=== PATIENT | male | born 1945 | race Caucasian/White ===

== ENCOUNTER → 2017-03-03 | Outpatient (CLI) | payer BC ==
[~2017-03-03] MED LIST: CHOL20002 PO; EZET10TA47 PO; PANT40TA PO; RANI300C PO; TRC145 PO
[2017-03-03 14:45] LABS: ALT/SGPT 38 U/L (12-78); BLOOD UREA NITROGEN 12 mg/dl (7-18); BUN/CREATININE RATIO 10.9 (10-20); CARBON DIOXIDE 24 mmol/L (21-32); CHLORIDE 110 mmol/L (98-107); CHOLESTEROL 173 mg/dl (0-200); GLUCOSE 103 mg/dl (70-99); POTASSIUM 4.1 mmol/L (3.5-5.1); SODIUM 143 mmol/L (136-145); TRIGLYCERIDES 183 mg/dl (0-150); VERY LOW DENSITY LIPOPROT CALC 37 mg/dl
[2017-03-03 14:48] LABS: CHOLESTEROL/HDL RATIO 3.4; HDL CHOLESTEROL 51 mg/dl; LDL CHOLESTEROL CALCULATED 85 mg/dl
[2017-03-03 14:51] LABS: CALCIUM 9.2 mg/dl (8.5-10.1)
== END | disposition home or self-care (01) ==
LOC: C.LABBC 09:38
PROVIDERS: ATTEND Family Medicine
DX: E78.1 Pure hyperglyceridemia (principal); E78.00 Pure hypercholesterolemia, unspecified; R03.0 Elevated blood-pressure reading, without diagnosis of hypertension

== ENCOUNTER → 2017-10-07 | Outpatient (CLI) | payer BC | END | disposition home or self-care (01) | LOC: C.LABBC 08:02 | PROVIDERS: ATTEND Family Medicine | DX: E78.1 Pure hyperglyceridemia (principal); E78.00 Pure hypercholesterolemia, unspecified; Z12.5 Encounter for screening for malignant neoplasm of prostate ==

== ENCOUNTER → 2018-01-27 | Outpatient (CLI) | payer BC | END | disposition home or self-care (01) | LOC: C.PATHSPEC 17:55 | PROVIDERS: ATTEND Physician Assistant | DX: L57.0 Actinic keratosis (principal) ==

== ENCOUNTER 2021-11-27 01:57 | Observation (INO) ==
[2021-11-27] MEDS ORDERED: hydrALAZINE HCL 20 MG/ML VIAL IV STA (02:11)
[2021-11-27] MEDS ORDERED: SODIUM CHLORIDE 0.9% 500 ML IV SCH (02:15)
--- NOTE | 2021-11-27 02:16 | Emergency Department Note ---
History of Present Illness General Chief complaint: Illness Stated complaint: DIZZINESS - JUST OVERALL STRANGE FEELING Time Seen by Provider: 11/27/21 02:05 History of Present Illness 76-year-old male presents emergency department with a 1 week history of generalized weakness, dizziness, recent infection with reported pneumonia as he was at urgent care this week and was prescribed Z-Asad and amoxicillin. Patient states minor diarrhea after these medications. Patient has been complaining of some dizziness that is been intermittent in nature over the past week. His states that he has had decreased p.o. intake. Patient denies chest pain shortness of breath abdominal pain bloody stools. Patient denies headache slurred speech blurred vision. Patient does not have a history of hypertension. Home Medications Medication Instructions Recorded Confirmed Type multivitamin 1 tab PO DAILY 11/01/19 11/27/21 History omega-3 fatty acids 1,000 mg 1,000 mg PO BID 05/29/20 11/27/21 History capsule (Fish Oil Concentrate) atorvastatin 20 mg tablet 20 mg PO DAILY #30 tab 07/23/21 11/27/21 Rx omeprazole 40 mg capsule,delayed 40 mg PO DAILY #30 cap 11/12/21 11/27/21 Rx release cholecalciferol (vitamin D3) 50 50 mcg PO DAILY 11/27/21 11/27/21 History mcg (2,000 unit) tablet (Vitamin D3) Allergies Allergy/AdvReac Type Severity Reaction Status Date / Time No Known Drug Allergies Allergy Unknown GI SYMPTOMS Verified 08/28/21 10:00 Past Med/Surg History Medical History Acid reflux disease Essential hypertriglyceridemia Hypercholesterolemia Surgical History H/O tooth extraction S/P wisdom tooth extraction Family History Denies family history of Ovarian cancer Prostate cancer Myocardial infarction Breast cancer Colorectal cancer Social History Smoking Status: Never smoker Second Hand Exposure: No; Hx Alcohol Use: Yes Alcohol type: beer Alcohol Intake Frequency: 2-3 x/Week Hx Substance Use: No Preferred Language: Belarusian Communication Ability: Effective Visual Impairment: No Limitations Hearing Ability: Normal marital status: Current Living Situation: Spouse current occupational status: retired 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 Feels Safe at Home: Yes Childhood Exposure to Second-Hand Smoke: No Dental Care, Regularly: Yes Physical Activity Frequency: 3-4 Times per Week Seatbelt Use: always Sunscreen Use: Yes Review of Systems A total of 10 systems reviewed and were otherwise negative Constitutional: + fatigue Ear, Nose, Mouth, Throat: + dizziness; no tinnitus Respiratory: + cough; no dyspnea Cardiovascular: no chest pain Neurologic: + generalized weakness and + dizziness; no abnormal speech Physical Exam Vital Signs Vital Signs - 24 hr 11/27/21 02:01 11/27/21 02:18 11/27/21 03:18 Temperature 36.9 C Temperature Source Temporal Artery Scan Pulse Rate 123 H Pulse Rate [Right] 77 Respiratory Rate 16 18 Respiratory Effort / Characteristics Non-Labored Spontaneous Respiratory Depth Normal Blood Pressure 189/103 H Blood Pressure [Right Arm] 184/93 H Blood Pressure Mean 131 Blood Pressure Mean [Right Arm] 123 Blood Pressure Position [Right Arm] Sitting Pulse Oximetry 99 99 99 Oxygen Delivery Method Room Air Room Air Room Air Sepsis Recent Fever Within 48 Hours No Sepsis New/Unexplained Change in Mental Status N/A Sepsis Action Taken by Nursing No Action Required 11/27/21 03:58 11/27/21 04:46 Temperature Temperature Source Pulse Rate Pulse Rate [Right] 73 74 Respiratory Rate 16 16 Respiratory Effort / Characteristics Non-Labored Spontaneous Non-Labored Spontaneous Respiratory Depth Normal Normal Blood Pressure Blood Pressure [Right Arm] 182/91 H 178/90 H Blood Pressure Mean Blood Pressure Mean [Right Arm] 121 119 Blood Pressure Position [Right Arm] Sitting Pulse Oximetry 98 98 Oxygen Delivery Method Room Air Room Air Sepsis Recent Fever Within 48 Hours Sepsis New/Unexplained Change in Mental Status Sepsis Action Taken by Nursing VITAL SIGNS - Vital signs and nursing notes were reviewed. GENERAL - []-year-old [] appearing [] stated age who is in no acute distress. Communicates well with provider and answers questions appropriately. SKIN - Without rashes. HEAD - NC/AT. EYES - PERRL with EOMI bilaterally. Sclera anicteric. Palpebral conjunctiva pink and moist with no injection noted. EARS - No deformities of external structures noted on gross examination bilaterally. No pain elicited with palpation of the tragus bilaterally. External auditory canals without discharge or otorrhea. Tympanic membranes pearly cruz without retraction or bulging. No fluid or purulent material visualized behind the TM. Handle of malleus, umbo, cone of light, pars tensa/flaccid all easily visualized. NOSE - Midline and without cyanosis. No epistaxis or purulent drainage noted. Septum midline without deviation or septal hematoma noted. MOUTH/OROPHARYNX - Without perioral cyanosis. Buccal mucosa pink and moist and without leukoplakia. Tongue midline with equal elevation of palate bilaterally. No tonsillar hypertrophy, erythema, or exudates noted. [] dentition noted. NECK - Neck with FROM. Supple to palpation. [] lymphadenopathy noted. No nuchal rigidity. LUNGS - Chest wall symmetric without accessory muscle use, intercostals retrac tions, or central cyanosis. Normal vesicular breath sounds CTA B/L. No wheezes, rales, or rhonchi appreciated. CARDIAC - RRR with S1/S2. No murmur, rubs, or gallops appreciated. ABDOMEN - Abdominal contour [] without pulsations or visible masses. BS normoactive all four quadrants. No tenderness, palpable masses, hepatosplenomegaly, or ascites noted. EXTREMITIES - No clubbing or peripheral cyanosis. No pretibial edema present. +3/5 radial, posterior tibial, and dorsalis pedis pulses palpated throughout. +5/5 strength noted in UE/LE bilaterally. NEUROLOGIC - Cranial nerves II through XII grossly intact. Sensory intact to light touch throughout. Patellar reflexes +2/4. PSYCH - A&Ox3 and cooperates fully with examiner. Pt is very pleasant and interacts well with examiner. Course Reevaluation(s) Reevaluation #1: Patient states slight dizziness, patient was given IV hydralazine BP has decreas ed to 178/90. Patient has a nonfocal neurologic exam; NIH is 0 at 505am Administered Medications Discontinued Medications Hydralazine HCl (Hydralazine Hcl 20 Mg/Ml Vial) 10 mg IV NOW STA Stop: 11/27/21 02:12 Last Admin: 11/27/21 02:26 Dose: 10 mg Documented by: [id number] Sodium Chloride (Nss) 500 mls @ 999 mls/hr IV .Q31M EULALIA Stop: 11/27/21 02:45 Last Infusion: 11/27/21 02:58 Dose: 0 mls/hr Documented by: [id number] Admin: 11/27/21 02:26 Dose: 999 mls/hr Documented by: [id number] Medical Decision Making Medical Records Attestation: I reviewed the patient's medical records. Laboratory Data Attestation: I reviewed the patient's lab results. Result diagrams: 11/27/21 02:15 11/27/21 02:15 Lab Results 11/27/21 11/27/21 11/27/21 Range/Units 02:15 02:15 02:15 WBC 6.36 (4.8-10.8) K/uL RBC 4.68 L (4.7-6.1) M/uL Hgb 14.4 (14.0-18.0) g/dL Hct 41.4 L (42-52) % MCV 88.5 (80-100) fL MCH 30.8 (25-34) pg MCHC 34.8 (32-36) g/dL RDW Std Deviation 41.2 (36.4-46.3) fL RDW Coeff of You 13.0 (11.5-14.5) % Plt Count 173 (130-400) K/uL MPV 11.1 H (7.4-10.4) fL Immature Gran % (Auto) 0.3 % Neut % (Auto) 36.3 % Lymph % (Auto) 49.4 % [place] % (Auto) 13.8 % Eos % (Auto) 0.2 % Baso % (Auto) 0.0 % Neut # (Auto) 2.31 (1.4-6.5) K/uL Lymph # (Auto) 3.14 (1.2-3.4) K/uL [place] # (Auto) 0.88 H (0.11-0.59) K/uL Eos # (Auto) 0.01 (0-0.5) K/uL Baso # (Auto) 0.00 (0-0.2) K/uL Immature Gran # (Auto) 0.02 (0.00-0.02) K/uL PT 11.2 (9.0-12.0) Seconds INR 1.1 (0.9-1.1) APTT 24.3 (21.0-31.0) Seconds PTT Ratio 0.9 Sodium 142 (136-145) mmol/L Potassium 3.4 L (3.5-5.1) mmol/L Chloride 108 H (98-107) mmol/L Carbon Dioxide 22 (21-32) mmol/L Anion Gap 12 H (3-11) BUN 14 (6-23) mg/dl Creatinine 1.02 (0.6-1.4) mg/dl Est Cr Clr Drug Dosing 74.8 ml/min Est GFR ( Amer) 82.9 ml/min Est GFR (Non-Af Amer) 71.6 ml/min BUN/Creatinine Ratio 13.7 (10-20) Glucose 115 H (70-99(Fasting)) mg/dl Calcium 8.8 (8.5-10.1) mg/dl Total Bilirubin 1.0 (0.2-1.0) mg/dl AST 22 (13-39) U/L ALT 28 (7-52) U/L Alkaline Phosphatase 78 (34-104) U/L Troponin I < 0.03 (0-0.04) ng/ml Total Protein 7.3 (6.0-8.3) gm/dl Albumin 4.7 (3.4-5.0) gm/dl Globulin 2.6 (2.5-4.0) gm/dl Albumin/Globulin Ratio 1.8 (0.9-2) SARS-CoV-2, RNA, NAAT (NEGATIVE) 11/27/21 Range/Units 02:37 WBC (4.8-10.8) K/uL RBC (4.7-6.1) M/uL Hgb (14.0-18.0) g/dL Hct (42-52) % MCV (80-100) fL MCH (25-34) pg MCHC (32-36) g/dL RDW Std Deviation (36.4-46.3) fL RDW Coeff of You (11.5-14.5) % Plt Count (130-400) K/uL MPV (7.4-10.4) fL Immature Gran % (Auto) % Neut % (Auto) % Lymph % (Auto) % [place] % (Auto) % Eos % (Auto) % Baso % (Auto) % Neut # (Auto) (1.4-6.5) K/uL Lymph # (Auto) (1.2-3.4) K/uL [place] # (Auto) (0.11-0.59) K/uL Eos # (Auto) (0-0.5) K/uL Baso # (Auto) (0-0.2) K/uL Immature Gran # (Auto) (0.00-0.02) K/uL PT (9.0-12.0) Seconds INR (0.9-1.1) APTT (21.0-31.0) Seconds PTT Ratio Sodium (136-145) mmol/L Potassium (3.5-5.1) mmol/L Chloride (98-107) mmol/L Carbon Dioxide (21-32) mmol/L Anion Gap (3-11) BUN (6-23) mg/dl Creatinine (0.6-1.4) mg/dl Est Cr Clr Drug Dosing ml/min Est GFR ( Amer) ml/min Est GFR (Non-Af Amer) ml/min BUN/Creatinine Ratio (10-20) Glucose (70-99(Fasting)) mg/dl Calcium (8.5-10.1) mg/dl Total Bilirubin (0.2-1.0) mg/dl AST (13-39) U/L ALT (7-52) U/L Alkaline Phosphatase (34-104) U/L Troponin I (0-0.04) ng/ml Total Protein (6.0-8.3) gm/dl Albumin (3.4-5.0) gm/dl Globulin (2.5-4.0) gm/dl Albumin/Globulin Ratio (0.9-2) SARS-CoV-2, RNA, NAAT NEGATIVE (NEGATIVE) Imaging Data Attestation: I personally reviewed and interpreted this imaging study as follows: My Impression: Chest x-ray interpreted by me negative for infiltrate normal mediastinum Radiologist's Impression: CT HEAD: No acute intracranial abnormality. Senescent changes. If there is further concern for acute intracranial abnormality, consider MRI. Radiologist: Daniel Vazquez MD 4:53 AM ECG Data Attestation: I personally reviewed and interpreted this ECG as follows: Additional Comments: EKG interpreted by me normal sinus rhythm rate of 92 right bundle branch block no obvious ST segment elevation or depression normal axis MDM Narrative Decision making differential diagnosis includes hypertensive crisis, urgency, emergency, dehydration, TIA, metabolic derangement, occult infection. Symptoms have been ongoing for greater than 5 days, will check labs, CT, EKG, treat blood pressure Impression & Plan Dizziness, Hypertension Discharge Plan Visit Data Chief Complaint: Illness Stated Complaint: DIZZINESS - JUST OVERALL STRANGE FEELING ED Provider: Jarek Horton Discharge Problem: Dizziness, Hypertension Patient Disposition: Being Evaluated by Hospitalist Forms Stand Alone Forms: My [facility] Prescriptions Prescriptions: No Action atorvastatin 20 mg tablet 20 mg PO DAILY Qty: 30 RF: 11 omeprazole 40 mg capsule,delayed release(DR/EC) 40 mg PO DAILY Qty: 30 RF: 11 multivitamin Tablet 1 tab PO DAILY RF: 0 omega-3 fatty acids [Fish Oil Concentrate] 1,000 mg capsule 1,000 mg PO BID RF: 0 cholecalciferol (vitamin D3) [Vitamin D3] 50 mcg (2,000 unit) Tablet 50 mcg PO DAILY RF: 0 Referrals Referrals: Monae Johnson MD [Primary Care Provider] - Discharge Problem: Hypertension Qualifiers: Hypertension type: unspecified Qualified Code(s): I10 - Essential (primary) hypertension
[2021-11-27 02:22] LABS: Eosinophils # (auto) 0.01 K/uL (0-0.5); Eosinophils % (auto) 0.2 %; Hematocrit (blood only) 41.4 % (42-52); Hemoglobin 14.4 g/dL (14.0-18.0); Immature Granulocytes # (auto) 0.02 K/uL (0.00-0.02); Immature Granulocytes % (auto) 0.3 %; Lymphocytes # (auto) 3.14 K/uL (1.2-3.4); Lymphocytes % (auto) 49.4 %; Mean Corpuscular Hemoglobin 30.8 pg (25-34); Mean Corpuscular Hgb Conc 34.8 g/dL (32-36); Mean Corpuscular Volume 88.5 fL (80-100); Mean Platelet Volume 11.1 fL (7.4-10.4); Monocytes # (auto) 0.88 K/uL (0.11-0.59); Monocytes % (auto) 13.8 %; Neutrophils # (auto) 2.31 K/uL (1.4-6.5); Neutrophils % (auto) 36.3 %; Platelet Count 173 K/uL (130-400); RDW Standard Deviation 41.2 fL (36.4-46.3); Red Blood Count 4.68 M/uL (4.7-6.1); White Blood Count 6.36 K/uL (4.8-10.8)
[2021-11-27 02:36] LABS: INR 1.1 (0.9-1.1); Partial Thromboplastin Ratio 0.9; Partial Thromboplastin Time 24.3 Seconds (21.0-31.0); Prothrombin Time 11.2 Seconds (9.0-12.0)
[2021-11-27 02:44] LABS: Troponin I < 0.03 ng/ml (0-0.04)
[2021-11-27 03:04] LABS: Alanine Aminotransferase 28 U/L (7-52); Albumin Globulin Ratio 1.8 (0.9-2); Albumin Level 4.7 gm/dl (3.4-5.0); Alkaline Phosphatase 78 U/L (34-104); Anion Gap 12 (3-11); Aspartate Aminotransferase 22 U/L (13-39); BUN Creatinine Ratio 13.7 (10-20); Blood Urea Nitrogen 14 mg/dl (6-23); Calcium 8.8 mg/dl (8.5-10.1); Carbon Dioxide 22 mmol/L (21-32); Chloride 108 mmol/L (98-107); Creatinine Clr Calc Pharmacy 74.8 ml/min; Est GFR (African American) 82.9 ml/min; Est GFR (Non-African American) 71.6 ml/min; Globulin 2.6 gm/dl (2.5-4.0); Glucose 115 mg/dl (70-99(Fasting)); Potassium 3.4 mmol/L (3.5-5.1); Sodium 142 mmol/L (136-145); Total Protein 7.3 gm/dl (6.0-8.3)
--- NOTE | 2021-11-27 05:38 | History & Physical Report ---
Date of Service November 27, 2021 Assessment & Plan (1) Dizziness: Plan: Jarek Burleson is a 76-year-old male with past medical history of hyperlipidemia and GERD who arrived at [facility] due to dizziness for about a week. Dizziness Admit for observation and further neuro imaging as below Negative head CT reassuring however, will fully rule out possibility of stroke with MRI brain as well as CTA head/neck For now, will allow permissive hypertension in case of possible stroke If findings are consistent with stroke, will benefit from DAPT, blood pressure control, high intensity statin For now continue moderate intensity atorvastatin -A1c and lipid panel screen for risk factors Fall precautions Hypertension No prior history of this As above, will allow permissive hypertension until imaging results If negative, patient will likely need to be started on chronic blood pressure management Cardiac monitoring GERD Pantoprazole per hospital formulary Hyperlipidemia Continue atorvastatin 20 mg daily If findings consistent with stroke, will need to increase to high intensity statin Lipid profile ordered DVT prophylaxis: SCDs, hold chemoprophylaxis pending neuroimaging Dispo: Med telemetry Diet: NPO for now CODE STATUS: Full (2) Hypertension: (3) Acid reflux disease: (4) Hypercholesterolemia: History of Present Illness Primary Care Provider: Monae Johnson MD Jarek Burleson is a 76-year-old male with past medical history of hyperlipidemia and GERD who arrived at [facility] due to dizziness for about a week. He had felt that the dizziness was coming and going, but today felt like it had become a little worse. He has also had associated generalized weakness as well as some mild neck pain. He denies any other symptoms including chest pain, palpitations, shortness of breath, cough, abdominal pain, nausea, vomiting, diarrhea, fever, chills, focal deficits, confusion, speech difficulties. Of note, patient did have pneumonia diagnosed at an urgent care about 10 days ago and was treated with a Z-Asad and amoxicillin. When he arrived in the ED he had blood pressure up to 189/103. He received hydralazine 10 mg x 1, which mildly improved his BP to 170s over 90s. Lab work showed white count of 6.36, hemoglobin 14.4, potassium mildly decreased at 3.4, negative troponin. Chest x-ray was clear and head CT showed no acute intracranial process. Allergies Allergy/AdvReac Type Severity Reaction Status Date / Time No Known Drug Allergies Allergy Unknown GI SYMPTOMS Verified 08/28/21 10:00 Home Medications Medication Instructions Recorded Confirmed Type multivitamin 1 tab PO DAILY 11/01/19 11/27/21 History omega-3 fatty acids 1,000 mg 1,000 mg PO BID 05/29/20 11/27/21 History capsule (Fish Oil Concentrate) omeprazole 40 mg capsule,delayed 40 mg PO DAILY #30 cap 11/12/21 11/27/21 Rx release atorvastatin 40 mg tablet 40 mg PO DAILY #30 tab 11/27/21 Rx cholecalciferol (vitamin D3) 50 50 mcg PO DAILY 11/27/21 11/27/21 History mcg (2,000 unit) tablet (Vitamin D3) lisinopril 10 mg tablet 10 mg PO DAILY #30 tab 11/27/21 Rx meclizine 25 mg tablet 25 mg PO DAILY PRN #14 tab MDD 100 11/27/21 Rx mg Past Med/Surg History Medical History Acid reflux disease Essential hypertriglyceridemia Hypercholesterolemia Surgical History H/O tooth extraction S/P wisdom tooth extraction Family History Denies family history of Ovarian cancer Prostate cancer Myocardial infarction Breast cancer Colorectal cancer Social History Smoking Status: Never smoker Second Hand Exposure: No; Hx Alcohol Use: Yes Alcohol type: beer Alcohol Intake Frequency: 2-3 x/Week Hx Substance Use: No Preferred Language: Grenadian Communication Ability: Effective Visual Impairment: No Limitations Hearing Ability: Normal Maintenance Assistant Required: No Beliefs That Will Affect Care: None marital status: Current Living Situation: Spouse 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 NAD. HEENT: PERRL, EOMI. Moist mucous membranes. NECK: No JVD. No lymphadenopathy. CHEST/LUNGS: CTAB A/P. No crackles, wheezes, rales, rhonchi. HEART: RRR. No m/g/r. No carotid bruits. ABDOMEN: NT/ND, soft. BS+ x4 EXTREMITIES: No cyanosis, no clubbing, no edema SKIN: Warm and dry. No rashes or lesions. PSYCHIATRIC: Euthymic affect, no SI, no pressured speech, no hallucinations NEUROLOGIC: No FND. CN II-XII grossly intact. Results & Data Results & Data ([facility]) Vital Signs (Past 12 Hours) Vital Signs Temp Pulse Pulse Resp BP BP Pulse Ox 11/27/21 04:46 74 16 178/90 H 98 11/27/21 03:58 73 16 182/91 H 98 11/27/21 03:18 77 18 184/93 H 99 11/27/21 02:18 99 11/27/21 02:01 36.9 C 123 H 16 189/103 H 99 Code Status & VTE Plan VTE Prophylaxis Plan VTE Prophylaxis will be ordered: Yes Supervising Physician Co-Signing Physician Notes Attending addendum: I have physically seen this patient, have supervised the medical residents activities, and agree with the H&P unless as otherwise noted. Assessment and Plan: Dizziness/uncontrolled hypertension/TIA type symptoms- CT head negative Order CTA head neck. Order MRI Permissive hypertension overnight Stroke without TPA order set Hyperlipidemia- Continue atorvastatin Remaining orders and notations as noted Resident Activity Tracking Resident Involvement: Resident Care Provided Care Provided: Adult Hospital Medicine (1) Hypertension Hypertension type: unspecified Qualified Code(s): I10 - Essential (primary) hypertension
[2021-11-27] MEDS ORDERED: OPTIRAY 320 125ml IV ONE (05:55)
--- NOTE | 2021-11-27 06:39 | XRay Report ---
XR chest 1V portable HISTORY: 76 years-old Male weakness acute weakness COMPARISON: None TECHNIQUE: Portable AP view of the chest FINDINGS: Cardiac silhouette is enlarged. No pneumothorax, large pleural effusion or overt pulmonary edema. Mil d left hemidiaphragmatic elevation. No airspace consolidation typical for pneumonia. Degenerative david nges of the shoulders and spine. IMPRESSION: Cardiomegaly without acute process. ACT 112: Negative or not required by law. The above report was generated using voice recognition software. It may contain grammatical, syntax o r spelling errors. Electronically signed by: Papito Larson M.D. 11/27/2021 6:37 AM
[2021-11-27 06:45] LABS: Chol HDL Ratio 2.9 (0-5)
--- NOTE | 2021-11-27 06:50 | CT Scan Report ---
CTA ANGIOGRAPHY OF THE HEAD CLINICAL HISTORY: Dizziness. Weakness. Evaluate for stroke. COMPARISON STUDY: No previous studies for comparison. TECHNIQUE: Helical axial images of the head were obtained following uneventful intravenous administr ation of 118 cc of Optiray. Sagittal and coronal reconstructions were viewed as well as maximal inten sity projections on an independent 3-D workstation. Automated exposure control was utilized for the study. A dose lowering technique was utilized adhering to the principles of ALARA. CT DOSE: 675.19 mGy.cm FINDINGS: Please note that the CTA of the neck will be reported separately. No acute intracranial hem orrhage, midline shift or mass effect is present. Ventricular system is normal. Basal cisterns are pa tent. There are no extra-axial collections. White matter hypodensity suggests small vessel disease. S uspected 1.4 cm old infarct within the left caudate nucleus is noted. There is polypoid mucosal thick ening of the maxillary sinuses and mild mucosal thickening of the left frontal sinus. The bilateral M 1, M2, A1 and A2 segments are patent. There is no intracranial aneurysm. There is no central vessel o cclusion. Mild atherosclerotic plaque within the bilateral cavernous carotids is noted. 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 Posterior circulation is intact. IMPRESSION: 1. No central vessel occlusion. No intracranial aneurysm. 2. White matter hypodensities which favor small vessel disease. 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 ACT 112: Negative or not required by law. Electronically signed by: Brannon Chavez M.D. 11/27/2021 6:48 AM
--- NOTE | 2021-11-27 06:57 | CT Scan Report ---
CT head/brain wo con CLINICAL HISTORY: 76 years-old Male with dizziness. Acute dizziness TECHNIQUE: Multiple axial CT images of the head were obtained without contrast. A dose lowering tech nique was utilized adhering to the principles of ALARA. CT DOSE: 614.27 mGy.cm COMPARISON: None. FINDINGS: No acute intracranial hemorrhage, midline shift, intracranial mass, hydrocephalus, territorial ischem ia or abnormal extra-axial collection. Age-related involutional changes. White matter hypodensities s uggest chronic microvascular ischemic disease. Chronic appearing left caudate and lentiform nuclear l acunar infarcts. Cerebral vascular calcifications. The calvarium is intact. Metopic suture. The paranasal sinuses, mastoid air cells, and middle ear cav ities are clear. IMPRESSION: 1. No acute intracranial abnormality. 2. Chronic appearing left basal ganglia lacunar infarcts. ACT 112: Negative or not required by law. The above report was generated using voice recognition software. It may contain grammatical, syntax o r spelling errors. Electronically signed by: Papito Larson M.D. 11/27/2021 6:56 AM
--- NOTE | 2021-11-27 07:04 | CT Scan Report ---
CT ANGIOGRAPHY OF THE NECK WITH CONTRAST CLINICAL HISTORY: Dizziness. Weakness. Evaluate for stroke. COMPARISON STUDY: CT of the neck August 08, 2006. Technique: CT angiography of the carotid and vertebral arteries was obtained using Optiray and 3D rec onstruction on an independent workstation. NASCET criteria was utilized. Automated exposure control was utilized for the study. A dose lowering technique was utilized adhering to the principles of ALA RA. Findings: Lung apices are unremarkable. There is no acute cervical spine fracture. No cervical lympha denopathy is present. The bilateral common carotid, cervical internal carotid and vertebral arteries are patent. There is mild plaque within the proximal left cervical internal carotid artery. No stenos is or dissection is identified within these vessels. There is no intraluminal thrombus. No aneurysm w ithin the neck is present. IMPRESSION: No stenosis or dissection within the bilateral common carotid, cervical internal carotid or vertebral arteries. ACT 112: Negative or not required by law. Electronically signed by: Brannon Chavez M.D. 11/27/2021 7:02 AM
[2021-11-27] MEDS ORDERED: GADOBUTROL 65ML VIAL IV ONE (07:47)
[2021-11-27] MEDS ORDERED: ONDANSETRON INJ 2 MG/ML 2 ML VIAL IV PRN (08:36)
[2021-11-27] MEDS ORDERED: ALUMINUM/MAGNESIUM SUSP 30 ML UDC PO PRN (08:36)
[2021-11-27] MEDS ORDERED: ACETAMINOPHEN 325 MG TAB PO PRN (08:36)
[2021-11-27] MEDS ORDERED: POLYETHYLENE (MIRALAX) 17 GM PACK PO PRN (08:36)
[2021-11-27] MEDS ORDERED: MULTIVITAMIN TAB PO SCH (09:00)
[2021-11-27] MEDS ORDERED: CHOLECALCIFEROL 1,000 UNITS 25 MCG TAB PO SCH (09:00)
[2021-11-27] MEDS ORDERED: OMEGA-3 (PURIFIED FISH OIL) 1 GM CAP PO SCH (09:00)
[2021-11-27] MEDS ORDERED: ATORVASTATIN 20 MG TAB PO SCH (09:00)
[2021-11-27] MEDS ORDERED: PANTOprazole 40 MG TAB PO SCH (09:00)
[2021-11-27] MEDS ORDERED: PNEUMOCOCCAL POLYSACCHARIDES 25 MCG/0.5 ML VIAL/SYR IM ONE (09:30)
--- NOTE | 2021-11-27 09:43 | Magnetic Resonance Report ---
MRI OF THE BRAIN WITHOUT AND WITH IV CONTRAST CLINICAL HISTORY: Dizziness. Weakness. Evaluate for stroke. COMPARISON STUDY: Head CT and CTA of the head performed earlier today. TECHNIQUE: Utilizing a 1.5 Isabel magnet and dedicated coil, multiplanar, multiecho imaging of the br ain was performed pre and postcontrast administration. IV administration of 9.5 mL of Gadavist contr ast was uneventful. FINDINGS: There are no foci of restricted diffusion to suggest acute infarct. No acute intracranial h emorrhage, midline shift or mass effect is present. Note is made of a small 7 mm right parafalcine en hancing focus which corresponds to a densely calcified focus on CT. This is benign and could reflect ossification along the falx or a small meningioma. This likely reflects a tiny meningioma. No additio nal intracranial lesions are present. White matter T2 hyperintense foci suggest small vessel disease. 1.3 cm old infarct within left caudate nucleus is noted. Ventricular system is unremarkable. Basal c isterns are patent. There are no extra-axial collections. There is no mastoid fluid. Polypoid mucosal thickening of the sinuses is present. IMPRESSION: 1. No acute intracranial findings. 2. White matter T2 hyperintense foci suggestive of moderate small vessel disease. 3. 1.3 cm old infarct within the left caudate nucleus. ACT 112: Negative or not required by law. Electronically signed by: Brannon Chavez M.D. 11/27/2021 9:42 AM
[2021-11-27 10:00] LABS: Estimated Average Glucose 111 mg/dl; Hemoglobin A1C 5.5 % (4.5-5.6)
[2021-11-27] MEDS ORDERED: hydroCHLOROthiazide 25 MG TAB PO STA (10:47)
[2021-11-27] MEDS ORDERED: POTASSIUM CHLORIDE CRTAB 20 MEQ TABCR PO STA (10:49)
[2021-11-27] MEDS ORDERED: lisinopril 10 MG TAB PO SCH (11:00)
--- NOTE | 2021-11-27 16:23 | Discharge Summary ---
Date of Service November 27, 2021 Admission HPI Per Admitting Provider Jarek Burleson is a 76-year-old male with past medical history of hyperlipidemia and GERD who arrived at [facility] due to dizziness for about a week. He had felt that the dizziness was coming and going, but today felt like it had become a little worse. He has also had associated generalized weakness as well as some mild neck pain. He denies any other symptoms including chest pain, palpitations, shortness of breath, cough, abdominal pain, nausea, vomiting, diarrhea, fever, chills, focal deficits, confusion, speech difficulties. Of note, patient did have pneumonia diagnosed at an urgent care about 10 days ago and was treated with a Z-Asad and amoxicillin. When he arrived in the ED he had blood pressure up to 189/103. He received hydralazine 10 mg x 1, which mildly improved his BP to 170s over 90s. Lab work showed white count of 6.36, hemoglobin 14.4, potassium mildly decreased at 3.4, negative troponin. Chest x-ray was clear and head CT showed no acute intracranial process. Admission Exam Per Admitting Provider GENERAL: A&Ox3. NAD. HEENT: PERRL, EOMI. Moist mucous membranes. NECK: No JVD. No lymphadenopathy. CHEST/LUNGS: CTAB A/P. No crackles, wheezes, rales, rhonchi. HEART: RRR. No m/g/r. No carotid bruits. ABDOMEN: NT/ND, soft. BS+ x4 EXTREMITIES: No cyanosis, no clubbing, no edema SKIN: Warm and dry. No rashes or lesions. PSYCHIATRIC: Euthymic affect, no SI, no pressured speech, no hallucinations NEUROLOGIC: No FND. CN II-XII grossly intact. Principal Diagnosis Dizziness, Hypertensive Urgency Discharge Data Allergies Allergy/AdvReac Type Severity Reaction Status Date / Time No Known Drug Allergies Allergy Unknown GI SYMPTOMS Verified 08/28/21 10:00 Consultations 11/27/21 05:18 ED Decision to Admit Stat Ordered Studies 11/27/21 02:11 CT head/brain wo con Urgent 11/27/21 05:37 CT angio head w con Urgent CT angio neck with con Urgent MR brain wo/w con Routine Hospital Course (1) Dizziness: Jarek Burleson is a 76-year-old male with past medical history of hyperlipidemia and GERD who arrived at [facility] due to dizziness for about a week. Dizziness Admited for observation and further neuro imaging as below Negative head CT reassuring, MRI showed no acute infarction, but found previous infarction. After discovering this, pt had atorvastatin increased to high inensity and recommended continuing daily aspirin. Hypertension No prior history of this, started on lisinopril while in hospital. Please check BMP in one week. Cardiac monitoring, ordered holter monitor for outpatient rhythm recording due to hx of previous stroke. GERD Continue omeprazole Hyperlipidemia Atorvastatin 20 mg changed to 40 mg due to hx of previous stroke found on MRI DVT prophylaxis: SCDs, hold chemoprophylaxis pending neuroimaging Dispo: Home, self care Diet: Heeart Healthy CODE STATUS: Full (2) Hypertension: (3) Acid reflux disease: (4) Hypercholesterolemia: Total Time Total Time Spent Total Time Spent (In Minutes): <30 Discharge Plan Discharge Items Patient Disposition: Home - Self-Care Reason For Visit: DIZZINESS, HYPERTENSIVE URGENCY Discharge Diagnosis: Dizziness, HTN Activity: Per Instructions section Non-emergency contact: Primary Care Provider Call non-emergency contact if: you have any medication questions and your symptoms worsen Follow-up/Referrals: Monae Johnson MD [Primary Care Provider] - Diet: Regular Addtl Attending Provider Instructions: You were seen in the hospital for the concerns for new onset dizziness over the past week as well as elevated blood pressure. While you were here you had a work-up for a stroke that did ultimately come back negative. On one of the imaging modalities (MRI) there was evidence found of a previous stroke. Because of this, your atorvastatin was increased to 40 mg from 20 mg. This is to aid in the reduction in risk for future strokes. In addition we recommend that you continue taking your daily aspirin. We are also going to order a heart monitor for you to wear to check for any abnormal rhythms that may cause clots. You will receive a call regarding this monitor being placed. 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 I am going to send a medication called meclizine to your pharmacy. You can take this medication when you get dizzy and it could help improve your symptoms sooner than if not taking it at all. Due to the elevated blood pressures, you were started on lisinopril, a blood pressure medication, to help normalize your pressures. Please take this medication every day. A script will be sent to your pharmacy. Please follow up with your primary care provider within one week for further care instructions. We have requested that your PCP get some blood work at the time of this appointment to check how you are tolerating the medication. It has been a pleasure to be a part of your care and we wish you the best in your health and recovery. Pending Studies at Discharge: No Stand-Alone Forms: My [facility], Smoking Cessation Medications and DC Order Prescriptions: New atorvastatin 40 mg tablet 40 mg PO DAILY Qty: 30 RF: 0 lisinopril 10 mg tablet 10 mg PO DAILY Qty: 30 RF: 0 meclizine 25 mg tablet 25 mg PO DAILY MDD 100 mg PRN (Reason: dizziness or vertigo) Qty: 14 RF: 0 Continued omeprazole 40 mg capsule,delayed release(DR/EC) 40 mg PO DAILY Qty: 30 RF: 11 multivitamin Tablet 1 tab PO DAILY RF: 0 omega-3 fatty acids [Fish Oil Concentrate] 1,000 mg capsule 1,000 mg PO BID RF: 0 cholecalciferol (vitamin D3) [Vitamin D3] 50 mcg (2,000 unit) Tablet 50 mcg PO DAILY RF: 0 Discontinued atorvastatin 20 mg tablet 20 mg PO DAILY Qty: 30 RF: 11 Discharge Orders: Discharge Order (Routine); Ordered 11/27/21 Ordered By: Ricky Horton/Other Patient Handouts: Meclizine Oral Tablet 25 mg, Lisinopril Oral Tablet 10 mg, Anatomy of the Inner Ear, Dizziness Balance Probs Fainting, Hypertension Dc Admission Data Admit Date/Time: 11/27/21 05:37 Attending Provider: Ariel Tee Admit Provider: Han Ceron Primary Care Provider: Monae Johnson Other Providers: Scott Yuen Other Interventions: Discharge Summary Assessment (RN) Last Done: 11/27/21 16:34 Supervising Physician Co-Signing Physician Notes I personally examined the patient and verified all ramirez points of history and exam, discussed case, and agree with decision making with Dr Chance feeling better. dizziness mostly a vertiginous sensation but happens more when he's up for a while. 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
--- NOTE | 2021-11-27 17:04 | Billing Data ---
Date of Service November 27, 2021 Coding Level of Care Code 99508 OBS Care - Discharge
--- NOTE | 2021-11-27 21:46 | Billing Data ---
Date of Service November 27, 2021 Coding Level of Care Code INT OBSERVATION CARE 71M LVL 3
--- NOTE | 2021-11-28 06:14 | Electrocardiogram Report ---
Test Reason : Blood Pressure : / mmHG Vent. Rate : 092 BPM Atrial Rate : 092 BPM P-R Int : 174 ms QRS Dur : 138 ms QT Int : 392 ms P-R-T Axes : 071 028 017 degrees QTc Int : 484 ms Normal sinus rhythm with sinus arrhythmia Right bundle branch block Abnormal ECG No previous ECGs available Confirmed by Scott Quiroga ([id number]) on 11/28/2021 6:14:42 AM Referred By: REFERRED SELF Confirmed By:Scott Quiroga
[2021-11-28] MEDS ORDERED: ATORVASTATIN 40 MG TAB PO SCH (09:00)
== END 2021-11-27 17:31 | disposition home or self-care (01) ==
LOC: ED 01:57 → 2S 01:57 → SUATTDRO 05:37 → 2S 07:20

== ENCOUNTER 2023-11-05 05:06 | Observation (INO) ==
--- NOTE | 2023-10-06 15:34 | PAT Medication Instructions ---
Medication Instructions Date of Service October 06, 2023 Home Medications multivitamin 1 tab PO QAM omega-3 fatty acids 1,000 mg capsule (Fish Oil Concentrate) 1,000 mg PO QAM cholecalciferol (vitamin D3) 50 mcg (2,000 unit) tablet (Vitamin D3) 50 mcg PO QAM lisinopril 20 mg tablet 20 mg PO BID amlodipine 10 mg tablet 10 mg PO QDL ascorbic acid (vitamin C) 500 mg tablet (Vitamin C) 500 mg PO QDL aspirin 81 mg capsule 81 mg PO QAM atorvastatin 40 mg tablet 40 mg PO QPM celecoxib 100 mg capsule (Celebrex) 100 mg PO QPM hydroxyzine HCl 25 mg tablet 25 mg PO HS PRN Sleep omeprazole 40 mg capsule,delayed release 40 mg PO QAM polyethylene glycol 1 ea miscellaneous BID Continue as directed amlodipine 10 mg tablet 10 mg PO QDL ASK your surgeon for instructions celecoxib 100 mg capsule (Celebrex) 100 mg PO QPM STOP taking 2 weeks before surgery omega-3 fatty acids 1,000 mg capsule (Fish Oil Concentrate) 1,000 mg PO QAM DO NOT take the morning of surgery multivitamin 1 tab PO QAM cholecalciferol (vitamin D3) 50 mcg (2,000 unit) tablet (Vitamin D3) 50 mcg PO QAM lisinopril 20 mg tablet 20 mg PO BID ascorbic acid (vitamin C) 500 mg tablet (Vitamin C) 500 mg PO QDL polyethylene glycol 1 ea miscellaneous BID Take morning of surgery With a small sip of water, OTHERWISE NOTHING TO EAT OR DRINK AFTER MIDNIGHT: aspirin 81 mg capsule 81 mg PO QAM (unless surgeon directed otherwise) omeprazole 40 mg capsule,delayed release 40 mg PO QAM Take evening before surgery lisinopril 20 mg tablet 20 mg PO BID atorvastatin 40 mg tablet 40 mg PO QPM hydroxyzine HCl 25 mg tablet 25 mg PO HS PRN Sleep (if needed) polyethylene glycol 1 ea miscellaneous BID Other Notes If you have any questions please call us at [phone] or [phone] or [phone] or [phone]
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
[2023-11-05] MEDS: LR 60ML/HR IV SCH (05:55)
[2023-11-05] MEDS: LR 500ML BOLUS, THEN 15ML/HR IV SCH (05:55)
[2023-11-05] MEDS: ACETAMINOPHEN 500 MG TAB PO SCH ×2 (05:56→12:59)
[2023-11-05] MEDS: FAMOTIDINE 20 MG TAB PO SCH (05:56)
[2023-11-05] MEDS: GABAPENTIN 300 MG CAP PO SCH (05:56)
[2023-11-05] MEDS: METOCLOPRAMIDE HCL 10 MG TABLET PO SCH (05:56)
[2023-11-05] MEDS: dexAMETHasone**PF** 10 MG/ML VIAL IV SCH (05:56)
[2023-11-05] MEDS: CeleBREX 200 MG CAP PO SCH ×2 (05:57→19:51)
[2023-11-05] MEDS ORDERED: EPINEPHrine INJ 1 MG/ML AMP ONE (06:16)
[2023-11-05] MEDS ORDERED: BUPIVACAINE 0.5 % 5 MG/1 ML PF 10ML VIAL ONE (06:16)
[2023-11-05] MEDS ORDERED: ROPIVACAINE 0.5% 5 MG/ML 30 ML VIAL ONE (06:17)
[2023-11-05] MEDS ORDERED: PROPOFOL IV EMULSION 10 MG/ML 20 ML VIAL IV ONE ×4 (06:44→09:17)
[2023-11-05] MEDS ORDERED: LIDOCAINE 2% 2 ML VIAL/AMP(20MG/ML) INFIL ONE (06:44)
[2023-11-05] MEDS ORDERED: MIDAZOLAM HCL 1 MG/ML 2ML VIAL ONE (06:45)
[2023-11-05] MEDS ORDERED: fentaNYL citrate PF 100 MCG/2 ML VIAL ONE (06:45)
[2023-11-05] MEDS: TRANEXAMIC ACID 1,000 MG **IV Pre-op IV SCH (07:06)
--- NOTE | 2023-11-05 07:14 | History & Physical Bridge Note ---
Date of Service November 05, 2023 History & Physical Bridge Note I have examined the patient, reviewed the History & Physical and in the interval since the performance of the History & Physical I have noted the following changes of clinical significance: no changes noted
[2023-11-05] MEDS: ceFAZolin 2000MG 2,000 MG/15 ML SYR IV SCH ×2 (07:24→16:44)
[2023-11-05] MEDS ORDERED: fentaNYL citrate PF 100 MCG/2 ML VIAL IV PRN (07:25)
[2023-11-05] MEDS ORDERED: ATROPINE SULFATE 0.1 MG/ML 10ML SYR IV PRN (07:25)
[2023-11-05] MEDS ORDERED: HYDROmorphone INJ 1 MG/ML SYRINGE IV PRN (07:25)
[2023-11-05] MEDS ORDERED: NALOXONE HCL 0.4 MG/1 ML VIAL/CARP IV PRN ×2 (07:25→11:02)
[2023-11-05] MEDS ORDERED: ePHEDrine sulfate 50 MG/ML AMP IV PRN (07:25)
[2023-11-05] MEDS ORDERED: FLUMAZENIL 0.1 MG/1 ML 10 ML VIAL IV PRN (07:25)
[2023-11-05] MEDS ORDERED: PROMETHAZINE HCL 6.25 MG in SODIUM CHLORIDE 0.9% 50 ML IV PRN (07:25)
[2023-11-05] MEDS ORDERED: ONDANSETRON INJ 2 MG/ML 2 ML VIAL IV PRN ×2 (07:25→11:02)
[2023-11-05] MEDS: ROPIV 0.5% 246mg, Ketorolac 30mg, EPINEPHrine 0.5mg in NSS INFIL SCH (08:00)
[2023-11-05] MEDS: ORTHO JOINT ANESTHETIC ONE (08:00)
[2023-11-05] MEDS: TRANEXAMIC ACID 1,000 MG **IV Intra-op IV SCH (09:06)
[2023-11-05] MEDS ORDERED: ONDANSETRON INJ 2 MG/ML 2 ML VIAL ONE (09:09)
[2023-11-05] MEDS ORDERED: PHENYLEPHRINE 100MCG/ML 10ML SYR IV ONE (09:09)
--- NOTE | 2023-11-05 09:46 | Post Operative Brief Note ---
Immediate Post Op Note v1 Date of Surgery November 05, 2023 Pre & Post Diagnosis Operation Date: 11/05/23 07:15 Pre-Op Diagnosis: Left Knee Osteoarthritis Post-Op Diagnosis: Left Knee Osteoarthritis I identified the patient and participated in the time-out.: Yes Procedure Operation Date: 11/05/23 07:15 Actual Procedures p Left Total Knee Arthroplasty(Left), Won and Acticoat superficial wound VAC application - Wesley Foster MD Surgeon Wesley Foster MD Chief Substation Operator Leiws TURK Estimated Blood Loss 5 Findings Consistent with Post-Op Diagnosis Specimens bone cuts Drains Hemovac Drain Anesthesia Type MAC Spinal Regional Complications none Disposition Disposition: Recovery Room Overlapping Procedure I was immediately available: during the entire case.
--- NOTE | 2023-11-05 10:02 | Operative Report ---
Post Operative Report Pre & Post Diagnosis Operation Date: 11/05/23 07:15 Pre-Op Diagnosis: Left Knee Osteoarthritis, loose bodies knee joint Post-Op Diagnosis: Left Knee Osteoarthritis, loose bodies knee joint I identified the patient and participated in the time-out.: Yes Procedure Operation Date: 11/05/23 07:15 Actual Procedures p Left Total Knee Arthroplasty(Left), excision loose bodies, renan and Acticoat superficial wound VAC application - Wesley Foster MD Surgeon Wesley Foster MD Mail Carrier Technician Lewis TURK Estimated Blood Loss 5 Findings Consistent with Post-Op Diagnosis Specimens bone cuts Drains 2 Hemovac Anesthesia Type MAC Spinal Regional Complications none Disposition Disposition: Recovery Room Indications 78-year-old male with chronic progressive osteoarthritis in his left knee failed conservative management. Radiographs demonstrate [id number] patellofemoral joint and medial compartment with a varus knee and he has multiple loose bodies in the lateral gutter area Description of Procedure the patient was taken to the operating room and anesthetized under MAC regional block spinal anesthesia Patient was placed supine on the the operating table. A pneumatic tourniquet was placed about the right upper thigh. The knee exam demonstrated moderately large effusion normal range of motion no instability The involved leg was elevated exsanguinated with Esmarch bandage and the pneumatic tourniquet was raised to 300 millimeters mercury. A longitudinal incision was made across the anterior knee. Skin flaps were elevated. An incision was made into the medial retinaculum and extended up into the mid third of the quadriceps tendon and extended down to the tibial tubercle. Intra-articular findings demonstrated in the lateral subsynovial retinacular area there was multiple smooth round loose bodies but also calcifications that were embedded into the soft tissue adjacent to the lateral retinaculum tissue. Loose bodies varied in size including8 x 6 round loose body, multiple small loose bodies, there was a 10mm by 8 mm calcification in the synovial lateral retinacular tissue and then there was another 6mm x 6mm calcification in the lateral retinacular tissue. These had to be shelled out with electrocautery and some of the synovium removed along with the loose fragments until all loose fragments were removed in that area. In the medial compartment was [id number] and patellofemoral joint with [id number] there as well and there was a high- grade partial ACL tear which is remnant of the ACL and tricompartmental osteophytes including notch stenosis. The knee was exposed by excising The remnant of anterior cruciate ligament and the posterior cruciate ligament and menisci. The infrapatellar fat pad was resected. The fat pad over the anterior femur at the upper aspect of the articular surface was resected for placement of the component in that area. A subperiosteal peel lateral release was performed around the patella. The Sr [employer] Nephew journey 2.0 total knee arthroplasty system was utilized for the procedure. The custom femoral cutting guide was pinned in position. The distal femoral cut was made. The size 7, 5 in 1 cutting block was placed. The anterior posterior and chamfer cuts were made. The knee was extended and a free hand cut technique was performed to the patella. The patella width was measured and the width was reproduced using a 38 mm symmetrical patella component. The excess lateral facet was beveled off to prevent any impingement. 3 drill holes are made for the patella component pegs. The tibia was then subluxed. The custom tibial cutting block was pinned in position and the proximal tibial cut was made with the oscillating saw. Flexion and extension gaps were balanced. minor medial releases were required. The size 7 tibial trial was externally rotated in line with the tibial tubercle and pinned in position. The punch for the stem was used. The femoral trial was inserted and centered the notch cutting devices were used and the collet was placed. Tibial trials were used for the insert. The size 11 trial gave balanced ligaments through full range of motion. Patella tracking was assessed with range of motion. The patella tracked centrally. The trials were removed. The Orthomix anesthetic cocktail was injected per protocol. The cut bone surfaces and soft tissue were copiously irrigated with pulsatile lavage saline solution. The final components were cemented with Refobacin cement. The final components were Sr & Nephew journey 2.0 size 7 posterior stabilized left femoral component, left tibial component size 7, 11 mm posterior stabilized tibial polyethylene and a 38 mm symmetrical polyethylene patella.Xperience irrigation was placed over metal tray prior to polyethyle insertion. After the cement cured, the knee was then copiously irrigated with pulsatile lavage Xperience solution. 2 drains were brought out laterally connected to Hemovac. The quadriceps tendon and medial retinaculum were closed with interrupted cnydju-pa-dexix #1 Vicryl sutures. The knee was taken through full range of motion and repair was secure. Knee range of motion was 0-130 degrees. the subcutaneous tissues were closed with 2-0 Vicryl sutures. The skin was closed with surgical veronica. A Renan and Acticoat superficial wound VAC was applied. The tourniquet was let down and the patient had good capillary refill to the extremity. The patient tolerated the procedure well. My physician acute care certified nursing assistant Lewis TURK participated as front desk assistant and was integral part in all aspects of the procedure including prepping, draping, leg positioning, soft tissue retraction, instrument manag ement and assisted in the closure , superficial wound VAC application and will participate in postoperative care the patient. I attest to the content of the Intraoperative Record and any orders documented therein. Any exceptions are noted below.
--- NOTE | 2023-11-05 10:39 | Anesthesiology Progress Note ---
Date of Service November 05, 2023 Anesthesia Post Procedure Vital Signs Vital Signs: Temp Pulse Pulse Resp BP Pulse Ox O2 Del Method 11/05/23 10:30 36.7 C 83 25 H 157/72 H 97 Room Air 11/05/23 10:20 76 23 131/60 98 Oxymask 11/05/23 10:10 78 17 136/63 98 Oxymask 11/05/23 10:00 82 17 143/70 H 100 Oxymask 11/05/23 09:50 36.9 C 76 12 138/65 98 Oxymask 11/05/23 05:28 36.6 C 68 18 166/79 H 98 Room Air O2 Flow Rate 11/05/23 10:30 11/05/23 10:20 1 11/05/23 10:10 3 11/05/23 10:00 5 11/05/23 09:50 7 11/05/23 05:28 Pain Intensity Left Knee: Pain Intensity: 0 Transfer of Care Handoff Completed per policy Notes Mental Status: alert / awake / arousable Patient Amnestic to Procedure: Yes Nausea / Vomiting: adequately controlled Pain: adequately controlled Airway Patency, RR, SpO2: stable & adequate BP & HR: stable & adequate Hydration State: stable & adequate Neuraxial Anesthesia: was administered and sensory block is resolving Anesthetic Complications: no major complications apparent
--- NOTE | 2023-11-05 11:00 | XRay Report ---
XR knee LT 1 or 2V routine CLINICAL HISTORY: Surgical Post Op TECHNIQUE: 2 views of the left knee were obtained. Comparison: None available at the time of this dictation. FINDINGS: Patient is status post total knee arthroplasty with expected postsurgical changes including soft tiss ue swelling and subcutaneous emphysema. No periarticular lucency or hardware fracture is seen. IMPRESSION: Expected postoperative appearance status post placement of total knee arthroplasty. ACT 112: Negative or not required by law. Electronically signed by: Alexy Chavarria M.D. 11/05/2023 10:59 AM
[2023-11-05] MEDS ORDERED: METOCLOPRAMIDE HCL INJ 5 MG/ML 2 ML VIAL IV PRN (11:02)
[2023-11-05] MEDS ORDERED: bisacodyL 10 MG SUPP PR PRN (11:02)
[2023-11-05] MEDS ORDERED: MAGNESIUM HYDROXIDE SUSP 30 ML UDC PO PRN (11:02)
[2023-11-05] MEDS ORDERED: hydrOXYzine HCl 25 MG TAB PO PRN (11:02)
[2023-11-05] MEDS ORDERED: TAMSULOSIN HCL 0.4 MG CAP PO PRN (11:02)
[2023-11-05] MEDS ORDERED: HYDROmorphone INJ 0.5 MG/0.5 ML SYR IV PRN (11:02)
[2023-11-05] MEDS: SODIUM CHLORIDE 0.9% 1,000 ML IV SCH (11:20)
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
[2023-11-05] MEDS: amLODIPine BESYLATE 5 MG TAB PO SCH (16:49)
[2023-11-05] MEDS: oxyCODONE HCL IR 5 MG TAB (IMMEDIATE RELEASE) PO PRN (19:48)
[2023-11-05] MEDS: ASPIRIN 81 MG ECTAB PO SCH (19:50)
[2023-11-05] MEDS: DOCUSATE SODIUM 100 MG CAP PO SCH (19:51)
[2023-11-05] MEDS: ATORVASTATIN 40 MG TAB PO SCH (19:51)
[2023-11-05] MEDS: SENNA 8.6 MG TAB PO SCH (19:51)
[2023-11-05] MEDS: POLYETHYLENE (MIRALAX) 17 GM PACK PO SCH (21:23)
--- NOTE | 2023-11-06 07:26 | Orthopedic Progress Note ---
Date of Service November 06, 2023 Assessment & Plan (1) Status post left knee replacement: Plan: Postop day #1 left total knee arthroplasty -PT/OT -Pain management as written -DVT prophylaxis: SCDs, teds, aspirin 81 mg twice daily -A.m. labs are pending -Discharge planning: Plan on discharge home with outpatient therapy versus home health. Patient is going to think about his options. He has had 350 cc of output from his Hemovac at 0400 and another 50 out at 0600. Will monitor Hemovac output throughout the morning. If he is going to have home health he can be discharged home today with drain for home health to remove tomorrow. Otherwise if continues to have high output will continue inpatient stay for another day and plan on discharge home tomorrow. Admission and Anticipated Discharge Date Admission Date: November 05, 2023 Subjective Patient is postop day 1 left total knee. Overall he is feeling well this morning. Mild soreness posterior lateral aspect of his knee and into his quad. No other complaints. Denies chest pain, shortness of breath, nausea/vomiting/diarrhea, headaches or dizziness. Review of Systems Review of Systems: All systems reviewed & are unremarkable except as noted in Subjective Physical Exam Physical Exam: Left knee: Dressing is clean, dry, intact. Toes are mobile with good dorsiflexion. No calf tenderness. Hemovac on suction. Distal neurovascular status and sensation is grossly intact. Able to do a straight leg raise. Results & Data Vital Signs (Past 12 Hours) Vital Signs Temp Pulse Resp BP Pulse Ox O2 Del Method 11/06/23 04:04 36.7 C 65 14 121/63 96 Room Air 11/06/23 00:45 36.7 C 65 16 117/54 L 96 Room Air 11/05/23 20:32 36.6 C 82 16 141/63 H 96 Room Air
[2023-11-06 07:53] LABS: Mean Corpuscular Hgb Conc 34.4 g/dL (32.0-36.0); Mean Corpuscular Volume 87.2 fL (80.0-100.0); Platelet Count 108 K/uL (130-400); RDW Coefficient of Variation 12.6 % (11.5-14.5); Red Blood Count 3.67 M/uL (4.70-6.10); White Blood Count 14.03 K/ul (4.8-10.8)
[2023-11-06 08:14] LABS: BUN Creatinine Ratio 21.1 (10-20); Calcium 8.9 mg/dl (8.6-10.3); Creatinine Clr Calc Pharmacy 59.3 ml/min; Est GFR (African American) 65.2 ml/min; Est GFR (Non-African American) 56.3 ml/min; Potassium 4.4 mmol/L (3.5-5.1)
[2023-11-06] MEDS: MULTIVITAMIN TAB PO SCH (08:21)
[2023-11-06] MEDS: CHOLECALCIFEROL 25 MCG (1000 UNITS) TAB PO SCH (08:21)
[2023-11-06] MEDS: PANTOprazole 40 MG TAB PO SCH (08:21)
[2023-11-06] MEDS: lisinopril 20 MG TAB PO SCH (08:22)
[2023-11-06] MEDS ORDERED: NON-FORMULARY MEDICATION (Multivitamin tablet) PO SCH (09:00)
[2023-11-06] MEDS ORDERED: amLODIPine BESYLATE 5 MG TAB PO SCH (11:30)
[2023-11-06] MEDS: ASCORBIC ACID 500 MG TAB PO SCH (11:42)
--- NOTE | 2023-11-06 15:16 | Discharge Summary ---
Date of Service November 06, 2023 Admission HPI Per Admitting Provider 78yo male with PMHx significant for HTN, BRYANT, GERD, hx of CVA presents with ongoing left knee pain. Pain is interfering with daily activities. He has failed conservative measures and would like to proceed with surgery. Patient denies headaches, sweats, fevers, chills, double vision, blurred vision, cough, sore throat, dysphagia, chest pain, sob, wheezing, n/v/d/c, numbness, tingling, fatigue, urinary symptoms, mood disorders. ROS positive for left knee pain and stiffness. Admission Exam Per Admitting Provider Constitutional: well developed and well nourished; no acute distress Eyes: PERRL, conjunctivae normal, anicteric sclerae ENMT: external ear and nose normal, oropharynx normal Neck: trachea midline, no thyromegaly Respiratory: normal respiratory effort, lungs clear to auscultation Cardiovascular: RRR, no murmur, no edema Musculoskeletal: Left knee: Tenderness medial joint line. Mild effusion. Moderate crepitation. Angela's is guarded. ROM 0-125 degrees. Stable to valgus and varus stress. Skin: no rashes, warm and dry Neurologic: patellar DTR's 2+ bilat, sensation intact Psychiatric: A+Ox3, euthymic affect Principal Diagnosis Left knee arthritis Discharge Exam Left knee: Dressing is clean, dry, intact. Toes are mobile with good dorsiflexion. No calf tenderness. Hemovac on suction. Distal neurovascular status and sensation is grossly intact. Able to do a straight leg raise. Discharge Data Allergies Allergy/AdvReac Type Severity Reaction Status Date / Time No Known Drug Allergies Allergy Unknown . Verified 11/05/23 07:32 Consultations 10/31/23 15:56 Consult Hospitalist Routine Procedures Performed Operation Date: 11/05/23 07:15 Actual Procedures p Left Total Knee Arthroplasty(Left) - Wesley Foster MD Ordered Studies 11/05/23 05:00 US - OR guided needle placemen Routine Hospital Course (1) Status post left knee replacement: Postop day #1 left total knee arthroplasty -PT/OT -Pain management as written -DVT prophylaxis: SCDs, teds, aspirin 81 mg twice daily -A.m. labs are pending -Discharge planning: Plan on discharge home with outpatient therapy versus home health. Patient is going to think about his options. He has had 350 cc of output from his Hemovac at 0400 and another 50 out at 0600. Will monitor Hemovac output throughout the morning. If he is going to have home health he can be discharged home today with drain for home health to remove tomorrow. Otherwise if continues to have high output will continue inpatient stay for another day and plan on discharge home tomorrow. Lab Results 11/06/23 Range/Units 07:25 WBC 14.03 H (4.8-10.8) K/ul RBC 3.67 L (4.70-6.10) M/uL Hgb 11.0 L (14.0-18.0) g/dl Hct 32.0 L (42.0-52.0) % MCV 87.2 (80.0-100.0) fL MCH 30.0 (25.0-34.0) pg MCHC 34.4 (32.0-36.0) g/dL RDW Std Deviation 40.0 (36.4-46.3) fL RDW Coeff of You 12.6 (11.5-14.5) % Plt Count 108 L (130-400) K/uL MPV 11.0 (9.4-12.4) fL Sodium 136 (136-145) mmol/L Potassium 4.4 (3.5-5.1) mmol/L Chloride 107 (98-107) mmol/L Carbon Dioxide 22 (21-32) mmol/L Anion Gap 7 (3-11) BUN 26 H (6-23) mg/dl Creatinine 1.23 (0.6-1.4) mg/dl Est Cr Clr Drug Dosing 59.3 ml/min Est GFR ( Amer) 65.2 ml/min Est GFR (Non-Af Amer) 56.3 ml/min BUN/Creatinine Ratio 21.1 H (10-20) Glucose 114 H (70-99(Fasting)) mg/dl Calcium 8.9 (8.6-10.3) mg/dl Total Time Total Time Spent Total Time Spent (In Minutes): 20 Discharge Plan Discharge Items Patient Disposition: Home - Home Health Services Reason For Visit: Left Knee Osteoarthritis Discharge Diagnosis: Left knee osteroarthritis Activity: Per Instructions section Weightbearing: Full weightbearing Non-emergency contact: Surgeon Call non-emergency contact if: you have any medication questions, your pain is not controlled, your pain is unusual for you, you have a fever, your temperature is above 101, your wound has increased redness and your wound has increased drainage Follow-up/Referrals: Levon Landis MD [Primary Care Provider] - ([facility] PLEASE CALL AND MAKE A HOSPITAL FOLLOW UP IN 7-10 DAYS.) Diet: Regular Addtl Attending Provider Instructions: HOME HEALTH SERVICES TO REMOVE COBY WRAP/COTTON ROLL AND REMOVE HEMOVAC DRAIN TOMORROW, 11/07/23. ACTIVITY RECOMMENDATIONS: SELF CARE INSTRUCTIONS AFTER TOTAL KNEE REPLACEMENT A. You may need to continue a physical therapy program after discharge from the hospital. There are several options available to you. Your doctor will assist you in selecting the best one for you. 1. An out-patient facility 2 to 3 times a week for therapy or home therapy. 2. Continue working on all exercises taught to you in the hospital. Your goals should be to increase bending of your knee to 90 degrees and beyond and to fully straighten your knee. B. You may progress at your own pace from walking with a walker or crutches to a cane; then to no assistive devices. C. Make walking a part of your daily routine. Be up as much as comfortable with rest periods throughout the day. Rest with leg elevation is very important. Use the ice wrap frequently for the first 3-4 weeks. D. There are no restrictions on activities. You may ride in a car, shop, participate in boom stick worker and all social activities. E. Wear the long elastic stockings (TEVIN hose) 20 hours a day for 2 weeks after surgery. They can be removed several times a day for laundering and for a bath. F. You may shower, no tub baths until cleared by your doctor. SPECIAL CARE INSTRUCTIONS: VERY IMPORTANT TO READ AND REVIEW A. There are a few signs you need to watch for after you are home. Call [facility] if you notice any of the followin. Increased severe knee pain. Some pain is expected especially when you exercise. 2. Increased swelling in your leg or knee; pain or swelling of the calf muscle in either lower leg. 3. Any fluid drainage from the incision. 4. Shortness of breath or chest pain. B. Please call [facility] at if you have any concerns or questions about your operation or recovery. The doctor or his nurse will return your call promptly. C. You must take antibiotics before dental work, bladder, bowel or other surgery. Your doctor will provide you with a permanent care to carry describing this precaution. IMPORTANT: * REMEMBER TO TAKE ASPIRIN, 81 MG, TWICE DAILY FOR 4 WEEKS UNLESS OTHERWISE DI RECTED. THIS IS YOUR BLOOD THINNER. * HIGH RISK PATIENTS MAY BE PRESCRIBED A STRONGER BLOOD THINNER. THIS WILL BE PROVIDED AT DISCHARGE. * CALL IF INCREASED PAIN, REDNESS, DRAINAGE OR FEVER GREATER THAT 101. * WEAR TEVIN HOSE 20 HOURS PER DAY FOR 2 WEEKS. There is a large suction dressing covering your incision. This will help pull any excess drainage from the wound and allow your incision to heal properly. You may shower with this if you can keep the unit outside of the shower. If any bleeding or leakage is noted please call your doctor's office. This will remain on your incision for 7 days and then should be removed. This can be done yourself or by the home nursing staff if applicable. The entire unit is disposable once removed. Once removed, keep incision clean and dry. If redness or drainage is noted, please call your surgeon. IF INCISION IS LEAKING THROUGH DRESSING, CALL THE OFFICE . FOLLOW UP VISIT: If appointment is not already scheduled: Please call [facility] to make a follow-up appointment for 2 weeks after your surgery at . Stand-Alone Forms: My [employer], Smoking Cessation Medications and DC Order Prescriptions: New celecoxib [Celebrex] 200 mg Capsule 200 mg PO BID Qty: 60 0RF aspirin 81 mg Tablet,Delayed Release (Dr/Ec) 81 mg PO BID Qty: 60 0RF acetaminophen [Tylenol Extra Strength] 500 mg Tablet 1,000 mg PO Q8 Qty: 60 0RF oxycodone 5 mg Tablet 5 - 10 mg PO Q4H MDD 6 PRN (Reason: pain) Qty: 30 0RF Rx Instructions: Ongoing therapy, Dr. Foster supervising Continued multivitamin Tablet 1 tab PO QAM omega-3 fatty acids [Fish Oil Concentrate] 1,000 mg capsule 1,000 mg PO QAM lisinopril 20 mg tablet 20 mg PO BID cholecalciferol (vitamin D3) [Vitamin D3] 50 mcg (2,000 unit) Tablet 50 mcg PO QAM ascorbic acid (vitamin C) [Vitamin C] 500 mg Tablet 500 mg PO QDL amlodipine 10 mg Tablet 10 mg PO QDL polyethylene glycol Powder 1 ea MISCELLANEOUS BID atorvastatin 40 mg tablet 40 mg PO QPM omeprazole 40 mg capsule,delayed release(DR/EC) 40 mg PO QAM hydroxyzine HCl 25 mg tablet 25 mg PO HS PRN (Reason: Sleep) Discontinued celecoxib [Celebrex] 100 mg Capsule 100 mg PO QPM aspirin 81 mg Capsule 81 mg PO QAM Admission Data Admit Date/Time: 11/05/23 09:54 Attending Provider: Wesley Foster Admit Provider: Wesley Foster Primary Care Provider: Levon Landis Other Providers: James Curtis,Home Care Fax; [facility] Other Interventions: Discharge Summary Assessment (RN) Last Done: 11/06/23 13:12
--- OUTSIDE RECORDS SUMMARY | 2023-11-06 22:04 | External Medical Summary | Continuity of Care Document ---
Author Name Unknown Organization [facility] [address] [facility] [address] [phone] Care Team Providers Care Hospital Medical Assistant Name Role Phone Levon Landis Primary Care Physician [phone] [id number] Date(s): 11/03/23 - 11/03/23 [facility] [address] [facility] [address] [phone] Encounter Diagnosis Changing skin lesion(Discharge Diagnosis) - 11/03/23 History of squamous cell carcinoma in situ(Discharge Diagnosis) - 11/03/23 Discharge Disposition: Home or Self Care Attending Physician: MD Sirisha, Es Allergies, Adverse Reactions, Alerts No Known Allergies Assessment and Plan Extracted from: Title:Office Visit Note Author:MD Sirisha, Ca ssandra Date:11/03/23 1.Changing skin lesion - shave biopsy for further evaluation today. Of note: due to patient's upcoming knee replacement surgery, I informed patient that I recommended that I contact Dr. Foster's office to confirm that he there would be no issue proceed with surgery this week. I called his office while sitting with the patient and spoke to Jamee (nurse) who informed me that she would confirm and call me back MARCIA. After ~ 30 min of waiting, discussed holding off on biopsy until after surgery vs. proceeding today. Patient elected to proceed, states that he went to his pre-op appt with a large dressing on his nose and there was no mention/concern regarding wounds. - further management pending pathology results - wound care instructions reviewed and provided Shave Biopsy Procedure Note A skin biopsy was performed after a time out (patient identified with full name and date, site located and confirmed with team members) and verbal informed consent was obtained.Risks (infection, scar, bleeding) and benefits (proper diagnosis and treatment) were reviewed.Alternative options were discussed if applicable.Time was given to address and answer all questions.Photograph was taken to document location. Location:L cheek, HAK vs. SC vs. BCC Skin prep: isopropyl alcohol Anesthesia: 1% lidocaine with epinephrine Method: shave Hemostasis/Closure: aluminum chloride Dressing: Vaseline and band-aid Verbal and written wound care instructions given.Patient was informed that further procedure(s) or treatment(s) may be needed pending pathology results.Patient is instructed to call should any problems or concerns arise.The patient agreed to call the office to obtain the test results if they have not been communicated to them within 2 weeks. 2.History of squamous cell carcinoma in situ - well-healed s/p Mohs surgery, recommend routine skin care F/u PRN pending pathology results as above Medications amLODIPine 10 mg oral tablet Start: 03/04/23 14:37:00 EDT, 1 tab, PO, Daily Start Date: 03/04/23 Status: Ordered aspirin Start: 03/04/23 14:38:00 EDT Start Date: 03/04/23 Status: Ordered atorvastatin 80 mg oral tablet Start: 03/04/23 14:37:00 EDT Start Date: 03/04/23 Status: Ordered celecoxib 100 mg oral capsule Start: 03/04/23 14:37:00 EDT Start Date: 03/04/23 Status: Ordered lisinopril 20 mg oral tablet Start: 03/04/23 14:37:00 EDT Start Date: 03/04/23 Status: Ordered multivitamin Start: 03/04/23 14:38:00 EDT, 1 tab, PO, Daily Start Date: 03/04/23 Status: Ordered omeprazole 40 mg oral delayed release capsule Start: 03/04/23 14:37:00 EDT Start Date: 03/04/23 Status: Ordered traZODone 50 mg oral tablet Start: 03/04/23 14:37:00 EDT Start Date: 03/04/23 Status: Ordered Vitamin D3 Start: 03/04/23 14:38:00 EDT Start Date: 03/04/23 Status: Ordered Mental Status 11/03/23 Barriers to Learning one year None evide nt Mandatory Health Literacy Documentation Yes Health Literacy Communication Barriers N ever Primary Language Dutch Problem List Condition Confirmation Course Effective Dates Status Health St atus Informant Squamous cell carcinoma in situ Confirmed Active Diagnosis Diagnosis Type Effective Dates Health Status Cl inical Service Informant Changing skin lesion Discharge Diagnosis 11/03/23 Non-Specified History of squamous cell carcinoma in situ Discharge Diagnosis 11/03/23 Procedures Procedure Date Related Diagnosis Body Site Status Shave biopsy of skin 11/03/23 Comp leted Mohs micrographic surgery 09/30/23 Completed Mohs micrographic surgery 07/28/23 Completed Electrodesiccation with curettage 1 06/23/23 Completed Shave biopsy of skin 06/23/23 Comp leted Mohs micrographic surgery 04/28/23 Completed Shave biopsy of skin 03/04/23 Comp leted Skin graft 2 Completed 1shave biopsy with eletrodesiccation with curettage 2many skin graft surgeries Social History Social History Type Response Smoking Status Never smoked cigaret smita Sex Male Dermatology Outpatient Note * MD Sirisha, Es: PERFORM Event Display: Dermatology Outpt Note Authored Date: [id number] Chief Complaint f/u s/p Mohs 09/30/23 SCCIS skin of nose History of Present Illness Patient is a 78 yo CM, history of multiple SCC, presents for follow-up today s/p Mohs surgery of SCCIS at L nasal ala repaired with FTSG on 09/30/23 Patient notes that nose healed very well, denies any concerns. Notes new spot at L cheek muslim, sore that has been present for a few weeks of more, not healing. Notes CPAP strap goes right over area. Patient is scheduled for L knee replacement with Dr. Foster this Friday. Physical Exam A&O x 3, well-appearing, well-groomed, pleasant Focused skin exam of face reveals a well-healed FTSG at L nasal ala, pink centrally eroded papule at L cheek No preauricular, submandibular or anterior/posterior cervical lymphadenopathy Images 2023-11-03 15:24:30 2023-11-03 15:24:37 Assessment/Plan 1.Changing skin lesion - shave biopsy for further evaluation today. Of note: due to patient's upcoming knee replacement surgery, I informed patient that I recommended that I contact Dr. Foster's office to confirm that he there would be no issue proceed with surgery this week. I called his office while sitting with the patient and spoke to Jamee (nurse) who informed me that she would confirm and call me back MARCIA. After ~ 30 min of waiting, discussed holding off on biopsy until after surgery vs. proceeding today. Patient elected to proceed, states that he went to his pre-op appt with a large dressing on his nose and there was no mention/concern regarding wounds. - further management pending pathology results - wound care instructions reviewed and provided Shave Biopsy Procedure Note A skin biopsy was performed after a time out (patient identified with full name and date, site located and confirmed with team members) and verbal informed consent was obtained.Risks (infection, scar, bleeding) and benefits (proper diagnosis and treatment) were reviewed.Alternativeoptions were discussed if applicable.Time was given to address and answer all questions.Photograph was taken to document location. Location:L cheek, HAK vs. SC vs. BCC Skin prep: isopropyl alcohol Anesthesia: 1% lidocaine with epinephrine Method: shave Hemostasis/Closure: aluminum chloride Dressing: Vaseline and band-aid Verbal and written wound care instructions given.Patient was informed that further procedure(s) or treatment(s) may be needed pending pathology results.Patient is instructed to call shouldany problems or concerns arise.The patient agreed to call the office to obtain the test resultsif they have not been communicated to them within 2 weeks. 2.History of squamous cell carcinoma in situ - well-healed s/p Mohs surgery, recommend routine skin care F/u PRN pending pathology results as above Problem List/Past Medical History Ongoing Squamous cell carcinoma in situ Procedure/Surgical History Shave biopsy of skin (11/03/2023)Mohs micrographic surgery (09/30/2023)Mohs micrographic surgery (07/28/2023)Electrodesiccation with curettage (06/23/2023)Shave biopsy of skin (06/23/2023)Mohs micrographic surgery (04/28/2023)Shave biopsy of skin (03/04/2023)Skin graft Medications amLODIPine(amLODIPine 10 mg oral tablet), 10 mg= 1 tab, PO, Daily aspirin atorvastatin(atorvastatin 80 mg oral tablet) celecoxib(celecoxib 100 mg oral capsule) cholecalciferol(Vitamin D3) lisinopril(lisinopril 20 mg oral tablet) multivitamin, 1 tab, PO, Daily omeprazole(omeprazole 40 mg oral delayed release capsule) traZODone(traZODone 50 mg oral tablet) Allergies NKA Social History Smoking Status Never smoked cigarettes Recommendations Health Maintenance Pending(in the next year) OverDue Adult Influenza Vaccine due03/14/23and every 1year Due Adult COVID-19 Vaccination due11/03/23Unknown Frequency Adult Social Determinants of Health Screening due11/03/23Unknown Frequency Adult Tdap/Td Vaccine due11/03/23Unknown Frequency Body Mass Index due11/03/23Unknown Frequency Hepatitis C Screening due11/03/23One-time only Lipid Screening due11/03/23Unknown Frequency Medicare Annual Wellness Visit due11/03/23and every 1year Pneumococcal Vaccine Older Adults due11/03/23One-time only Shingles Vaccine due11/03/23One-time only Satisfied(in the past 1 year) There are no satisfied recommendations within the defined date range Electronic Signature on File Electronically Reviewed/Signed by: Es Grimm MD Author Signature Dt/Tm:11/03/2023 10:10 PM Department of Dermatology CS Patient Care team information Care Team Personnel Name: MD Landis Michael K Position: Referring Member Role: Primary Care Provider Address: Address: [address] [address] Care Team Related Persons Name: VICTORINA LOPEZ Address: home [address] [place] [phone]
== END 2023-11-06 14:08 | disposition home health service (06) ==
LOC: ASU 05:06 → 3N 05:06
DX: Z86.73 Personal history of transient ischemic attack (TIA), and cerebral infarction without residual deficits; M17.12 Unilateral primary osteoarthritis, left knee; I45.10 Unspecified right bundle-branch block; Z79.82 Long term (current) use of aspirin; E78.00 Pure hypercholesterolemia, unspecified; G47.30 Sleep apnea, unspecified; K21.9 Gastro-esophageal reflux disease without esophagitis; I10 Essential (primary) hypertension; G47.33 Obstructive sleep apnea (adult) (pediatric); Z79.899 Other long term (current) drug therapy

== ENCOUNTER 2025-06-03 13:01 | Inpatient (IN) ==
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
[2025-06-03] MEDS: SODIUM CHLORIDE 0.9% 1,000 ML IV SCH ×2 (13:34→18:34)
[2025-06-03 14:06] LABS: Hematocrit (blood only) 34.8 % (42.0-52.0); Hemoglobin 11.2 g/dl (14.0-18.0); Immature Granulocytes # (auto) 0.22 K/uL (0.01-0.20); Immature Granulocytes % (auto) 2.4 %; Mean Corpuscular Hemoglobin 25.4 pg (25.0-34.0); Mean Corpuscular Volume 78.9 fL (80.0-100.0); Platelet Count 185 K/uL (130-400); RDW Standard Deviation 46.1 fL (36.4-46.3); Red Blood Count 4.41 M/uL (4.70-6.10); White Blood Count 9.29 K/ul (4.8-10.8)
[2025-06-03 14:19] LABS: Alanine Aminotransferase 11 U/L (7-52); Albumin Globulin Ratio 1.1 (0.9-2); Albumin Level 3.6 gm/dl (3.4-5.0); Alkaline Phosphatase 86 U/L (34-104); Anion Gap 14 (3-11); Bilirubin,Total 0.7 mg/dl (0.2-1.0); Blood Urea Nitrogen 16 mg/dl (6-23); Calcium 8.2 mg/dl (8.6-10.3); Carbon Dioxide 21 mmol/L (21-32); Chloride 103 mmol/L (98-107); Globulin 3.2 gm/dl (2.5-4.0); Glucose 113 mg/dl (70-99(Fasting)); Magnesium 1.8 mg/dl (1.7-2.4); Potassium 3.1 mmol/L (3.5-5.1); Sodium 138 mmol/L (136-145); Total Protein 6.8 gm/dl (6.0-8.3)
[2025-06-03] MEDS: PIPERACILLIN/TAZOBACTAM 4.5 GM/100 ML BAG IV ONE (14:24)
[2025-06-03 14:29] LABS: Thyroid Stimulating Hormone 1.358 uIu/ml (0.300-4.500)
[2025-06-03] MEDS: ALBUT/IPRATROP 3MG/0.5MG NEB 3 ML VIAL NEB STA (14:32)
--- NOTE | 2025-06-03 14:34 | XRay Report ---
XR chest 1V portable CLINICAL HISTORY: eval for PNA, coarse sounds L chest COMPARISON STUDY: 10/10/2023 FINDINGS: Stable mild cardiomegaly without pulmonary vascular congestion. There are interval diffuse reticular and patchy pulmonary opacities. There is a possible small left pleural effusion. No pneumot horax. IMPRESSION: Diffuse bilateral pneumonia. ACT 112: Negative or not required by law. Electronically signed by: Jarek Castrejon M.D. 06/03/2025 2:32 PM
[2025-06-03] MEDS: CALCIUM GLUCONATE 1,000 MG/60 ML BAG IV STA (15:31)
[2025-06-03 15:35] LABS: Chlamydia pneumoniae PCR Not Detected (NotDetected); Coronavirus 229E PCR Not Detected (NotDetected); Coronavirus CoV-2 (COVID19)PCR Not Detected (NotDetected); Coronavirus HKU1 PCR Not Detected (NotDetected); Coronavirus NL63 PCR Not Detected (NotDetected); Coronavirus OC43PCR Not Detected (NotDetected); Human Metapneumovirus PCR Not Detected (NotDetected); Parainfluenza Virus 1 PCR Not Detected (NotDetected); Parainfluenza Virus 2 PCR Not Detected (NotDetected); Parainfluenza Virus 3 PCR Not Detected (NotDetected); Parainfluenza Virus 4 PCR Not Detected (NotDetected); Respiratory Syncytial VirusPCR Not Detected (NotDetected); Rhinovirus/Enterovirus PCR Not Detected (NotDetected)
[2025-06-03] MEDS: POTASSIUM CHLORIDE / WTR 10 MEQ/100 ML PLCT IV SCH (15:47)
[2025-06-03] MEDS: SODIUM CHLORIDE 0.9% 1,000 ML IV ONE (15:48)
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
[2025-06-03] MEDS: THIAMINE HCL 100 MG in SYRINGE 9 ML IV STA (17:15)
[2025-06-03] MEDS ORDERED: ACETAMINOPHEN 325 MG TAB PO PRN (17:22)
[2025-06-03] MEDS ORDERED: ALBUTEROL HFA 8 GM INHALER INH PRN (17:22)
[2025-06-03] MEDS ORDERED: NON-FORMULARY MEDICATION (Ondansetron Hcl 8 mg Tablet) PO PRN (17:22)
[2025-06-03 17:33] LABS: Appearance Urine Clear (Clear); Bacteria Urine Automated None Seen (None Seen); Cast Urine Automated 0-2 /lpf (0-2); Epithelial Cell Urine Auto 0-2 /hpf (0-2); Glucose Urine UA Negative (Negative); WBC Urine Automated 0-5 /hpf (0-5)
[2025-06-03 18:30] LABS: Magnesium 1.6 mg/dl (1.7-2.4)
[2025-06-03] MEDS: PIPERACILLIN/TAZOBACTAM 4.5 GM/100 ML BAG IV SCH (19:25)
[2025-06-03] MEDS: OLANZAPINE 2.5 MG TAB PO SCH (19:25)
[2025-06-03] MEDS: POLYETHYLENE (MIRALAX) 17 GM PACK PO SCH (19:26)
[2025-06-03] MEDS: HYDROCODONE/ACETAMINOPHEN 7.5/325MG TAB PO PRN (21:32)
--- NOTE | 2025-06-03 22:49 | Electrocardiogram Report ---
Test Reason : Blood Pressure : */* mmHG Vent. Rate : 118 BPM Atrial Rate : 118 BPM P-R Int : 170 ms QRS Dur : 136 ms QT Int : 328 ms P-R-T Axes : 74 -12 11 degrees QTcB Int : 459 ms Sinus tachycardia with occasional Premature ventricular complexes Right bundle branch block Abnormal ECG When compared with ECG of 10-Oct-2023 08:40, Premature ventricular complexes are now Present Vent. rate has increased by 56 bpm T wave inversion now evident in Anterior leads Confirmed by Reymundo Connell ([id number]) on 06/03/2025 10:49:04 PM Referred By: REFERRED SELF Confirmed By: Reymundo Connell
[2025-06-03 23:24] LABS: Anion Gap 10.0 (3-11); Blood Urea Nitrogen 15.0 mg/dl (6-23); Calcium 7.3 mg/dl (8.6-10.3); Carbon Dioxide 21.0 mmol/L (21-32); Chloride 106.0 mmol/L (98-107); Creatinine Clr Calc Pharmacy 102.6 ml/min; Glucose 154.0 mg/dl (70-99(Fasting)); Magnesium 1.7 mg/dl (1.7-2.4); Potassium 3.6 mmol/L (3.5-5.1); Sodium 137.0 mmol/L (136-145)
[2025-06-04 07:04] LABS: Hematocrit (blood only) 29.7 % (42.0-52.0); Hemoglobin 9.4 g/dl (14.0-18.0); Immature Granulocytes # (auto) 0.21 K/uL (0.01-0.20); Immature Granulocytes % (auto) 4.3 %; Mean Corpuscular Hemoglobin 25.5 pg (25.0-34.0); Mean Corpuscular Volume 80.7 fL (80.0-100.0); Platelet Count 149 K/uL (130-400); RDW Standard Deviation 47.5 fL (36.4-46.3); Red Blood Count 3.68 M/uL (4.70-6.10); White Blood Count 4.84 K/ul (4.8-10.8)
[2025-06-04 07:28] LABS: Alanine Aminotransferase 9.0 U/L (7-52); Albumin Globulin Ratio 1.2 (0.9-2); Albumin Level 3.1 gm/dl (3.4-5.0); Alkaline Phosphatase 68.0 U/L (34-104); Anion Gap 9.0 (3-11); Bilirubin,Total 0.5 mg/dl (0.2-1.0); Blood Urea Nitrogen 16.0 mg/dl (6-23); Calcium 7.4 mg/dl (8.6-10.3); Carbon Dioxide 22.0 mmol/L (21-32); Chloride 108.0 mmol/L (98-107); Creatinine Clr Calc Pharmacy 101.1 ml/min; Globulin 2.5 gm/dl (2.5-4.0); Glucose 150.0 mg/dl (70-99(Fasting)); Magnesium 1.7 mg/dl (1.7-2.4); Potassium 3.7 mmol/L (3.5-5.1); Sodium 139.0 mmol/L (136-145); Total Protein 5.6 gm/dl (6.0-8.3)
[2025-06-04] MEDS: VITAMIN B COMPLEX TAB PO SCH (08:11)
[2025-06-04] MEDS: CALCIUM GLUCONATE 1,000 MG/60 ML BAG IV STA ×2 (08:11→12:58)
[2025-06-04] MEDS: ATORVASTATIN 40 MG TAB PO SCH (08:11)
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
--- NOTE | 2025-06-04 14:01 | XRay Report ---
Clinical history: Tube placement 1 view of the abdomen was obtained No prior examination is available for comparison Findings: The lower pelvis is not visualized. Gas is seen within mildly prominent small and large bowel loops, which may be due to ileus. There is a feeding tube with its tip within the stomach. No renal or ureteral calculi are seen. No foreign body is evident. No osseous abnormality is seen There is a left pleural effusion and there are bilateral pulmonary infiltrates Impression: 1. Feeding tube with its tip within the stomach 2. Small left pleural effusion and bilateral pneumonia ACT 112: Positive. There are findings on this exam that require communication between the performing entity and the patient following Patient Test Result Information Act ([place] ACT 112) guidelines. Electronically signed by Efrain Fraser 06-04-2025 2:01 PM
[2025-06-04] MEDS: NUTREN LIQD 2.0 1,000 ML BAG GT SCH (15:57)
[2025-06-04] MEDS: TUBE FEEDING WATER FLUSH GT SCH (15:58)
[2025-06-05 07:20] LABS: Albumin Level 3.2 gm/dl (3.4-5.0); Anion Gap 8.0 (3-11); Blood Urea Nitrogen 12.0 mg/dl (6-23); Calcium 8.3 mg/dl (8.6-10.3); Carbon Dioxide 25.0 mmol/L (21-32); Chloride 107.0 mmol/L (98-107); Creatinine Clr Calc Pharmacy 98.3 ml/min; Glucose 135.0 mg/dl (70-99(Fasting)); Magnesium 1.6 mg/dl (1.7-2.4); Potassium 3.0 mmol/L (3.5-5.1); Sodium 140.0 mmol/L (136-145)
[2025-06-05 08:28] LABS: Hematocrit (blood only) 31.8 % (42.0-52.0); Hemoglobin 10.4 g/dl (14.0-18.0); Immature Granulocytes # (auto) 0.21 K/uL (0.01-0.20); Immature Granulocytes % (auto) 1.9 %; Mean Corpuscular Hemoglobin 26.0 pg (25.0-34.0); Mean Corpuscular Volume 79.5 fL (80.0-100.0); Platelet Count 181 K/uL (130-400); RDW Standard Deviation 47.6 fL (36.4-46.3); Red Blood Count 4.00 M/uL (4.70-6.10); White Blood Count 11.19 K/ul (4.8-10.8)
[2025-06-05] MEDS: POTASSIUM CHLORIDE 20 MEQ/15 ML UDC PO STA (09:25)
[2025-06-05] MEDS: POT PHOSPHATE MONOBASIC W/ SOD TAB NG SCH (09:26)
[2025-06-05] MEDS: SODIUM CHLORIDE 0.9% 1,000 ML IV SCH (09:57)
--- NOTE | 2025-06-05 12:54 | Hospitalist Progress Note ---
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 Increasingly productive cough, low-grade subjective fevers - Oxygen to maintain sats greater than 92% - continue coverage with Zosyn, CRP and procal in AM, follow for trend Refeeding Syndrome - Mild, most notable electrolyte abnormalities. Will slowly tube feed rate to dose replete electrolytes - Order and consent for midline catheter placed - Recheck electrolytes this afternoon - Resume tube feeds once electrolytes normalized - Normal saline at 125 cc/h for 24 hours as he remains at least moderately dehydrated Atrial fibrillation with RVR - Previously noted diagnosis, start with IV diltiazem, transition to oral short acting as pressures tolerate, rate controlled -will discuss antociagulation with family when they arrive. Oral Globus Sensation - Very likely related to his feeding tube, patient perseverates to some degree - Still able to swallow well. Conservative measures reviewed with staff - If he is still having persistent symptoms we will review the material with pulmonology and see if endoscopy is available, no urgency at this time. 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 Will notify IR early this week. Would at least complete his course of antibiotics prior to placement Severe protein calorie malnutrition Dehydration Multiple Electrolyte Abnormalities - uncontrolled, Very limited oral intake secondary to squamous cell carcinoma as above - Has been getting 2 to 4 L of infusion every couple days last done yesterday with only limited improvement - Correct electrolyte abnormalities as above, thiamine repletion in the emergency department - Normal saline 125 cc/h through the night - Replace potassium, phosphorus, magnesium have normalized after replacement - Consult to dietary/registered dietitian, see recommendations - NG feeding tube placement today. Consent obtained patient and present during discussion all questions answered - He is very interested in having a PEG placed in the near future, no discrete plans as of yet - Referral for PEG placement early next week once acute issues are resolving Hypocalcemia - Slightly low albumin, still quite low after calcium gluconate x 2. Will order ionized calcium and PTH - Ongoing replacement needs, switch to oral after NG was placed Hypertension - Will continue his antihypertensives he is within normal range now Hyperlipidemia - Continue statin, once dehydration has been resolved Sleep apnea - Home CPAP FEN -Will start with liquid diet, is much as he can tolerate, IV fluids and electrolytes as above -Very close monitoring for refeeding syndrome Prophylaxis -Subq heparin initially CODE STATUS -Full code per his wishes, discussed with the patient and family at the bedside Admission and Anticipated Discharge Date Admission Date: June 03, 2025 Subjective Overall slept okay. He has a globus type sensation in the lower right portion of his throat. States he gets this from time to time and he cannot clear his mucus. Started shortly after the NG was placed. No nausea or vomiting. Sympt oms are nonprogressive but persistent. Denies any shortness of breath cough or sputum. 10 which showed increased rate and feeling of palpitations. Discussed IV access could not consent for midline placement given multiple IV electrolyte replacement needs Physical Exam Constitutional: Alert, oriented, weak but appropriate and interactive Eyes: Sclera clear anicteric ENMT: Mucous membranes very dry Neck: Left lateral nodule consistent with his ongoing squamous workup, trachea midline Respiratory: Coarse breath sounds and diminished air movement throughout, crackles at the bases bilaterally Cardiovascular: Regular rate and rhythm Gastrointestinal (Abdomen): Normal bowel sounds Musculoskeletal: No edema, no focal deficits Skin: Old scarring on the arms and ventral surface of the hands from mina when he was younger. Neurologic: Alert and oriented x 3, intact judgment, mentation, excellent recall of recent and distant events Results & Data Results & Data Vital Signs (Past 12 Hours) Vital Signs Temp Pulse Pulse Resp BP BP Pulse Ox 06/05/25 08:00 98 H 06/05/25 08:00 06/05/25 07:28 36.6 C 89 18 119/60 95 06/05/25 03:26 36.6 C 102 H 18 130/69 90 O2 Del Method O2 Flow Rate 06/05/25 08:00 06/05/25 08:00 Nasal Cannula 4 06/05/25 07:28 Nasal Cannula 4.0 06/05/25 03:26 Nasal Cannula 2 Telemetry: Variable with sporadic tachycardia 397103 Range Laboratory Results 06/03/25 17:57 Aerobic Blood Culture - Preliminary Blood Gram positive bacilli Anaerobic Blood Culture - Preliminary No growth in Anaerobic bottle after 24 hours. 06/03/25 17:57 Aerobic Blood Culture - Preliminary Blood No growth in Aerobic bottle after 24 hours. Anaerobic Blood Culture - Preliminary No growth in Anaerobic bottle after 24 hours. 06/05/25 06:30 WBC 11.19 H RBC 4.00 L Hgb 10.4 L Hct 31.8 L MCV 79.5 L MCH 26.0 MCHC 32.7 RDW Std Deviation 47.6 H RDW Coeff of You 16.9 H Plt Count 181 MPV 10.9 Immature Gran % (Auto) 1.9 Neut % (Auto) 69.8 Lymph % (Auto) 10.6 Addison % (Auto) 17.5 Eos % (Auto) 0.1 Baso % (Auto) 0.1 Neut # (Auto) 7.81 H Lymph # (Auto) 1.19 L Addison # (Auto) 1.96 H Eos # (Auto) 0.01 Baso # (Auto) 0.01 Immature Gran # (Auto) 0.21 H Sodium 140 Potassium 3.0 L Chloride 107 Carbon Dioxide 25 Anion Gap 8 BUN 12 Creatinine 0.72 Est Cr Clr Drug Dosing 98.3 eGFR 93.51 BUN/Creatinine Ratio 16.7 Glucose 135 H Calcium 8.3 L Phosphorus 2.0 L Magnesium 1.6 L C-Reactive Protein 6.10 H Albumin 3.2 L Procalcitonin 0.08 ECG Additional Comments: A-fib with RVR PG Care Time/CCT Total # of Minutes Spent Total Time Spent with Patient: Total time spent is greater than 50% in coordination of care (as documented) at patient's floor/unit and/or counseling patient: Coding Level of Care Code 13378 SUB INP/OBS CARE 3/50MIN Diagnoses Lightheadedness R42 HTN, goal below 140/90 I10 Essential hypertriglyceridemia E78.1 Herpes simplex B00.9 Hypercholesterolemia E78.00 Vitamin D deficiency E55.9 Sleep apnea G47.30 Squamous cell carcinoma of neck C44.42 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
--- NOTE | 2025-06-05 13:18 | Electrocardiogram Report ---
Test Reason : Blood Pressure : */* mmHG Vent. Rate : 120 BPM Atrial Rate : * BPM P-R Int : * ms QRS Dur : 142 ms QT Int : 360 ms P-R-T Axes : * -19 3 degrees QTcB Int : 508 ms Multifocal atrial tachycardia Right bundle branch block Abnormal ECG When compared with ECG of 03-Jun-2025 13:19, Atrial fibrillation has replaced Sinus rhythm Confirmed by Elina Fay (Bruno) on 06/05/2025 1:18:02 PM Referred By: REFERRED SELF Confirmed By: Elina Fya
[2025-06-05] MEDS ORDERED: VANCOMYCIN CONSULT ACTIVE PRN (14:36)
[2025-06-05 15:22] LABS: Albumin Level 2.9 gm/dl (3.4-5.0); Anion Gap 8.0 (3-11); Calcium 7.9 mg/dl (8.6-10.3); Carbon Dioxide 23.0 mmol/L (21-32); Chloride 109.0 mmol/L (98-107); Magnesium 1.6 mg/dl (1.7-2.4); Potassium 3.8 mmol/L (3.5-5.1); Sodium 140.0 mmol/L (136-145)
[2025-06-05 15:26] LABS: Blood Urea Nitrogen 10.0 mg/dl (6-23); Creatinine Clr Calc Pharmacy 104.1 ml/min; Glucose 115.0 mg/dl (70-99(Fasting))
[2025-06-05] MEDS ORDERED: SODIUM PHOSPHATE 3 MMOL/1 ML INFUSION IV STA (15:31)
--- NOTE | 2025-06-05 15:32 | Pharmacy Report ---
Pharmacy PK ABX Note - Date of Service June 05, 2025 - Assessment and Plan Assessment 79 year old M receiving piperacillin-tazobactam for treatment of bilateral pneumonia. Vancomycin is being added to cover for Corynebacterium in 1/4 blood culture bottles given patient immunocompromised and future port placement this week per provider. Pertinent microbiologic data includes: 06/03 blood cultures growing Corynebacterium aurimucos in 1/4 bottles. * WBC increased to 11.19 from 4.84 today * Afebrile * Procal downtrending to 0.08 from 0.15 on admission Day #1 of vancomycin therapy, day 3 of pip/tazo therapy. Plan Vancomycin * Loading dose: 1750 mg IV x 1 * Maintenance dose: 1250 mg IV every 12 hours * Regimen is predicted to achieve target AUC/DOREEN of 400-600 mg/L.hr * Random level will be ordered in the future Pharmacy will continue to follow and will adjust dose/frequency as necessary. Thank you. Pharmacy has transitioned to AUC monitoring for vancomycin. AUC/DOREEN is the preferred PK/PD target and is associated with decreased risk of nephrotoxicity compared to traditional trough targets.
[2025-06-05] MEDS: VANCOMYCIN HCL 1,750 MG in SODIUM CHLORIDE 0.9% 500 ML IV ONE (15:45)
[2025-06-05] MEDS: SODIUM PHOSPHATE 12 MMOL in SODIUM CHLORIDE 0.9% 250 ML IV ONE (16:11)
[2025-06-06] MEDS: VANCOMYCIN HCL 1,250 MG in SODIUM CHLORIDE 0.9% 250 ML IV SCH (02:41)
[2025-06-06 07:25] LABS: Albumin Level 3.0 gm/dl (3.4-5.0); Anion Gap 9.0 (3-11); Blood Urea Nitrogen 8.0 mg/dl (6-23); Calcium 7.9 mg/dl (8.6-10.3); Carbon Dioxide 26.0 mmol/L (21-32); Chloride 108.0 mmol/L (98-107); Creatinine Clr Calc Pharmacy 118.0 ml/min; Glucose 145.0 mg/dl (70-99(Fasting)); Magnesium 1.4 mg/dl (1.7-2.4); Potassium 2.7 mmol/L (3.5-5.1); Sodium 143.0 mmol/L (136-145)
[2025-06-06] MEDS: MAGNESIUM SULFATE / D5W 1 GM/100 ML BAG IV SCH (07:41)
[2025-06-06] MEDS: METOPROLOL TARTRATE 1 MG/ML VIAL IV STA (07:43)
[2025-06-06] MEDS: POTASSIUM CHLORIDE 20 MEQ/15 ML UDC PO STA (07:43)
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
[2025-06-06] MEDS: POTASSIUM CHLORIDE CRTAB 20 MEQ TABCR PO STA (09:36)
--- NOTE | 2025-06-06 10:20 | Hospitalist Progress Note ---
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: (10) Severe protein-calorie malnutrition: (11) Moderate dehydration: (12) Electrolyte abnormality: (13) Bilateral pneumonia: (14) SIRS (systemic inflammatory response syndrome): (15) Acute hypoxemic respiratory failure: Plan Bilateral pneumonia Possible aspiration pneumonia SIRS/sepsis Hypoxemic respiratory failure - Cough and fever -Chest x ray shows diffuse PNA Increase procalcitonin and CRP, - await cultures -Continue empiric Zosyn Refeeding Syndrome/ malnutrition - Continue tube feeds -Momnitor electrolytes -Nutritional service on board Atrial fibrillation with RVR - Previously noted diagnosis, start with IV diltiazem, transition to oral short acting as pressures tolerate, rate controlled -will discuss anticoagulation with family when they arrive. 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 Will notify IR early this week. Would at least complete his course of antibiotics prior to placement Severe protein calorie malnutrition Dehydration Multiple Electrolyte Abnormalities - uncontrolled, Very limited oral intake secondary to squamous cell carcinoma as above - continue tube feeds - Replace potassium, phosphorus, magnesium have normalized after replacement - Consult to dietary/registered dietitian, see recommendations - He is very interested in having a PEG placed in the near future, no discrete plans as of yet - Referral for PEG placement early next week once acute issues are resolving Hypocalcemia/hypokalemia/hypomagnesemia - Ongoing replacement needs, switch to oral after NG was placed Hypertension - Will continue his antihypertensives he is within normal range now Hyperlipidemia - Continue statin, once dehydration has been resolved Sleep apnea - Home CPAP FEN -Will start with liquid diet, is much as he can tolerate, IV fluids and electrolytes as above -Very close monitoring for refeeding syndrome Prophylaxis -Subq heparin initially CODE STATUS -Full code per his wishes, discussed with the patient and family at the bedside Admission and Anticipated Discharge Date Admission Date: June 03, 2025 Subjective patient seen and examined, tolerating tube feeds, feels very weak, says he did not sit in the chair due to being too weak Review of Systems Review of Systems: All systems reviewed are negative, apart from the ones contained in the history. Physical Exam Physical Exam: The patient is awake, alert and oriented 3, thin looking HEENT--PERRL, EOMI, mucous membranes and oropharynx mildly dry Neck--supple. No JVD. No bruits. Thyroid normal, trachea midline, no adenopathy. Heart--normal S1 and S2. No murmurs, rubs or gallops. Lungs--clear bilaterally, no respiratory distress, no accessory muscle use. Abdomen--normal bowel sounds and soft. Extremities--no cyanosis or clubbing. No edema. Dermatologic--normal skin turgor, normal color, no abnormal lymph nodes, no rash. Neurologic--cranial nerves II through XII grossly intact. Rheumatologic--normal range of motion. Psychiatric--normal affect. Results & Data Results & Data Vital Signs (Past 12 Hours) Vital Signs Temp Pulse Pulse Pulse Resp BP BP 06/06/25 08:00 94 H 118/73 06/06/25 07:58 98.1 F 94 H 20 118/73 06/06/25 07:43 155 H 131/70 06/06/25 07:24 176 H 06/06/25 06:45 156 H 131/70 06/06/25 04:51 98.1 F 62 17 153/77 H 06/06/25 00:10 97.5 F L 97 H 17 119/74 06/05/25 23:37 96 H Pulse Ox O2 Del Method O2 Flow Rate 06/06/25 08:00 06/06/25 07:58 97 Room Air 4 06/06/25 07:43 06/06/25 07:24 06/06/25 06:45 06/06/25 04:51 95 Nasal Cannula 2 06/06/25 00:10 96 Nasal Cannula 4 06/05/25 23:37 PG Care Time/CCT Total # of Minutes Spent Total Time Spent with Patient: Total time spent is greater than 50% in coordination of care (as documented) at patient's floor/unit and/or counseling patient: Coding Level of Care Code 12258 SUB INP/OBS CARE 2/35MIN Diagnoses Lightheadedness R42 HTN, goal below 140/90 I10 Essential hypertriglyceridemia E78.1 Herpes simplex B00.9 Hypercholesterolemia E78.00 Vitamin D deficiency E55.9 Sleep apnea G47.30 Squamous cell carcinoma of neck C44.42 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
[2025-06-06] MEDS: ONDANSETRON INJ 2 MG/ML 2 ML VIAL IV PRN (18:20)
[2025-06-06] MEDS: MELATONIN 3 MG TAB PO PRN (20:59)
[2025-06-07 06:42] LABS: Hematocrit (blood only) 28.7 % (42.0-52.0); Hemoglobin 9.6 g/dl (14.0-18.0); Mean Corpuscular Hemoglobin 26.6 pg (25.0-34.0); Mean Corpuscular Volume 79.5 fL (80.0-100.0); Platelet Count 158 K/uL (130-400); RDW Standard Deviation 47.8 fL (36.4-46.3); Red Blood Count 3.61 M/uL (4.70-6.10); White Blood Count 8.10 K/ul (4.8-10.8)
[2025-06-07 07:06] LABS: Albumin Level 3.0 gm/dl (3.4-5.0); Anion Gap 7.0 (3-11); Blood Urea Nitrogen 9.0 mg/dl (6-23); Calcium 8.1 mg/dl (8.6-10.3); Carbon Dioxide 29.0 mmol/L (21-32); Chloride 106.0 mmol/L (98-107); Creatinine Clr Calc Pharmacy 116.1 ml/min; Glucose 142.0 mg/dl (70-99(Fasting)); Magnesium 1.7 mg/dl (1.7-2.4); Potassium 3.0 mmol/L (3.5-5.1); Sodium 142.0 mmol/L (136-145)
[2025-06-07] MEDS: POTASSIUM CHLORIDE 20 MEQ/15 ML UDC PO STA (07:51)
[2025-06-07] MEDS: POTASSIUM CHLORIDE CRTAB 20 MEQ TABCR PO STA (08:03)
--- NOTE | 2025-06-07 11:05 | Hospitalist Progress Note ---
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: (10) Severe protein-calorie malnutrition: (11) Moderate dehydration: (12) Electrolyte abnormality: (13) Bilateral pneumonia: (14) SIRS (systemic inflammatory response syndrome): (15) Acute hypoxemic respiratory failure: Plan Bilateral pneumonia Possible aspiration pneumonia SIRS/sepsis Hypoxemic respiratory failure - Cough and fever on admission -Chest x ray shows diffuse PNA -Increase procalcitonin and CRP, - Cultures have been negative -Continue empiric Zosyn, end date 06/08 Refeeding Syndrome/ malnutrition - Continue tube feeds -Monitor electrolytes -Nutritional service on board Atrial fibrillation with RVR - Previously noted diagnosis, start with IV diltiazem, transition to oral short acting as pressures tolerate, rate controlled -will discuss anticoagulation with patient -Initiate after Port placement and PEG tube placement 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 to be done either by IR or vascular surgery -Would complete his course of antibiotics on 06/08 Severe protein calorie malnutrition Dehydration Multiple Electrolyte Abnormalities - uncontrolled, Very limited oral intake secondary to squamous cell carcinoma as above - continue tube feeds - Replace potassium, phosphorus, magnesium have normalized after replacement - Consult to dietary/registered dietitian, see recommendations - He is very interested in having a PEG placed in the near future, no discrete plans as of yet - Will consult Gen Surgery for PEG placemement Hypocalcemia/hypokalemia/hypomagnesemia - Ongoing replacement needs, switch to oral after NG was placed Hypertension - Will continue his antihypertensives he is within normal range now Hyperlipidemia - Continue statin, once dehydration has been resolved Sleep apnea - Home CPAP FEN -Will start with liquid diet, is much as he can tolerate, IV fluids and electrolytes as above -Very close monitoring for refeeding syndrome Prophylaxis -Subq heparin initially CODE STATUS -Full code per his wishes, discussed with the patient and family at the bedside Admission and Anticipated Discharge Date Admission Date: June 03, 2025 Subjective patient seen and examined, tolerating tube feeds, feels very weak, says he did not sit in the chair due to being too weak Review of Systems Review of Systems: All systems reviewed are negative, apart from the ones contained in the history. Physical Exam Physical Exam: The patient is awake, alert and oriented 3, thin looking HEENT--PERRL, EOMI, mucous membranes and oropharynx mildly dry Neck--supple. No JVD. No bruits. Thyroid normal, trachea midline, no adenopathy. Heart--normal S1 and S2. No murmurs, rubs or gallops. Lungs--clear bilaterally, no respiratory distress, no accessory muscle use. Abdomen--normal bowel sounds and soft. Extremities--no cyanosis or clubbing. No edema. Dermatologic--normal skin turgor, normal color, no abnormal lymph nodes, no rash. Neurologic--cranial nerves II through XII grossly intact. Rheumatologic--normal range of motion. Psychiatric--normal affect. Results & Data Results & Data Vital Signs (Past 12 Hours) Vital Signs Temp Pulse Pulse Resp BP Pulse Ox O2 Del Method 06/07/25 10:31 98.1 F 124 H 108/65 92 Nasal Cannula 06/07/25 07:19 Nasal Cannula 06/07/25 07:17 97.9 F 69 20 116/72 93 Nasal Cannula 06/07/25 06:00 98.1 F 126 H 18 126/65 92 Nasal Cannula 06/07/25 03:16 97.5 F L 75 18 123/62 96 Nasal Cannula O2 Flow Rate 06/07/25 10:31 06/07/25 07:19 4 06/07/25 07:17 3 06/07/25 06:00 1 06/07/25 03:16 4.0 PG Care Time/CCT Total # of Minutes Spent Total Time Spent with Patient: Total time spent is greater than 50% in coordination of care (as documented) at patient's floor/unit and/or counseling patient: Coding Level of Care Code 37937 SUB INP/OBS CARE 2/35MIN Diagnoses Lightheadedness R42 HTN, goal below 140/90 I10 Essential hypertriglyceridemia E78.1 Herpes simplex B00.9 Hypercholesterolemia E78.00 Vitamin D deficiency E55.9 Sleep apnea G47.30 Squamous cell carcinoma of neck C44.42 

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
[2025-06-08] MEDS: METOPROLOL TARTRATE 1 MG/ML VIAL IV STA (02:55)
[2025-06-08] MEDS ORDERED: VANCOMYCIN CONSULT ACTIVE PRN (03:09)
--- NOTE | 2025-06-08 03:11 | Communication Note ---
Date of Service: June 08, 2025 Brina russell called for respiratory distress. Went to bedside. Pt states he felt "awful" and notes feeling SOB. He was noted shortly before this to be in afib RVR and was set to get a dose of 2.5 mg lopressor, which he received as the brina russell was called. Auscultation to lungs; entire R side with diffuse crackles, much less so on L side. Pt put on HFNC. Labs and imaging obtained. CXR showed multifocal opacities of R mid and lower zones and L lower zone with increased density of R upper consolidation. CT chest ordered. 1x IV lasix dose given as he has hx HFpEF. Echo ordered. 1 gm mag given. Vancomycin added given interval progression of chest findings. Pt given solumedrol 125mg x1 dose also. Pt reassessed awhile later, more comfortable appearing. Notes improvement in SOB. Rate now permissible low 100s. BP stable. Resident Activity Tracking Resident Involvement: Resident Care Provided Care Provided: Adult Hospital Medicine
[2025-06-08] MEDS: MAGNESIUM SULFATE / D5W 1 GM/100 ML BAG IV ONE (03:14)
[2025-06-08 03:34] LABS: Base Excess VBG 3.2 mEq/L; HCO3 VBG 29 mmol/L; Oxygen Saturation VBG 91.0 %; PCO2 VBG 45 mmHg (38-50); PO2 VBG 61 mmHg; pH VBG 7.41 (7.36-7.41)
[2025-06-08 03:40] LABS: Hematocrit (blood only) 31.8 % (42.0-52.0); Hemoglobin 10.0 g/dl (14.0-18.0); Immature Granulocytes # (auto) 0.15 K/uL (0.01-0.20); Immature Granulocytes % (auto) 1.6 %; Mean Corpuscular Hemoglobin 25.6 pg (25.0-34.0); Mean Corpuscular Volume 81.5 fL (80.0-100.0); Platelet Count 172 K/uL (130-400); RDW Standard Deviation 49.8 fL (36.4-46.3); Red Blood Count 3.90 M/uL (4.70-6.10); White Blood Count 9.15 K/ul (4.8-10.8)
[2025-06-08 03:57] LABS: Alanine Aminotransferase 22.0 U/L (7-52); Albumin Globulin Ratio 1.0 (0.9-2); Albumin Level 3.0 gm/dl (3.4-5.0); Albumin Level 3.2 gm/dl (3.4-5.0); Alkaline Phosphatase 74.0 U/L (34-104); Anion Gap 9.0 (3-11); Bilirubin,Total 0.6 mg/dl (0.2-1.0); Blood Urea Nitrogen 8.0 mg/dl (6-23); Calcium 8.3 mg/dl (8.6-10.3); Carbon Dioxide 28.0 mmol/L (21-32); Chloride 104.0 mmol/L (98-107); Creatinine Clr Calc Pharmacy 103.9 ml/min; Globulin 3.1 gm/dl (2.5-4.0); Glucose 119.0 mg/dl (70-99(Fasting)); Glucose 124.0 mg/dl (70-99(Fasting)); Magnesium 1.7 mg/dl (1.7-2.4); Potassium 3.1 mmol/L (3.5-5.1); Sodium 141.0 mmol/L (136-145); Total Protein 6.1 gm/dl (6.0-8.3)
--- NOTE | 2025-06-08 04:02 | XRay Report ---
EXAM: XR chest 1V portable CLINICAL HISTORY: Respiratory distress TECHNIQUE: An X-ray image of the chest was obtained in AP projection. COMPARISON: 13:19:51 SHINGLE PACKER. FINDINGS: Multifocal, ill-defined ground-glass opacities are noted involving the right mid and lower zones and the left lower zone. The left costophrenic angle appears blunted with raised left hemidiaphragm, suggesting a left-sided pleural effusion. Cardiomegaly. No acute osseous abnormality. IMPRESSION: 1. Multifocal, ill-defined ground-glass opacities are noted involving the right mid and lower zones and the left lower zone. Increased density of right upper zone consolidation. 2. The left costophrenic angle appears blunted, suggesting a left-sided pleural effusion with collapse of underlying lung parenchyma-stable. 3. Cardiomegaly-stable. 4. Advised further evaluation with CT thorax if clinically indicated. Electronically signed by Jeovany Dasilva 06-08-2025 04:01 AM
[2025-06-08] MEDS: VANCOMYCIN HCL 1,750 MG in SODIUM CHLORIDE 0.9% 500 ML IV ONE (04:03)
[2025-06-08] MEDS: POTASSIUM CHLORIDE / WTR 10 MEQ/100 ML PLCT IV SCH (05:23)
[2025-06-08] MEDS: FUROSEMIDE INJ 20 MG/2 ML VIAL IV ONE (05:24)
--- NOTE | 2025-06-08 08:02 | Pharmacy Report ---
Pharmacy PK ABX Note - Date of Service June 08, 2025 - Assessment and Plan Assessment 06/08: Vancomycin discontinued 06/06. Restarted this AM due to worsening shortness of breath with concern for pneumonia now on high flow NC. Afebrile, WBC count still within normal limits. Continuing on Zosyn. MRSA nares pending collection. 06/05: 79 year old M receiving piperacillin-tazobactam for treatment of bilateral pneumonia. Vancomycin is being added to cover for Corynebacterium in 1/4 blood culture bottles given patient immunocompromised and future port placement this week per provider. Pertinent microbiologic data includes: 06/03 blood cultures growing Corynebacterium aurimucos in 1/4 bottles. * WBC increased to 11.19 from 4.84 today * Afebrile * Procal downtrending to 0.08 from 0.15 on admission Day #1 of vancomycin therapy (restarted), day 5 of pip/tazo therapy. Plan Vancomycin * Repeat loading dose 06/08 AM: 1750 mg IV x 1 * Maintenance dose: 1250 mg IV every 12 hours * Regimen is predicted to achieve target AUC/DOREEN of 400-600 mg/L.hr * Trough level ordered for 06/10/25 @0430. Pharmacy will continue to follow and will adjust dose/frequency as necessary. Thank you. Pharmacy has transitioned to AUC monitoring for vancomycin. AUC/DOREEN is the preferred PK/PD target and is associated with decreased risk of nephrotoxicity compared to traditional trough targets.
--- NOTE | 2025-06-08 09:49 | Gastroenterology Progress Note ---
Date of Service June 08, 2025 Assessment & Plan (1) Feeding difficulty: Plan: I had discussed the case with Dr. Witt. In light of his overnight events, will cancel EGD with peg placement. Would want him to be more stable before proceeding. Admission and Anticipated Discharge Date Admission Date: June 03, 2025 Supervising Physician Co-Signing Physician Notes Patient seen with family at bedside. Unfortunately he developed shortness of breath overnight secondary to his pneumonia with increased oxygen requirements. He currently appears comfortable. We will hold off on a PEG tube for now. I explained to him that the risk of respiratory compromise would be too high for this elective procedure. Subjective Patient had a code purple last night for sudden respiratory distress. He tells me he went to bed last night and felt fine but woke up around 2 am unable to breathe. he still feels short of breath. no chest pain. no nausea, vomiting, abdominal pain. xray 06/08/25 1. Multifocal, ill-defined ground-glass opacities are noted involving the right mid and lower zones and the left lower zone. Increased density of right upper zone consolidation. 2. The left costophrenic angle appears blunted, suggesting a left-sided pleural effusion with collapse of underlying lung parenchyma-stable. 3. Cardiomegaly-stable. 4. Advised further evaluation with CT thorax if clinically indicated. Review of Systems Review of Systems: All systems reviewed & are unremarkable except as noted in HPI & below Physical Exam Constitutional: WD/WN, vitals as above Respiratory: labored, on O2 Cardiovascular: tachycardic Gastrointestinal (Abdomen): normal bowel sounds, soft, nontender, no hepatosplenomegaly Psychiatric: Orientation: alert and oriented x 3 Results & Data Results & Data Vital Signs (Past 12 Hours) Vital Signs Temp Pulse Pulse Pulse Resp BP BP 06/08/25 08:06 102 H 26 H 06/08/25 07:35 97.5 F L 95 H 20 131/73 06/08/25 04:35 98.4 F 104 H 21 111/66 06/08/25 03:29 107 H 20 145/86 H 06/08/25 03:24 104 H 28 H 06/08/25 03:16 114 H 156/75 H 06/08/25 02:55 177 H 109/82 06/08/25 00:53 97.7 F 110 H 18 121/70 06/07/25 21:55 120 H 06/07/25 21:55 Pulse Ox O2 Del Method O2 Del Method O2 Flow Rate O2 Flow Rate FiO2 06/08/25 08:06 99 High Flow Nasal Cannula 30 60 06/08/25 07:35 97 High Flow Nasal Cannula 06/08/25 04:35 94 High Flow Nasal Cannula 06/08/25 03:29 93 High Flow Nasal Cannula 30 60 06/08/25 03:24 93 High Flow Nasal Cannula 30 60 06/08/25 03:16 06/08/25 02:55 06/08/25 00:53 94 Nasal Cannula 4 06/07/25 21:55 06/07/25 21:55 Nasal Cannula 3 Coding Level of Care Code 32550 SUB INP/OBS CARE 2/35MIN Diagnoses Feeding difficulty R63.30
[2025-06-08] MEDS: OPTIRAY 320 100ml IV ONE (10:21)
--- NOTE | 2025-06-08 11:25 | Hospitalist Progress Note ---
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: (10) Severe protein-calorie malnutrition: (11) Moderate dehydration: (12) Electrolyte abnormality: (13) Bilateral pneumonia: (14) SIRS (systemic inflammatory response syndrome): (15) Acute hypoxemic respiratory failure: Plan Bilateral pneumonia Possible aspiration pneumonia SIRS/sepsis Hypoxemic respiratory failure - Cough and fever on admission -Chest x ray shows diffuse PNA -Increase procalcitonin and CRP, - Cultures have been negative -Overnight, 06/07, he becaame more short of breath -Repeat chest x ray shows worsening infiltrates -Continue empiric Zosyn, add Vancomycin -Now on high flow oxygen -Consult Pulmonology Refeeding Syndrome/ malnutrition - Continue tube feeds -Monitor electrolytes -Nutritional service on board Atrial fibrillation with RVR - Previously noted diagnosis, start with IV diltiazem, transition to oral short acting as pressures tolerate, rate controlled -will discuss anticoagulation with patient -Initiate after Port placement and PEG tube placement 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 to be done either by IR or vascular surgery -Would complete his course of antibiotics on 06/08 Severe protein calorie malnutrition Dehydration Multiple Electrolyte Abnormalities - uncontrolled, Very limited oral intake secondary to squamous cell carcinoma as above - continue tube feeds - Replace potassium, phosphorus, magnesium have normalized after replacement - Consult to dietary/registered dietitian, see recommendations - He is very interested in having a PEG placed in the near future, no discrete plans as of yet - Will consult Gen Surgery for PEG placemement (was scheduled for today, but has been deferred in view of worsening resp failure) Hypocalcemia/hypokalemia/hypomagnesemia - Ongoing replacement needs, switch to oral after NG was placed Hypertension - Will continue his antihypertensives he is within normal range now Hyperlipidemia - Continue statin, once dehydration has been resolved Sleep apnea - Home CPAP FEN -Will start with liquid diet, is much as he can tolerate, IV fluids and electrolytes as above -Very close monitoring for refeeding syndrome Prophylaxis -Subq heparin initially CODE STATUS -Full code per his wishes, discussed with the patient and family at the bedside Admission and Anticipated Discharge Date Admission Date: June 03, 2025 Subjective overnight, he became more short of breath, now on high flow oxygen. PEG placement has been deferred Review of Systems Review of Systems: All systems reviewed are negative, apart from the ones contained in the history. Physical Exam Physical Exam: The patient is awake, alert and oriented 3, thin looking HEENT--PERRL, EOMI, mucous membranes and oropharynx mildly dry Neck--supple. No JVD. No bruits. Thyroid normal, trachea midline, no adenopathy. Heart--normal S1 and S2. No murmurs, rubs or gallops. Lungs--clear bilaterally, no respiratory distress, no accessory muscle use. Abdomen--normal bowel sounds and soft. Extremities--no cyanosis or clubbing. No edema. Dermatologic--normal skin turgor, normal color, no abnormal lymph nodes, no rash. Neurologic--cranial nerves II through XII grossly intact. Rheumatologic--normal range of motion. Psychiatric--normal affect. Results & Data Results & Data Vital Signs (Past 12 Hours) Vital Signs Temp Pulse Pulse Pulse Resp BP BP 06/08/25 08:06 102 H 26 H 06/08/25 07:35 97.5 F L 95 H 20 131/73 06/08/25 04:35 98.4 F 104 H 21 111/66 06/08/25 03:29 107 H 20 145/86 H 06/08/25 03:24 104 H 28 H 06/08/25 03:16 114 H 156/75 H 06/08/25 02:55 177 H 109/82 06/08/25 00:53 97.7 F 110 H 18 121/70 Pulse Ox O2 Del Method O2 Flow Rate FiO2 06/08/25 08:06 99 High Flow Nasal Cannula 30 60 06/08/25 07:35 97 High Flow Nasal Cannula 06/08/25 04:35 94 High Flow Nasal Cannula 06/08/25 03:29 93 High Flow Nasal Cannula 30 60 06/08/25 03:24 93 High Flow Nasal Cannula 30 60 06/08/25 03:16 06/08/25 02:55 06/08/25 00:53 94 Nasal Cannula 4 PG Care Time/CCT Total # of Minutes Spent Total Time Spent with Patient: Total time spent is greater than 50% in coordination of care (as documented) at patient's floor/unit and/or counseling patient: Coding Level of Care Code 47615 SUB INP/OBS CARE 2/35MIN Diagnoses Lightheadedness R42 HTN, goal below 140/90 I10 Essential hypertriglyceridemia E78.1 Herpes simplex B00.9 Hypercholesterolemia E78.00 Vitamin D deficiency E55.9 Sleep apnea G47.30 Squamous cell carcinoma of neck C44.42 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
--- NOTE | 2025-06-08 12:31 | CT Scan Report ---
CHEST CT WITH CONTRAST CT DOSE: 1295.59 mGy.cm HISTORY: Acute shortness of breath f/u on CXR findings TECHNIQUE: Multiaxial CT images of the chest were performed following the IV administration of Optira y. A dose lowering technique was utilized adhering to the principles of ALARA. COMPARISON: Chest x-ray same day, PET/CT 05/18/2025 FINDINGS: 1.3 cm left-sided thyroid nodule redemonstrated which was hypermetabolic on the prior PET/C T. Mild cardiomegaly with moderate coronary artery calcifications redemonstrated. No thoracic aortic aneurysm or pulmonary embolus identified. Study is degraded by respiratory motion artifact. Extensive metastatic disease of the chest redemonstrated. This includes metastatic myocardial foci of the left ventricle, along with numerous chest wall and back lesions. There is an index 2.6 cm right trapezius metastatic lesion on image 10 series 4. Hypermetabolic left hilar and subcarinal metastatic disease appears generally stable. Increased size of the moderate layering pleural effusions. No pneumothorax. Innumerable pulmonary metastasis with ly mphangitic carcinomatosis noted. There is progressive consolidation of the lung bases, most pronounce d in the left lower lobe. 4.9 cm consolidation of the right middle lobe on image 157 previously measu red 4.6 cm. Intralobular septal thickening with multifocal multisegmental groundglass densities. Mild tracheobronchial secretions. Multifocal metastasis of the upper abdomen. 1.5 cm hypodense lesion of the right hepatic lobe on imag e 236, not clearly seen on the prior study. Bilateral adrenal metastasis again noted. Metastatic lesi ons within the right perinephric space. Lytic osseous metastasis are noted. Acute appearing mild supe r endplate compression at L1 is unchanged without retropulsion. Enteric tube courses into the stomach . IMPRESSION: 1. Cardiomegaly with interstitial and alveolar pulmonary edema and moderate pleural effusions. 2. Extensive metastatic disease of the chest and upper abdomen redemonstrated including innumerable p ulmonary metastasis with lymphangitic carcinomatosis. Myocardial, chest and abdominal wall metastasis . 3. Bibasilar consolidation likely represents a combination of metastatic lesions with atelectasis. [place] perimposed pneumonia could appear similarly. 4. Osseous metastatic disease with unchanged appearance of the pathologic L1 compression deformity wi thout retropulsion. 4. Possible solitary metastatic lesion of the right hepatic lobe, not seen on the prior PET/CT. ACT 112: Negative or not required by law. Electronically signed by: Papito Larson M.D. 06/08/2025 12:30 PM
--- NOTE | 2025-06-08 13:59 | XRay Report ---
KUB HISTORY: Confirm tube-placement COMPARISON STUDY: 06/04/2025 FINDINGS: Feeding tube tip is likely in the distal antrum of the stomach. There is mild retained stoo l. No bowel obstruction seen. IMPRESSION: Feeding tube tip is likely in the distal antrum of the stomach. ACT 112: Negative or not required by law. The above report was generated using voice recognition software. It may contain grammatical, syntax o r spelling errors. Electronically signed by: Jarek Castrejon M.D. 06/08/2025 1:58 PM
--- NOTE | 2025-06-08 14:46 | Procedure Note ---
Procedure Note Date of Service June 08, 2025 Procedure: Diagnostic and therapeutic ultrasound-guided catheter thoracentesis Bridge Attacher: Thuan Phillip MD. Indication: Pleural effusion Consent: Signed by patient and verified with time-out prior to procedure Anesthesia: 1% lidocaine without epinephrine local. Procedure: Consent was verified and time-out performed. Appropriate imaging studies were reviewed prior to the procedure. Patient was placed in the left-decubitus position at his request, and limited thoracic ultrasound was performed of the right chest. See separate imaging. Appropriate site above the diaphragm for thoracentesis was selected. The skin was prepped and draped in normal sterile fashion. Lidocaine was used for local analgesia. Fluid was aspirated via the finder needle. A small skin haider was made with the scalpel and the catheter over the needle apparatus was advanced over the rib into the pleural space. Using the syringe one-way valve system, a total of 850 mL of dark-yellow minimally-turbid fluid was removed. Procedure was terminated due to no more fluid coming out . The catheter was removed and observed to be intact. A sterile dressing was applied. Post procedure chest x-ray was ordered. Fluid was sent for labs, culture and cytology. Complications: None Blood loss: minimal [facility] Procedure Codes (Charges) Indication for Procedure Indication for procedure: Symptomatic pleural effusions. Pulmonary/Thoracic Procedure 1: Pulmonary and Thoracic: 91496 Thoracentesis w/o imaging Coding CPT Codes Pulmonary/Thoracic - Pulmonary and Thoracic: 27899 Thoracentesis w/o imaging ([id number]) Additional Codes Date of Service ([email or web address])
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
--- NOTE | 2025-06-08 15:28 | XCELERA ---
[id number]
[2025-06-08 15:36] LABS: Albumin Level 3.0 gm/dl (3.4-5.0); Bilirubin,Total 0.7 mg/dl (0.2-1.0); Total Protein 6.2 gm/dl (6.0-8.3)
--- NOTE | 2025-06-08 15:49 | XRay Report ---
XR chest 1V portable CLINICAL HISTORY: S/P Thoracentesis COMPARISON STUDY: 06/08/2025 FINDINGS: Feeding tube tip is off the field of view inferiorly. There is stable cardiomegaly with pul monary vascular congestion. Stable left pleural effusion. Prior right pleural effusion is no longer s een. Stable patchy opacities throughout both lungs otherwise. No pneumothorax. IMPRESSION: No pneumothorax. ACT 112: Negative or not required by law. Electronically signed by: Jarek Castrejon M.D. 06/08/2025 3:48 PM
[2025-06-08 15:52] LABS: Appearance Pleural Fluid Hazy; Color Pleural Fluid Pale Yellow; RBC Pleural Fluid Auto 2000 /uL; Source Pleural Fluid Right Lung; WBC Pleural Fluid Auto 1011 /uL
--- NOTE | 2025-06-08 16:05 | Communication Note ---
Date of Service: June 08, [address] infusaport for chemo treatment after negative blood cultures obtained. New blood cultures ordered.
[2025-06-08] MEDS: VANCOMYCIN HCL 1,250 MG in SODIUM CHLORIDE 0.9% 250 ML IV SCH (18:01)
--- NOTE | 2025-06-09 05:56 | Electrocardiogram Report ---
Test Reason : Blood Pressure : */* mmHG Vent. Rate : 137 BPM Atrial Rate : * BPM P-R Int : * ms QRS Dur : 134 ms QT Int : 324 ms P-R-T Axes : * -9 25 degrees QTcB Int : 489 ms Probable Multifocal atrial tachycardia with premature ventricular or aberrantly conducted complexes Right bundle branch block Abnormal ECG When compared with ECG of 05-Jun-2025 09:16, No significant change was found Confirmed by Scott Quiroga ([id number]) on 06/09/2025 5:55:35 AM Referred By: REFERRED SELF Confirmed By: Scott Quiroga
[2025-06-09 06:40] LABS: Lymphocytes, Fluid 22 %; Mono,Macrophage,Mesothelial 76 %; Neutrophils, Fluid 2 %
[2025-06-09 07:04] LABS: Hematocrit (blood only) 29.2 % (42.0-52.0); Hemoglobin 9.3 g/dl (14.0-18.0); Mean Corpuscular Hemoglobin 25.4 pg (25.0-34.0); Mean Corpuscular Volume 79.8 fL (80.0-100.0); Platelet Count 172 K/uL (130-400); RDW Standard Deviation 48.1 fL (36.4-46.3); Red Blood Count 3.66 M/uL (4.70-6.10); White Blood Count 9.45 K/ul (4.8-10.8)
[2025-06-09 07:34] LABS: Anion Gap 9.0 (3-11); Blood Urea Nitrogen 15.0 mg/dl (6-23); Calcium 7.9 mg/dl (8.6-10.3); Carbon Dioxide 29.0 mmol/L (21-32); Chloride 104.0 mmol/L (98-107); Creatinine Clr Calc Pharmacy 112.3 ml/min; Glucose 122.0 mg/dl (70-99(Fasting)); Potassium 3.5 mmol/L (3.5-5.1); Sodium 142.0 mmol/L (136-145)
--- NOTE | 2025-06-09 10:55 | Hospitalist Progress Note ---
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: (10) Severe protein-calorie malnutrition: (11) Moderate dehydration: (12) Electrolyte abnormality: (13) Bilateral pneumonia: (14) SIRS (systemic inflammatory response syndrome): (15) Acute hypoxemic respiratory failure: Plan Bilateral pneumonia Possible aspiration pneumonia SIRS/sepsis Hypoxemic respiratory failure - Cough and fever on admission -Chest x ray shows diffuse PNA -Increase procalcitonin and CRP, - Cultures have been negative -Overnight, 06/07, he became more short of breath -Repeat chest x ray shows worsening infiltrates, pleural effusion He got thoracentesis with removal of 850cc of fluid -Continue empiric Zosyn, add Vancomycin -Now on oxymask -Appreciate Pulmonology Pleural effusion X ray shows some effusion He is now s/o Thoracentesis with removal of 850cc of fluid Breathing is better on oxymask Refeeding Syndrome/ malnutrition - Continue tube feeds -Monitor electrolytes -Nutritional service on board Atrial fibrillation with RVR - Previously noted diagnosis, start with IV diltiazem, transition to oral short acting as pressures tolerate, rate controlled -will discuss anticoagulation with patient -Initiate after Port placement and PEG tube placement 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 - [facility] he was scheduled to have a port placed here in a week - Antibiotics for pneumonia as above, continue to monitor closely for signs of infection, blood cultures obtained and ordered - Nutrition consult as noted below - For port placement when his repeat blood culture is negative Severe protein calorie malnutrition Dehydration Multiple Electrolyte Abnormalities - uncontrolled, Very limited oral intake secondary to squamous cell carcinoma as above - continue tube feeds - Replace potassium, phosphorus, magnesium have normalized after replacement - Consult to dietary/registered dietitian, see recommendations - He is very interested in having a PEG placed in the near future, no discrete plans as of yet - Plan is for PEG placement Hypocalcemia/hypokalemia/hypomagnesemia - resolved Hypertension - Will continue his antihypertensives he is within normal range now Hyperlipidemia - Continue statin, once dehydration has been resolved Sleep apnea - Home CPAP Prophylaxis -Subq heparin initially CODE STATUS -Full code per his wishes, discussed with the patient and family at the bedside Admission and Anticipated Discharge Date Admission Date: June 03, 2025 Subjective patient seen and examined, he appears more comfortable this morning Review of Systems Review of Systems: All systems reviewed are negative, apart from the ones contained in the history. Physical Exam Physical Exam: The patient is awake, alert and oriented 3, thin looking HEENT--PERRL, EOMI, mucous membranes and oropharynx mildly dry Neck--supple. No JVD. No bruits. Thyroid normal, trachea midline, no adenopathy. Heart--normal S1 and S2. No murmurs, rubs or gallops. Lungs--reduced air entry on auscultation Abdomen--normal bowel sounds and soft. Extremities--no cyanosis or clubbing. No edema. Dermatologic--normal skin turgor, normal color, no abnormal lymph nodes, no rash. Neurologic--cranial nerves II through XII grossly intact. Rheumatologic--normal range of motion. Psychiatric--normal affect. Results & Data Results & Data Vital Signs (Past 12 Hours) Vital Signs Temp Pulse Resp BP Pulse Ox O2 Del Method O2 Flow Rate 06/09/25 07:25 97.5 F L 117 H 19 119/68 94 Oxymask 7 06/09/25 03:06 97.9 F 93 H 18 124/68 96 Oxymask PG Care Time/CCT Total # of Minutes Spent Total Time Spent with Patient: Total time spent is greater than 50% in coordination of care (as documented) at patient's floor/unit and/or counseling patient: Coding Level of Care Code 42263 SUB INP/OBS CARE 2/35MIN Diagnoses Lightheadedness R42 HTN, goal below 140/90 I10 Essential hypertriglyceridemia E78.1 Herpes simplex B00.9 Hypercholesterolemia E78.00 Vitamin D deficiency E55.9 Sleep apnea G47.30 Squamous cell carcinoma of neck C44.42 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
[2025-06-09 13:19] LABS: Iron 44.0 mcg/dl (35-175); Total Iron Binding Cap Calc 168.0 mcg/dl (250-450); Transferrin 120.0 mg/dl (200-360); Transferrin (FE) Percent Satur 26.0 % (20-50)
[2025-06-09] MEDS: PIPERACILLIN/TAZOBACTAM 4.5 GM/100 ML BAG IV SCH (13:33)
[2025-06-09 13:38] LABS: Ferritin 432.8 ng/ml (8-388)
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
[2025-06-09 13:49] LABS: Folate (Folic Acid),Ser orPlas 16.09 ng/ml (>5.38)
[2025-06-09 13:50] LABS: Vitamin B12 806.0 pg/ml (180-914)
--- NOTE | 2025-06-10 04:38 | Communication Note ---
Date of Service: June 10, 2025 Nurse alerted me around 04:30 that pt was SOB and had increased oxygen requirements, similar to johnson russell on a previous night. Went to bedside. Pt s js symptoms started about an hour ago and he just feels like he cannot quite catch his breath. Labs and imaging ordered. EKG showing afib with rates per tele 130-140s. Breathing is labored and lung sounds worsened from previous night when code was called especially R sided. Code was only not called tonight since I was present at bedside. ABG pH 7.459, pCO2 35 and pO 62. Pt initially at the start of the night on oxymask 4L, increased to 10L at the start of symptoms and then transitioned to high flow given ongoing saturations of only low 90s with oxymask. CXR with interval worsening per my read. Pt given a dose of steroid the other night which was not continued so given another loading dose of solumedrol and q8h dosing. Antibiotics were zosyn and vanc empirically. WBC count is increased (although pt did get a dose of solumedrol on 06/08 and this may be secondary to that). Will continue vanc but transition zosyn to meropenem and add doxycycline for atypical coverage given worsened clinical status. Given 50gm of 25% albumin to attempt to shift fluid intravascular. BP has been acceptable. Pt given hypertonic saline and duoneb treatment. Given afib with increased rates, also given po dose of dilt early. Potassium 3.1; given 40 mEq elix now and scheduled for another 40 mEq at 8am for maximizing absorption. At this point pt seems to possibly be in ARDS. Recommend further conversations with patient and family during the day about goals of care, as given his current clinical picture I believe he may be a poor candidate for aggressive cancer treatment, if he is able to be discharged from this admission. Resident Activity Tracking Resident Involvement: Resident Care Provided Care Provided: Adult Hospital Medicine
[2025-06-10 05:02] LABS: Base Excess VBG 5.8 mEq/L; HCO3 VBG 31 mmol/L; Oxygen Saturation VBG 70.4 %; PCO2 VBG 44 mmHg (38-50); PO2 VBG 42 mmHg; pH VBG 7.45 (7.36-7.41)
[2025-06-10 05:06] LABS: Hematocrit (blood only) 33.2 % (42.0-52.0); Hemoglobin 10.9 g/dl (14.0-18.0); Mean Corpuscular Hemoglobin 26.3 pg (25.0-34.0); Mean Corpuscular Volume 80.2 fL (80.0-100.0); Platelet Count 207 K/uL (130-400); RDW Standard Deviation 48.0 fL (36.4-46.3); Red Blood Count 4.14 M/uL (4.70-6.10); White Blood Count 14.03 K/ul (4.8-10.8)
[2025-06-10 05:10] LABS: iSTAT Art Bld Gas Base Excess 1.0 mmol/L (-9-1.8); iSTAT Art Bld Gas pCO2 Correct 35 mmHg (35-46); iSTAT Art Bld Gas pH Corrected 7.465 (7.35-7.45); iSTAT Arterial Blood Gas pO2 C 61
[2025-06-10] MEDS: ALBUT/IPRATROP 3MG/0.5MG NEB 3 ML VIAL NEB PRN (05:20)
[2025-06-10 05:21] LABS: Anion Gap 8.0 (3-11); Blood Urea Nitrogen 13.0 mg/dl (6-23); Calcium 7.9 mg/dl (8.6-10.3); Carbon Dioxide 27.0 mmol/L (21-32); Chloride 102.0 mmol/L (98-107); Creatinine Clr Calc Pharmacy 112.3 ml/min; Glucose 125.0 mg/dl (70-99(Fasting)); Potassium 3.2 mmol/L (3.5-5.1); Sodium 137.0 mmol/L (136-145)
[2025-06-10] MEDS: SODIUM CHLOR 7% 4 ML NEB NEB SCH (05:21)
[2025-06-10] MEDS: ALBUMIN 25% 25 GM/100 ML VIAL IV SCH (05:35)
--- NOTE | 2025-06-10 05:36 | XRay Report ---
EXAM: XR chest 1V portable CLINICAL HISTORY: SOB TECHNIQUE: An X-ray image of the chest was obtained in the AP projection. COMPARISON: 06/08/2025 FINDINGS: Pulmonary Parenchyma: Multifocal, ill-defined opacities are noted involving the right mid and lower zones and the left lower zone. The left costophrenic angle is blunted, with a raised left hemidiaphragm, suggesting a left-sided pleural effusion. Heart and Mediastinum: Cardiomegaly is present (stable). No mediastinal widening or masses are identified. No hilar or mediastinal lymphadenopathy is seen. Bony Thorax: The bony thorax appears intact, without fractures or deformities. Soft Tissues: The soft tissues overlying the chest wall are unremarkable. An NG tube is seen reaching under the left hemidiaphragm, with its tip not included. IMPRESSION: Multifocal, ill-defined opacities are noted involving the right mid and lower zones and the left lower zone. Stable. The left costophrenic angle is blunted, with a raised left hemidiaphragm, suggesting a left-sided pleural effusion. Stable. An NG tube is seen reaching under the left hemidiaphragm, with its tip not included. Stable. Further evaluation with a CT scan is advised if clinically indicated. Electronically signed by Shawn Morton 06-10-2025 05:36 AM
[2025-06-10] MEDS: POTASSIUM CHLORIDE 20 MEQ/15 ML UDC PO STA (05:41)
[2025-06-10] MEDS: MEROPENEM 500 MG in SYRINGE 0 ML IV SCH (05:42)
[2025-06-10] MEDS: DOXYCYCLINE HYCLATE 100 MG in DEXTROSE 5% MINI-B 100 ML IV SCH (05:42)
[2025-06-10] MEDS: VANCOMYCIN LEVEL ONE (05:52)
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
--- NOTE | 2025-06-10 08:39 | XRay Report ---
XR chest 1V portable CLINICAL HISTORY: eval lungs in setting of dyspnea and hypoxia COMPARISON STUDY: 06/10/2025 FINDINGS: There is stable mild cardiomegaly with pulmonary vascular congestion. Feeding tube tip is o ff the field of view inferiorly. Diffuse patchy pulmonary opacities are stable. Stable small left ple ural effusion and consolidation at the left lung base. No pneumothorax. IMPRESSION: Stable exam. ACT 112: Negative or not required by law. Electronically signed by: Jarek Castrejon M.D. 06/10/2025 8:38 AM
[2025-06-10] MEDS: POTASSIUM CHLORIDE 20 MEQ/15 ML UDC PO ONE (09:03)
[2025-06-10] MEDS: POTASSIUM CHLORIDE / WTR 10 MEQ/100 ML PLCT IV SCH (09:14)
[2025-06-10] MEDS: FUROSEMIDE 40 MG/4 ML VIAL IV ONE (09:30)
--- NOTE | 2025-06-10 10:11 | Palliative Care Consultation ---
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 Std Deviation (36.4-46.3) fL RDW Coeff of You (11.5-14.5) % Plt Count (130-400) K/uL MPV (9.4-12.4) fL Immature Gran % (Auto) % Neut % (Auto) % Lymph % (Auto) % Edwards % (Auto) % Eos % (Auto) % Baso % (Auto) % Neut # (Auto) (1.40-6.50) K/uL Lymph # (Auto) (1.20-3.40) K/uL Edwards # (Auto) (0.11-0.59) K/uL Eos # (Auto) (0.00-0.50) K/uL Baso # (Auto) (0.00-0.20) K/uL Immature Gran # (Auto) (0.01-0.20) K/uL Specimen Type Sample Site POC pH (7.35-7.45) POC pCO2 (35-46) mmHg POC pO2 (80-95) mmHg POC HCO3 (19-24) mmol/L POC Total CO2 (24-31) mmol/L POC Base Excess (-9-1.8) mmol/L O2 Sat Pulse Oximetry ABG pH (Temp Correct) (7.35-7.45) ABG pCO2 (Temp Corrct (35-46) mmHg POC ABG pO2 at Pt Temp POC ABG O2 Sat (90-95) % Julian Test VBG pH (7.36-7.41) VBG pCO2 (38-50) mmHg VBG pO2 mmHg VBG HCO3 mmol/L VBG O2 Saturation % VBG Base Excess mEq/L O2 Delivery Device POC Sodium (135-144) mmol/L Sodium (136-145) mmol/L POC Potassium (3.3-5.0) mmol/L Potassium (3.5-5.1) mmol/L Chloride (98-107) mmol/L Carbon Dioxide (21-32) mmol/L Anion Gap (3-11) BUN (6-23) mg/dl Creatinine (0.6-1.4) mg/dl Est Cr Clr Drug Dosing eGFR BUN/Creatinine Ratio (10-20) Glucose (70-99(Fasting)) mg/dl Lactate (0.4-2.0) mmol/L Calcium (8.6-10.3) mg/dl Ionized Calcium (1.12-1.32) mmol/L Phosphorus (2.5-4.9) mg/dl Magnesium (1.7-2.4) mg/dl Iron (35-175) mcg/dl TIBC (250-450) mcg/dl Transferrin (200-360) mg/dl Transferrin % Sat (20-50) % Ferritin (8-388) ng/ml Total Bilirubin 0.7 (0.2-1.0) mg/dl AST (13-39) U/L ALT (7-52) U/L Alkaline Phosphatase (34-104) U/L Lactate Dehydrogenase 193 (86-244) U/L Troponin I High Sens (0-20) pg/ml C-Reactive Protein (0-0.5) mg/dl B-Natriuretic Peptide (0-100) pg/ml Total Protein 6.2 (6.0-8.3) gm/dl Albumin 3.0 L 3.0 L (3.4-5.0) gm/dl Globulin 3.1 (2.5-4.0) gm/dl Albumin/Globulin Ratio 1.0 (0.9-2) Vitamin B12 (180-914) pg/ml Folate (>5.38) ng/ml Procalcitonin (0-0.5) ng/ml TSH (0.300-4.500) uIu/ml PTH Intact (12.0-88.0) pg/ml Urine Color Urine Appearance (Clear) Urine pH (4.5-7.5) Ur Specific [place] (1.000-1.030) Urine Protein (Negative) Urine Glucose (UA) (Negative) Urine Ketones (Negative) Urine Blood (Negative) Urine Nitrite (Negative) Urine Bilirubin (Negative) Urine Urobilinogen (Negative) Ur Leukocyte Esterase (Negative) Urine WBC (Auto) (0-5) /hpf Urine RBC (Auto) (0-2) /hpf U Hyaline Cast (Auto) (0-2) /lpf U Epithel Cells (Auto) (0-2) /hpf Urine Bacteria (Auto) (None Seen) Urine Comment Fluid Neutrophils % % Fluid Lymphocytes % % Fluid Meso/Macro/Edwards % % Fluid Comment Pleural Fluid Source Pleural Color Pleural Appearance Pleural pH (7.3-7.4) Pleural WBC (Auto) /uL Pleural RBC (Auto) /uL Pleural Total Protein gm/dl Pleural LDH U/L Pleural Glucose mg/dl Pleural Amylase Pleural Cholesterol Nasal Screen MRSA (PCR) Negative (Negative) Random Vancomycin (10-20) mcg/ml Adenovirus (PCR) (NotDetected) B. pertussis DNA (PCR) (NotDetected) B.parapertussis DNA PCR (NotDetected) C. pneumoniae DNA (PCR) (NotDetected) Coronavirus OC43 (PCR) (NotDetected) Coronavirus HKU1 (PCR) (NotDetected) Coronavirus 229E (PCR) (NotDetected) SARS-CoV-2 (PCR) (NotDetected) Coronavirus NL63 (PCR) (NotDetected) Hepatitis C Ab Screen (Negative) Human Metapneumovir PCR (NotDetected) Influenza Type A (PCR) (NotDetected) Influenza Type B (PCR) (NotDetected) M. pneumoniae (PCR) (NotDetected) Parainfluenza 1 (PCR) (NotDetected) Parainfluenza 2 (PCR) (NotDetected) Parainfluenza 3 (PCR) (NotDetected) Parainfluenza 4 (PCR) (NotDetected) RSV (PCR) (NotDetected) Entero/Rhino (PCR) (NotDetected) 06/08/25 06/08/25 06/08/25 Range/Units 03:13 03:13 03:13 WBC (4.8-10.8) K/ul RBC (4.70-6.10) M/uL Hgb (14.0-18.0) g/dl POC Hgb (14.0-18.0) g/dl Hct (42.0-52.0) % POC Hct (42-52) % MCV (80.0-100.0) fL MCH (25.0-34.0) pg MCHC (32.0-36.0) g/dL RDW Std Deviation (36.4-46.3) fL RDW Coeff of You (11.5-14.5) % Plt Count (130-400) K/uL MPV (9.4-12.4) fL Immature Gran % (Auto) % Neut % (Auto) % Lymph % (Auto) % Edwards % (Auto) % Eos % (Auto) % Baso % (Auto) % Neut # (Auto) (1.40-6.50) K/uL Lymph # (Auto) (1.20-3.40) K/uL Edwards # (Auto) (0.11-0.59) K/uL Eos # (Auto) (0.00-0.50) K/uL Baso # (Auto) (0.00-0.20) K/uL Immature Gran # (Auto) (0.01-0.20) K/uL Specimen Type Sample Site POC pH (7.35-7.45) POC pCO2 (35-46) mmHg POC pO2 (80-95) mmHg POC HCO3 (19-24) mmol/L POC Total CO2 (24-31) mmol/L POC Base Excess (-9-1.8) mmol/L O2 Sat Pulse Oximetry ABG pH (Temp Correct) (7.35-7.45) ABG pCO2 (Temp Corrct (35-46) mmHg POC ABG pO2 at Pt Temp POC ABG O2 Sat (90-95) % Julian Test VBG pH (7.36-7.41) VBG pCO2 (38-50) mmHg VBG pO2 mmHg VBG HCO3 mmol/L VBG O2 Saturation % VBG Base Excess mEq/L O2 Delivery Device POC Sodium (135-144) mmol/L Sodium (136-145) mmol/L POC Potassium (3.3-5.0) mmol/L Potassium (3.5-5.1) mmol/L Chloride (98-107) mmol/L Carbon Dioxide (21-32) mmol/L Anion Gap (3-11) BUN (6-23) mg/dl Creatinine (0.6-1.4) mg/dl Est Cr Clr Drug Dosing eGFR BUN/Creatinine Ratio 11.9 (10-20) Glucose 119 H 124 H (70-99(Fasting)) mg/dl Lactate 1.3 (0.4-2.0) mmol/L Calcium 8.3 L 8.3 L (8.6-10.3) mg/dl Ionized Calcium (1.12-1.32) mmol/L Phosphorus 3.3 (2.5-4.9) mg/dl Magnesium 1.7 (1.7-2.4) mg/dl Iron (35-175) mcg/dl TIBC (250-450) mcg/dl Transferrin (200-360) mg/dl Transferrin % Sat (20-50) % Ferritin (8-388) ng/ml Total Bilirubin 0.6 (0.2-1.0) mg/dl AST 31 (13-39) U/L ALT 22 (7-52) U/L Alkaline Phosphatase 74 (34-104) U/L Lactate Dehydrogenase (86-244) U/L Troponin I High Sens (0-20) pg/ml C-Reactive Protein (0-0.5) mg/dl B-Natriuretic Peptide (0-100) pg/ml Total Protein 6.1 (6.0-8.3) gm/dl Albumin 3.2 L (3.4-5.0) gm/dl Globulin (2.5-4.0) gm/dl Albumin/Globulin Ratio (0.9-2) Vitamin B12 (180-914) pg/ml Folate (>5.38) ng/ml Procalcitonin (0-0.5) ng/ml TSH (0.300-4.500) uIu/ml PTH Intact (12.0-88.0) pg/ml Urine Color Urine Appearance (Clear) Urine pH (4.5-7.5) Ur Specific [place] (1.000-1.030) Urine Protein (Negative) Urine Glucose (UA) (Negative) Urine Ketones (Negative) Urine Blood (Negative) Urine Nitrite (Negative) Urine Bilirubin (Negative) Urine Urobilinogen (Negative) Ur Leukocyte Esterase (Negative) Urine WBC (Auto) (0-5) /hpf Urine RBC (Auto) (0-2) /hpf U Hyaline Cast (Auto) (0-2) /lpf U Epithel Cells (Auto) (0-2) /hpf Urine Bacteria (Auto) (None Seen) Urine Comment Fluid Neutrophils % % Fluid Lymphocytes % % Fluid Meso/Macro/Edwards % % Fluid Comment Pleural Fluid Source Pleural Color Pleural Appearance Pleural pH (7.3-7.4) Pleural WBC (Auto) /uL Pleural RBC (Auto) /uL Pleural Total Protein gm/dl Pleural LDH U/L Pleural Glucose mg/dl Pleural Amylase Pleural Cholesterol Nasal Screen MRSA (PCR) (Negative) Random Vancomycin (10-20) mcg/ml Adenovirus (PCR) (NotDetected) B. pertussis DNA (PCR) (NotDetected) B.parapertussis DNA PCR (NotDetected) C. pneumoniae DNA (PCR) (NotDetected) Coronavirus OC43 (PCR) (NotDetected) Coronavirus HKU1 (PCR) (NotDetected) Coronavirus 229E (PCR) (NotDetected) SARS-CoV-2 (PCR) (NotDetected) Coronavirus NL63 (PCR) (NotDetected) Hepatitis C Ab Screen (Negative) Human Metapneumovir PCR (NotDetected) Influenza Type A (PCR) (NotDetected) Influenza Type B (PCR) (NotDetected) M. pneumoniae (PCR) (NotDetected) Parainfluenza 1 (PCR) (NotDetected) Parainfluenza 2 (PCR) (NotDetected) Parainfluenza 3 (PCR) (NotDetected) Parainfluenza 4 (PCR) (NotDetected) RSV (PCR) (NotDetected) Entero/Rhino (PCR) (NotDetected) 06/08/25 06/08/25 06/08/25 Range/Units 03:13 03:13 03:13 WBC (4.8-10.8) K/ul RBC (4.70-6.10) M/uL Hgb (14.0-18.0) g/dl POC Hgb (14.0-18.0) g/dl Hct (42.0-52.0) % POC Hct (42-52) % MCV (80.0-100.0) fL MCH (25.0-34.0) pg MCHC (32.0-36.0) g/dL RDW Std Deviation (36.4-46.3) fL RDW Coeff of You (11.5-14.5) % Plt Count (130-400) K/uL MPV (9.4-12.4) fL Immature Gran % (Auto) % Neut % (Auto) % Lymph % (Auto) % Edwards % (Auto) % Eos % (Auto) % Baso % (Auto) % Neut # (Auto) (1.40-6.50) K/uL Lymph # (Auto) (1.20-3.40) K/uL Edwards # (Auto) (0.11-0.59) K/uL Eos # (Auto) (0.00-0.50) K/uL Baso # (Auto) (0.00-0.20) K/uL Immature Gran # (Auto) (0.01-0.20) K/uL Specimen Type Sample Site POC pH (7.35-7.45) POC pCO2 (35-46) mmHg POC pO2 (80-95) mmHg POC HCO3 (19-24) mmol/L POC Total CO2 (24-31) mmol/L POC Base Excess (-9-1.8) mmol/L O2 Sat Pulse Oximetry ABG pH (Temp Correct) (7.35-7.45) ABG pCO2 (Temp Corrct (35-46) mmHg POC ABG pO2 at Pt Temp POC ABG O2 Sat (90-95) % Julian Test VBG pH (7.36-7.41) VBG pCO2 (38-50) mmHg VBG pO2 mmHg VBG HCO3 mmol/L VBG O2 Saturation % VBG Base Excess mEq/L O2 Delivery Device POC Sodium (135-144) mmol/L Sodium (136-145) mmol/L POC Potassium (3.3-5.0) mmol/L Potassium (3.5-5.1) mmol/L Chloride (98-107) mmol/L Carbon Dioxide (21-32) mmol/L Anion Gap (3-11) BUN (6-23) mg/dl Creatinine 0.67 (0.6-1.4) mg/dl Est Cr Clr Drug Dosing 103.9 103.9 eGFR 94.98 94.98 BUN/Creatinine Ratio 11.9 (10-20) Glucose (70-99(Fasting)) mg/dl Lactate (0.4-2.0) mmol/L Calcium (8.6-10.3) mg/dl Ionized Calcium (1.12-1.32) mmol/L Phosphorus (2.5-4.9) mg/dl Magnesium (1.7-2.4) mg/dl Iron (35-175) mcg/dl TIBC (250-450) mcg/dl Transferrin (200-360) mg/dl Transferrin % Sat (20-50) % Ferritin (8-388) ng/ml Total Bilirubin (0.2-1.0) mg/dl AST (13-39) U/L ALT (7-52) U/L Alkaline Phosphatase (34-104) U/L Lactate Dehydrogenase (86-244) U/L Troponin I High Sens (0-20) pg/ml C-Reactive Protein (0-0.5) mg/dl B-Natriuretic Peptide (0-100) pg/ml Total Protein (6.0-8.3) gm/dl Albumin (3.4-5.0) gm/dl Globulin (2.5-4.0) gm/dl Albumin/Globulin Ratio (0.9-2) Vitamin B12 (180-914) pg/ml Folate (>5.38) ng/ml Procalcitonin (0-0.5) ng/ml TSH (0.300-4.500) uIu/ml PTH Intact (12.0-88.0) pg/ml Urine Color Urine Appearance (Clear) Urine pH (4.5-7.5) Ur Specific [place] (1.000-1.030) Urine Protein (Negative) Urine Glucose (UA) (Negative) Urine Ketones (Negative) Urine Blood (Negative) Urine Nitrite (Negative) Urine Bilirubin (Negative) Urine Urobilinogen (Negative) Ur Leukocyte Esterase (Negative) Urine WBC (Auto) (0-5) /hpf Urine RBC (Auto) (0-2) /hpf U Hyaline Cast (Auto) (0-2) /lpf U Epithel Cells (Auto) (0-2) /hpf Urine Bacteria (Auto) (None Seen) Urine Comment Fluid Neutrophils % % Fluid Lymphocytes % % Fluid Meso/Macro/Edwards % % Fluid Comment Pleural Fluid Source Pleural Color Pleural Appearance Pleural pH (7.3-7.4) Pleural WBC (Auto) /uL Pleural RBC (Auto) /uL Pleural Total Protein gm/dl Pleural LDH U/L Pleural Glucose mg/dl Pleural Amylase Pleural Cholesterol Nasal Screen MRSA (PCR) (Negative) Random Vancomycin (10-20) mcg/ml Adenovirus (PCR) (NotDetected) B. pertussis DNA (PCR) (NotDetected) B.parapertussis DNA PCR (NotDetected) C. pneumoniae DNA (PCR) (NotDetected) Coronavirus OC43 (PCR) (NotDetected) Coronavirus HKU1 (PCR) (NotDetected) Coronavirus 229E (PCR) (NotDetected) SARS-CoV-2 (PCR) (NotDetected) Coronavirus NL63 (PCR) (NotDetected) Hepatitis C Ab Screen (Negative) Human Metapneumovir PCR (NotDetected) Influenza Type A (PCR) (NotDetected) Influenza Type B (PCR) (NotDetected) M. pneumoniae (PCR) (NotDetected) Parainfluenza 1 (PCR) (NotDetected) Parainfluenza 2 (PCR) (NotDetected) Parainfluenza 3 (PCR) (NotDetected) Parainfluenza 4 (PCR) (NotDetected) RSV (PCR) (NotDetected) Entero/Rhino (PCR) (NotDetected) 06/08/25 06/08/25 06/08/25 Range/Units 03:13 03:13 03:13 WBC (4.8-10.8) K/ul RBC (4.70-6.10) M/uL Hgb (14.0-18.0) g/dl POC Hgb (14.0-18.0) g/dl Hct (42.0-52.0) % POC Hct (42-52) % MCV (80.0-100.0) fL MCH (25.0-34.0) pg MCHC (32.0-36.0) g/dL RDW Std Deviation (36.4-46.3) fL RDW Coeff of You (11.5-14.5) % Plt Count (130-400) K/uL MPV (9.4-12.4) fL Immature Gran % (Auto) % Neut % (Auto) % Lymph % (Auto) % Edwards % (Auto) % Eos % (Auto) % Baso % (Auto) % Neut # (Auto) (1.40-6.50) K/uL Lymph # (Auto) (1.20-3.40) K/uL Edwards # (Auto) (0.11-0.59) K/uL Eos # (Auto) (0.00-0.50) K/uL Baso # (Auto) (0.00-0.20) K/uL Immature Gran # (Auto) (0.01-0.20) K/uL Specimen Type Sample Site POC pH (7.35-7.45) POC pCO2 (35-46) mmHg POC pO2 (80-95) mmHg POC HCO3 (19-24) mmol/L POC Total CO2 (24-31) mmol/L POC Base Excess (-9-1.8) mmol/L O2 Sat Pulse Oximetry ABG pH (Temp Correct) (7.35-7.45) ABG pCO2 (Temp Corrct (35-46) mmHg POC ABG pO2 at Pt Temp POC ABG O2 Sat (90-95) % Julian Test VBG pH (7.36-7.41) VBG pCO2 (38-50) mmHg VBG pO2 mmHg VBG HCO3 mmol/L VBG O2 Saturation % VBG Base Excess mEq/L O2 Delivery Device POC Sodium (135-144) mmol/L Sodium (136-145) mmol/L POC Potassium (3.3-5.0) mmol/L Potassium (3.5-5.1) mmol/L Chloride (98-107) mmol/L Carbon Dioxide 28 (21-32) mmol/L Anion Gap 9 9 (3-11) BUN 8 8 (6-23) mg/dl Creatinine 0.67 (0.6-1.4) mg/dl Est Cr Clr Drug Dosing eGFR BUN/Creatinine Ratio (10-20) Glucose (70-99(Fasting)) mg/dl Lactate (0.4-2.0) mmol/L Calcium (8.6-10.3) mg/dl Ionized Calcium (1.12-1.32) mmol/L Phosphorus (2.5-4.9) mg/dl Magnesium (1.7-2.4) mg/dl Iron (35-175) mcg/dl TIBC (250-450) mcg/dl Transferrin (200-360) mg/dl Transferrin % Sat (20-50) % Ferritin (8-388) ng/ml Total Bilirubin (0.2-1.0) mg/dl AST (13-39) U/L ALT (7-52) U/L Alkaline Phosphatase (34-104) U/L Lactate Dehydrogenase (86-244) U/L Troponin I High Sens (0-20) pg/ml C-Reactive Protein (0-0.5) mg/dl B-Natriuretic Peptide (0-100) pg/ml Total Protein (6.0-8.3) gm/dl Albumin (3.4-5.0) gm/dl Globulin (2.5-4.0) gm/dl Albumin/Globulin Ratio (0.9-2) Vitamin B12 (180-914) pg/ml Folate (>5.38) ng/ml Procalcitonin (0-0.5) ng/ml TSH (0.300-4.500) uIu/ml PTH Intact (12.0-88.0) pg/ml Urine Color Urine Appearance (Clear) Urine pH (4.5-7.5) Ur Specific [place] (1.000-1.030) Urine Protein (Negative) Urine Glucose (UA) (Negative) Urine Ketones (Negative) Urine Blood (Negative) Urine Nitrite (Negative) Urine Bilirubin (Negative) Urine Urobilinogen (Negative) Ur Leukocyte Esterase (Negative) Urine WBC (Auto) (0-5) /hpf Urine RBC (Auto) (0-2) /hpf U Hyaline Cast (Auto) (0-2) /lpf U Epithel Cells (Auto) (0-2) /hpf Urine Bacteria (Auto) (None Seen) Urine Comment Fluid Neutrophils % % Fluid Lymphocytes % % Fluid Meso/Macro/Edwards % % Fluid Comment Pleural Fluid Source Pleural Color Pleural Appearance Pleural pH (7.3-7.4) Pleural WBC (Auto) /uL Pleural RBC (Auto) /uL Pleural Total Protein gm/dl Pleural LDH U/L Pleural Glucose mg/dl Pleural Amylase Pleural Cholesterol Nasal Screen MRSA (PCR) (Negative) Random Vancomycin (10-20) mcg/ml Adenovirus (PCR) (NotDetected) B. pertussis DNA (PCR) (NotDetected) B.parapertussis DNA PCR (NotDetected) C. pneumoniae DNA (PCR) (NotDetected) Coronavirus OC43 (PCR) (NotDetected) Coronavirus HKU1 (PCR) (NotDetected) Coronavirus 229E (PCR) (NotDetected) SARS-CoV-2 (PCR) (NotDetected) Coronavirus NL63 (PCR) (NotDetected) Hepatitis C Ab Screen (Negative) Human Metapneumovir PCR (NotDetected) Influenza Type A (PCR) (NotDetected) Influenza Type B (PCR) (NotDetected) M. pneumoniae (PCR) (NotDetected) Parainfluenza 1 (PCR) (NotDetected) Parainfluenza 2 (PCR) (NotDetected) Parainfluenza 3 (PCR) (NotDetected) Parainfluenza 4 (PCR) (NotDetected) RSV (PCR) (NotDetected) Entero/Rhino (PCR) (NotDetected) 06/08/25 06/08/25 06/08/25 Range/Units 03:13 03:13 03:13 WBC (4.8-10.8) K/ul RBC (4.70-6.10) M/uL Hgb (14.0-18.0) g/dl POC Hgb (14.0-18.0) g/dl Hct (42.0-52.0) % POC Hct (42-52) % MCV (80.0-100.0) fL MCH (25.0-34.0) pg MCHC (32.0-36.0) g/dL RDW Std Deviation (36.4-46.3) fL RDW Coeff of You (11.5-14.5) % Plt Count (130-400) K/uL MPV (9.4-12.4) fL Immature Gran % (Auto) % Neut % (Auto) % Lymph % (Auto) % Edwards % (Auto) % Eos % (Auto) % Baso % (Auto) % Neut # (Auto) (1.40-6.50) K/uL Lymph # (Auto) (1.20-3.40) K/uL Edwards # (Auto) (0.11-0.59) K/uL Eos # (Auto) (0.00-0.50) K/uL Baso # (Auto) (0.00-0.20) K/uL Immature Gran # (Auto) (0.01-0.20) K/uL Specimen Type Sample Site POC pH (7.35-7.45) POC pCO2 (35-46) mmHg POC pO2 (80-95) mmHg POC HCO3 (19-24) mmol/L POC Total CO2 (24-31) mmol/L POC Base Excess (-9-1.8) mmol/L O2 Sat Pulse Oximetry ABG pH (Temp Correct) (7.35-7.45) ABG pCO2 (Temp Corrct (35-46) mmHg POC ABG pO2 at Pt Temp POC ABG O2 Sat (90-95) % Julian Test VBG pH (7.36-7.41) VBG pCO2 (38-50) mmHg VBG pO2 mmHg VBG HCO3 mmol/L VBG O2 Saturation % VBG Base Excess mEq/L O2 Delivery Device POC Sodium (135-144) mmol/L Sodium 141 (136-145) mmol/L POC Potassium (3.3-5.0) mmol/L Potassium 3.1 L 3.1 L (3.5-5.1) mmol/L Chloride 104 104 (98-107) mmol/L Carbon Dioxide 28 (21-32) mmol/L Anion Gap (3-11) BUN (6-23) mg/dl Creatinine (0.6-1.4) mg/dl Est Cr Clr Drug Dosing eGFR BUN/Creatinine Ratio (10-20) Glucose (70-99(Fasting)) mg/dl Lactate (0.4-2.0) mmol/L Calcium (8.6-10.3) mg/dl Ionized Calcium (1.12-1.32) mmol/L Phosphorus (2.5-4.9) mg/dl Magnesium (1.7-2.4) mg/dl Iron (35-175) mcg/dl TIBC (250-450) mcg/dl Transferrin (200-360) mg/dl Transferrin % Sat (20-50) % Ferritin (8-388) ng/ml Total Bilirubin (0.2-1.0) mg/dl AST (13-39) U/L ALT (7-52) U/L Alkaline Phosphatase (34-104) U/L Lactate Dehydrogenase (86-244) U/L Troponin I High Sens (0-20) pg/ml C-Reactive Protein (0-0.5) mg/dl B-Natriuretic Peptide (0-100) pg/ml Total Protein (6.0-8.3) gm/dl Albumin (3.4-5.0) gm/dl Globulin (2.5-4.0) gm/dl Albumin/Globulin Ratio (0.9-2) Vitamin B12 (180-914) pg/ml Folate (>5.38) ng/ml Procalcitonin (0-0.5) ng/ml TSH (0.300-4.500) uIu/ml PTH Intact (12.0-88.0) pg/ml Urine Color Urine Appearance (Clear) Urine pH (4.5-7.5) Ur Specific [place] (1.000-1.030) Urine Protein (Negative) Urine Glucose (UA) (Negative) Urine Ketones (Negative) Urine Blood (Negative) Urine Nitrite (Negative) Urine Bilirubin (Negative) Urine Urobilinogen (Negative) Ur Leukocyte Esterase (Negative) Urine WBC (Auto) (0-5) /hpf Urine RBC (Auto) (0-2) /hpf U Hyaline Cast (Auto) (0-2) /lpf U Epithel Cells (Auto) (0-2) /hpf Urine Bacteria (Auto) (None Seen) Urine Comment Fluid Neutrophils % % Fluid Lymphocytes % % Fluid Meso/Macro/Edwards % % Fluid Comment Pleural Fluid Source Pleural Color Pleural Appearance Pleural pH (7.3-7.4) Pleural WBC (Auto) /uL Pleural RBC (Auto) /uL Pleural Total Protein gm/dl Pleural LDH U/L Pleural Glucose mg/dl Pleural Amylase Pleural Cholesterol Nasal Screen MRSA (PCR) (Negative) Random Vancomycin (10-20) mcg/ml Adenovirus (PCR) (NotDetected) B. pertussis DNA (PCR) (NotDetected) B.parapertussis DNA PCR (NotDetected) C. pneumoniae DNA (PCR) (NotDetected) Coronavirus OC43 (PCR) (NotDetected) Coronavirus HKU1 (PCR) (NotDetected) Coronavirus 229E (PCR) (NotDetected) SARS-CoV-2 (PCR) (NotDetected) Coronavirus NL63 (PCR) (NotDetected) Hepatitis C Ab Screen (Negative) Human Metapneumovir PCR (NotDetected) Influenza Type A (PCR) (NotDetected) Influenza Type B (PCR) (NotDetected) M. pneumoniae (PCR) (NotDetected) Parainfluenza 1 (PCR) (NotDetected) Parainfluenza 2 (PCR) (NotDetected) Parainfluenza 3 (PCR) (NotDetected) Parainfluenza 4 (PCR) (NotDetected) RSV (PCR) (NotDetected) Entero/Rhino (PCR) (NotDetected) 06/08/25 06/07/25 06/06/25 Range/Units 03:13 06:22 06:13 WBC 9.15 8.10 (4.8-10.8) K/ul RBC 3.90 L 3.61 L (4.70-6.10) M/uL Hgb 10.0 L 9.6 L (14.0-18.0) g/dl POC Hgb (14.0-18.0) g/dl Hct 31.8 L 28.7 L (42.0-52.0) % POC Hct (42-52) % MCV 81.5 79.5 L (80.0-100.0) fL MCH 25.6 26.6 (25.0-34.0) pg MCHC 31.4 L 33.4 (32.0-36.0) g/dL RDW Std Deviation 49.8 H 47.8 H (36.4-46.3) fL RDW Coeff of You 17.3 H 16.8 H (11.5-14.5) % Plt Count 172 158 (130-400) K/uL MPV 10.9 10.8 (9.4-12.4) fL Immature Gran % (Auto) 1.6 % Neut % (Auto) 60.9 % Lymph % (Auto) 15.4 % Edwards % (Auto) 21.6 % Eos % (Auto) 0.4 % Baso % (Auto) 0.1 % Neut # (Auto) 5.56 (1.40-6.50) K/uL Lymph # (Auto) 1.41 (1.20-3.40) K/uL Edwards # (Auto) 1.98 H (0.11-0.59) K/uL Eos # (Auto) 0.04 (0.00-0.50) K/uL Baso # (Auto) 0.01 (0.00-0.20) K/uL Immature Gran # (Auto) 0.15 (0.01-0.20) K/uL Specimen Type Sample Site POC pH (7.35-7.45) POC pCO2 (35-46) mmHg POC pO2 (80-95) mmHg POC HCO3 (19-24) mmol/L POC Total CO2 (24-31) mmol/L POC Base Excess (-9-1.8) mmol/L O2 Sat Pulse Oximetry ABG pH (Temp Correct) (7.35-7.45) ABG pCO2 (Temp Corrct (35-46) mmHg POC ABG pO2 at Pt Temp POC ABG O2 Sat (90-95) % Julian Test VBG pH 7.41 (7.36-7.41) VBG pCO2 45 (38-50) mmHg VBG pO2 61 mmHg VBG HCO3 29 mmol/L VBG O2 Saturation 91.0 % VBG Base Excess 3.2 mEq/L O2 Delivery Device POC Sodium (135-144) mmol/L Sodium 141 142 143 (136-145) mmol/L POC Potassium (3.3-5.0) mmol/L Potassium 3.0 L 2.7 L D (3.5-5.1) mmol/L Chloride 106 108 H (98-107) mmol/L Carbon Dioxide 29 26 (21-32) mmol/L Anion Gap 7 9 (3-11) BUN 9 8 (6-23) mg/dl Creatinine 0.60 0.60 (0.6-1.4) mg/dl Est Cr Clr Drug Dosing 116.1 118.0 eGFR 98.20 98.81 BUN/Creatinine Ratio 15.0 13.3 (10-20) Glucose 142 H 145 H (70-99(Fasting)) mg/dl Lactate (0.4-2.0) mmol/L Calcium 8.1 L 7.9 L (8.6-10.3) mg/dl Ionized Calcium (1.12-1.32) mmol/L Phosphorus 3.2 2.6 (2.5-4.9) mg/dl Magnesium 1.7 1.4 L (1.7-2.4) mg/dl Iron (35-175) mcg/dl TIBC (250-450) mcg/dl Transferrin (200-360) mg/dl Transferrin % Sat (20-50) % Ferritin (8-388) ng/ml Total Bilirubin (0.2-1.0) mg/dl AST (13-39) U/L ALT (7-52) U/L Alkaline Phosphatase (34-104) U/L Lactate Dehydrogenase (86-244) U/L Troponin I High Sens (0-20) pg/ml C-Reactive Protein (0-0.5) mg/dl B-Natriuretic Peptide (0-100) pg/ml Total Protein (6.0-8.3) gm/dl Albumin 3.0 L 3.0 L (3.4-5.0) gm/dl Globulin (2.5-4.0) gm/dl Albumin/Globulin Ratio (0.9-2) Vitamin B12 (180-914) pg/ml Folate (>5.38) ng/ml Procalcitonin (0-0.5) ng/ml TSH (0.300-4.500) uIu/ml PTH Intact (12.0-88.0) pg/ml Urine Color Urine Appearance (Clear) Urine pH (4.5-7.5) Ur Specific [place] (1.000-1.030) Urine Protein (Negative) Urine Glucose (UA) (Negative) Urine Ketones (Negative) Urine Blood (Negative) Urine Nitrite (Negative) Urine Bilirubin (Negative) Urine Urobilinogen (Negative) Ur Leukocyte Esterase (Negative) Urine WBC (Auto) (0-5) /hpf Urine RBC (Auto) (0-2) /hpf U Hyaline Cast (Auto) (0-2) /lpf U Epithel Cells (Auto) (0-2) /hpf Urine Bacteria (Auto) (None Seen) Urine Comment Fluid Neutrophils % % Fluid Lymphocytes % % Fluid Meso/Macro/Edwards % % Fluid Comment Pleural Fluid Source Pleural Color Pleural Appearance Pleural pH (7.3-7.4) Pleural WBC (Auto) /uL Pleural RBC (Auto) /uL Pleural Total Protein gm/dl Pleural LDH U/L Pleural Glucose mg/dl Pleural Amylase Pleural Cholesterol Nasal Screen MRSA (PCR) (Negative) Random Vancomycin (10-20) mcg/ml Adenovirus (PCR) (NotDetected) B. pertussis DNA (PCR) (NotDetected) B.parapertussis DNA PCR (NotDetected) C. pneumoniae DNA (PCR) (NotDetected) Coronavirus OC43 (PCR) (NotDetected) Coronavirus HKU1 (PCR) (NotDetected) Coronavirus 229E (PCR) (NotDetected) SARS-CoV-2 (PCR) (NotDetected) Coronavirus NL63 (PCR) (NotDetected) Hepatitis C Ab Screen (Negative) Human Metapneumovir PCR (NotDetected) Influenza Type A (PCR) (NotDetected) Influenza Type B (PCR) (NotDetected) M. pneumoniae (PCR) (NotDetected) Parainfluenza 1 (PCR) (NotDetected) Parainfluenza 2 (PCR) (NotDetected) Parainfluenza 3 (PCR) (NotDetected) Parainfluenza 4 (PCR) (NotDetected) RSV (PCR) (NotDetected) Entero/Rhino (PCR) (NotDetected) 06/05/25 06/05/25 06/04/25 Range/Units 14:42 06:30 08:02 WBC 11.19 H (4.8-10.8) K/ul RBC 4.00 L (4.70-6.10) M/uL Hgb 10.4 L (14.0-18.0) g/dl POC Hgb (14.0-18.0) g/dl Hct 31.8 L (42.0-52.0) % POC Hct (42-52) % MCV 79.5 L (80.0-100.0) fL MCH 26.0 (25.0-34.0) pg MCHC 32.7 (32.0-36.0) g/dL RDW Std Deviation 47.6 H (36.4-46.3) fL RDW Coeff of You 16.9 H (11.5-14.5) % Plt Count 181 (130-400) K/uL MPV 10.9 (9.4-12.4) fL Immature Gran % (Auto) 1.9 % Neut % (Auto) 69.8 % Lymph % (Auto) 10.6 % Edwards % (Auto) 17.5 % Eos % (Auto) 0.1 % Baso % (Auto) 0.1 % Neut # (Auto) 7.81 H (1.40-6.50) K/uL Lymph # (Auto) 1.19 L (1.20-3.40) K/uL Edwards # (Auto) 1.96 H (0.11-0.59) K/uL Eos # (Auto) 0.01 (0.00-0.50) K/uL Baso # (Auto) 0.01 (0.00-0.20) K/uL Immature Gran # (Auto) 0.21 H (0.01-0.20) K/uL Specimen Type Sample Site POC pH (7.35-7.45) POC pCO2 (35-46) mmHg POC pO2 (80-95) mmHg POC HCO3 (19-24) mmol/L POC Total CO2 (24-31) mmol/L POC Base Excess (-9-1.8) mmol/L O2 Sat Pulse Oximetry ABG pH (Temp Correct) (7.35-7.45) ABG pCO2 (Temp Corrct (35-46) mmHg POC ABG pO2 at Pt Temp POC ABG O2 Sat (90-95) % Julian Test VBG pH (7.36-7.41) VBG pCO2 (38-50) mmHg VBG pO2 mmHg VBG HCO3 mmol/L VBG O2 Saturation % VBG Base Excess mEq/L O2 Delivery Device POC Sodium (135-144) mmol/L Sodium 140 140 (136-145) mmol/L POC Potassium (3.3-5.0) mmol/L Potassium 3.8 D 3.0 L (3.5-5.1) mmol/L Chloride 109 H 107 (98-107) mmol/L Carbon Dioxide 23 25 (21-32) mmol/L Anion Gap 8 8 (3-11) BUN 10 12 (6-23) mg/dl Creatinine 0.68 0.72 (0.6-1.4) mg/dl Est Cr Clr Drug Dosing 104.1 98.3 eGFR 95.14 93.51 BUN/Creatinine Ratio 14.7 16.7 (10-20) Glucose 115 H 135 H (70-99(Fasting)) mg/dl Lactate (0.4-2.0) mmol/L Calcium 7.9 L 8.3 L (8.6-10.3) mg/dl Ionized Calcium 1.06 L (1.12-1.32) mmol/L Phosphorus 1.9 L 2.0 L (2.5-4.9) mg/dl Magnesium 1.6 L 1.6 L (1.7-2.4) mg/dl Iron (35-175) mcg/dl TIBC (250-450) mcg/dl Transferrin (200-360) mg/dl Transferrin % Sat (20-50) % Ferritin (8-388) ng/ml Total Bilirubin (0.2-1.0) mg/dl AST (13-39) U/L ALT (7-52) U/L Alkaline Phosphatase (34-104) U/L Lactate Dehydrogenase (86-244) U/L Troponin I High Sens (0-20) pg/ml C-Reactive Protein 6.10 H (0-0.5) mg/dl B-Natriuretic Peptide (0-100) pg/ml Total Protein (6.0-8.3) gm/dl Albumin 2.9 L 3.2 L (3.4-5.0) gm/dl Globulin (2.5-4.0) gm/dl Albumin/Globulin Ratio (0.9-2) Vitamin B12 (180-914) pg/ml Folate (>5.38) ng/ml Procalcitonin 0.08 (0-0.5) ng/ml TSH (0.300-4.500) uIu/ml PTH Intact 67.8 (12.0-88.0) pg/ml Urine Color Urine Appearance (Clear) Urine pH (4.5-7.5) Ur Specific [place] (1.000-1.030) Urine Protein (Negative) Urine Glucose (UA) (Negative) Urine Ketones (Negative) Urine Blood (Negative) Urine Nitrite (Negative) Urine Bilirubin (Negative) Urine Urobilinogen (Negative) Ur Leukocyte Esterase (Negative) Urine WBC (Auto) (0-5) /hpf Urine RBC (Auto) (0-2) /hpf U Hyaline Cast (Auto) (0-2) /lpf U Epithel Cells (Auto) (0-2) /hpf Urine Bacteria (Auto) (None Seen) Urine Comment Fluid Neutrophils % % Fluid Lymphocytes % % Fluid Meso/Macro/Edwards % % Fluid Comment Pleural Fluid Source Pleural Color Pleural Appearance Pleural pH (7.3-7.4) Pleural WBC (Auto) /uL Pleural RBC (Auto) /uL Pleural Total Protein gm/dl Pleural LDH U/L Pleural Glucose mg/dl Pleural Amylase Pleural Cholesterol Nasal Screen MRSA (PCR) (Negative) Random Vancomycin (10-20) mcg/ml Adenovirus (PCR) (NotDetected) B. pertussis DNA (PCR) (NotDetected) B.parapertussis DNA PCR (NotDetected) C. pneumoniae DNA (PCR) (NotDetected) Coronavirus OC43 (PCR) (NotDetected) Coronavirus HKU1 (PCR) (NotDetected) Coronavirus 229E (PCR) (NotDetected) SARS-CoV-2 (PCR) (NotDetected) Coronavirus NL63 (PCR) (NotDetected) Hepatitis C Ab Screen (Negative) Human Metapneumovir PCR (NotDetected) Influenza Type A (PCR) (NotDetected) Influenza Type B (PCR) (NotDetected) M. pneumoniae (PCR) (NotDetected) Parainfluenza 1 (PCR) (NotDetected) Parainfluenza 2 (PCR) (NotDetected) Parainfluenza 3 (PCR) (NotDetected) Parainfluenza 4 (PCR) (NotDetected) RSV (PCR) (NotDetected) Entero/Rhino (PCR) (NotDetected) 06/04/25 06/03/25 06/03/25 Range/Units 06:42 Unknown 22:49 WBC 4.84 (4.8-10.8) K/ul RBC 3.68 L (4.70-6.10) M/uL Hgb 9.4 L (14.0-18.0) g/dl POC Hgb (14.0-18.0) g/dl Hct 29.7 L (42.0-52.0) % POC Hct (42-52) % MCV 80.7 (80.0-100.0) fL MCH 25.5 (25.0-34.0) pg MCHC 31.6 L (32.0-36.0) g/dL RDW Std Deviation 47.5 H (36.4-46.3) fL RDW Coeff of You 16.3 H (11.5-14.5) % Plt Count 149 (130-400) K/uL MPV 10.8 (9.4-12.4) fL Immature Gran % (Auto) 4.3 % Neut % (Auto) 83.7 % Lymph % (Auto) 8.1 % Edwards % (Auto) 3.9 % Eos % (Auto) 0.0 % Baso % (Auto) 0.0 % Neut # (Auto) 4.05 (1.40-6.50) K/uL Lymph # (Auto) 0.39 L (1.20-3.40) K/uL Edwards # (Auto) 0.19 (0.11-0.59) K/uL Eos # (Auto) 0.00 (0.00-0.50) K/uL Baso # (Auto) 0.00 (0.00-0.20) K/uL Immature Gran # (Auto) 0.21 H (0.01-0.20) K/uL Specimen Type Sample Site POC pH (7.35-7.45) POC pCO2 (35-46) mmHg POC pO2 (80-95) mmHg POC HCO3 (19-24) mmol/L POC Total CO2 (24-31) mmol/L POC Base Excess (-9-1.8) mmol/L O2 Sat Pulse Oximetry ABG pH (Temp Correct) (7.35-7.45) ABG pCO2 (Temp Corrct (35-46) mmHg POC ABG pO2 at Pt Temp POC ABG O2 Sat (90-95) % Julian Test VBG pH (7.36-7.41) VBG pCO2 (38-50) mmHg VBG pO2 mmHg VBG HCO3 mmol/L VBG O2 Saturation % VBG Base Excess mEq/L O2 Delivery Device POC Sodium (135-144) mmol/L Sodium 139 137 (136-145) mmol/L POC Potassium (3.3-5.0) mmol/L Potassium 3.7 3.6 (3.5-5.1) mmol/L Chloride 108 H 106 (98-107) mmol/L Carbon Dioxide 22 21 (21-32) mmol/L Anion Gap 9 10 (3-11) BUN 16 15 (6-23) mg/dl Creatinine 0.70 0.69 (0.6-1.4) mg/dl Est Cr Clr Drug Dosing 101.1 102.6 eGFR 94.31 94.72 BUN/Creatinine Ratio 22.9 H 21.7 H (10-20) Glucose 150 H 154 H (70-99(Fasting)) mg/dl Lactate (0.4-2.0) mmol/L Calcium 7.4 L 7.3 L (8.6-10.3) mg/dl Ionized Calcium (1.12-1.32) mmol/L Phosphorus 2.7 2.6 (2.5-4.9) mg/dl Magnesium 1.7 1.7 (1.7-2.4) mg/dl Iron (35-175) mcg/dl TIBC (250-450) mcg/dl Transferrin (200-360) mg/dl Transferrin % Sat (20-50) % Ferritin (8-388) ng/ml Total Bilirubin 0.5 (0.2-1.0) mg/dl AST 17 (13-39) U/L ALT 9 (7-52) U/L Alkaline Phosphatase 68 (34-104) U/L Lactate Dehydrogenase (86-244) U/L Troponin I High Sens (0-20) pg/ml C-Reactive Protein 10.59 H (0-0.5) mg/dl B-Natriuretic Peptide (0-100) pg/ml Total Protein 5.6 L (6.0-8.3) gm/dl Albumin 3.1 L (3.4-5.0) gm/dl Globulin 2.5 (2.5-4.0) gm/dl Albumin/Globulin Ratio 1.2 (0.9-2) Vitamin B12 (180-914) pg/ml Folate (>5.38) ng/ml Procalcitonin 0.10 (0-0.5) ng/ml TSH (0.300-4.500) uIu/ml PTH Intact (12.0-88.0) pg/ml Urine Color Yellow Urine Appearance Clear (Clear) Urine pH 5.5 (4.5-7.5) Ur Specific [place] 1.022 (1.000-1.030) Urine Protein Trace H (Negative) Urine Glucose (UA) Negative (Negative) Urine Ketones 2+ H (Negative) Urine Blood Negative (Negative) Urine Nitrite Negative (Negative) Urine Bilirubin Negative (Negative) Urine Urobilinogen Negative (Negative) Ur Leukocyte Esterase Negative (Negative) Urine WBC (Auto) 0-5 (0-5) /hpf Urine RBC (Auto) 3-5 H (0-2) /hpf U Hyaline Cast (Auto) 0-2 (0-2) /lpf U Epithel Cells (Auto) 0-2 (0-2) /hpf Urine Bacteria (Auto) None Seen (None Seen) Urine Comment Fluid Neutrophils % % Fluid Lymphocytes % % Fluid Meso/Macro/Edwards % % Fluid Comment Pleural Fluid Source Pleural Color Pleural Appearance Pleural pH (7.3-7.4) Pleural WBC (Auto) /uL Pleural RBC (Auto) /uL Pleural Total Protein gm/dl Pleural LDH U/L Pleural Glucose mg/dl Pleural Amylase Pleural Cholesterol Nasal Screen MRSA (PCR) (Negative) Random Vancomycin (10-20) mcg/ml Adenovirus (PCR) Not Detected (NotDetected) B. pertussis DNA (PCR) Not Detected (NotDetected) B.parapertussis DNA PCR Not Detected (NotDetected) C. pneumoniae DNA (PCR) Not Detected (NotDetected) Coronavirus OC43 (PCR) Not Detected (NotDetected) Coronavirus HKU1 (PCR) Not Detected (NotDetected) Coronavirus 229E (PCR) Not Detected (NotDetected) SARS-CoV-2 (PCR) Not Detected (NotDetected) Coronavirus NL63 (PCR) Not Detected (NotDetected) Hepatitis C Ab Screen (Negative) Human Metapneumovir PCR Not Detected (NotDetected) Influenza Type A (PCR) Not Detected (NotDetected) Influenza Type B (PCR) Not Detected (NotDetected) M. pneumoniae (PCR) Not Detected (NotDetected) Parainfluenza 1 (PCR) Not Detected (NotDetected) Parainfluenza 2 (PCR) Not Detected (NotDetected) Parainfluenza 3 (PCR) Not Detected (NotDetected) Parainfluenza 4 (PCR) Not Detected (NotDetected) RSV (PCR) Not Detected (NotDetected) Entero/Rhino (PCR) Not Detected (NotDetected) 06/03/25 06/03/25 Range/Units 17:57 13:30 WBC 9.29 (4.8-10.8) K/ul RBC 4.41 L (4.70-6.10) M/uL Hgb 11.2 L (14.0-18.0) g/dl POC Hgb (14.0-18.0) g/dl Hct 34.8 L (42.0-52.0) % POC Hct (42-52) % MCV 78.9 L (80.0-100.0) fL MCH 25.4 (25.0-34.0) pg MCHC 32.2 (32.0-36.0) g/dL RDW Std Deviation 46.1 (36.4-46.3) fL RDW Coeff of You 16.5 H (11.5-14.5) % Plt Count 185 (130-400) K/uL MPV 10.7 (9.4-12.4) fL Immature Gran % (Auto) 2.4 % Neut % (Auto) 73.6 % Lymph % (Auto) 8.8 % Edwards % (Auto) 15.0 % Eos % (Auto) 0.1 % Baso % (Auto) 0.1 % Neut # (Auto) 6.84 H (1.40-6.50) K/uL Lymph # (Auto) 0.82 L (1.20-3.40) K/uL Edwards # (Auto) 1.39 H (0.11-0.59) K/uL Eos # (Auto) 0.01 (0.00-0.50) K/uL Baso # (Auto) 0.01 (0.00-0.20) K/uL Immature Gran # (Auto) 0.22 H (0.01-0.20) K/uL Specimen Type Sample Site POC pH (7.35-7.45) POC pCO2 (35-46) mmHg POC pO2 (80-95) mmHg POC HCO3 (19-24) mmol/L POC Total CO2 (24-31) mmol/L POC Base Excess (-9-1.8) mmol/L O2 Sat Pulse Oximetry ABG pH (Temp Correct) (7.35-7.45) ABG pCO2 (Temp Corrct (35-46) mmHg POC ABG pO2 at Pt Temp POC ABG O2 Sat (90-95) % Julian Test VBG pH (7.36-7.41) VBG pCO2 (38-50) mmHg VBG pO2 mmHg VBG HCO3 mmol/L VBG O2 Saturation % VBG Base Excess mEq/L O2 Delivery Device POC Sodium (135-144) mmol/L Sodium 138 (136-145) mmol/L POC Potassium (3.3-5.0) mmol/L Potassium 3.1 L (3.5-5.1) mmol/L Chloride 103 (98-107) mmol/L Carbon Dioxide 21 (21-32) mmol/L Anion Gap 14 H (3-11) BUN 16 (6-23) mg/dl Creatinine 0.75 (0.6-1.4) mg/dl Est Cr Clr Drug Dosing Not Reportable eGFR 92.37 BUN/Creatinine Ratio 21.3 H (10-20) Glucose 113 H (70-99(Fasting)) mg/dl Lactate (0.4-2.0) mmol/L Calcium 8.2 L (8.6-10.3) mg/dl Ionized Calcium (1.12-1.32) mmol/L Phosphorus 1.9 L (2.5-4.9) mg/dl Magnesium 1.6 L 1.8 (1.7-2.4) mg/dl Iron (35-175) mcg/dl TIBC (250-450) mcg/dl Transferrin (200-360) mg/dl Transferrin % Sat (20-50) % Ferritin (8-388) ng/ml Total Bilirubin 0.7 (0.2-1.0) mg/dl AST 22 (13-39) U/L ALT 11 (7-52) U/L Alkaline Phosphatase 86 (34-104) U/L Lactate Dehydrogenase (86-244) U/L Troponin I High Sens (0-20) pg/ml C-Reactive Protein 13.07 H (0-0.5) mg/dl B-Natriuretic Peptide (0-100) pg/ml Total Protein 6.8 (6.0-8.3) gm/dl Albumin 3.6 (3.4-5.0) gm/dl Globulin 3.2 (2.5-4.0) gm/dl Albumin/Globulin Ratio 1.1 (0.9-2) Vitamin B12 (180-914) pg/ml Folate (>5.38) ng/ml Procalcitonin 0.15 (0-0.5) ng/ml TSH 1.358 (0.300-4.500) uIu/ml PTH Intact (12.0-88.0) pg/ml Urine Color Urine Appearance (Clear) Urine pH (4.5-7.5) Ur Specific [place] (1.000-1.030) Urine Protein (Negative) Urine Glucose (UA) (Negative) Urine Ketones (Negative) Urine Blood (Negative) Urine Nitrite (Negative) Urine Bilirubin (Negative) Urine Urobilinogen (Negative) Ur Leukocyte Esterase (Negative) Urine WBC (Auto) (0-5) /hpf Urine RBC (Auto) (0-2) /hpf U Hyaline Cast (Auto) (0-2) /lpf U Epithel Cells (Auto) (0-2) /hpf Urine Bacteria (Auto) (None Seen) Urine Comment Fluid Neutrophils % % Fluid Lymphocytes % % Fluid Meso/Macro/Edwards % % Fluid Comment Pleural Fluid Source Pleural Color Pleural Appearance Pleural pH (7.3-7.4) Pleural WBC (Auto) /uL Pleural RBC (Auto) /uL Pleural Total Protein gm/dl Pleural LDH U/L Pleural Glucose mg/dl Pleural Amylase Pleural Cholesterol Nasal Screen MRSA (PCR) (Negative) Random Vancomycin (10-20) mcg/ml Adenovirus (PCR) (NotDetected) B. pertussis DNA (PCR) (NotDetected) B.parapertussis DNA PCR (NotDetected) C. pneumoniae DNA (PCR) (NotDetected) Coronavirus OC43 (PCR) (NotDetected) Coronavirus HKU1 (PCR) (NotDetected) Coronavirus 229E (PCR) (NotDetected) SARS-CoV-2 (PCR) (NotDetected) Coronavirus NL63 (PCR) (NotDetected) Hepatitis C Ab Screen Negative (Negative) Human Metapneumovir PCR (NotDetected) Influenza Type A (PCR) (NotDetected) Influenza Type B (PCR) (NotDetected) M. pneumoniae (PCR) (NotDetected) Parainfluenza 1 (PCR) (NotDetected) Parainfluenza 2 (PCR) (NotDetected) Parainfluenza 3 (PCR) (NotDetected) Parainfluenza 4 (PCR) (NotDetected) RSV (PCR) (NotDetected) Entero/Rhino (PCR) (NotDetected) Diagnostic Findings Chest CT 09/24/25 04:[address] WITH CONTRAST CT DOSE: 1295.59 mGy.cm HISTORY: Acute shortness of breath f/u on CXR findings TECHNIQUE: Multiaxial CT images of the chest were performed following the IV administration of Optiray. A dose lowering technique was utilized adhering to the principles of ALARA. COMPARISON: Chest x-ray same day, PET/CT 05/18/2025 FINDINGS: 1.3 cm left-sided thyroid nodule redemonstrated which was hypermet abolic on the prior PET/CT. Mild cardiomegaly with moderate coronary artery calcifications redemonstrated. No thoracic aortic aneurysm or pulmonary embolus identified. Study is degraded by respiratory motion artifact. Extensive metastatic disease of the chest redemonstrated. This includes metastatic myocardial foci of the left ventricle, along with numerous chest wall and back lesions. There is an index 2.6 cm right trapezius metastatic lesion on image 10 series 4. Hypermetabolic left hilar and subcarinal metastatic disease appears generally stable. Increased size of the moderate layering pleural effusions. No pneumothorax. 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 There is progressive consolidation of the lung bases, most pronounced in the left lower lobe. 4.9 cm consolidation of the right middle lobe on image 157 previously measured 4.6 cm. Intralobular septal thickening with multifocal multisegmental groundglass densities. Mild tracheobronchial secretions. Multifocal metastasis of the upper abdomen. 1.5 cm hypodense lesion of the right hepatic lobe on image 236, not clearly seen on the prior study. Bilateral adrenal metastasis again noted. Metastatic lesions within the right perinephric space. Lytic osseous metastasis are noted. Acute appearing mild super endplate compression at L1 is unchanged without retropulsion. Enteric tube courses into the stomach. IMPRESSION: 1. Cardiomegaly with interstitial and alveolar pulmonary edema and moderate pleural effusions. 2. Extensive metastatic disease of the chest and upper abdomen redemonstrated including innumerable pulmonary metastasis with lymphangitic carcinomatosis. Myocardial, chest and abdominal wall metastasis. 3. Bibasilar consolidation likely represents a combination of metastatic lesions with atelectasis. Superimposed pneumonia could appear similarly. 4. Osseous metastatic disease with unchanged appearance of the pathologic L1 compression deformity without retropulsion. 4. Possible solitary metastatic lesion of the right hepatic lobe, not seen on the prior PET/CT. ACT 112: Negative or not required by law. Electronically signed by: Papito Larson M.D. 06/08/2025 12:30 PM KUB X-Ray 06/08/25 13:28 KUB HISTORY: Confirm tube-placement COMPARISON STUDY: 06/04/2025 FINDINGS: Feeding tube tip is likely in the distal antrum of the stomach. There is mild retained stool. No bowel obstruction seen. IMPRESSION: Feeding tube tip is likely in the distal antrum of the stomach. ACT 112: Negative or not required by law. The above report was generated using voice recognition software. It may contain grammatical, syntax or spelling errors. Electronically signed by: Jarek Castrejon M.D. 06/08/2025 1:58 PM Chest X-Ray 06/10/25 07:58 XR chest 1V portable CLINICAL HISTORY: eval lungs in setting of dyspnea and hypoxia COMPARISON STUDY: 06/10/2025 FINDINGS: There is stable mild cardiomegaly with pulmonary vascular congestion. Feeding tube tip is off the field of view inferiorly. Diffuse patchy pulmonary opacities are stable. Stable small left pleural effusion and consolidation at the left lung base. No pneumothorax. IMPRESSION: Stable exam. ACT 112: Negative or not required by law. Electronically signed by: Jarek Castrejon M.D. 06/10/2025 8:38 AM PG Care Time/CCT Total # of Minutes Spent Total Time Spent with Patient: Total time spent is greater than 50% in coordination of care (as documented) at patient's floor/unit and/or counseling patient: I spent 105 minutes overall addressing this case: 20 min in medical data review/discussion with referring provider(s) and/or preparation for the visit incl OSH data review 10 min in direct interaction with the patient/exam 40 min in Advance Care Planning/Goals of Care discussions as detailed above in note (must be >16min) 15 min in subsequent review and synthesis of assessment and plan 20 min communicating with other providers regarding the patient's case: onc, primary team, vascular, nursing, care mgt Advanced Care Planning 12696 Advanced Care Planning Additional 30 [place] [address] IN/OBS CONSULT LVL 4,60M (25 - SIGNIFICANT, SEPARATELY IDENTIFIABLE ) Patient Type New Medical Decision Making High Complexity Diagnoses Dyspnea and respiratory abnormalities R06.00; R06.89 Weakness generalized R53.1 Advanced care planning/counseling discussion Z71.89 Palliative care by specialist Z51.5 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
[2025-06-10] MEDS: MoRPHine SULFATE 2 MG/ML CARP IV STA (10:17)
--- NOTE | 2025-06-10 10:36 | Pulmonology Progress Note ---
<Statement entered by Thuan Phillip MD - 06/11/25 03:06> I, Thuan Phillip MD, supervised and reviewed the physical exam, assessment, plan, and management as documented by the Advanced Care Provider for this patient encounter. I discussed the case with them, confirmed the findings, and I concur with the proposed plan of care. I was available for consultation throughout the encounter and provided guidance as needed. Date of Service June 10, 2025 Assessment & Plan (1) Acute hypoxemic respiratory failure: Plan: Multifactorial. Bilateral pulmonary consolidation, but the picture is not that of active pneumonia. The patient had bilateral mass-like consolidation on recent PET/CT. The pleural effusions are new, so the patient may have a mixed picture including possible CHF. No recent Echo. Titrate Oxygen to SpO2 90-94. Sputum for culture growing staph aureus (MSSA). MRSA nares neagtive. Stop vancomycin. TTE showed EF 55-60%. Mild pulm HTN. CTPE negative BNP 105. 20mg lasix given. Concern that lymphangitic spread of cancer could be playing a roll in hypoxia. Methylpred started. 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 (3) Pleural effusion, bilateral: Plan: Thoracentesis on 06/08/25 with transudative appearing fluid. Culutre and gram stain negative. Path pending. Repeat imaging show moderate effusion. Plan 48 minutes the time spent reviewing the chart, obtaining history, performing the physical exam, and updating the patient and bedside chart. Admission and Anticipated Discharge Date Admission Date: June 03, 2025 Subjective Patient had precipitous increase in FiO2 this morning to HFNC at 80%/50L. Patient maintaining SpO2 92% on evaluation. CXR shows persistent pulmonary infiltrates. CTPE ordered which shows no PE. CT chest does show lymphangitic spread of cancer, diffuse pulmonary infiltrates. BNP ordered 107. Lasix given this am. Patient has been afebrile. Procalcitonin negative. MRSA negative. Sputum culture growing MSSA. Vancomycin discontinued. Methylpred ordered this am. Pleural fluid show likely transudative effusion with no growth to date. On eval patient's family upset that patent will not be able to get his mediport placed due to his worsening pulmonary status which will delay his treatment. Explained that patient is not in any condition to safely undergo procedure or chemotherapy a this point. Review of Systems 2 Review of Systems: All systems reviewed & are unremarkable except as noted in HPI & below Physical Exam 2 Physical Exam: VITALS: Reviewed. WEIGHT/BMI reviewed. GEN: Ill appearing, well-developed, NAD. PSYCH: Good Judgment. AOx3. Normal memory, mood, and affect. HEENT -Head: NC/AT; -Eyes: PERRL, EOMI. No discharge or redn ess; -Ears: External ears are normal. -Nose: Normal nares. NECK: Supple, with no masses. CV: RRR, no m/r/g. LUNGS: CTA in b/l upper lobes. Diminished in b/l bases. Chest rise symmetrical. Breathing mildly labored. ABD: Soft, NT/ND, NBS, no masses or organomegaly. : N/A SKIN: Warm, well perfused. No skin rashes or abnormal lesions. MSK: No deformities, Normal gait. EXT: No clubbing, cyanosis, or edema. NEURO: Normal muscle strength and tone. No focal deficits. Results & Data Results & Data Vital Signs (Past 12 Hours) Vital Signs Temp Pulse Pulse Resp BP Pulse Ox O2 Del Method 06/10/25 10:08 87 20 96 High Flow Nasal Cannula 06/10/25 08:06 119 H 06/10/25 07:56 High Flow Nasal Cannula 06/10/25 07:45 108 H 24 92 High Flow Nasal Cannula 06/10/25 07:43 36.6 C 98 H 21 132/66 92 Free Flow/Blow-by 06/10/25 05:26 116 H 27 H 91 High Flow Nasal Cannula 06/10/25 05:21 116 H 27 H 60 L High Flow Nasal Cannula 06/10/25 03:32 36.4 C L 117 H 20 138/70 90 Oxymask 06/09/25 22:59 36.6 C 98 H 19 128/71 90 Oxymask O2 Flow Rate FiO2 06/10/25 10:08 50 70 06/10/25 08:06 06/10/25 07:56 50 80 06/10/25 07:45 40 80 06/10/25 07:43 50 06/10/25 05:26 40 60 06/10/25 05:21 40 06/10/25 03:32 4 06/09/25 22:59 4 Laboratory Results 06/10/25 04:29 06/10/25 04:29 Abnormal Lab Results 06/10/25 06/10/25 06/10/25 04:29 04:41 04:58 WBC 14.03 H RBC 4.14 L Hgb 10.9 L POC Hgb 10.9 L Hct 33.2 L POC Hct 32 L MCV 80.2 MCH 26.3 MCHC 32.8 RDW Std Deviation 48.0 H RDW Coeff of You 16.7 H Plt Count 207 MPV 10.4 Specimen Type Arterial Sample Site R Radial POC pH 7.46 H POC pCO2 36 POC pO2 62 L POC HCO3 25 H POC Total CO2 26 POC Base Excess 1.0 O2 Sat Pulse Oximetry 90 ABG pH (Temp Correct) 7.465 H ABG pCO2 (Temp Corrct 35 POC ABG pO2 at Pt Temp 61 POC ABG O2 Sat 93.0 Julian Test Pass VBG pH 7.45 H VBG pCO2 44 VBG pO2 42 VBG HCO3 31 VBG O2 Saturation 70.4 VBG Base Excess 5.8 O2 Delivery Device Cannula POC Sodium 138 Sodium 137 POC Potassium 3.1 L Potassium 3.2 L Chloride 102 Carbon Dioxide 27 Anion Gap 8 BUN 13 Creatinine 0.62 Est Cr Clr Drug Dosing 112.3 eGFR 97.23 BUN/Creatinine Ratio 21.0 H Glucose 125 H Lactate 1.1 Calcium 7.9 L Troponin I High Sens 23.1 H B-Natriuretic Peptide Random Vancomycin 11.9 06/10/25 08:10 WBC RBC Hgb POC Hgb Hct POC Hct MCV MCH MCHC RDW Std Deviation RDW Coeff of You Plt Count MPV Specimen Type Sample Site POC pH POC pCO2 POC pO2 POC HCO3 POC Total CO2 POC Base Excess O2 Sat Pulse Oximetry ABG pH (Temp Correct) ABG pCO2 (Temp Corrct POC ABG pO2 at Pt Temp POC ABG O2 Sat Julian Test VBG pH VBG pCO2 VBG pO2 VBG HCO3 VBG O2 Saturation VBG Base Excess O2 Delivery Device POC Sodium Sodium POC Potassium Potassium Chloride Carbon Dioxide Anion Gap BUN Creatinine Est Cr Clr Drug Dosing eGFR BUN/Creatinine Ratio Glucose Lactate Calcium Troponin I High Sens B-Natriuretic Peptide 107 H Random Vancomycin Diagnostic Findings Chest X-Ray 06/10/25 04:37 EXAM: XR chest 1V portable CLINICAL HISTORY: SOB TECHNIQUE: An X-ray image of the chest was obtained in the AP projection. COMPARISON: 06/08/2025 FINDINGS: Pulmonary Parenchyma: Multifocal, ill-defined opacities are noted involving the right mid and lower zones and the left lower zone. The left costophrenic angle is blunted, with a raised left hemidiaphragm, suggesting a left-sided pleural effusion. Heart and Mediastinum: Cardiomegaly is present (stable). No mediastinal widening or masses are identified. No hilar or mediastinal lymphadenopathy is seen. Bony Thorax: The bony thorax appears intact, without fractures or deformities. Soft Tissues: The soft tissues overlying the chest wall are unremarkable. An NG tube is seen reaching under the left hemidiaphragm, with its tip not included. IMPRESSION: Multifocal, ill-defined opacities are noted involving the right mid and lower zones and the left lower zone. Stable. The left costophrenic angle is blunted, with a raised left hemidiaphragm, suggesting a left-sided pleural effusion. Stable. An NG tube is seen reaching under the left hemidiaphragm, with its tip not included. Stable. Further evaluation with a CT scan is advised if clinically indicated. Electronically signed by Shawn Morton 06-10-2025 05:36 AM Chest X-Ray 06/10/25 07:58 XR chest 1V portable CLINICAL HISTORY: eval lungs in setting of dyspnea and hypoxia COMPARISON STUDY: 06/10/2025 FINDINGS: There is stable mild cardiomegaly with pulmonary vascular congestion. Feeding tube tip is off the field of view inferiorly. Diffuse patchy pulmonary opacities are stable. Stable small left pleural effusion and consolidation at the left lung base. No pneumothorax. IMPRESSION: Stable exam. ACT 112: Negative or not required by law. Electronically signed by: Jarek Castrejon M.D. 06/10/2025 8:38 AM Chest CTA 06/10/25 11:29 CT angio chest PE protocol CT DOSE: 975.59 mGy.cm HISTORY: 80 years-old Male with PE. Acute shortness of breath TECHNIQUE: Multiple CTA images of the chest were obtained after the intravenous administration of 112 ml Optiray. Coronal and sagittal MIPS were obtained from the axial data set and were submitted for review. All measurements were obtained according to NASCET criteria. A dose lowering technique was utilized adhering to the principles of ALARA. COMPARISON: Chest CT 06/08/2025, PET/CT 05/18/2025. FINDINGS: 1.3 cm left-sided thyroid nodule redemonstrated which was hypermetabolic on the prior PET/CT. Mild cardiomegaly with moderate coronary artery calcifications redemonstrated. No thoracic aortic aneurysm or central pulmonary embolus identified. The left hilar disease narrows the adjacent pulmonary vessels. Study is degraded by respiratory motion artifact. Extensive metastatic disease of the chest redemonstrated. This includes metastatic myocardial foci of the left ventricle, along with numerous chest wall and back lesions. There is an index 2.6 cm right trapezius metastatic lesion on image 262 series 4. The previously described hypermetabolic left hilar and subcarinal metastatic disease appears generally stable. Layering pleural effusions redemonstrated which are mild to moderate and mildly decreased on the right compared to the 06/08/2025 study. No pneumothorax. 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 Extensive consolidation of the lung bases again noted, most pronounced in the left lower lobe. 4.9 cm consolidation of the right middle lobe is stable. Intralobular septal thickening with multifocal multisegmental groundglass densities. Mild tracheobronchial secretions. Overall no significant change compared to 06/08/2025. Multifocal metastasis of the upper abdomen. 1.5 cm hypodense lesion of the right hepatic lobe again noted. Bilateral adrenal metastasis redemonstrated. Metastatic lesions within the right perinephric space. Lytic osseous metastasis are noted. Acute appearing mild super endplate compression at L1 is unchanged without retropulsion. Enteric tube courses into the stomach. IMPRESSION: 1. No definite central pulmonary emboli identified. 2. No significant change compared to the chest CT obtained 48 hours earlier. Redemonstration of cardiomegaly with interstitial and alveolar pulmonary edema with small to moderate pleural effusions (the right pleural effusion has mildly decreased in size). 3. Extensive metastatic disease of the chest and upper abdomen redemonstrated including innumerable pulmonary metastasis with lymphangitic carcinomatosis. Myocardial, chest and abdominal wall metastasis. 4. Bibasilar consolidation again likely represents a combination of metastatic lesions with atelectasis and/or pneumonia. 5. Osseous metastatic disease with unchanged appearance of the pathologic L1 compression deformity without retropulsion. 6. Probable solitary metastatic lesion of the right hepatic lobe, not seen on the prior PET/CT. ACT 112: Negative or not required by law. The above report was generated using voice recognition software. It may contain grammatical, syntax or spelling errors. Electronically signed by: Papito Larson M.D. 06/10/2025 1:30 PM PG Care Time/CCT Total # of Minutes Spent Total Time Spent with Patient: Total time spent is greater than 50% in coordination of care (as documented) at patient's floor/unit and/or counseling patient: Coding Level of Care Code 70316 SUB INP/OBS CARE 2/35MIN Diagnoses Acute hypoxemic respiratory failure J96.01 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 C78.00 Pleural effusion, bilateral J90
--- NOTE | 2025-06-10 11:53 | Hospitalist Progress Note ---
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: (10) Severe protein-calorie malnutrition: (11) Moderate dehydration: (12) Electrolyte abnormality: (13) Bilateral pneumonia: (14) SIRS (systemic inflammatory response syndrome): (15) Acute hypoxemic respiratory failure: Plan Bilateral pneumonia Possible aspiration pneumonia SIRS/sepsis Hypoxemic respiratory failure - Cough and fever on admission -sputum gram stain positive for MSSA -Chest x ray shows diffuse PNA, patchy pulmonary opacities -Increase procalcitonin and CRP, - Cultures have been negative -Over the past two nights, he had become more short of breath -Repeat chest x ray shows worsening infiltrates, pleural effusion -He got thoracentesis with removal of 850cc of fluid -Continue Vancomycin, Meropenem -Now on high flow oxygen -Appreciate Pulmonology Pleural effusion X ray shows some effusion He is now s/o Thoracentesis with removal of 850cc of fluid Breathing is better on oxymask Positive blood culture One bottle grew Corynebactyerium aurmucuc could be a contaminat repeat cultures have been negative On Meropenem, Vanc Atrial fibrillation with RVR - Previously noted diagnosis, start with IV diltiazem, transition to oral short acting as pressures tolerate, rate controlled -will discuss anticoagulation with patient -Initiate after Port placement and PEG tube placement 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 - [facility], he was scheduled to have a port placed here in a week - Antibiotics for pneumonia as above, continue to monitor closely for signs of infection, blood cultures obtained and ordered - Nutrition consult as noted below - For port placement when his repeat blood culture is negative -However, palliative has been consulted to discuss goals of care -He has been unstable for him to get PEG or Port Severe protein calorie malnutrition Dehydration Multiple Electrolyte Abnormalities - uncontrolled, Very limited oral intake secondary to squamous cell carcinoma as above - Plan is for PEG placement when he is stable enough Hypocalcemia/hypokalemia/hypomagnesemia - resolved Hypertension - Will continue his antihypertensives he is within normal range now Hyperlipidemia - Continue statin, once dehydration has been resolved Sleep apnea - Home CPAP Prophylaxis -Subq heparin initially CODE STATUS -Full code per his wishes, discussed with the patient and family at the bedside. palliative on consult Admission and Anticipated Discharge Date Admission Date: June 03, 2025 Subjective patient seen and examined, he says he is anxious, but denies chest pain, still on high flow oxygen Review of Systems Review of Systems: All systems reviewed are negative, apart from the ones contained in the history. Physical Exam Physical Exam: The patient is awake, alert and oriented 3, thin looking HEENT--PERRL, EOMI, mucous membranes and oropharynx mildly dry Neck--supple. No JVD. No bruits. Thyroid normal, trachea midline, no adenopathy. Heart--normal S1 and S2. No murmurs, rubs or gallops. Lungs--reduced air entry on auscultation Abdomen--normal bowel sounds and soft. Extremities--no cyanosis or clubbing. No edema. Dermatologic--normal skin turgor, normal color, no abnormal lymph nodes, no rash. Neurologic--cranial nerves II through XII grossly intact. Rheumatologic--normal range of motion. Psychiatric--normal affect. Results & Data Results & Data Vital Signs (Past 12 Hours) Vital Signs Temp Pulse Pulse Resp BP Pulse Ox O2 Del Method 06/10/25 11:48 97.5 F L 105 H 19 151/76 H 95 High Flow Nasal Cannula 06/10/25 10:08 87 20 96 High Flow Nasal Cannula 06/10/25 08:06 119 H 06/10/25 07:56 High Flow Nasal Cannula 06/10/25 07:45 108 H 24 92 High Flow Nasal Cannula 06/10/25 07:43 97.9 F 98 H 21 132/66 92 Free Flow/Blow-by 06/10/25 05:26 116 H 27 H 91 High Flow Nasal Cannula 06/10/25 05:21 116 H 27 H 60 L High Flow Nasal Cannula 06/10/25 03:32 97.5 F L 117 H 20 138/70 90 Oxymask O2 Flow Rate FiO2 06/10/25 11:48 06/10/25 10:08 50 70 06/10/25 08:06 06/10/25 07:56 50 80 06/10/25 07:45 40 80 06/10/25 07:43 50 06/10/25 05:26 40 60 06/10/25 05:21 40 06/10/25 03:32 4 PG Care Time/CCT Total # of Minutes Spent Total Time Spent with Patient: Total time spent is greater than 50% in coordination of care (as documented) at patient's floor/unit and/or counseling patient: Coding Level of Care Code 64675 SUB INP/OBS CARE 2/35MIN Diagnoses Lightheadedness R42 HTN, goal below 140/90 I10 Essential hypertriglyceridemia E78.1 Herpes simplex B00.9 Hypercholesterolemia E78.00 Vitamin D deficiency E55.9 Sleep apnea G47.30 Squamous cell carcinoma of neck C44.42 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
[2025-06-10] MEDS: OPTIRAY 320 125ml IV ONE (12:43)
--- NOTE | 2025-06-10 13:31 | CT Scan Report ---
CT angio chest PE protocol CT DOSE: 975.59 mGy.cm HISTORY: 80 years-old Male with PE. Acute shortness of breath TECHNIQUE: Multiple CTA images of the chest were obtained after the intravenous administration of 112 ml Optiray. Coronal and sagittal MIPS were obtained from the axial data set and were submitted for review. All measurements were obtained according to NASCET criteria. A dose lowering technique was u tilized adhering to the principles of ALARA. COMPARISON: Chest CT 06/08/2025, PET/CT 05/18/2025. FINDINGS: 1.3 cm left-sided thyroid nodule redemonstrated which was hypermetabolic on the prior PET/CT. Mild ca rdiomegaly with moderate coronary artery calcifications redemonstrated. No thoracic aortic aneurysm o r central pulmonary embolus identified. The left hilar disease narrows the adjacent pulmonary vessels . Study is degraded by respiratory motion artifact. Extensive metastatic disease of the chest redemon strated. This includes metastatic myocardial foci of the left ventricle, along with numerous chest wa ll and back lesions. There is an index 2.6 cm right trapezius metastatic lesion on image 262 series 4 . The previously described hypermetabolic left hilar and subcarinal metastatic disease appears generall y stable. Layering pleural effusions redemonstrated which are mild to moderate and mildly decreased o n the right compared to the 06/08/2025 study. No pneumothorax. Innumerable pulmonary metastasis with l ymphangitic carcinomatosis noted. Extensive consolidation of the lung bases again noted, most pronoun nicole in the left lower lobe. 4.9 cm consolidation of the right middle lobe is stable. Intralobular sep jered thickening with multifocal multisegmental groundglass densities. Mild tracheobronchial secretions . Overall no significant change compared to 06/08/2025. Multifocal metastasis of the upper abdomen. 1.5 cm hypodense lesion of the right hepatic lobe again n oted. Bilateral adrenal metastasis redemonstrated. Metastatic lesions within the right perinephric sp josh. Lytic osseous metastasis are noted. Acute appearing mild super endplate compression at L1 is unc hanged without retropulsion. Enteric tube courses into the stomach. IMPRESSION: 1. No definite central pulmonary emboli identified. 2. No significant change compared to the chest CT obtained 48 hours earlier. Redemonstration of cardi omegaly with interstitial and alveolar pulmonary edema with small to moderate pleural effusions (the right pleural effusion has mildly decreased in size). 3. Extensive metastatic disease of the chest and upper abdomen redemonstrated including innumerable p ulmonary metastasis with lymphangitic carcinomatosis. Myocardial, chest and abdominal wall metastasis . 4. Bibasilar consolidation again likely represents a combination of metastatic lesions with atelectas is and/or pneumonia. 5. Osseous metastatic disease with unchanged appearance of the pathologic L1 compression deformity wi thout retropulsion. 6. Probable solitary metastatic lesion of the right hepatic lobe, not seen on the prior PET/CT. ACT 112: Negative or not required by law. The above report was generated using voice recognition software. It may contain grammatical, syntax o r spelling errors. Electronically signed by: Papito Larson M.D. 06/10/2025 1:30 PM
[2025-06-10] MEDS ORDERED: ALBUTEROL 0.083% NEBU SOLN 3 ML VIAL NEB PRN (14:10)
[2025-06-10] MEDS: NUTREN LIQD 2.0 1,000 ML BAG NG SCH (17:29)
[2025-06-10] MEDS: MoRPHine SULFATE 2 MG/ML CARP IV PRN (20:47)
[2025-06-11 07:46] LABS: Hematocrit (blood only) 29.8 % (42.0-52.0); Hemoglobin 9.7 g/dl (14.0-18.0); Mean Corpuscular Hemoglobin 25.5 pg (25.0-34.0); Mean Corpuscular Volume 78.4 fL (80.0-100.0); Platelet Count 198 K/uL (130-400); RDW Standard Deviation 47.6 fL (36.4-46.3); Red Blood Count 3.80 M/uL (4.70-6.10); White Blood Count 11.17 K/ul (4.8-10.8)
[2025-06-11 08:06] LABS: Anion Gap 8.0 (3-11); Blood Urea Nitrogen 18.0 mg/dl (6-23); Calcium 8.4 mg/dl (8.6-10.3); Carbon Dioxide 28.0 mmol/L (21-32); Chloride 103.0 mmol/L (98-107); Creatinine Clr Calc Pharmacy 105.3 ml/min; Glucose 213.0 mg/dl (70-99(Fasting)); Potassium 3.5 mmol/L (3.5-5.1); Sodium 139.0 mmol/L (136-145)
[2025-06-11] MEDS: PROSOURCE NO CARB 30 ML/PKT NG SCH (08:38)
--- NOTE | 2025-06-11 10:46 | Hospitalist Progress Note ---
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: (10) Severe protein-calorie malnutrition: (11) Moderate dehydration: (12) Electrolyte abnormality: (13) Bilateral pneumonia: (14) SIRS (systemic inflammatory response syndrome): (15) Acute hypoxemic respiratory failure: Plan Bilateral pneumonia Possible aspiration pneumonia SIRS/sepsis Hypoxemic respiratory failure - Cough and fever on admission -sputum gram stain positive for MSSA -Chest x ray shows diffuse PNA, patchy pulmonary opacities - Cultures have been negative -His oxygen requirements have increased over the past couple of days -CT chest did not show any evidence of PE, but shows diffuse and worsening metastatic disease -Continue Meropenem -Continue high flow oxygen, wean as tolerated -Appreciate Pulmonology Pleural effusion X ray shows some effusion He is now s/o Thoracentesis with removal of 850cc of fluid Positive blood culture One bottle grew Corynebactyerium aurmucuc could be a contaminant repeat cultures have been negative On Meropenem, and Doxycycline Atrial fibrillation with RVR - Previously noted diagnosis, start with IV diltiazem, transition to oral short acting as pressures tolerate, rate controlled -will discuss anticoagulation with patient -Initiate after Port placement and PEG tube placement 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 - [facility] here -However, his respiratory status has declined as described above -He has been unstable for him to get PEG or Port Severe protein calorie malnutrition Dehydration Multiple Electrolyte Abnormalities - uncontrolled, Very limited oral intake secondary to squamous cell carcinoma as above - Plan is for PEG placement when he is stable enough Hypocalcemia/hypokalemia/hypomagnesemia - resolved Hypertension - Will continue his antihypertensives he is within normal range now Hyperlipidemia - Continue statin, once dehydration has been resolved Sleep apnea - Home CPAP Prophylaxis -Subq heparin initially CODE STATUS -Full code per his wishes, discussed with the patient and family at the bedside. palliative on consult Admission and Anticipated Discharge Date Admission Date: June 03, 2025 Subjective Patient seen and examined, family by the bedside, they were updated about his status, they were also hopeful that his oxygen requirement will improve so he can get the port for chemo and PEG tube. Review of Systems Review of Systems: All systems reviewed are negative, apart from the ones contained in the history. Physical Exam Physical Exam: The patient is awake, alert and oriented 3, thin looking HEENT--PERRL, EOMI, mucous membranes and oropharynx mildly dry Neck--supple. No JVD. No bruits. Thyroid normal, trachea midline, no adenopathy. Heart--normal S1 and S2. No murmurs, rubs or gallops. Lungs--reduced air entry on auscultation Abdomen--normal bowel sounds and soft. Extremities--no cyanosis or clubbing. No edema. Dermatologic--normal skin turgor, normal color, no abnormal lymph nodes, no rash. Neurologic--cranial nerves II through XII grossly intact. Rheumatologic--normal range of motion. Psychiatric--normal affect. Results & Data Results & Data Vital Signs (Past 12 Hours) Vital Signs Temp Pulse Resp BP Pulse Ox O2 Del Method O2 Flow Rate 06/11/25 08:03 97.3 F L 110 H 18 124/70 92 High Flow Nasal Cannula 40 06/11/25 07:47 97 H 20 93 High Flow Nasal Cannula 40 06/11/25 07:45 97 H 20 93 High Flow Nasal Cannula 40 06/11/25 03:51 102 H 20 94 High Flow Nasal Cannula 40 06/11/25 03:32 98.1 F 100 H 20 110/68 97 CPAP 06/10/25 22:54 98.4 F 74 18 115/77 95 CPAP, High Flow Nasal Cannula FiO2 06/11/25 08:03 06/11/25 07:47 50 06/11/25 07:45 50 06/11/25 03:51 50 06/11/25 03:32 06/10/25 22:54 PG Care Time/CCT Total # of Minutes Spent Total Time Spent with Patient: Total time spent is greater than 50% in coordination of care (as documented) at patient's floor/unit and/or counseling patient: Coding Level of Care Code 35845 SUB INP/OBS CARE 2/35MIN Diagnoses Lightheadedness R42 HTN, goal below 140/90 I10 Essential hypertriglyceridemia E78.1 Herpes simplex B00.9 Hypercholesterolemia E78.00 Vitamin D deficiency E55.9 Sleep apnea G47.30 Squamous cell carcinoma of neck C44.42 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
[2025-06-12 07:05] LABS: Hematocrit (blood only) 31.9 % (42.0-52.0); Hemoglobin 10.1 g/dl (14.0-18.0); Mean Corpuscular Hemoglobin 25.8 pg (25.0-34.0); Mean Corpuscular Volume 81.6 fL (80.0-100.0); Platelet Count 218 K/uL (130-400); RDW Standard Deviation 49.4 fL (36.4-46.3); Red Blood Count 3.91 M/uL (4.70-6.10); White Blood Count 13.55 K/ul (4.8-10.8)
[2025-06-12 07:21] LABS: Anion Gap 8.0 (3-11); Blood Urea Nitrogen 25.0 mg/dl (6-23); Calcium 8.6 mg/dl (8.6-10.3); Carbon Dioxide 30.0 mmol/L (21-32); Chloride 103.0 mmol/L (98-107); Creatinine Clr Calc Pharmacy 104.1 ml/min; Glucose 201.0 mg/dl (70-99(Fasting)); Potassium 3.5 mmol/L (3.5-5.1); Sodium 141.0 mmol/L (136-145)
--- NOTE | 2025-06-12 10:34 | Hospitalist Progress Note ---
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: (10) Severe protein-calorie malnutrition: (11) Moderate dehydration: (12) Electrolyte abnormality: (13) Bilateral pneumonia: (14) SIRS (systemic inflammatory response syndrome): (15) Acute hypoxemic respiratory failure: Plan Bilateral pneumonia Possible aspiration pneumonia SIRS/sepsis Hypoxemic respiratory failure - Cough and fever on admission -sputum gram stain positive for MSSA -Chest x ray shows diffuse PNA, patchy pulmonary opacities - Cultures have been negative -His oxygen requirements have increased over the past couple of days -CT chest did not show any evidence of PE, but shows diffuse and worsening metastatic disease -Continue Meropenem -Continue high flow oxygen, wean as tolerated, today doen to 10L, was 40L high flow yesterday -Appreciate Pulmonology Pleural effusion X ray shows some effusion He is now s/o Thoracentesis with removal of 850cc of fluid Positive blood culture One bottle grew Corynebactyerium aurmucuc could be a contaminant repeat cultures have been negative On Meropenem, and Doxycycline Atrial fibrillation with RVR - Previously noted diagnosis, start with IV diltiazem, transition to oral short acting as pressures tolerate, rate controlled -will discuss anticoagulation with patient -Initiate after Port placement and PEG tube placement 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 - [facility] he [facility] scheduled to have a port placed here -However, his respiratory status has declined as described above -He has been unstable for him to get PEG or Port Severe protein calorie malnutrition Dehydration Multiple Electrolyte Abnormalities - uncontrolled, Very limited oral intake secondary to squamous cell carcinoma as above - Plan is for PEG placement when he is stable enough Hypocalcemia/hypokalemia/hypomagnesemia - resolved Hypertension - Will continue his antihypertensives he is within normal range now Hyperlipidemia - Continue statin, once dehydration has been resolved Sleep apnea - Home CPAP Prophylaxis -Subq heparin initially CODE STATUS -Full code per his wishes, discussed with the patient and family at the bedside. palliative on consult Barriers: He has been unable to get his port and PEG tube because he has been unstable and requiring high oxygen Admission and Anticipated Discharge Date Admission Date: June 03, 2025 Subjective Patient seen and examined, family by the bedside, they were updated about his status, they were also hopeful that his oxygen requirement will improve so he can get the port for chemo and PEG tube. Review of Systems Review of Systems: All systems reviewed are negative, apart from the ones contained in the history. Physical Exam Physical Exam: The patient is awake, alert and oriented 3, thin looking HEENT--PERRL, EOMI, mucous membranes and oropharynx mildly dry Neck--supple. No JVD. No bruits. Thyroid normal, trachea midline, no ad enopathy. Heart--normal S1 and S2. No murmurs, rubs or gallops. Lungs--reduced air entry on auscultation Abdomen--normal bowel sounds and soft. Extremities--no cyanosis or clubbing. No edema. Dermatologic--normal skin turgor, normal color, no abnormal lymph nodes, no rash. Neurologic--cranial nerves II through XII grossly intact. Rheumatologic--normal range of motion. Psychiatric--normal affect. Results & Data Results & Data Vital Signs (Past 12 Hours) Vital Signs Temp Pulse Resp BP Pulse Ox O2 Del Method O2 Flow Rate 06/12/25 08:04 97.2 F L 77 18 129/75 98 High Flow Nasal Cannula 10 06/12/25 06:09 87 18 97 Nasal Cannula, High Flow Nasal Cannula 06/12/25 02:40 98.2 F 84 18 130/74 98 Nasal Cannula PG Care Time/CCT Total # of Minutes Spent Total Time Spent with Patient: Total time spent is greater than 50% in coordination of care (as documented) at patient's floor/unit and/or counseling patient: Coding Level of Care Code 11919 SUB INP/OBS CARE 2/35MIN Diagnoses Lightheadedness R42 HTN, goal below 140/90 I10 Essential hypertriglyceridemia E78.1 Herpes simplex B00.9 Hypercholesterolemia E78.00 Vitamin D deficiency E55.9 Sleep apnea G47.30 Squamous cell carcinoma of neck C44.42 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
--- NOTE | 2025-06-12 21:43 | Electrocardiogram Report ---
Test Reason : Blood Pressure : */* mmHG Vent. Rate : 121 BPM Atrial Rate : 121 BPM P-R Int : 144 ms QRS Dur : 134 ms QT Int : 376 ms P-R-T Axes : * -20 -9 degrees QTcB Int : 533 ms Multifocal atrial tachycardia Right bundle branch block Abnormal ECG When compared with ECG of 08-Jun-2025 02:39, No significant change Confirmed by Scott Quiroga [id number] on 06/12/2025 9:43:15 PM Referred By: REFERRED SELF Confirmed By: Scott Quiroga
[2025-06-13 07:10] LABS: Hematocrit (blood only) 30.3 % (42.0-52.0); Hemoglobin 9.9 g/dl (14.0-18.0); Mean Corpuscular Hemoglobin 26.3 pg (25.0-34.0); Mean Corpuscular Volume 80.6 fL (80.0-100.0); Platelet Count 215 K/uL (130-400); RDW Standard Deviation 48.3 fL (36.4-46.3); Red Blood Count 3.76 M/uL (4.70-6.10); White Blood Count 15.07 K/ul (4.8-10.8)
[2025-06-13 07:45] LABS: Anion Gap 7.0 (3-11); Blood Urea Nitrogen 27.0 mg/dl (6-23); Calcium 8.4 mg/dl (8.6-10.3); Carbon Dioxide 32.0 mmol/L (21-32); Chloride 103.0 mmol/L (98-107); Creatinine Clr Calc Pharmacy 114.3 ml/min; Glucose 182.0 mg/dl (70-99(Fasting)); Potassium 3.9 mmol/L (3.5-5.1); Sodium 142.0 mmol/L (136-145)
--- NOTE | 2025-06-13 11:42 | Hospitalist Progress Note ---
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: Plan #Bilateral pneumonia #Possible aspiration pneumonia #SIRS/sepsis #Hypoxemic respiratory failure -Cough and fever on admission -sputum gram stain positive for MSSA -Chest x ray shows diffuse PNA, patchy pulmonary opacities -Cultures have been negative -O2 needs on the stable downward trend, peak 40L High flow on 06/09- now stable on 7L -CT chest did not show any evidence of PE, but shows diffuse and worsening metastatic disease as below -Continue Meropenem -Appreciate Pulmonology #Atrial fibrillation with RVR -Mostly rate controlled, some self limited rates to the 120s - Previously noted diagnosis, start with IV diltiazem, transition to oral short acting as pressures tolerate, rate controlled -will discuss anticoagulation with patient -Initiate after Port placement and PEG tube placement #Severe protein calorie malnutrition #Dehydration #Multiple Electrolyte Abnormalities - Virtually no oral intake, now achieving goals with NG, RD/Nutrition following, continue to increase FWF as he remains a little volume depleted however that is likely helping his pulonary status - Plan is for PEG placement when he is stable enough #Pleural effusion -X ray shows trace effusion -He is now s/o Thoracentesis with removal of 850cc of fluid -Stable to improving pulmonary status, monitor for need for repeat thoracentesis. 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 -[facility], he [facility] to have a port [facility] here -placement pending clinical stability, he is trending towards clinical stability -CT scan indicates widespread carcinomatosis in the lungs, oncology consult for therapy options Hypocalcemia/hypokalemia/hypomagnesemia - resolved Hypertension - Will continue his antihypertensives he is within normal range now Hyperlipidemia - Continue statin, once dehydration has been resolved Sleep apnea - Home CPAP Prophylaxis -Subq heparin initially CODE STATUS -Full code per his wishes, discussed with the patient and family at the bedside. palliative on consult Barriers: He has been unable to get his port and PEG tube because he has been unstable and requiring high oxygen but trend is now improving Admission and Anticipated Discharge Date Admission Date: June 03, 2025 Subjective Feeling okay this morning, feels as though his breathing has stabilized a bit. He has not been up and about much at all not even to the bedside chair. He is reluctant feeling that he is worried that he will become weak and unsteady again. Encouraged patient and family to utilize opportunities to become more Epival. Oxygen status improving. No other events or concerns overnight. He has had some inconsistency with bowel movements constipation with blowouts. We talked about MiraLAX versus Colace. Will change his bowel regiment to some degree. Oncology consult pending. His respiratory status is stabilizing, nutritional status is stable to improving. Physical Exam Physical Exam: The patient is awake, alert and oriented 3, thin looking HEENT--PERRL, EOMI, mucous membranes and oropharynx mildly dry Neck--supple. No JVD. No bruits. Large, ulcerated mass on the left lateral neck. No drainage or overlying skin breakdown. Heart--normal S1 and S2. No murmurs, rubs or gallops. Lungs--reduced air entry on auscultation, fine crackles at the bases left greater than right Abdomen--normal bowel sounds and soft. Extremities--no cyanosis or clubbing. No edema. Dermatologic--normal skin turgor, normal color, no abnormal lymph nodes, no rash. Neurologic--cranial nerves II through XII grossly intact. Rheumatologic--normal range of motion. Psychiatric--normal affect. Results & Data Results & Data Vital Signs (Past 12 Hours) Vital Signs Temp Pulse Resp BP Pulse Ox O2 Del Method O2 Flow Rate 06/13/25 08:04 36.6 C 77 18 130/64 93 High Flow Nasal Cannula 7 06/13/25 07:03 83 18 97 Nasal Cannula 8 06/13/25 03:15 36.4 C L 66 20 115/63 96 High Flow Nasal Cannula 9 Laboratory Results 06/08/25 Unknown Gram Stain - Final Pleural Fluid Aerobic and Anaerobic Culture - Final No growth 06/13/25 06:52 WBC 15.07 H RBC 3.76 L Hgb 9.9 L Hct 30.3 L MCV 80.6 MCH 26.3 MCHC 32.7 RDW Std Deviation 48.3 H RDW Coeff of You 16.6 H Plt Count 215 MPV 10.8 Sodium 142 Potassium 3.9 Chloride 103 Carbon Dioxide 32 Anion Gap 7 BUN 27 H Creatinine 0.60 Est Cr Clr Drug Dosing 114.3 eGFR 98.20 BUN/Creatinine Ratio 45.0 H Glucose 182 H Calcium 8.4 L PG Care Time/CCT Total # of Minutes Spent Total Time Spent with Patient: Total time spent is greater than 50% in coordination of care (as documented) at patient's floor/unit and/or counseling patient: Coding Level of Care Code 24354 SUB INP/OBS CARE 3/50MIN Diagnoses Lightheadedness R42 HTN, goal below 140/90 I10 Essential hypertriglyceridemia E78.1 Herpes simplex B00.9 Hypercholesterolemia E78.00 Vitamin D deficiency E55.9 Sleep apnea, unspecified type G47.30 Sleep apnea type: unspecified type 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
[2025-06-13] MEDS: DOCUSATE SODIUM SYRUP 100 MG/10 ML UDC PEG SCH (13:49)
[2025-06-14 06:45] LABS: Hematocrit (blood only) 29.9 % (42.0-52.0); Hemoglobin 10.0 g/dl (14.0-18.0); Immature Granulocytes # (auto) 0.38 K/uL (0.01-0.20); Immature Granulocytes % (auto) 2.5 %; Mean Corpuscular Hemoglobin 27.0 pg (25.0-34.0); Mean Corpuscular Volume 80.6 fL (80.0-100.0); Platelet Count 205 K/uL (130-400); RDW Standard Deviation 48.1 fL (36.4-46.3); Red Blood Count 3.71 M/uL (4.70-6.10); White Blood Count 15.25 K/ul (4.8-10.8)
[2025-06-14 07:11] LABS: Alanine Aminotransferase 61.0 U/L (7-52); Albumin Globulin Ratio 1.6 (0.9-2); Albumin Level 3.2 gm/dl (3.4-5.0); Alkaline Phosphatase 71.0 U/L (34-104); Anion Gap 7.0 (3-11); Bilirubin,Total 0.5 mg/dl (0.2-1.0); Blood Urea Nitrogen 28.0 mg/dl (6-23); Calcium 8.5 mg/dl (8.6-10.3); Carbon Dioxide 30.0 mmol/L (21-32); Chloride 104.0 mmol/L (98-107); Creatinine Clr Calc Pharmacy 129.5 ml/min; Globulin 2.0 gm/dl (2.5-4.0); Glucose 202.0 mg/dl (70-99(Fasting)); Magnesium 2.0 mg/dl (1.7-2.4); Potassium 3.7 mmol/L (3.5-5.1); Sodium 141.0 mmol/L (136-145); Total Protein 5.2 gm/dl (6.0-8.3)
--- NOTE | 2025-06-14 08:44 | XRay Report ---
KUB HISTORY: Feeding tube replacement COMPARISON STUDY: 06/08/2025 FINDINGS: Feeding tube tip is in the proximal stomach just beyond the GE junction. There is no signif icant retained stool. No gross evidence of bowel obstruction seen. IMPRESSION: Feeding tube tip is in the proximal stomach just beyond the GE junction. ACT 112: Negative or not required by law. The above report was generated using voice recognition software. It may contain grammatical, syntax o r spelling errors. Electronically signed by: Jarek Castrejon M.D. 06/14/2025 8:42 AM
--- NOTE | 2025-06-14 14:06 | Hospitalist Progress Note ---
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 Afebrile. Will stop benefit -Appreciate Pulmonology #Atrial fibrillation with RVR -Mostly rate controlled, some self limited rates to the 120s - Previously noted diagnosis, start with IV diltiazem, transition to oral short acting as pressures tolerate, rate controlled -will discuss anticoagulation with patient -Initiate after Port placement and PEG tube placement #Severe protein calorie malnutrition #Dehydration #Multiple Electrolyte Abnormalities - Virtually no oral intake, now achieving goals with NG, RD/Nutrition following, continue to increase FWF as he remains a little volume depleted however that is likely helping his pulonary status - Pulmonary status is stabilized I suspect from the assessment of a bit more strength since his oxygen requirements will continue to decrease. Will reach out to GI for PEG placement #Pleural effusion -X ray shows trace effusion -He is now s/o Thoracentesis with removal of 850cc of fluid -Stable to improving pulmonary status, monitor for need for repeat thoracentesis. 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 #Carcinomatosis of the lungs -[facility] have a [facility] here -placement pending clinical stability, he is trending towards clinical stability -CT scan indicates widespread carcinomatosis in the lungs, oncology consult for therapy options - Plan is for immunotherapy infusions at the time of discharge in the outpatient setting Hypocalcemia/hypokalemia/hypomagnesemia - resolved Hypertension - Will continue his antihypertensives he is within normal range now Hyperlipidemia - Continue statin, once dehydration has been resolved Sleep apnea - Home CPAP Prophylaxis -Subq heparin initially CODE STATUS -Full code per his wishes, discussed with the patient and family at the bedside. palliative on consult Barriers: He has been unable to get his port and PEG tube because he has been unstable and requiring high oxygen but trend is now improving Admission and Anticipated Discharge Date Admission Date: June 03, 2025 Subjective Doing better again this morning. Still has not been up in the chair much and very reluctant because of weakness in his legs and knees. He has apprehensive about swinging his legs over the bed as he has had knee trouble in the past. Otherwise family was present. Oncology consult this morning plans to start immunotherapy on discharge from here. We discussed his pulmonary stability and looking to see if he can get the PET and port placed prior to discharge. Otherwise no new complaints or concerns. Feeding tube was partially dislodged and ultimately replaced yesterday, KUB repeated and WNL. No events per nursing staff. Physical Exam Physical Exam: The patient is awake, alert and oriented 3, thin looking HEENT--PERRL, EOMI, mucous membranes and oropharynx mildly dry Neck--supple. No JVD. No bruits. Large, ulcerated mass on the left lateral neck. No drainage or overlying skin breakdown. Heart--normal S1 and S2. No murmurs, rubs or gallops. Lungs--reduced air entry on auscultation, fine crackles at the bases left greater than right Abdomen--normal bowel sounds and soft. Extremities--no cyanosis or clubbing. No edema. Dermatologic--normal skin turgor, normal color, no abnormal lymph nodes, no rash. Neurologic--cranial nerves II through XII grossly intact. Rheumatologic--normal range of motion. Psychiatric--normal affect. Results & Data Results & Data Vital Signs (Past 12 Hours) Vital Signs Temp Pulse Pulse Resp BP Pulse Ox O2 Del Method 06/14/25 10:00 36.4 C L 78 17 140/64 92 Nasal Cannula 06/14/25 08:00 78 06/14/25 08:00 High Flow Nasal Cannula 06/14/25 06:49 88 16 96 Nasal Cannula O2 Flow Rate 06/14/25 10:00 5 06/14/25 08:00 06/14/25 08:00 7 06/14/25 06:49 7 Laboratory Results 06/08/25 16:38 Aerobic Blood Culture - Final Blood No growth in Aerobic bottle after 5 days. Anaerobic Blood Culture - Final No growth in Anaerobic bottle after 5 days. 06/08/25 16:38 Aerobic Blood Culture - Final Blood No growth in Aerobic bottle after 5 days. Anaerobic Blood Culture - Final No growth in Anaerobic bottle after 5 days. 06/14/25 05:58 WBC 15.25 H RBC 3.71 L Hgb 10.0 L Hct 29.9 L MCV 80.6 MCH 27.0 MCHC 33.4 RDW Std Deviation 48.1 H RDW Coeff of You 16.7 H Plt Count 205 MPV 11.3 Immature Gran % (Auto) 2.5 Neut % (Auto) 87.0 Lymph % (Auto) 4.2 Weber % (Auto) 6.1 Eos % (Auto) 0.1 Baso % (Auto) 0.1 Neut # (Auto) 13.26 H Lymph # (Auto) 0.64 L Weber # (Auto) 0.93 H Eos # (Auto) 0.02 Baso # (Auto) 0.02 Immature Gran # (Auto) 0.38 H Sodium 141 Potassium 3.7 Chloride 104 Carbon Dioxide 30 Anion Gap 7 BUN 28 H Creatinine 0.53 L Est Cr Clr Drug Dosing 129.5 eGFR 101.94 BUN/Creatinine Ratio 52.8 H Glucose 202 H Calcium 8.5 L Phosphorus 2.9 Magnesium 2.0 Total Bilirubin 0.5 AST 28 ALT 61 H Alkaline Phosphatase 71 C-Reactive Protein 1.35 H Total Protein 5.2 L Albumin 3.2 L Globulin 2.0 L Albumin/Globulin Ratio 1.6 Diagnostic Findings KUB X-Ray 06/14/25 08:16 KUB HISTORY: Feeding tube replacement COMPARISON STUDY: 06/08/2025 FINDINGS: Feeding tube tip is in the proximal stomach just beyond the GE junction. There is no significant retained stool. No gross evidence of bowel ob struction seen. IMPRESSION: Feeding tube tip is in the proximal stomach just beyond the GE junction. ACT 112: Negative or not required by law. The above report was generated using voice recognition software. It may contain grammatical, syntax or spelling errors. Electronically signed by: Jarek Castrejon M.D. 06/14/2025 8:42 AM PG Care Time/CCT Total # of Minutes Spent Total Time Spent with Patient: Total time spent is greater than 50% in coordination of care (as documented) at patient's floor/unit and/or counseling patient: Coding Level of Care Code 68634 SUB INP/OBS CARE 3/50MIN Diagnoses Lightheadedness R42 HTN, goal below 140/90 I10 Essential hypertriglyceridemia E78.1 Herpes simplex B00.9 Hypercholesterolemia E78.00 Vitamin D deficiency E55.9 Sleep apnea, unspecified type G47.30 Sleep apnea type: unspecified type 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
--- NOTE | 2025-06-14 17:21 | Hematology/Oncology Prog Note ---
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 Should have a good response to single agent immunotherapy given MSI high status. Since is unclear when patient will be discharged from hospital and has very extensive disease will need to start treatment MARCIA. I discussed with oncology automotive manager who agreed that we can proceed with pembrolizumab inpatient. Discussed potential side effects of treatment with patient and his . He agreed to proceed with treatment. Informed consent obtained. Plan to proceed with cycle 1 of treatment tomorrow. Admission and Anticipated Discharge Date Admission Date: June 03, 2025 Subjective -Per discussion with [facility] oncology molecular testing which resulted earlier today showed mismatch repair deficient/MSI high -Patient still awaiting PEG tube placement. Results & Data Vital Signs (Past 12 Hours) Vital Signs Temp Pulse Pulse Pulse Resp BP Pulse Ox 06/14/25 16:10 36.3 C L 90 18 133/68 93 06/14/25 14:00 85 06/14/25 10:00 36.4 C L 78 17 140/64 92 06/14/25 08:00 78 06/14/25 08:00 06/14/25 06:49 88 16 96 O2 Del Method O2 Flow Rate 06/14/25 16:10 High Flow Nasal Cannula 5 06/14/25 14:00 06/14/25 10:00 Nasal Cannula 5 06/14/25 08:00 06/14/25 08:00 High Flow Nasal Cannula 7 06/14/25 06:49 Nasal Cannula 7
[2025-06-14] MEDS: MoRPHine SULFATE 2 MG/ML CARP IV PRN (19:36)
[2025-06-15 06:48] LABS: Hematocrit (blood only) 28.8 % (42.0-52.0); Hemoglobin 9.7 g/dl (14.0-18.0); Immature Granulocytes # (auto) 0.46 K/uL (0.01-0.20); Immature Granulocytes % (auto) 2.6 %; Mean Corpuscular Hemoglobin 26.9 pg (25.0-34.0); Mean Corpuscular Volume 80.0 fL (80.0-100.0); Platelet Count 186 K/uL (130-400); RDW Standard Deviation 48.2 fL (36.4-46.3); Red Blood Count 3.60 M/uL (4.70-6.10); White Blood Count 17.56 K/ul (4.8-10.8)
[2025-06-15 07:08] LABS: Alanine Aminotransferase 46.0 U/L (7-52); Albumin Globulin Ratio 1.4 (0.9-2); Albumin Level 3.0 gm/dl (3.4-5.0); Alkaline Phosphatase 71.0 U/L (34-104); Anion Gap 5.0 (3-11); Bilirubin,Total 0.5 mg/dl (0.2-1.0); Blood Urea Nitrogen 28.0 mg/dl (6-23); Calcium 8.6 mg/dl (8.6-10.3); Carbon Dioxide 32.0 mmol/L (21-32); Chloride 104.0 mmol/L (98-107); Creatinine Clr Calc Pharmacy 115.2 ml/min; Globulin 2.1 gm/dl (2.5-4.0); Glucose 201.0 mg/dl (70-99(Fasting)); Magnesium 2.0 mg/dl (1.7-2.4); Potassium 3.8 mmol/L (3.5-5.1); Sodium 141.0 mmol/L (136-145); Total Protein 5.1 gm/dl (6.0-8.3)
--- NOTE | 2025-06-15 08:52 | Communication Note ---
Date of Service: June 15, 2025 Patient is a 80 yo male with metastatic squamous cell carcinoma of skin primary vs head neck primary. He is to begin treatments with oncology. GI had previously been consulted regarding PEG placement. Throughout the hospitalization his pulmonary status has been the barrier to PEG tube placement thus far. Discussed with attending Textile Scrap Salvager Dr. Ortiz. Will place anesthesia consult to assess if pulmonary status has improved enough to be deemed an acceptable risk for anesthesia.
--- NOTE | 2025-06-15 09:40 | Communication Note ---
Date of Service: June 15, 2025 If medicine is agreeable will place port on friday. please let us know.
[2025-06-15 10:39] LABS: Prealbumin 21.4 mg/dl (20-40)
--- NOTE | 2025-06-15 11:40 | Hospitalist Progress Note ---
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 Afebrile. Will stop benefit -Appreciate Pulmonology recs #Atrial fibrillation with RVR -Mostly rate controlled, some self limited rates to the 120s - Previously noted diagnosis, start with IV diltiazem, transition to oral short acting as pressures tolerate, rate controlled -will discuss anticoagulation with patient -Initiate after Port placement and PEG tube placement #Severe protein calorie malnutrition #Dehydration #Multiple Electrolyte Abnormalities - Virtually no oral intake, now achieving goals with NG, RD/Nutrition following, continue to increase FWF as he remains a little volume depleted however that is likely helping his pulonary status - Pulmonary status is stabilized I suspect from the assessment of a bit more strength since his oxygen requirements will continue to decrease. Will reach out to GI for PEG placement - anesthesia consult for appropriateness for PEG placement, doing well on current formula and regimen #Pleural effusion -X ray shows trace effusion -He is now s/o Thoracentesis with removal of 850cc of fluid -Stable to improving pulmonary status, monitor for need for repeat thoracentesis. 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 #Carcinomatosis of the lungs -[facility] he was scheduled to have a port placed here -placement pending clinical stability, he is trending towards clinical stability -CT scan indicates widespread carcinomatosis in the lungs, oncology consult for therapy options - Plan is for immunotherapy infusions at the time of discharge in the outpatient setting - immunotherapy infusion 1 today 06/15 Hypocalcemia/hypokalemia/hypomagnesemia - resolved - stable, continue to monitor Hypertension - Will continue his antihypertensives he is within normal range now Hyperlipidemia - Continue statin, once dehydration has been resolved Sleep apnea - Home CPAP Prophylaxis -Subq heparin initially CODE STATUS -Full code per his wishes, discussed with the patient and family at the bedside. palliative on consult Barriers: He has been unable to get his port and PEG tube because he has been unstable and requiring high oxygen but trend is now improving Admission and Anticipated Discharge Date Admission Date: June 03, 2025 Subjective Doing okay this morning. no overall improvement in appetite. Continue at goal with NG tube feeds. Discussed the possibility of port and PEG placement. consults pending for GI and general surgery. Interval improvement in oxygen requirements he was down to 2 L at 1 point through the night. I suspect this will get him up and moving this will continue to steadily improve. Plan is to start immunotherapy today per oncology. Physical Exam Physical Exam: The patient is awake, alert and oriented 3, thin looking HEENT--PERRL, EOMI, mucous membranes and oropharynx mildly dry Neck--supple. No JVD. No bruits. Large, ulcerated mass on the left lateral neck. No drainage or overlying skin breakdown. Heart--normal S1 and S2. No murmurs, rubs or gallops. Lungs--reduced air entry on auscultation, fine crackles at the bases left greater than right Abdomen--normal bowel sounds and soft. Extremities--no cyanosis or clubbing. No edema. Dermatologic--normal skin turgor, normal color, no abnormal lymph nodes, no rash. Neurologic--cranial nerves II through XII grossly intact. Rheumatologic--normal range of motion. Psychiatric--normal affect. Results & Data Results & Data Vital Signs (Past 12 Hours) Vital Signs Temp Pulse Resp BP Pulse Ox O2 Del Method O2 Flow Rate 06/15/25 11:07 36.4 C L 78 19 127/64 95 Nasal Cannula 06/15/25 07:31 36.6 C 72 20 132/54 L 98 Nasal Cannula 5 06/15/25 07:11 85 18 99 Nasal Cannula 2 06/15/25 02:25 36.8 C 73 18 136/60 97 Nasal Cannula Laboratory Results 06/15/25 06/08/25 06:20 Unknown WBC 17.56 H RBC 3.60 L Hgb 9.7 L Hct 28.8 L MCV 80.0 MCH 26.9 MCHC 33.7 RDW Std Deviation 48.2 H RDW Coeff of You 16.8 H Plt Count 186 MPV 11.4 Immature Gran % (Auto) 2.6 Neut % (Auto) 87.5 Lymph % (Auto) 4.2 Love % (Auto) 5.5 Eos % (Auto) 0.1 Baso % (Auto) 0.1 Neut # (Auto) 15.37 H Lymph # (Auto) 0.73 L Love # (Auto) 0.97 H Eos # (Auto) 0.01 Baso # (Auto) 0.02 Immature Gran # (Auto) 0.46 H Sodium 141 Potassium 3.8 Chloride 104 Carbon Dioxide 32 Anion Gap 5 BUN 28 H Creatinine 0.60 Est Cr Clr Drug Dosing 115.2 eGFR 98.20 BUN/Creatinine Ratio 46.7 H Glucose 201 H Calcium 8.6 Magnesium 2.0 Total Bilirubin 0.5 AST 19 ALT 46 Alkaline Phosphatase 71 C-Reactive Protein 0.89 H Total Protein 5.1 L Albumin 3.0 L Globulin 2.1 L Albumin/Globulin Ratio 1.4 Prealbumin 21.4 Pleural Cholesterol see note PG Care Time/CCT Total # of Minutes Spent Total Time Spent with Patient: Total time spent is greater than 50% in coordination of care (as documented) at patient's floor/unit and/or counseling patient: Coding Level of Care Code 38531 SUB INP/OBS CARE 2/35MIN Diagnoses Lightheadedness R42 HTN, goal below 140/90 I10 Essential hypertriglyceridemia E78.1 Herpes simplex B00.9 Hypercholesterolemia E78.00 Vitamin D deficiency E55.9 Sleep apnea, unspecified type G47.30 Sleep apnea type: unspecified type 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
--- NOTE | 2025-06-15 16:07 | Communication Note ---
Date of Service: June 15, 2025 Patient not seen in consultation as patient has already been seen by vascular surgeon Dr. Haines and initially schedule for port placement on 06/10 however was cancelled due to being on high flow O2. They are able to take patient for aport placement on Friday if medically cleared.
--- NOTE | 2025-06-15 18:15 | Communication Note ---
Date of Service: June 15, 2025 Patient has had his PEG tube placement delayed given his tenuous respiratory status. Per hospitalist note, patient's oxygen requirement has been improving during the past several days. He is still on HFNC but stabilized at 7L (had been less overnight). I noted pulm has been involved in his care and patient is s/p thoracentesis with a sizable volume of fluid removed. Vascular surgery is also following patient as pt is in need of port placement for chemotherapy. Tentatively the port is scheduled for Friday. If patient's respiratory status continues to improve, a reasonable plan might be to coordinate with surgeon placing port so the EGD can be done before/after this procedure and thus allowing for a single anesthetic rather than sedating him twice. Given patient's severe underlying conditions, he might be approaching the point where he will not be able to be optimized further. GI physician/vascular surgeon/anesthesia can be contacted tomorrow with possible plan to do this together Friday.
[2025-06-16 08:39] LABS: Hematocrit (blood only) 29.9 % (42.0-52.0); Hemoglobin 9.6 g/dl (14.0-18.0); Immature Granulocytes # (auto) 0.77 K/uL (0.01-0.20); Immature Granulocytes % (auto) 4.0 %; Mean Corpuscular Hemoglobin 26.1 pg (25.0-34.0); Mean Corpuscular Volume 81.3 fL (80.0-100.0); Platelet Count 185 K/uL (130-400); RDW Standard Deviation 49.9 fL (36.4-46.3); Red Blood Count 3.68 M/uL (4.70-6.10); White Blood Count 19.31 K/ul (4.8-10.8)
[2025-06-16 08:58] LABS: Alanine Aminotransferase 39.0 U/L (7-52); Albumin Globulin Ratio 1.6 (0.9-2); Albumin Level 3.1 gm/dl (3.4-5.0); Alkaline Phosphatase 77.0 U/L (34-104); Anion Gap 4.0 (3-11); Bilirubin,Total 0.5 mg/dl (0.2-1.0); Blood Urea Nitrogen 30.0 mg/dl (6-23); Calcium 8.8 mg/dl (8.6-10.3); Carbon Dioxide 32.0 mmol/L (21-32); Chloride 105.0 mmol/L (98-107); Creatinine Clr Calc Pharmacy 117.2 ml/min; Globulin 2.0 gm/dl (2.5-4.0); Glucose 188.0 mg/dl (70-99(Fasting)); Potassium 3.9 mmol/L (3.5-5.1); Sodium 141.0 mmol/L (136-145); Total Protein 5.1 gm/dl (6.0-8.3)
--- NOTE | 2025-06-16 10:38 | Communication Note ---
Date of Service: June 16, 2025 Anesthesia consult appreciated. If patient's respiratory status continues to improve and anesthesia feels comfortable moving forward with his port placement on Friday, Dr. Ortiz can attempt placement of a PEG tube in conjunction with this port placement, but PEG should be placed before port. Anesthesia/GI/Vascular can continue to monitor the situation to determine if it is safe to move forward on 06/17/25.
--- NOTE | 2025-06-16 12:48 | Communication Note ---
Date of Service: June 16, 2025 Will plan on port insertion tomorrow with peg insertion by GI at the same time.
--- NOTE | 2025-06-16 13:15 | Hospitalist Progress Note ---
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 Afebrile. Will stop benefit -Appreciate Pulmonology recs, #Atrial fibrillation with RVR -Mostly rate controlled, some self limited rates to the 120s - Previously noted diagnosis, start with IV diltiazem, transition to oral short acting as pressures tolerate, rate controlled -will discuss anticoagulation with patient -Initiate after Port placement and PEG tube placement #Severe protein calorie malnutrition #Dehydration #Multiple Electrolyte Abnormalities - Virtually no oral intake, now achieving goals with NG, RD/Nutrition following, continue to increase FWF as he remains a little volume depleted however that is likely helping his pulonary status - Pulmonary status is stabilized I suspect from the assessment of a bit more strength since his oxygen requirements will continue to decrease. Will reach out to GI for PEG placement - anesthesia consult for appropriateness for PEG placement, doing well on current formula and regimen - no plan is to coordinate GI and surgery for port and PEG placement tomorrow #Pleural effusion -X ray shows trace effusion -He is now s/o Thoracentesis with removal of 850cc of fluid -Stable to improving pulmonary status, monitor for need for repeat thoracentesis. 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 #Carcinomatosis of the lungs -[facility], he was scheduled to have a port placed here -placement pending clinical stability, he is trending towards clinical stability -CT scan indicates widespread carcinomatosis in the lungs, oncology consult for therapy options - Plan is for immunotherapy infusions at the time of discharge in the outpatient setting - immunotherapy infusion 1 today 06/16, delayed yesterday for clerical reasons Hypocalcemia/hypokalemia/hypomagnesemia - resolved - stable, continue to monitor Hypertension - Will continue his antihypertensives he is within normal range now Hyperlipidemia - Continue statin, once dehydration has been resolved Sleep apnea - Home CPAP Prophylaxis -Subq heparin initially CODE STATUS -Full code per his wishes, discussed with the patient and family at the bedside. palliative on consult Barriers: He has been unable to get his port and PEG tube because he has been unstable and requiring high oxygen but trend is now improving Admission and Anticipated Discharge Date Admission Date: June 03, 2025 Subjective Doing okay. Had a pretty rough night sleep. Many distractions and disruptions from vital signs, labs and cares. Did not feel he had the energy to do PT and OT today. Discussed the care plan for the week including trying to get a combined PEG/port done tomorrow. Patient and family are very much in agreement to proceed this way. Reportedly first round of immunotherapy will happen today. Intended for yesterday but . Some delays through pharmacy or supply prevented. otherwise small increase in pain in the left neck managed with oxycodone and morphine. No other new complaints or concerns Physical Exam Physical Exam: The patient is awake, alert and oriented 3, thin looking HEENT--PERRL, EOMI, mucous membranes and oropharynx mildly dry Neck--supple. No JVD. No bruits. Large, ulcerated mass on the left lateral neck. No drainage or overlying skin breakdown. Heart--normal S1 and S2. No murmurs, rubs or gallops. Lungs--reduced air entry on auscultation, fine crackles at the bases left greater than right Abdomen--normal bowel sounds and soft. Extremities--no cyanosis or clubbing. No edema. Dermatologic--normal skin turgor, normal color, no abnormal lymph nodes, no rash. Neurologic--cranial nerves II through XII grossly intact. Rheumatologic--normal range of motion. Psychiatric--normal affect. Results & Data Results & Data Vital Signs (Past 12 Hours) Vital Signs Temp Pulse Pulse Pulse Resp BP Pulse Ox 06/16/25 11:23 36.4 C L 74 19 112/46 L 98 06/16/25 08:00 06/16/25 07:48 36.6 C 75 19 123/64 97 06/16/25 07:13 93 H 16 96 06/16/25 06:06 77 06/16/25 03:07 36.3 C L 75 18 124/65 94 O2 Del Method O2 Flow Rate 06/16/25 11:23 Nasal Cannula 3 06/16/25 08:00 Nasal Cannula 4 06/16/25 07:48 Nasal Cannula 4 06/16/25 07:13 Nasal Cannula 3.5 06/16/25 06:06 06/16/25 03:07 Nasal Cannula 5 Laboratory Results 06/16/25 08:15 WBC 19.31 H RBC 3.68 L Hgb 9.6 L Hct 29.9 L MCV 81.3 MCH 26.1 MCHC 32.1 RDW Std Deviation 49.9 H RDW Coeff of You 17.3 H Plt Count 185 MPV 11.7 Immature Gran % (Auto) 4.0 Neut % (Auto) 84.5 Lymph % (Auto) 4.2 Winkler % (Auto) 7.1 Eos % (Auto) 0.0 Baso % (Auto) 0.2 Neut # (Auto) 16.33 H Lymph # (Auto) 0.81 L Winkler # (Auto) 1.37 H Eos # (Auto) 0.00 Baso # (Auto) 0.03 Immature Gran # (Auto) 0.77 H Sodium 141 Potassium 3.9 Chloride 105 Carbon Dioxide 32 Anion Gap 4 BUN 30 H Creatinine 0.59 L Est Cr Clr Drug Dosing 117.2 eGFR 98.69 BUN/Creatinine Ratio 50.8 H Glucose 188 H Calcium 8.8 Total Bilirubin 0.5 AST 18 ALT 39 Alkaline Phosphatase 77 C-Reactive Protein 0.60 H Total Protein 5.1 L Albumin 3.1 L Globulin 2.0 L Albumin/Globulin Ratio 1.6 PG Care Time/CCT Total # of Minutes Spent Total Time Spent with Patient: Total time spent is greater than 50% in coordination of care (as documented) at patient's floor/unit and/or counseling patient: Coding Level of Care Code 01371 SUB INP/OBS CARE 2/35MIN Diagnoses Lightheadedness R42 HTN, goal below 140/90 I10 Essential hypertriglyceridemia E78.1 Herpes simplex B00.9 Hypercholesterolemia E78.00 Vitamin D deficiency E55.9 Sleep apnea, unspecified type G47.30 Sleep apnea type: unspecified type 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
[2025-06-16] MEDS: PEMBROLIZUMAB 200 MG in SODIUM CHLORIDE 0.9% 50 ML IV SCH (16:44)
--- NOTE | 2025-06-16 18:22 | Gastroenterology Progress Note ---
Date of Service June 16, 2025 Assessment & Plan (1) Feeding difficulty: Plan: Possible PEG tomorrow. Stop feeds after midnight. Check an INR. Ancef on-call to the OR. (2) Squamous cell carcinomatosis: Admission and Anticipated Discharge Date Admission Date: June 03, 2025 Subjective Feeding difficulties head neck cancer. Patient states he is unable to take p.o. Very poor saliva and lubrication. Now has a nasogastric feeding tube. This has been accidentally dislodged at least once. Patient interested in a PEG placement. Seen at the bedside. and daughter present. Discussed PEG tube placement benefits and potential risks including infection bleeding and perforation. They wish to proceed. There is no evidence of surgery in the upper abdomen area. Will need an INR which will be ordered for AM. He is tube feeds will need to be held after midnight. He should get a dose of Ancef on-call to the OR. Anesthesia wishes us to coordinate with vascular surgery who will place a port to minimize frequency and risks of sedation. Review of Systems Review of Systems: Currently chest pain shortness of breath. Physical Exam Physical Exam: Alert and orientated. Flat scaphoid benign abdomen without masses. Results & Data Results & Data Vital Signs (Past 12 Hours) Vital Signs Temp Pulse Pulse Pulse Resp BP BP 06/16/25 18:05 36.4 C L 92 H 18 162/69 H 06/16/25 17:35 36.3 C L 67 16 138/72 06/16/25 17:14 36.4 C L 79 16 146/73 H 06/16/25 16:32 36.4 C L 79 19 169/73 H 06/16/25 13:01 75 06/16/25 11:23 36.4 C L 74 19 112/46 L 06/16/25 08:00 06/16/25 07:48 36.6 C 75 19 123/64 06/16/25 07:13 93 H 16 Pulse Ox O2 Del Method O2 Flow Rate 06/16/25 18:05 94 Nasal Cannula 3 06/16/25 17:35 97 Nasal Cannula 3 06/16/25 17:14 97 Nasal Cannula 3 06/16/25 16:32 97 Nasal Cannula 3 06/16/25 13:01 06/16/25 11:23 98 Nasal Cannula 3 06/16/25 08:00 Nasal Cannula 4 06/16/25 07:48 97 Nasal Cannula 4 06/16/25 07:13 96 Nasal Cannula 3.5 PG Care Time/CCT Total # of Minutes Spent Total Time Spent with Patient: Total time spent is greater than 50% in coordination of care (as documented) at patient's floor/unit and/or counseling patient: Coding Level of Care Code 00655 SUB INP/OBS CARE 10/09MIN Diagnoses Feeding difficulty R63.30 Squamous cell carcinomatosis C80.0
[2025-06-16] MEDS ORDERED: Nursing to Pharmacy Communication SCH (18:45)
[2025-06-17 06:49] LABS: Hematocrit (blood only) 29.5 % (42.0-52.0); Hemoglobin 9.3 g/dl (14.0-18.0); Immature Granulocytes # (auto) 0.87 K/uL (0.01-0.20); Immature Granulocytes % (auto) 4.7 %; Mean Corpuscular Hemoglobin 25.9 pg (25.0-34.0); Mean Corpuscular Volume 82.2 fL (80.0-100.0); Platelet Count 188 K/uL (130-400); RDW Standard Deviation 49.9 fL (36.4-46.3); Red Blood Count 3.59 M/uL (4.70-6.10); White Blood Count 18.36 K/ul (4.8-10.8)
[2025-06-17 06:56] LABS: INR 1.2 (0.9-1.1); Prothrombin Time 12.2 Seconds (9.0-12.0)
[2025-06-17 07:01] LABS: Alanine Aminotransferase 34 U/L (7-52); Albumin Globulin Ratio 1.5 (0.9-2); Albumin Level 3.0 gm/dl (3.4-5.0); Alkaline Phosphatase 81 U/L (34-104); Anion Gap 5 (3-11); Bilirubin,Total 0.6 mg/dl (0.2-1.0); Blood Urea Nitrogen 28 mg/dl (6-23); Calcium 8.5 mg/dl (8.6-10.3); Carbon Dioxide 32 mmol/L (21-32); Chloride 105 mmol/L (98-107); Creatinine Clr Calc Pharmacy 126.0 ml/min; Globulin 2.0 gm/dl (2.5-4.0); Glucose 141 mg/dl (70-99(Fasting)); Potassium 4.2 mmol/L (3.5-5.1); Sodium 142 mmol/L (136-145); Total Protein 5.0 gm/dl (6.0-8.3)
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
--- NOTE | 2025-06-17 09:14 | History & Physical Bridge Note ---
Date of Service June 17, 2025 History & Physical Bridge Note Patient for port insertion and peg insertion today. I have discussed the risks options and benefits of the procedure with the patient. The patient understands the risks options and benefits and agrees to the procedure. I have examined the patient, reviewed the History & Physical and in the interval since the performance of the History & Physical I have noted the following changes of clinical significance: no changes noted
[2025-06-17] MEDS: LACTATED RINGER'S 1,000 ML IV SCH (10:08)
--- NOTE | 2025-06-17 11:40 | History & Physical Bridge Note ---
Date of Service June 17, 2025 History & Physical Bridge Note I have examined the patient, reviewed the History & Physical and in the interval since the performance of the History & Physical I have noted the following changes of clinical significance: no changes noted Discussed PEG placement with patient and family. They note they were well informed of the risks by Dr. Ortiz. They understand the possibility of tumor seeding given his disease process. They wish to proceed with PEG in OR today in combined case with port placement with Dr. Haines. Supervising Physician Co-Signing Physician Notes INR acceptable. Platelets okay. White count elevated. Patient appears well. I did discuss the risks of infection bleeding perforation and in his situation peritoneal or neoplastic seeding of the PEG tube tract. It is possible with the 4 cm mass in the splenic area that we will not be able to transilluminate the abdomen appropriately. All of this patient understands informed consent obtained. Proceed with PEG tube placement today.
--- NOTE | 2025-06-17 13:03 | Communication Note ---
Date of Service: June 17, 2025 Palliative Med Brief Note Pall med is following this patient peripherally. Patient and family desire very aggressive care and are not willing to engage in any goals of care/advance illness planning discussion. This is part of their coping as a family and also how they show support to pt. Respectfully, we will step back and remain available for re-engagement and assistance with cancer related symptom mgt should those needs arise. This is not a formal sign off, but we will not be seeing pt unless called/paged. Thank you for allowing us to participate in the ongoing care of this patient. Please page with any additional concerns. Daniel Horn DNP Director, Palliative Medicine
--- NOTE | 2025-06-17 14:18 | Hospitalist Progress Note ---
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 Afebrile. Will stop benefit -Appreciate Pulmonology recs, ongoing continued pulmonary recovery. Will monitor closely with immunotherapy #leukocytosis - CRP remains minimal. No clinical signs of infection or recurrence. very likely related to his underlying pulmonary effusions and carcinomatosis #Atrial fibrillation with RVR -Mostly rate controlled, some self limited rates to the 120s - Previously noted diagnosis, start with IV diltiazem, transition to oral short acting as pressures tolerate, rate controlled -will discuss anticoagulation with patient -Initiate after Port placement and PEG tube placement #Severe protein calorie malnutrition #Dehydration #Multiple Electrolyte Abnormalities - Virtually no oral intake, now achieving goals with NG, RD/Nutrition following, continue to increase FWF as he remains a little volume depleted however that is likely helping his pulonary status - Pulmonary status is stabilized I suspect from the assessment of a bit more strength since his oxygen requirements will continue to decrease. Will reach out to GI for PEG placement - anesthesia consult for appropriateness for PEG placement, doing well on current formula and regimen - no plan is to coordinate GI and surgery for port and PEG placement tomorrow - tolerating goals per dietary/nutrition, transition to PEG once placed #Pleural effusion -X ray shows trace effusion -He is now s/o Thoracentesis with removal of 850cc of fluid -Stable to improving pulmonary status, monitor for need for repeat thoracentesis. 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 #Carcinomatosis of the lungs -[facility] was [facility] to have a port placed here -placement pending clinical stability, he is trending towards clinical stability -CT scan indicates widespread carcinomatosis in the lungs, oncology consult for therapy options - Plan is for immunotherapy infusions at the time of discharge in the outpatient setting - immunotherapy infusion 1 today 06/16, delayed yesterday for clerical reasons Hypocalcemia/hypokalemia/hypomagnesemia - resolved - stable, continue to monitor Hypertension - Will continue his antihypertensives he is within normal range now Hyperlipidemia - Continue statin, once dehydration has been resolved Sleep apnea - Home CPAP Prophylaxis -Subq heparin initially CODE STATUS -Full code per his wishes, discussed with the patient and family at the bedside. palliative on consult Barriers: He has been unable to get his port and PEG tube because he has been unstable and requiring high oxygen but trend is now improving Admission and Anticipated Discharge Date Admission Date: June 03, 2025 Subjective Doing okay this morning. N.p.o. and feeding tubes on hold given procedures later this afternoon. Discussed with family and daughter overall care plan. Hope PEG and port are completed today. First dose of immunotherapy completed yesterday. Plan will be for ongoing nutritional support. Continue with PT and OT with a likely goal of discharging to home in the next few days. I suspect he will do well once procedures above are completed. Pulmonary status steadily but slowly improving decrease oxygen need overnight Physical Exam Physical Exam: The patient is awake, alert and oriented 3, thin looking HEENT--PERRL, EOMI, mucous membranes and oropharynx mildly dry Neck--supple. No JVD. No bruits. Large, ulcerated mass on the left lateral neck. No drainage or overlying skin breakdown. Heart--normal S1 and S2. No murmurs, rubs or gallops. Lungs-- trace crackles at the bases otherwise good air movement throughout Abdomen--normal bowel sounds and soft. Extremities--no cyanosis or clubbing. No edema. Dermatologic--normal skin turgor, normal color, no abnormal lymph nodes, no rash. Neurologic--cranial nerves II through XII grossly intact. Rheumatologic--normal range of motion. Psychiatric--normal affect. Results & Data Results & Data Vital Signs (Past 12 Hours) Vital Signs Temp Pulse Pulse Pulse Resp BP BP 06/17/25 13:28 36.7 C 80 20 141/58 H 06/17/25 11:13 36.2 C L 76 18 136/63 06/17/25 10:37 06/17/25 07:41 36.4 C L 75 19 138/75 06/17/25 05:55 81 06/17/25 03:15 36.4 C L 76 18 145/81 H Pulse Ox O2 Del Method O2 Flow Rate 06/17/25 13:28 95 Room Air, Nasal Cannula 3 06/17/25 11:13 97 Nasal Cannula 3 06/17/25 10:37 Nasal Cannula 3 06/17/25 07:41 98 Nasal Cannula 3 06/17/25 05:55 06/17/25 03:15 98 Nasal Cannula 3 Laboratory Results 06/17/25 05:45 WBC 18.36 H RBC 3.59 L Hgb 9.3 L Hct 29.5 L MCV 82.2 MCH 25.9 MCHC 31.5 L RDW Std Deviation 49.9 H RDW Coeff of You 17.2 H Plt Count 188 MPV 11.7 Immature Gran % (Auto) 4.7 Neut % (Auto) 85.6 Lymph % (Auto) 4.3 [place] % (Auto) 5.2 Eos % (Auto) 0.0 Baso % (Auto) 0.2 Neut # (Auto) 15.71 H Lymph # (Auto) 0.79 L [place] # (Auto) 0.96 H Eos # (Auto) 0.00 Baso # (Auto) 0.03 Immature Gran # (Auto) 0.87 H PT 12.2 H INR 1.2 H Sodium 142 Potassium 4.2 Chloride 105 Carbon Dioxide 32 Anion Gap 5 BUN 28 H Creatinine 0.55 L Est Cr Clr Drug Dosing 126.0 eGFR 100.81 BUN/Creatinine Ratio 50.9 H Glucose 141 H Calcium 8.5 L Total Bilirubin 0.6 AST 19 ALT 34 Alkaline Phosphatase 81 C-Reactive Protein < 0.50 Total Protein 5.0 L Albumin 3.0 L Globulin 2.0 L Albumin/Globulin Ratio 1.5 PG Care Time/CCT Total # of Minutes Spent Total Time Spent with Patient: Total time spent is greater than 50% in coordination of care (as documented) at patient's floor/unit and/or counseling patient: Coding Level of Care Code 30447 SUB INP/OBS CARE 2/35MIN Diagnoses Lightheadedness R42 HTN, goal below 140/90 I10 Essential hypertriglyceridemia E78.1 Herpes simplex B00.9 Hypercholesterolemia E78.00 Vitamin D deficiency E55.9 Sleep apnea, unspecified type G47.30 Sleep apnea type: unspecified type 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
[2025-06-17] MEDS ORDERED: LIDOCAINE 2% 2 ML VIAL/AMP(20MG/ML) INFIL ONE (14:48)
[2025-06-17] MEDS ORDERED: PROPOFOL IV EMULSION 10 MG/ML 20 ML VIAL IV ONE ×3 (14:49→16:02)
[2025-06-17] MEDS ORDERED: KETAMINE HCL 10MG/ML SYR ONE (14:51)
[2025-06-17] MEDS: LIDOCAINE 1% LOCAL 20 ML VIAL ONE (15:45)
[2025-06-17] MEDS: BUPIVACAINE/EPINEPHRINE 0.5% MPF 1:200,000 30 ML VIAL ONE (15:45)
[2025-06-17] MEDS: HEPARIN 100 UNIT/ML 5ML FLUSH ONE (15:45)
--- NOTE | 2025-06-17 15:46 | Operative Report ---
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 He is in need of an access for chemotherapy. [id number] is recommended. He was also have a PEG tube placed by GI post port insertion. I have discussed the risks options and benefits of the procedure with the patient. The patient understands the risks options and benefits and agrees to the procedure. Description of Procedure Patient was taken to the angio suite and placed in the supine position. The right side of the neck and chest wall were prepped and draped in a sterile manner. The patient was identified and a timeout performed. Local anesthesia was then administered to the appropriate areas of the neck and chest wall. A transverse incision was made below the clavicle on the chest wall and an inferior pocket was make. Bleeding was controlled using cautery. Ultrasound was then used to locate the right internal jugular vein. The vein compressed easily, had no filing defects, and was patent. The vein was then punctured under direct ultrasound imaging. A guidewire was then passed centrally under fluoroscopic imaging. The port catheter was then passed from the pocket incision to the puncture site in the neck using the tunneling device. The peel away sheath was inserted. The catheter was then beveled at the tip and inserted through the peel away sheath. The tip was then positioned in the distal SCV. It was then attached to the port and the catheter clamp applied. The port was then placed in the pocket and sutured to the chest fascia using prolene suture. The puncture site was then closed using a 4-0 Vicryl subcuticular suture. The chest incision was closed using a 3-0 Vicryl suture for the subcutaneous layer and a 4-0 Vicryl subcuticular stitch for the skin layer. Dermabond was used for a dressing on the puncture site and the incision. The port aspirated and flushed easily and was then flushed with heparinized saline. The patient left the operation room in satisfactory condition and tolerated the procedure well. All needle and sponge counts were correct at the end of the procedure. The patient was then left in supine position for GI to place a PEG tube. I attest to the content of the Intraoperative Record and any orders documented therein. Any exceptions are noted below.
--- NOTE | 2025-06-17 16:22 | Communication Note ---
Date of Service: June 17, 2025 EGD in the OR for PEG placement. Patient had a cratered ulcer between the junction of the body and stomach. In the area where he typically placed the PEG tube. This is concerning for a malignant ulcer. The abdomen did not transilluminate. Palpation abdominal wall did not transilluminate to the gastric lumen. By putting the lites all the way down we could see a light reflex though it was below the sternum. Unfortunately there is no adequate endoscopic window to place his PEG tube. Biopsies performed. There was no do op feeding tube available to place in the OR. Will need to be placed on the floor.
--- NOTE | 2025-06-17 16:26 | GI REPORT ---
[facility] Patient: JUSTIN FRANK : 1945 Sex at : Male Age: 80 Years Procedure: Upper GI endoscopy Date: 06/17/2025 Attending Physician: Giovanni Ortiz MD Referring MD: Referred Self Indications: - EGD for PEG placement - Dysphagia Medications: - Monitored Anesthesia Care Complications: - No immediate complications. Estimated Blood Loss: - Estimated blood loss was minimal. Procedure: - The EGD scope was introduced through the mouth and advanced to the second part of the duodenum. - The upper GI endoscopy was accomplished without difficulty. - The patient tolerated the procedure well. Findings: - One benign-appearing, intrinsic mild stenosis was found at the gastroesophageal junction. The stenosis was traversed. - In the stomach between the junction and body of the stomach were typically PEG is placed there was a cratered ulcer appearance is suggestive of malignancy. Biopsies performed. May be related to metastatic head neck cancer. Unfortunately there is no trans illumination of the stomach and palpation of the stomach wall did not transmit to the gastric lumen. By placing the lights all the way down and turning we are able to get a light reflex though this was underneath the sternum. There is no safe endoscopic window here to place a PEG tube. - The examined duodenum was normal. Impression: - In the stomach between the junction and body of the stomach were typically PEG is placed there was a cratered ulcer appearance is suggestive of malignancy. Biopsies performed. May be related to metastatic head neck cancer. Unfortunately there is no trans illumination of the stomach and palpation of the stomach wall did not transmit to the gastric lumen. By placing the lights all the way down and turning we are able to get a light reflex though this was underneath the sternum. There is no safe endoscopic window here to place a PEG tube. - Benign-appearing esophageal stenosis. - Normal examined duodenum. - No specimens collected. Recommendation: - Reinsert nasogastric feeding tube. Only option at this point short of that feeding method would be a surgical placement of a gastrojejunostomy tube this will proved to be difficult in a patient with peritoneal mets. Procedure Code(s): - 19116, Esophagogastroduodenoscopy, flexible, transoral; diagnostic, including collection of specimen(s) by brushing or washing, when performed (separate procedure) Diagnosis Code(s): - R13.10, Dysphagia, unspecified - K22.2, Esophageal obstruction CPT(R) - 2022 copyright [employer]. All Rights Reserved. The CPT codes, CCI edits and ICD codes generated are intended as suggestions and were generated based on input data. These codes are preliminary and upon angle furnaceman review may be revised to meet current compliance and payer requirements. The provider is responsible for the final determination of appropriate codes, and modifiers. Giovanni Ortiz MD This document has been electronically signed. Note Initiated:06/17/2025 Note Completed:06/17/2025 4:25 PM \\[id number]
--- NOTE | 2025-06-17 16:35 | Anesthesiology Progress Note ---
Date of Service June 17, 2025 Anesthesia Post Procedure Vital Signs Vital Signs: Temp Pulse Pulse Pulse Pulse Resp BP 06/17/25 13:28 36.7 C 80 20 141/58 H 06/17/25 13:03 87 06/17/25 11:13 36.2 C L 76 18 136/63 06/17/25 10:37 06/17/25 07:41 36.4 C L 75 19 138/75 06/17/25 05:55 81 06/17/25 03:15 36.4 C L 76 18 06/16/25 23:12 36.4 C L 68 18 06/16/25 22:00 69 06/16/25 21:49 06/16/25 20:51 83 135/65 06/16/25 19:41 36.3 C L 70 18 06/16/25 18:05 36.4 C L 92 H 18 162/69 H 06/16/25 17:35 36.3 C L 67 16 138/72 06/16/25 17:14 36.4 C L 79 16 146/73 H BP Pulse Ox O2 Del Method O2 Flow Rate 06/17/25 13:28 95 Room Air, Nasal Cannula 3 06/17/25 13:03 06/17/25 11:13 97 Nasal Cannula 3 06/17/25 10:37 Nasal Cannula 3 06/17/25 07:41 98 Nasal Cannula 3 06/17/25 05:55 06/17/25 03:15 145/81 H 98 Nasal Cannula 3 06/16/25 23:12 139/69 95 Nasal Cannula 3 06/16/25 22:00 06/16/25 21:49 Nasal Cannula 4 06/16/25 20:51 06/16/25 19:41 139/69 95 Nasal Cannula 3 06/16/25 18:05 94 Nasal Cannula 3 06/16/25 17:35 97 Nasal Cannula 3 06/16/25 17:14 97 Nasal Cannula 3 Pain Intensity Left Neck: Pain Intensity: 4 Transfer of Care Handoff Completed per policy Notes Mental Status: alert / awake / arousable Patient Amnestic to Procedure: Yes Nausea / Vomiting: adequately controlled Pain: adequately controlled Airway Patency, RR, SpO2: stable & adequate BP & HR: stable & adequate Hydration State: stable & adequate Anesthetic Complications: no major complications apparent and Pt Satisfied with anesthetic care
[2025-06-18 07:34] LABS: Hematocrit (blood only) 28.1 % (42.0-52.0); Hemoglobin 9.1 g/dl (14.0-18.0); Immature Granulocytes # (auto) 0.82 K/uL (0.01-0.20); Immature Granulocytes % (auto) 5.0 %; Mean Corpuscular Hemoglobin 26.5 pg (25.0-34.0); Mean Corpuscular Volume 81.7 fL (80.0-100.0); Platelet Count 174 K/uL (130-400); RDW Standard Deviation 49.4 fL (36.4-46.3); Red Blood Count 3.44 M/uL (4.70-6.10); White Blood Count 16.27 K/ul (4.8-10.8)
[2025-06-18 07:49] LABS: Alanine Aminotransferase 35.0 U/L (7-52); Albumin Globulin Ratio 1.6 (0.9-2); Albumin Level 3.0 gm/dl (3.4-5.0); Alkaline Phosphatase 101.0 U/L (34-104); Anion Gap 5.0 (3-11); Bilirubin,Total 0.8 mg/dl (0.2-1.0); Blood Urea Nitrogen 24.0 mg/dl (6-23); Calcium 7.8 mg/dl (8.6-10.3); Carbon Dioxide 30.0 mmol/L (21-32); Chloride 105.0 mmol/L (98-107); Creatinine Clr Calc Pharmacy 117.0 ml/min; Globulin 1.9 gm/dl (2.5-4.0); Glucose 139.0 mg/dl (70-99(Fasting)); Potassium 4.1 mmol/L (3.5-5.1); Sodium 140.0 mmol/L (136-145); Total Protein 4.9 gm/dl (6.0-8.3)
--- NOTE | 2025-06-18 13:37 | Hospitalist Progress Note ---
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 Afebrile. Will stop benefit -Appreciate Pulmonology recs, ongoing continued pulmonary recovery. Will monitor closely with immunotherapy #leukocytosis - CRP remains minimal. No clinical signs of infection or recurrence. very likely related to his underlying pulmonary effusions and carcinomatosis #hypocalcemia - add calcium gluconate #Atrial fibrillation with RVR -Mostly rate controlled, some self limited rates to the 120s - Previously noted diagnosis, start with IV diltiazem, transition to oral short acting as pressures tolerate, rate controlled -will discuss anticoagulation with patient -Initiate after Port placement and PEG tube placement #Severe protein calorie malnutrition #Dehydration #Multiple Electrolyte Abnormalities - Virtually no oral intake, now achieving goals with NG, RD/Nutrition following, continue to increase FWF as he remains a little volume depleted however that is likely helping his pulonary status - Pulmonary status is stabilized I suspect from the assessment of a bit more strength since his oxygen requirements will continue to decrease. Will reach out to GI for PEG placement - see notes unable to have PEG placed secondary to regional carcinomatosis. - short trial of oral intake but with electrolyes being low, low threshold to reinsert NG #Pleural effusion -X ray shows trace effusion -He is now s/o Thoracentesis with removal of 850cc of fluid -Stable to improving pulmonary status, monitor for need for repeat thoracentesis. 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 #Carcinomatosis of the lungs -[facility], he was scheduled to have a port placed here -placement pending clinical stability, he is trending towards clinical stability -CT scan indicates widespread carcinomatosis in the lungs, oncology consult for therapy options - Plan is for immunotherapy infusions at the time of discharge in the outpatient setting - immunotherapy infusion 1 today 06/16, delayed yesterday for clerical reasons Hypokalemia/hypomagnesemia - resolved - stable, continue to monitor - recheck mag Hypertension - Will continue his antihypertensives he is within normal range now Hyperlipidemia - Continue statin, once dehydration has been resolved Sleep apnea - Home CPAP Prophylaxis -Subq heparin initially CODE STATUS -Full code per his wishes, discussed with the patient and family at the bedside. palliative on consult Barriers: He has been unable to get his port and PEG tube because he has been unstable and requiring high oxygen but trend is now improving Admission and Anticipated Discharge Date Admission Date: June 03, 2025 Subjective doing okay this morning. Has able to drink 4-5 with small things of apple juice. No significant difficulty. He is interested in trying a milkshake or something else this morning. Nursing at the bedside watching no swallowing difficulty. Otherwise minimal amount of pain at the port insertion site. We discussed a trial of oral intake versus replacement of the NG tube. They are willing to continue to try with at least through the middle of the day trial orals. Otherwise breathing has been at his baseline no other events issues or concerns per nursing or family Physical Exam Physical Exam: The patient is awake, alert and oriented 3, thin looking HEENT--PERRL, EOMI, mucous membranes and oropharynx mildly dry Neck--supple. No JVD. No bruits. Large, ulcerated mass on the left lateral neck. No drainage or overlying skin breakdown. Heart--normal S1 and S2. No murmurs, rubs or gallops. Lungs-- trace crackles at the bases otherwise good air movement throughout Abdomen--normal bowel sounds and soft. Extremities--no cyanosis or clubbing. No edema. Dermatologic--normal skin turgor, normal color, no abnormal lymph nodes, no rash. Neurologic--cranial nerves II through XII grossly intact. Rheumatologic--normal range of motion. Psychiatric--normal affect. Results & Data Results & Data Vital Signs (Past 12 Hours) Vital Signs Temp Pulse Pulse Pulse Resp BP Pulse Ox 06/18/25 11:01 36.3 C L 78 19 149/72 H 96 06/18/25 08:12 06/18/25 07:40 36.6 C 84 18 135/67 93 06/18/25 05:40 75 06/18/25 03:56 36.7 C 77 18 118/60 92 O2 Del Method O2 Flow Rate 06/18/25 11:01 Room Air 06/18/25 08:12 Nasal Cannula 3 06/18/25 07:40 Nasal Cannula 2 06/18/25 05:40 06/18/25 03:56 Nasal Cannula 2 Laboratory Results 06/18/25 06:47 WBC 16.27 H RBC 3.44 L Hgb 9.1 L Hct 28.1 L MCV 81.7 MCH 26.5 MCHC 32.4 RDW Std Deviation 49.4 H RDW Coeff of You 17.3 H Plt Count 174 MPV 11.6 Immature Gran % (Auto) 5.0 Neut % (Auto) 82.1 Lymph % (Auto) 5.5 [place] % (Auto) 7.1 Eos % (Auto) 0.1 Baso % (Auto) 0.2 Neut # (Auto) 13.35 H Lymph # (Auto) 0.89 L [place] # (Auto) 1.16 H Eos # (Auto) 0.01 Baso # (Auto) 0.04 Immature Gran # (Auto) 0.82 H Sodium 140 Potassium 4.1 Chloride 105 Carbon Dioxide 30 Anion Gap 5 BUN 24 H Creatinine 0.54 L Est Cr Clr Drug Dosing 117.0 eGFR 101.37 BUN/Creatinine Ratio 44.4 H Glucose 139 H Calcium 7.8 L Total Bilirubin 0.8 AST 21 ALT 35 Alkaline Phosphatase 101 Total Protein 4.9 L Albumin 3.0 L Globulin 1.9 L Albumin/Globulin Ratio 1.6 PG Care Time/CCT Total # of Minutes Spent Total Time Spent with Patient: Total time spent is greater than 50% in coordination of care (as documented) at patient's floor/unit and/or counseling patient: Coding Level of Care Code 74020 SUB INP/OBS CARE 2/35MIN Diagnoses Lightheadedness R42 HTN, goal below 140/90 I10 Essential hypertriglyceridemia E78.1 Herpes simplex B00.9 Hypercholesterolemia E78.00 Vitamin D deficiency E55.9 Sleep apnea, unspecified type G47.30 Sleep apnea type: unspecified type 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
[2025-06-18] MEDS: CALCIUM GLUCONATE 1,000 MG/60 ML BAG IV STA (14:08)
[2025-06-18] MEDS: MoRPHine SULFATE 2 MG/ML CARP IV STA (19:49)
[2025-06-19 08:12] LABS: Hematocrit (blood only) 28.8 % (42.0-52.0); Hemoglobin 9.5 g/dl (14.0-18.0); Mean Corpuscular Hemoglobin 26.8 pg (25.0-34.0); Mean Corpuscular Volume 81.4 fL (80.0-100.0); Platelet Count 187 K/uL (130-400); RDW Standard Deviation 48.9 fL (36.4-46.3); Red Blood Count 3.54 M/uL (4.70-6.10); White Blood Count 16.13 K/ul (4.8-10.8)
[2025-06-19 08:28] LABS: Alanine Aminotransferase 36 U/L (7-52); Albumin Globulin Ratio 1.7 (0.9-2); Albumin Level 3.2 gm/dl (3.4-5.0); Alkaline Phosphatase 124 U/L (34-104); Anion Gap 5 (3-11); Bilirubin,Total 0.8 mg/dl (0.2-1.0); Blood Urea Nitrogen 21 mg/dl (6-23); Calcium 8.0 mg/dl (8.6-10.3); Carbon Dioxide 28 mmol/L (21-32); Chloride 105 mmol/L (98-107); Creatinine Clr Calc Pharmacy 125.4 ml/min; Globulin 1.9 gm/dl (2.5-4.0); Glucose 127 mg/dl (70-99(Fasting)); Magnesium 2.1 mg/dl (1.7-2.4); Potassium 4.1 mmol/L (3.5-5.1); Sodium 138 mmol/L (136-145); Total Protein 5.1 gm/dl (6.0-8.3)
[2025-06-19 09:00] LABS: Immature Granulocytes # (auto) 0.86 K/uL (0.01-0.20); Immature Granulocytes % (auto) 5.3 %
--- NOTE | 2025-06-19 13:20 | Hospitalist Progress Note ---
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 Afebrile. Will stop benefit -Appreciate Pulmonology recs, ongoing continued pulmonary recovery. Will monitor closely with immunotherapy #leukocytosis - CRP remains minimal. No clinical signs of infection or recurrence. very likely related to his underlying pulmonary effusions and carcinomatosis #hypocalcemia - add calcium gluconate, stable on labs this more #Atrial fibrillation with RVR -Mostly rate controlled, some self limited rates to the 120s - Previously noted diagnosis, start with IV diltiazem, transition to oral short acting as pressures tolerate, rate controlled -will discuss anticoagulation with patient -Initiate after Port placement and PEG tube placement #Severe protein calorie malnutrition #Dehydration #Multiple Electrolyte Abnormalities - Virtually no oral intake, now achieving goals with NG, RD/Nutrition following, continue to increase FWF as he remains a little volume depleted however that is likely helping his pulonary status - Pulmonary status is stabilized I suspect from the assessment of a bit more strength since his oxygen requirements will continue to decrease. Will reach out to GI for PEG placement - see notes unable to have PEG placed secondary to regional carcinomatosis. - continue to monitor closely is amount of oral intake. Right now maintaining without NG. Will continue with LR bolus 500 cc twice per day. likely to need NG again in the near future but giving a bit of a break for right now #Pleural effusion -X ray shows trace effusion -He is now s/o Thoracentesis with removal of 850cc of fluid -Stable to improving pulmonary status, monitor for need for repeat thoracentesis. 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 #Carcinomatosis of the lungs -[facility], he was scheduled to have a port placed here -placement pending clinical stability, he is trending towards clinical stability -CT scan indicates widespread carcinomatosis in the lungs, oncology consult for therapy options - Plan is for immunotherapy infusions at the time of discharge in the outpatient setting - immunotherapy infusion 1 today 06/16, delayed yesterday for clerical reasons Hypokalemia/hypomagnesemia - resolved - stable, continue to monitor - recheck mag Hypertension - Will continue his antihypertensives he is within normal range now Hyperlipidemia - Continue statin, once dehydration has been resolved Sleep apnea - Home CPAP Prophylaxis -Subq heparin initially CODE STATUS -Full code per his wishes, discussed with the patient and family at the bedside. palliative on consult Barriers: He has been unable to get his port and PEG tube because he has been unstable and requiring high oxygen but trend is now improving Admission and Anticipated Discharge Date Admission Date: June 03, 2025 Subjective doing pretty well this morning. Has been able to take quite a bit of liquids. Did not like the beef broth last night so advanced him to pure as he has has absolutely no difficulty swallowing. Feels as though he is a little bit thirsty. We did not run IV fluids overnight. Discussed doing a couple small bumps of fluid through the day just to keep up with his hydration. Labs electrolytes look pretty good. He had 1 episode of pain over the nodule in his left side of his neck although that was relieved with morphine after a couple of doses. No other new symptoms. No other events or concerns per patient or nursing Physical Exam Physical Exam: The patient is awake, alert and oriented 3, thin looking HEENT--PERRL, EOMI, mucous membranes and oropharynx mildly dry Neck--supple. No JVD. No bruits. Large, ulcerated mass on the left lateral neck. No drainage or overlying skin breakdown. Heart--normal S1 and S2. No murmurs, rubs or gallops. Lungs-- trace crackles at the bases otherwise good air movement throughout Abdomen--normal bowel sounds and soft. Extremities--no cyanosis or clubbing. No edema. Dermatologic--normal skin turgor, normal color, no abnormal lymph nodes, no rash. Neurologic--cranial nerves II through XII grossly intact. Rheumatologic--normal range of motion. Psychiatric--normal affect. Results & Data Results & Data Vital Signs (Past 12 Hours) Vital Signs Temp Pulse Pulse Resp BP Pulse Ox O2 Del Method 06/19/25 11:49 93 06/19/25 11:47 36.5 C 81 18 131/76 94 Nasal Cannula 06/19/25 07:16 36.8 C 85 19 142/70 H 94 Nasal Cannula 06/19/25 05:38 77 06/19/25 03:46 36.4 C L 78 18 152/71 H 97 Room Air O2 Flow Rate 06/19/25 11:49 06/19/25 11:47 2 06/19/25 07:16 2 06/19/25 05:38 06/19/25 03:46 Laboratory Results 06/08/25 Unknown Acid Fast Bacilli Smear - Final Pleural Fluid Acid Fast Bacilli Culture - Preliminary No Acid-Fast Bacilli Isolated - Report 1, Additional Report to Follow. 06/19/25 07:34 WBC 16.13 H RBC 3.54 L Hgb 9.5 L Hct 28.8 L MCV 81.4 MCH 26.8 MCHC 33.0 RDW Std Deviation 48.9 H RDW Coeff of You 17.1 H Plt Count 187 MPV 11.7 Immature Gran % (Auto) 5.3 Neut % (Auto) 79.3 Lymph % (Auto) 6.3 Porter % (Auto) 8.9 Eos % (Auto) 0.0 Baso % (Auto) 0.2 Neut # (Auto) 12.78 H Lymph # (Auto) 1.02 L Porter # (Auto) 1.44 H Eos # (Auto) 0.00 Baso # (Auto) 0.03 Immature Gran # (Auto) 0.86 H Sodium 138 Potassium 4.1 Chloride 105 Carbon Dioxide 28 Anion Gap 5 BUN 21 Creatinine 0.54 L Est Cr Clr Drug Dosing 125.4 eGFR 101.37 BUN/Creatinine Ratio 38.9 H Glucose 127 H Calcium 8.0 L Magnesium 2.1 Total Bilirubin 0.8 AST 21 ALT 36 Alkaline Phosphatase 124 H C-Reactive Protein < 0.50 Total Protein 5.1 L Albumin 3.2 L Globulin 1.9 L Albumin/Globulin Ratio 1.7 PG Care Time/CCT Total # of Minutes Spent Total Time Spent with Patient: Total time spent is greater than 50% in coordination of care (as documented) at patient's floor/unit and/or counseling patient: Coding Level of Care Code 24909 SUB INP/OBS CARE 2/35MIN Diagnoses Lightheadedness R42 HTN, goal below 140/90 I10 Essential hypertriglyceridemia E78.1 Herpes simplex B00.9 Hypercholesterolemia E78.00 Vitamin D deficiency E55.9 Sleep apnea, unspecified type G47.30 Sleep apnea type: unspecified type 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
[2025-06-19] MEDS: LACTATED RINGER'S 250 ML IV SCH (13:32)
[2025-06-20] MEDS: CEROVITE ADV FORMULA TAB PO SCH (11:52)
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
[2025-06-20] MEDS: MoRPHine SULFATE 2 MG/ML CARP IM PRN (13:45)
--- NOTE | 2025-06-20 13:46 | Hospitalist Progress Note ---
Date of Service June 20, 2025 Assessment & Plan (1) Squamous cell carcinoma of head and neck: (2) Bilateral pneumonia: (3) Dysphagia: (4) Weakness generalized: Plan (1) Left facial cellulitis (2) inability to tolerate solid food, malnutrition (3) metastatic squamous cancer of head and neck (4) Herpes simplex: (5) Hypercholesterolemia: (6) lightheadness: (7) Sleep apnea: (8) hypertriglyceridemia (9) 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: (10) Severe protein-calorie malnutrition: (11) Moderate dehydration: (12) Electrolyte abnormality: (13) Bilateral pneumonia: (14 (15) Acute hypoxemic respiratory failure: (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: Plan #Bilateral pneumonia #Possible aspiration pneumonia, MSSA positive #Hypoxemic respiratory failure -Cough and fever on admission -sputum gram stain positive for MSSA -Chest x ray previously shows diffuse PNA, patchy pulmonary opacities -Cultures have been negative -O2 needs on the stable downward trend, peak 40L High flow on 06/09- now stable on 2-3L -CT chest did not show any evidence of PE, but shows diffuse and worsening metastatic disease as below -Completed 12 days of abx therapy 06/14, CRP is normalized. Afebrile. Will stop benefit -Appreciate Pulmonology recs, ongoing continued pulmonary recovery. Will monitor closely with immunotherapy dysphagia, inability to tolerate solid food surgery team plan for open J tube tomorrow NPo after midnight hold anticoagulation #leukocytosis - CRP remains minimal. No clinical signs of infection or recurrence. very likely related to his underlying pulmonary effusions and carcinomatosis #hypocalcemia - add calcium gluconate, stable on labs this more #Atrial fibrillation with RVR -Mostly rate controlled, some self limited rates to the 120s - Previously noted diagnosis, start with IV diltiazem, transition to oral short acting as pressures tolerate, rate controlled -will discuss anticoagulation with patient -Initiate after Port placement and PEG tube placement #Severe protein calorie malnutrition #Dehydration #Multiple Electrolyte Abnormalities - Virtually no oral intake, now achieving goals with NG, RD/Nutrition following, continue to increase FWF as he remains a little volume depleted however that is likely helping his pulonary status - Pulmonary status is stabilized I suspect from the assessment of a bit more strength since his oxygen requirements will continue to decrease. Will reach out to GI for PEG placement - see notes unable to have PEG placed secondary to regional carcinomatosis. - continue to monitor closely is amount of oral intake. Right now maintaining without NG. Will continue with LR bolus 500 cc twice per day. likely to need NG again in the near future but giving a bit of a break for right now #Pleural effusion -X ray shows trace effusion -He is now s/o Thoracentesis with removal of 850cc of fluid -Stable to improving pulmonary status, monitor for need for repeat thoracentesis. 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 #Carcinomatosis of the lungs -[facility] he was scheduled to have a port placed here -placement pending clinical stability, he is trending towards clinical stability -CT scan indicates widespread carcinomatosis in the lungs, oncology consult for therapy options - Plan is for immunotherapy infusions at the time of discharge in the outpatient setting - immunotherapy infusion 1 today 06/16, delayed yesterday for clerical reasons Hypokalemia/hypomagnesemia - resolved - stable, continue to monitor - recheck mag Hypertension - Will continue his antihypertensives he is within normal range now Hyperlipidemia - Continue statin, once dehydration has been resolved Sleep apnea - Home CPAP Prophylaxis -Subq heparin initially family updated daughter updated on 06/20/2025 in person CODE STATUS -Full code per his wishes, discussed with the patient and family at the bedside. palliative on consult Barriers: He has been unable to get his port and PEG tube because oxygen need is now 2 liter oxygen Admission and Anticipated Discharge Date Admission Date: June 03, 2025 Subjective he's still has worsening left side pain from tumor noticing oozing discharge he's still have inability to tolerate solid food Dr. Daniel Mustafa is plan for open jejunostomy tube placement tomorrow radiation oncology consulted Physical Exam Physical Exam: VITALS: Reviewed. WEIGHT/BMI reviewed. GEN: Healthy appearing, well-developed, NAD. -Head: NC/AT; + for left side tumor; + f or discharge -Nose: Normal nares. NECK: Supple, with no masses. CV: RRR, no m/r/g. LUNGS: CTAB, no w/r/c; no wheezing; no rales ABD: Soft, NT/ND, NBS, no masses or organomegaly. SKIN: Warm, well perfused. No skin rashes or abnormal lesions. MSK: no edema EXT: No clubbing, cyanosis, or edema. NEURO: AAox3 Results & Data Results & Data Vital Signs (Past 12 Hours) Vital Signs Temp Pulse Pulse Resp BP Pulse Ox O2 Del Method 06/20/25 10:57 36.4 C L 89 19 157/75 H 94 Nasal Cannula 06/20/25 10:08 79 06/20/25 07:22 36.6 C 91 H 19 148/72 H 95 Nasal Cannula 06/20/25 03:23 36.3 C L 73 16 132/70 94 Nasal Cannula O2 Flow Rate 06/20/25 10:57 2 06/20/25 10:08 06/20/25 07:22 2 06/20/25 03:23 2 Laboratory Results Laboratory Results - last 72 hr 06/18/25 06/19/25 06:47 07:34 WBC 16.27 H 16.13 H RBC 3.44 L 3.54 L Hgb 9.1 L 9.5 L Hct 28.1 L 28.8 L MCV 81.7 81.4 MCH 26.5 26.8 MCHC 32.4 33.0 RDW Std Deviation 49.4 H 48.9 H RDW Coeff of You 17.3 H 17.1 H Plt Count 174 187 MPV 11.6 11.7 Immature Gran % (Auto) 5.0 5.3 Neut % (Auto) 82.1 79.3 Lymph % (Auto) 5.5 6.3 Fleming % (Auto) 7.1 8.9 Eos % (Auto) 0.1 0.0 Baso % (Auto) 0.2 0.2 Neut # (Auto) 13.35 H 12.78 H Lymph # (Auto) 0.89 L 1.02 L Fleming # (Auto) 1.16 H 1.44 H Eos # (Auto) 0.01 0.00 Baso # (Auto) 0.04 0.03 Immature Gran # (Auto) 0.82 H 0.86 H Sodium 140 138 Potassium 4.1 4.1 Chloride 105 105 Carbon Dioxide 30 28 Anion Gap 5 5 BUN 24 H 21 Creatinine 0.54 L 0.54 L Est Cr Clr Drug Dosing 117.0 125.4 eGFR 101.37 101.37 BUN/Creatinine Ratio 44.4 H 38.9 H Glucose 139 H 127 H Calcium 7.8 L 8.0 L Magnesium 2.1 Total Bilirubin 0.8 0.8 AST 21 21 ALT 35 36 Alkaline Phosphatase 101 124 H C-Reactive Protein < 0.50 Total Protein 4.9 L 5.1 L Albumin 3.0 L 3.2 L Globulin 1.9 L 1.9 L Albumin/Globulin Ratio 1.6 1.7 PG Care Time/CCT Total # of Minutes Spent Total Time Spent with Patient: Total time spent is greater than 50% in coordination of care (as documented) at patient's floor/unit and/or counseling patient: Coding Level of Care Code 08968 SUB INP/OBS CARE 2/35MIN Diagnoses Squamous cell carcinoma of head and neck C44.42 Bilateral pneumonia J18.9 Lung location: unspecified part of lung Pneumonia type: due to unspecified organism Dysphagia R13.10 Weakness generalized R53.1 Time Spent (min) 35 (2) Bilateral pneumonia Lung location: unspecified part of lung Pneumonia type: due to unspecified organism Qualified Code(s): J18.9 - Pneumonia, unspecified organism
[2025-06-20] MEDS: MoRPHine SULFATE 2 MG/ML CARP IV PRN (18:17)
[2025-06-21 07:42] LABS: Hematocrit (blood only) 30.4 % (42.0-52.0); Hemoglobin 9.9 g/dl (14.0-18.0); Mean Corpuscular Hemoglobin 26.5 pg (25.0-34.0); Mean Corpuscular Volume 81.3 fL (80.0-100.0); Platelet Count 179 K/uL (130-400); RDW Standard Deviation 49.7 fL (36.4-46.3); Red Blood Count 3.74 M/uL (4.70-6.10); White Blood Count 17.65 K/ul (4.8-10.8)
[2025-06-21 08:03] LABS: Anion Gap 6.0 (3-11); Blood Urea Nitrogen 16.0 mg/dl (6-23); Calcium 7.7 mg/dl (8.6-10.3); Carbon Dioxide 27.0 mmol/L (21-32); Chloride 104.0 mmol/L (98-107); Creatinine Clr Calc Pharmacy 122.7 ml/min; Glucose 135.0 mg/dl (70-99(Fasting)); Potassium 4.3 mmol/L (3.5-5.1); Sodium 137.0 mmol/L (136-145)
--- NOTE | 2025-06-21 08:38 | History & Physical Bridge Note ---
Date of Service June 21, 2025 History & Physical Bridge Note I have examined the patient, reviewed the History & Physical and in the interval since the performance of the History & Physical I have noted the following changes of clinical significance: no changes noted
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
[2025-06-21] MEDS ORDERED: ATROPINE SULFATE 0.1 MG/ML 10ML SYR IV PRN (12:12)
[2025-06-21] MEDS ORDERED: PROMETHAZINE HCL 6.25 MG in SODIUM CHLORIDE 0.9% 50 ML IV PRN (12:12)
--- NOTE | 2025-06-21 12:19 | Hospitalist Progress Note ---
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 Gilbert Mustafa tube feed, slow advance over 24-48 hours #Bilateral pneumonia #Possible aspiration pneumonia, MSSA positive #Hypoxemic respiratory failure -Cough and fever on admission -sputum positive for MSSA -Chest x ray previously shows diffuse PNA, patchy pulmonary opacities -Cultures have been negative -O2 needs on the stable downward trend, peak 40L High flow on 06/09- now stable on 2-3L -CT chest negative for PE, but shows diffuse and worsening metastatic disease as below -Completed 12 days of abx therapy 06/14, CRP is normalized. Afebrile. Will stop benefit -Appreciate Pulmonology recs, ongoing continued pulmonary recovery. Will monitor closely with immunotherapy #leukocytosis - CRP remains minimal. No clinical signs of infection or recurrence. very likely related to his underlying pulmonary effusions and carcinomatosis #hypocalcemia - add calcium gluconate, stable on labs this more #Atrial fibrillation with RVR -Mostly rate controlled, some self limited rates to the 120s - Previously noted diagnosis, start with IV diltiazem, transition to oral short acting as pressures tolerate, rate controlled -will discuss anticoagulation with patient -Initiate after Port placement and PEG tube placement #Severe protein calorie malnutrition-plan for open jejunstomy tube on 06/21/2025 #Dehydration #Multiple Electrolyte Abnormalities - Virtually no oral intake, now achieving goals with NG, RD/Nutrition following, continue to increase FWF as he remains a little volume depleted however that is likely helping his pulonary status - Pulmonary status is stabilized I suspect from the assessment of a bit more strength since his oxygen requirements will continue to decrease. Will reach out to GI for PEG placement - see notes unable to have PEG placed secondary to regional carcinomatosis. - continue to monitor closely is amount of oral intake. Right now maintaining without NG. Will continue with LR bolus 500 cc twice per day. likely to need NG again in the near future but giving a bit of a break for right now #Pleural effusion -X ray shows trace effusion -He is now s/o Thoracentesis with removal of 850cc of fluid -Stable to improving pulmonary status, monitor for need for repeat thoracentesis. 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 #Carcinomatosis of the lungs plan for radiatio therapy -[facility] he was scheduled to have a port placed here -placement pending clinical stability, he is trending towards clinical stability -CT scan indicates widespread carcinomatosis in the lungs, oncology consult for therapy options - Plan is for immunotherapy infusions at the time of discharge in the outpatient setting - immunotherapy infusion 1 today 06/16, delayed yesterday for clerical reasons Hypokalemia/hypomagnesemia - resolved - stable, continue to monitor - recheck mag Hypertension - Will continue his antihypertensives he is within normal range now Hyperlipidemia - Continue statin, once dehydration has been resolved Sleep apnea - Home CPAP Prophylaxis -Subq heparin initially family updated daughter updated on 06/20/2025 in person CODE STATUS -Full code per his wishes, discussed with the patient and family at the bedside. palliative on consult Barriers: He has been unable to get his port and PEG tube because oxygen need is now 2 liter oxygen Admission and Anticipated Discharge Date Admission Date: June 03, 2025 Subjective he's plan for open jejunostomy tube placement today by Dr. Gilbert Mustafa at 11:30am I am expecting he's need another 48-72 hours of inpatient stay he's declined most of his morning med other than cardizem oral daughter updated at bedside no chest pain, no shortness of breath he's will received radiation therapy to help shrink his left side head and neck tumor Physical Exam Physical Exam: VITALS: Reviewed. WEIGHT/BMI reviewed. GEN: Healthy appearing, well-developed, NAD. -Head: NC/AT; + for palpable left side tumor -Eyes: PERRL, EOMI. No discharge or redn ess; NECK: Supple, with no masses. CV: RRR, no m/r/g. LUNGS: CTAB, no w/r/c. ABD: Soft, NT/ND, NBS, no masses or organomegaly. : N/A NEURO: AAOx3 Results & Data Results & Data Vital Signs (Past 12 Hours) Vital Signs Temp Pulse Pulse Pulse Resp BP BP 06/21/25 11:52 91 H 18 152/72 H 06/21/25 11:03 36.3 C L 85 18 129/81 06/21/25 09:00 06/21/25 07:21 36.6 C 78 19 132/65 06/21/25 02:58 36.5 C 80 16 123/64 06/21/25 00:25 86 Pulse Ox O2 Del Method O2 Flow Rate 06/21/25 11:52 95 Nasal Cannula 2 06/21/25 11:03 95 Nasal Cannula 06/21/25 09:00 Nasal Cannula 2 06/21/25 07:21 96 Nasal Cannula 2 06/21/25 02:58 96 Nasal Cannula 2 06/21/25 00:25 Laboratory Results Laboratory Results - last 72 hr 06/19/25 06/21/25 07:34 07:07 WBC 16.13 H 17.65 H RBC 3.54 L 3.74 L Hgb 9.5 L 9.9 L Hct 28.8 L 30.4 L MCV 81.4 81.3 MCH 26.8 26.5 MCHC 33.0 32.6 RDW Std Deviation 48.9 H 49.7 H RDW Coeff of You 17.1 H 17.5 H Plt Count 187 179 MPV 11.7 11.0 Immature Gran % (Auto) 5.3 Neut % (Auto) 79.3 Lymph % (Auto) 6.3 [place] % (Auto) 8.9 Eos % (Auto) 0.0 Baso % (Auto) 0.2 Neut # (Auto) 12.78 H Lymph # (Auto) 1.02 L [place] # (Auto) 1.44 H Eos # (Auto) 0.00 Baso # (Auto) 0.03 Immature Gran # (Auto) 0.86 H Sodium 138 137 Potassium 4.1 4.3 Chloride 105 104 Carbon Dioxide 28 27 Anion Gap 5 6 BUN 21 16 Creatinine 0.54 L 0.54 L Est Cr Clr Drug Dosing 125.4 122.7 eGFR 101.37 101.37 BUN/Creatinine Ratio 38.9 H 29.6 H Glucose 127 H 135 H Calcium 8.0 L 7.7 L Magnesium 2.1 Total Bilirubin 0.8 AST 21 ALT 36 Alkaline Phosphatase 124 H C-Reactive Protein < 0.50 Total Protein 5.1 L Albumin 3.2 L Globulin 1.9 L Albumin/Globulin Ratio 1.7 Medications Administered Current Inpatient Medications Acetaminophen (Acetaminophen 325 Mg Tab) 650 mg PO Q4H PRN PRN Reason: mild Pain 1-3 or Fever Stop: 07/03/25 17:21 Albuterol (Albut/Ipratrop 3mg/0.5mg Neb 3 Ml Vial) 3 ml NEB QIDR PRN; Protocol PRN Reason: cap Stop: 07/03/25 17:21 Last Admin: 06/11/25 07:45 Dose: 3 ml Albuterol (Albuterol 0.083% Nebu Soln 3 Ml Vial) 2.5 mg NEB Q6H PRN; Protocol PRN Reason: Shortness Of Breath Or Wheezing Stop: 07/10/25 14:09 Amlodipine Besylate (Amlodipine Besylate 5 Mg Tab) 10 mg PO DAILY EULALIA Stop: 07/04/25 08:59 Last Admin: 06/21/25 10:33 Dose: Not Given Atorvastatin Calcium (Atorvastatin 40 Mg Tab) 80 mg PO DAILY EULALIA Stop: 07/04/25 08:59 Last Admin: 06/21/25 10:33 Dose: Not Given Atropine Sulfate (Atropine Sulfate 0.1 Mg/Ml 10ml Syr) 0.5 mg IV Q1M PRN PRN Reason: PACU Use-HR<40 &/or Bradycardi Stop: 06/21/25 20:12 Diltiazem HCl (Diltiazem Hcl 30 Mg Tab) 30 mg PO TID EULALIA Stop: 07/06/25 13:59 Last Admin: 06/21/25 10:34 Dose: Not Given Diltiazem HCl (Diltiazem Hcl 5 Mg/Ml 5 Ml Vial) 15 mg IV Q12H EULALIA Stop: 07/11/25 09:29 Last Admin: 06/21/25 09:49 Dose: 15 mg Docusate Sodium (Docusate Sodium Syrup 100 Mg/10 Ml Udc) 100 mg PEG BID EULALIA Stop: 07/13/25 12:14 Last Admin: 06/21/25 10:34 Dose: Not Given Ephedrine Sulfate (Ephedrine Sulfate 50 Mg/Ml Amp) 5 mg IV Q5M PRN PRN Reason: PACU Use Only-SBP<90 mmHg Stop: 06/21/25 20:12 Fentanyl Citrate (Fentanyl Citrate Pf 100 Mcg/2 Ml Vial) 50 mcg IV Q5M PRN PRN Reason: PACU Use Only-Pain Stop: 06/21/25 20:12 Guaifenesin (Guaifenesin 200 Mg Tab) 200 mg PO Q4H PRN PRN Reason: CONGESTION/COUGH Stop: 07/03/25 17:21 Heparin Sodium (Beef Lung) (Heparin 10 Unit/Ml 5 Ml Flush) 5 ml FLUSH PRN PRN PRN Reason: Flush Stop: 07/05/25 11:27 Last Admin: 06/15/25 08:26 Dose: 5 ml Hydromorphone HCl (Hydromorphone Inj 1 Mg/Ml Syringe) 0.25 mg IV Q5M PRN PRN Reason: PACU Use Only-Pain Stop: 06/21/25 20:12 Hydroxyzine HCl (Hydroxyzine Hcl 25 Mg Tab) 100 mg PO HS EULALIA Stop: 07/03/25 20:59 Last Admin: 06/20/25 21:13 Dose: 100 mg Methylprednisolone 40 mg/ (Syringe) 0.64 mls @ 1.5 mls/min IV Q12H EULALIA Stop: 07/14/25 20:59 Last Admin: 06/21/25 09:19 Dose: 1.5 mls/min Lactated Ringer's (Lr) 250 mls @ 999 mls/hr IV BID@0800,1800 EULALIA Stop: 06/21/25 18:16 Last Infusion: 06/21/25 09:58 Dose: Infused Cefazolin Sodium (Ancef 2000mg) 2,000 mg in 15 mls @ 3.75 mls/min IV Q8H EULALIA Stop: 06/27/25 11:29 Last Admin: 06/21/25 03:33 Dose: 3.75 mls/min Promethazine HCl 6.25 mg/ (Sodium Chloride) 50.25 mls @ 204 mls/hr IV ONCE PRN PRN Reason: PACU Use Only-Nausea/Vomiting Stop: 06/21/25 20:12 Melatonin (Melatonin 3 Mg Tab) 3 mg PO HS PRN PRN Reason: Insomnia Stop: 07/03/25 21:10 Last Admin: 06/15/25 21:23 Dose: 3 mg Morphine Sulfate (Morphine Sulfate 2 Mg/Ml Carp) 1 mg IV Q1H PRN PRN Reason: Severe Pain 7-10 Stop: 07/04/25 11:09 Last Admin: 06/21/25 09:48 Dose: 1 mg Multivitamins/Minerals (Cerovite Adv Formula Tab) 1 tab PO QAM EULALIA Stop: 07/20/25 10:44 Last Admin: 06/21/25 10:34 Dose: Not Given Nutritional Formula (Nutren Liqd 2.0 1,000 Ml Bag) 0 ml NG .See Protocol EULALIA; Protocol Stop: 07/10/25 16:29 Last Admin: 06/14/25 17:13 Dose: 1,000 ml Nutritional Formula (Prosource No Carb 30 Ml/Pkt) 30 ml NG DAILY EULALIA Stop: 07/11/25 08:59 Last Admin: 06/21/25 10:36 Dose: Not Given Olanzapine (Olanzapine 2.5 Mg Tab) 2.5 mg PO HS EULALIA Stop: 07/03/25 20:59 Last Admin: 06/20/25 21:44 Dose: 2.5 mg Ondansetron HCl (Ondansetron Inj 2 Mg/Ml 2 Ml Vial) 4 mg IV Q6H PRN PRN Reason: Nausea Stop: 07/03/25 17:21 Last Admin: 06/07/25 15:39 Dose: 4 mg Ondansetron HCl (Ondansetron Inj 2 Mg/Ml 2 Ml Vial) 4 mg IV ONCE PRN PRN Reason: PACU Use Only-Nausea/Vomiting Stop: 06/21/25 20:12 Oxycodone HCl (Oxycodone Hcl 15 Mg Tabcr (Oxycontin)) 15 mg PO Q12 EULALIA Stop: 07/04/25 10:39 Last Admin: 06/21/25 10:35 Dose: Not Given Polyethylene Glycol (Polyethylene (Miralax) 17 Gm Pack) 17 gm PO BID PRN PRN Reason: Constipation Stop: 07/03/25 20:59 Vitamin B Complex (Vitamin B Complex Tab) 1 tab PO DAILY EULALIA Stop: 07/04/25 08:59 Last Admin: 06/21/25 10:36 Dose: Not Given PG Care Time/CCT Total # of Minutes Spent Total Time Spent with Patient: Total time spent is greater than 50% in coordination of care (as documented) at patient's floor/unit and/or counseling patient: Coding Level of Care Code 47085 SUB INP/OBS CARE 10/09MIN Diagnoses Squamous cell carcinoma of head and neck C44.42 Bilateral pneumonia J18.9 Lung location: unspecified part of lung Pneumonia type: due to unspecified organism Dysphagia R13.10 Weakness generalized R53.1 Time Spent (min) 25 (2) Bilateral pneumonia Lung location: unspecified part of lung Pneumonia type: due to unspecified organism Qualified Code(s): J18.9 - Pneumonia, unspecified organism
[2025-06-21] MEDS ORDERED: ROCURONIUM BROMIDE 10 MG/ML 5 ML VIAL IV ONE (12:29)
[2025-06-21] MEDS ORDERED: PROPOFOL IV EMULSION 10 MG/ML 20 ML VIAL IV ONE (12:29)
[2025-06-21] MEDS ORDERED: ONDANSETRON INJ 2 MG/ML 2 ML VIAL ONE (12:30)
[2025-06-21] MEDS ORDERED: LIDOCAINE 2% 2 ML VIAL/AMP(20MG/ML) INFIL ONE (12:30)
[2025-06-21] MEDS ORDERED: SUGAMMADEX SODIUM 200 MG/2 ML VIAL IV ONE (13:20)
--- NOTE | 2025-06-21 14:00 | Operative Report ---
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 After successful intubation the abdomen was shaved and sterilely prepped and draped in usual fashion. I made a small vertical incision in the upper midline with a 15 blade scalpel. This was carried down through the soft tissues and cautery. The anterior fascia was opened using cautery. Peritoneum was elevated with hemostats and incised under direct vision using a Metzenbaum scissor. I extended this to both poles using cautery. Once in the abdomen I was able to use a Oglesby clamp and identify the ligament of Treitz. I counted down about 10 cm where I encountered what appeared to be 2 metastatic nodules. I therefore opted to place the tube distal to these. I found a good spot distal to the nodules and delivered the small bowel externally. I used 3-[address] 2 pursestrings 1 inside the other. I then used a 14 Romansh jejunal feeding tube. We checked the balloon for leaks and then made a separate stab incision in the left upper quadrant and brought it through this and delivered it through the incision. I then made a small enterotomy in the middle of the 2 pursestrings. The tube was advanced through this opening distally until the balloon was inside the lumen of the bowel. We inflated the balloon with 7 cc of saline. I then secured both pursestrings. I then used additional 3-0 silk to create a Witzel tunnel for probably 4 to 5 cm proximal to the insertion site of the tube. We then flushed the tube easily with no resistance. Next I pulled the balloon up to the abdominal wall. I secured the jejunum to the abdominal wall using 3-0 silk with 1 on either side of the tube insertion site. We then secured the external bumper. I flushed it 1 more time to make sure the tube worked well which it did. I then closed the fascia using 1 PDS in running fashion. Soft tissue was irrigated. Deep layers were closed using 3-0 Vicryl and skin was closed using 4-0 Monocryl. Dermabond glue was used as a dressing. The patient was waken extubated and transferred recovery in stable condition. My physician assistant manager quality management was present through the entire case. She was instrumental in providing exposure for placement of the tube, assisting with fascial and wound closure, dressing placement. I attest to the content of the Intraoperative Record and any orders documented therein. Any exceptions are noted below.
[2025-06-21] MEDS: ONDANSETRON INJ 2 MG/ML 2 ML VIAL IV PRN (14:17)
[2025-06-21] MEDS: HYDROmorphone INJ 1 MG/ML SYRINGE IV PRN (14:37)
--- NOTE | 2025-06-21 15:29 | Anesthesiology Progress Note ---
Date of Service June 21, 2025 Anesthesia Post Procedure Vital Signs Vital Signs: Temp Pulse Pulse Pulse Pulse Resp BP 06/21/25 15:23 36.3 C L 107 H 18 155/79 H 06/21/25 15:10 36.3 C L 100 H 19 185/91 H 06/21/25 15:00 102 H 10 L 150/98 H 06/21/25 14:50 97 H 18 161/98 H 06/21/25 14:40 98 H 16 190/92 H 06/21/25 14:30 93 H 17 180/98 H 06/21/25 14:20 96 H 32 H 182/98 H 06/21/25 14:11 36.5 C 94 H 34 H 150/78 H 06/21/25 11:52 91 H 18 152/72 H 06/21/25 11:03 36.3 C L 85 18 06/21/25 09:00 06/21/25 07:21 36.6 C 78 19 132/65 06/21/25 05:50 79 06/21/25 02:58 36.5 C 80 16 123/64 06/21/25 00:25 86 06/20/25 22:06 36.5 C 78 18 146/84 H 06/20/25 21:11 113 H 06/20/25 19:11 36.4 C L 83 16 143/82 H 06/20/25 19:00 06/20/25 15:50 36.6 C 85 19 147/68 H BP Pulse Ox O2 Del Method O2 Flow Rate 06/21/25 15:23 94 Nasal Cannula 3 06/21/25 15:10 91 Nasal Cannula 2 06/21/25 15:00 92 Nasal Cannula 2 06/21/25 14:50 95 Nasal Cannula 2 06/21/25 14:40 95 Nasal Cannula 3 06/21/25 14:30 95 Nasal Cannula 4 06/21/25 14:20 88 L Room Air 06/21/25 14:11 96 Oxymask 6 06/21/25 11:52 95 Nasal Cannula 2 06/21/25 11:03 129/81 95 Nasal Cannula 06/21/25 09:00 Nasal Cannula 2 06/21/25 07:21 96 Nasal Cannula 2 06/21/25 05:50 06/21/25 02:58 96 Nasal Cannula 2 06/21/25 00:25 06/20/25 22:06 95 Nasal Cannula 2 06/20/25 21:11 147/81 H 06/20/25 19:11 95 Nasal Cannula 2 06/20/25 19:00 Nasal Cannula 2 06/20/25 15:50 96 Nasal Cannula 2 Pain Intensity Left Neck: Pain Intensity: 4 Abdomen: Pain Intensity: 8 Transfer of Care Handoff Completed per policy Notes Mental Status: alert / awake / arousable and participated in evaluation Patient Amnestic to Procedure: Yes Nausea / Vomiting: adequately controlled Pain: adequately controlled Airway Patency, RR, SpO2: stable & adequate BP & HR: stable & adequate Hydration State: stable & adequate Anesthetic Complications: no major complications apparent
[2025-06-21] MEDS ORDERED: FIBERSOURCE HN 1.2 CAL 1000 ML BAG JT SCH (16:00)
--- NOTE | 2025-06-21 21:12 | XRay Report ---
Exam(s): XR KUB EXAM: XR Abdomen, 1 View CLINICAL HISTORY: Reason for exam: New J-tube today; prior to tube feed. TECHNIQUE: Frontal supine view of the abdomen/pelvis. COMPARISON: 06/14/2025 FINDINGS: Gastrointestinal tract: There are several gaseous dilated proximal small bowel loops in the left upper quadrant measuring up to 4.8 cm. The colon is nondilated. Bones/joints: Unremarkable. No acute fracture. Tubes, lines and devices: There is a percutaneous feeding tube projecting of the left side of the abdomen. IMPRESSION: 1. There is a percutaneous feeding tube projecting of the left side of the abdomen. The tip position can not be determined without contrast. 2. There are several gaseous dilated proximal small bowel loops in the left upper quadrant measuring up to 4.8 cm. The colon is nondilated. Electronically signed by: Konrad Mena MD 06/21/25 21:11 PM
[2025-06-21] MEDS: TUBE FEEDING WATER FLUSH JT SCH (22:51)
[2025-06-22 06:54] LABS: Hematocrit (blood only) 30.2 % (42.0-52.0); Hemoglobin 10.0 g/dl (14.0-18.0); Mean Corpuscular Hemoglobin 27.2 pg (25.0-34.0); Mean Corpuscular Volume 82.3 fL (80.0-100.0); Platelet Count 182 K/uL (130-400); RDW Standard Deviation 50.6 fL (36.4-46.3); Red Blood Count 3.67 M/uL (4.70-6.10); White Blood Count 23.06 K/ul (4.8-10.8)
[2025-06-22 07:39] LABS: Alanine Aminotransferase 18.0 U/L (7-52); Albumin Globulin Ratio 1.7 (0.9-2); Albumin Level 3.3 gm/dl (3.4-5.0); Alkaline Phosphatase 204.0 U/L (34-104); Anion Gap 7.0 (3-11); Bilirubin,Total 0.5 mg/dl (0.2-1.0); Blood Urea Nitrogen 19.0 mg/dl (6-23); Calcium 7.5 mg/dl (8.6-10.3); Carbon Dioxide 26.0 mmol/L (21-32); Chloride 105.0 mmol/L (98-107); Cholesterol 149.0 mg/dl (0-200); Creatinine Clr Calc Pharmacy 103.5 ml/min; Globulin 1.9 gm/dl (2.5-4.0); Glucose 165.0 mg/dl (70-99(Fasting)); HDL Cholesterol 53.0 mg/dl; Iron 24.0 mcg/dl (35-175); Magnesium 2.1 mg/dl (1.7-2.4); Potassium 4.3 mmol/L (3.5-5.1); Sodium 138.0 mmol/L (136-145); Total Protein 5.2 gm/dl (6.0-8.3); Transferrin 142.0 mg/dl (200-360); Triglycerides 143.0 mg/dl (0-150)
[2025-06-22] MEDS: MULTI VIT W/MINERALS LIQUID 15 ML UDC PEG SCH (08:16)
[2025-06-22] MEDS: POLYETHYLENE (MIRALAX) 17 GM PACK PO PRN (08:17)
[2025-06-22] MEDS: PROSOURCE NO CARB 30 ML/PKT JT SCH (08:17)
--- NOTE | 2025-06-22 09:11 | Surgery Progress Note ---
Date of Service June 22, 2025 Assessment & Plan (1) Squamous cell carcinoma of head and neck: Plan: Doing as expected postoperative day #1. Discussed with medicine that it is okay to initiate his tube feeds. Will follow along until his feeds are at goal. (2) H/O jejunostomy: Admission and Anticipated Discharge Date Admission Date: June 03, 2025 Subjective Patient seen. Having some soreness status post insertion of the feeding tube however overall is doing fine. They have not initiated tube feeds as of yet Physical Exam Physical Exam: Alert no acute distress His incision looks good. Feeding tube in place. Flushing easily Results & Data Vital Signs (Past 12 Hours) Vital Signs Temp Pulse Pulse Resp BP Pulse Ox O2 Del Method 06/22/25 07:16 36.4 C L 98 H 108/64 96 Nasal Cannula 06/22/25 06:00 100 H 06/22/25 02:54 36.5 C 78 16 161/88 H 94 Nasal Cannula 06/22/25 00:00 101 H 06/21/25 23:00 36.3 C L 81 18 149/92 H 96 Nasal Cannula O2 Flow Rate 06/22/25 07:16 3 06/22/25 06:00 06/22/25 02:54 3 06/22/25 00:00 06/21/25 23:00 3 PG Care Time/CCT Total # of Minutes Spent Total Time Spent with Patient: Total time spent is greater than 50% in coordination of care (as documented) at patient's floor/unit and/or counseling patient: Coding Level of Care Code 19519 Post Operative Follow-Up Diagnoses Squamous cell carcinoma of head and neck C44.42 H/O jejunostomy Z98.890
[2025-06-22] MEDS: FIBERSOURCE HN 1.2 CAL 1000 ML BAG JT SCH (09:21)
--- NOTE | 2025-06-22 09:41 | Hospitalist Progress Note ---
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 06/24 incision pain, started morphine BID for 3 days c/w cefazolin for cellulitis, still has high WBC, may need to switch to zosyn A-fib on cardizem, need eliquis for stroke protecton monitor for stability of oxygen need #Bilateral pneumonia #Possible aspiration pneumonia, MSSA positive #Hypoxemic respiratory failure -Cough and fever on admission -sputum positive for MSSA -Chest x ray previously shows diffuse PNA, patchy pulmonary opacities -Cultures have been negative -O2 needs on the stable downward trend, peak 40L High flow on 06/09- now stable on 2-3L -CT chest negative for PE, but shows diffuse and worsening metastatic disease as below -Completed 12 days of abx therapy 06/14, CRP is normalized. Afebrile. Will stop benefit -Appreciate Pulmonology recs, ongoing continued pulmonary recovery. Will mo nitor closely with immunotherapy #leukocytosis - CRP remains minimal. No clinical signs of infection or recurrence. very likely related to his underlying pulmonary effusions and carcinomatosis #hypocalcemia - add calcium gluconate, stable on labs this more #Atrial fibrillation with RVR he's on cardizem 30mg TID likely need eliquis for stroke prevention -Mostly rate controlled, some self limited rates to the 120s - Previously noted diagnosis, start with IV diltiazem, transition to oral short acting as pressures tolerate, rate controlled -will discuss anticoagulation with patient -Initiate after Port placement and PEG tube placement #Severe protein calorie malnutrition-plan for open jejunstomy tube on 06/21/2025 #Dehydration #Multiple Electrolyte Abnormalities - Virtually no oral intake, now achieving goals with NG, RD/Nutrition following, continue to increase FWF as he remains a little volume depleted however that is likely helping his pulonary status - Pulmonary status is stabilized I suspect from the assessment of a bit more strength since his oxygen requirements will continue to decrease. Will reach out to GI for PEG placement - see notes unable to have PEG placed secondary to regional carcinomatosis. - continue to monitor closely is amount of oral intake. Right now maintaining without NG. Will continue with LR bolus 500 cc twice per day. likely to need NG again in the near future but giving a bit of a break for right now #Pleural effusion -X ray shows trace effusion -He is now s/o Thoracentesis with removal of 850cc of fluid -Stable to improving pulmonary status, monitor for need for repeat thoracentesis. 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 #Carcinomatosis of the lungs plan for radiatio therapy -[facility], he was scheduled to have a port placed here -placement pending clinical stability, he is trending towards clinical stability -CT scan indicates widespread carcinomatosis in the lungs, oncology consult for therapy options - Plan is for immunotherapy infusions at the time of discharge in the outpatient setting - immunotherapy infusion 1 today 06/16, delayed yesterday for clerical reasons Hypokalemia/hypomagnesemia - resolved - stable, continue to monitor - recheck mag Hypertension - Will continue his antihypertensives he is within normal range now Hyperlipidemia - Continue statin, once dehydration has been resolved Sleep apnea - Home CPAP Prophylaxis -Subq heparin initially family updated daughter updated on 06/20/2025 in person CODE STATUS -Full code per his wishes, discussed with the patient and family at the bedside. palliative on consult Barriers: He has been unable to get his port and PEG tube because oxygen need is now 2 liter oxygen Admission and Anticipated Discharge Date Admission Date: June 03, 2025 Subjective patient has J-tube inserted yesterday started on tube feed at 10cc/hours and slow advance, added free water flush in addition, significant incisional pain, added morphine for 3 days he's left side cellulitis is improving, plan for cefazolin while he's here and switch to keflex in addition, radiaton oncology notified patient does not want placement to [facility] he's will likely need inpatient care till next week, dc barrier ongoing cell ulitis, inability pain and required for titrate his tube feed Physical Exam Physical Exam: VITALS: Reviewed. WEIGHT/BMI reviewed. GEN: Healthy appearing, well-developed, NAD. -Head: NC/AT; left side swelling; oozing and erythema improved NECK: Supple, with no masses. CV: RRR, no m/r/g. LUNGS: CTAB, no w/r/c. ABD: + for vertical incision; + for J tube insertion; soft to touch : N/A MSK: No deformities, Normal gait. EXT: No clubbing, cyanosis, or edema. Neuro: AAOx3 Results & Data Results & Data Vital Signs (Past 12 Hours) Vital Signs Temp Pulse Pulse Resp BP Pulse Ox O2 Del Method 06/22/25 07:16 36.4 C L 98 H 108/64 96 Nasal Cannula 06/22/25 06:00 100 H 06/22/25 02:54 36.5 C 78 16 161/88 H 94 Nasal Cannula 06/22/25 00:00 101 H 06/21/25 23:00 36.3 C L 81 18 149/92 H 96 Nasal Cannula O2 Flow Rate 06/22/25 07:16 3 06/22/25 06:00 06/22/25 02:54 3 06/22/25 00:00 06/21/25 23:00 3 Laboratory Results Laboratory Results - last 72 hr 06/21/25 06/22/25 07:07 06:26 WBC 17.65 H 23.06 H RBC 3.74 L 3.67 L Hgb 9.9 L 10.0 L Hct 30.4 L 30.2 L MCV 81.3 82.3 MCH 26.5 27.2 MCHC 32.6 33.1 RDW Std Deviation 49.7 H 50.6 H RDW Coeff of You 17.5 H 17.7 H Plt Count 179 182 MPV 11.0 11.0 Sodium 137 138 Potassium 4.3 4.3 Chloride 104 105 Carbon Dioxide 27 26 Anion Gap 6 7 BUN 16 19 Creatinine 0.54 L 0.64 Est Cr Clr Drug Dosing 122.7 103.5 eGFR 101.37 96.30 BUN/Creatinine Ratio 29.6 H 29.7 H Glucose 135 H 165 H Calcium 7.7 L 7.5 L Phosphorus 2.4 L Magnesium 2.1 Iron 24 L Transferrin 142 L Total Bilirubin 0.5 AST 17 ALT 18 Alkaline Phosphatase 204 H C-Reactive Protein 3.18 H Total Protein 5.2 L Albumin 3.3 L Globulin 1.9 L Albumin/Globulin Ratio 1.7 Triglycerides 143 Cholesterol 149 LDL Cholesterol, Calc 67 VLDL Cholesterol, Calc 29 HDL Cholesterol 53 Cholesterol/HDL Ratio 2.8 PG Care Time/CCT Total # of Minutes Spent Total Time Spent with Patient: Total time spent is greater than 50% in coordination of care (as documented) at patient's floor/unit and/or counseling patient: Coding Level of Care Code 43144 SUB INP/OBS CARE 10/09MIN Diagnoses Squamous cell carcinoma of head and neck C44.42 Bilateral pneumonia J18.9 Lung location: unspecified part of lung Pneumonia type: due to unspecified organism Dysphagia R13.10 Weakness generalized R53.1 Time Spent (min) 25 (2) Bilateral pneumonia Lung location: unspecified part of lung Pneumonia type: due to unspecified organism Qualified Code(s): J18.9 - Pneumonia, unspecified organism
[2025-06-22 10:24] LABS: Prealbumin 25.4 mg/dl (20-40)
[2025-06-22] MEDS: MoRPHine SULFATE CR 15 MG TABCR PO SCH (10:55)
[2025-06-22] MEDS: TUBE FEEDING WATER FLUSH GT SCH (11:47)
--- NOTE | 2025-06-22 12:44 | XRay Report ---
XR chest 1V portable CLINICAL HISTORY: confirm port placement COMPARISON STUDY: 06/10/2025 FINDINGS: Right chest port tip is in the SVC. There is no pneumothorax. There is stable mild cardiome jayson without pulmonary vascular congestion. Stable diffuse interstitial and patchy pulmonary opacitie s. There is free air under the diaphragm. IMPRESSION: 1. No pneumothorax. 2. Stable diffuse pulmonary opacities. 3. Free air under the diaphragm. ACT 112: Negative or not required by law. Electronically signed by: Jarek Castrejon M.D. 06/22/2025 12:42 PM
[2025-06-22] MEDS: MoRPHine SULFATE 10 MG/0.5 ML UDP GT SCH (13:06)
[2025-06-23 06:47] LABS: Anion Gap 4 (3-11); Blood Urea Nitrogen 19 mg/dl (6-23); Calcium 7.5 mg/dl (8.6-10.3); Carbon Dioxide 28 mmol/L (21-32); Chloride 104 mmol/L (98-107); Creatinine Clr Calc Pharmacy 135.2 ml/min; Glucose 189 mg/dl (70-99(Fasting)); Sodium 136 mmol/L (136-145)
[2025-06-23 07:19] LABS: Hematocrit (blood only) 28.0 % (42.0-52.0); Hemoglobin 8.9 g/dl (14.0-18.0); Mean Corpuscular Hemoglobin 26.4 pg (25.0-34.0); Mean Corpuscular Volume 83.1 fL (80.0-100.0); Platelet Count 191 K/uL (130-400); RDW Standard Deviation 53.2 fL (36.4-46.3); Red Blood Count 3.37 M/uL (4.70-6.10); White Blood Count 24.76 K/ul (4.8-10.8)
[2025-06-23] MEDS: SODIUM CHLOR 7% 4 ML NEB NEB SCH (10:55)
--- NOTE | 2025-06-23 11:48 | Hospitalist Progress Note ---
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 c/w cefazolin for left facial cellulitis from head and neck cancer his WBC is still elevated. he's still on 3 liter oxygen upon discharge, family does not want STR, dysphagia, s/p joejunstomy tube on 06/21/2025, c/w tube feeding, free water flushing left facial cellulitis this is related to head and neck cancer he's currently on cefazolin and his discharge has since decreased #Bilateral pneumonia #Possible aspiration pneumonia, MSSA positive #Hypoxemic respiratory failure (was on 40 liter high flow) he's on 3 liter oxygen -Cough and fever on admission -sputum positive for MSSA -Chest x ray previously shows diffuse PNA, patchy pulmonary opacities -CT chest negative for PE, but shows diffuse and worsening metastatic disease as below -Completed 12 days of abx therapy 06/14, CRP is normalized. Afebrile. Will stop benefit -Appreciate Pulmonology recs, ongoing continued pulmonary recovery. Will monitor closely with immunotherapy #leukocytosis - CRP remains minimal. No clinical signs of infection or recurrence. very likely related to his underlying pulmonary effusions and carcinomatosis #hypocalcemia - add calcium gluconate, stable on labs this more #Atrial fibrillation with RVR he's on cardizem 30mg TID likely need eliquis for stroke prevention -Mostly rate controlled, some self limited rates to the 120s - Previously noted diagnosis, start with IV diltiazem, transition to oral short acting as pressures tolerate, rate controlled -will discuss anticoagulation with patient -Initiate after Port placement and PEG tube placement #Severe protein calorie malnutrition- s/p open jejunstomy tube on 06/21/2025 #Multiple Electrolyte Abnormalities will advance his tube feed as tolerate. #Pleural effusion -He is now s/o Thoracentesis with removal of 850cc of fluid -Stable to improving pulmonary status, monitor for need for repeat thoracentesis. 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 Blanchard defer radiation therapy however, spoke with Dr. Briggs on 06/22/2025, she explained that if his cancer pain is still significant then he will benefit from radiation therapy he has chemo port placed in our hospital Hypokalemia/hypomagnesemia- resolved Hypertension- Will continue his antihypertensives he is within normal range now Hyperlipidemia - Continue statin, once dehydration has been resolved Sleep apnea - Home CPAP Prophylaxis -Subq heparin initially family updated daughter updated on 06/23/2025 in person updated on 06/22/2025 in person CODE STATUS -Full code per his wishes, discussed with the patient and family at the bedside. palliative on consult Admission and Anticipated Discharge Date Admission Date: June 03, 2025 Subjective he been having congestion, coughing spell started on hypertonic saline J tube was placed on 06/21/2025. he's low dose tube feed and defer to surgery about increasing the rate of tube feed he still have 6/10 left facial pain from head and neck cancer initially spoke with Dr. Kolton Blanchard (radiation oncology), who is deferring to medical oncology Dr. Briggs explained that radiation therapy can be performed to address pain control he's on cefazolin on left facial cellulitis, and his discharge has since improved no abdominal pain still need morphine incision pain from J tube insertion Physical Exam Physical Exam: VITALS: Reviewed. WEIGHT/BMI reviewed. GEN: Healthy appearing, well-developed, NAD. PSYCH: Good Judgment. HEENT: AT/NC; + for tumor on the left side; no discharge noted -Head: NC/AT; NECK: Supple, with no masses. CV: RRR, no m/r/g. LUNGS: congested breath sound; on oxygen; no wheezing noted ABD: soft to touch; + for J tube insertion MSK: No deformities, Normal gait. EXT: No clubbing, cyanosis, or edema. NEURO: AAOx3 Results & Data Results & Data Vital Signs (Past 12 Hours) Vital Signs Temp Pulse Pulse Pulse Resp BP Pulse Ox 06/23/25 10:56 94 H 104 H 16 3 L 06/23/25 10:45 36.7 C 94 H 21 146/74 H 96 06/23/25 07:20 36.7 C 96 H 20 154/71 H 90 06/23/25 03:07 36.4 C L 96 H 20 155/64 H 92 06/23/25 00:00 103 H O2 Del Method O2 Flow Rate 06/23/25 10:56 Nasal Cannula 06/23/25 10:45 Nasal Cannula 2 06/23/25 07:20 Nasal Cannula 2 06/23/25 03:07 Nasal Cannula 3 06/23/25 00:00 Laboratory Results Laboratory Results - last 72 hr 06/21/25 06/22/25 06/23/25 07:07 06:26 06:11 WBC 17.65 H 23.06 H 24.76 H RBC 3.74 L 3.67 L 3.37 L Hgb 9.9 L 10.0 L 8.9 L Hct 30.4 L 30.2 L 28.0 L MCV 81.3 82.3 83.1 MCH 26.5 27.2 26.4 MCHC 32.6 33.1 31.8 L RDW Std Deviation 49.7 H 50.6 H 53.2 H RDW Coeff of You 17.5 H 17.7 H 18.3 H Plt Count 179 182 191 MPV 11.0 11.0 12.3 Sodium 137 138 136 Potassium 4.3 4.3 TNP Chloride 104 105 104 Carbon Dioxide 27 26 28 Anion Gap 6 7 4 BUN 16 19 19 Creatinine 0.54 L 0.64 0.48 L Est Cr Clr Drug Dosing 122.7 103.5 135.2 eGFR 101.37 96.30 105.04 BUN/Creatinine Ratio 29.6 H 29.7 H 39.6 H Glucose 135 H 165 H 189 H Calcium 7.7 L 7.5 L 7.5 L Phosphorus 2.4 L Magnesium 2.1 Iron 24 L Transferrin 142 L Total Bilirubin 0.5 AST 17 ALT 18 Alkaline Phosphatase 204 H C-Reactive Protein 3.18 H Total Protein 5.2 L Albumin 3.3 L Globulin 1.9 L Albumin/Globulin Ratio 1.7 Prealbumin 25.4 Triglycerides 143 Cholesterol 149 LDL Cholesterol, Calc 67 VLDL Cholesterol, Calc 29 HDL Cholesterol 53 Cholesterol/HDL Ratio 2.8 06/23/25 07:08 WBC RBC Hgb Hct MCV MCH MCHC RDW Std Deviation RDW Coeff of You Plt Count MPV Sodium Potassium 3.8 Chloride Carbon Dioxide Anion Gap BUN Creatinine Est Cr Clr Drug Dosing eGFR BUN/Creatinine Ratio Glucose Calcium Phosphorus Magnesium Iron Transferrin Total Bilirubin AST ALT Alkaline Phosphatase C-Reactive Protein Total Protein Albumin Globulin Albumin/Globulin Ratio Prealbumin Triglycerides Cholesterol LDL Cholesterol, Calc VLDL Cholesterol, Calc HDL Cholesterol Cholesterol/HDL Ratio Diagnostic Findings KUB X-Ray 06/21/25 19:20 Exam(s): XR KUB EXAM: XR Abdomen, 1 View CLINICAL HISTORY: Reason for exam: New J-tube today; prior to tube feed. TECHNIQUE: Frontal supine view of the abdomen/pelvis. COMPARISON: 06/14/2025 FINDINGS: Gastrointestinal tract: There are several gaseous dilated proximal small bowel loops in the left upper quadrant measuring up to 4.8 cm. The colon is nondilated. Bones/joints: Unremarkable. No acute fracture. Tubes, lines and devices: There is a percutaneous feeding tube projecting of the left side of the abdomen. IMPRESSION: 1. There is a percutaneous feeding tube projecting of the left side of the abdomen. The tip position can not be determined without contrast. 2. There are several gaseous dilated proximal small bowel loops in the left upper quadrant measuring up to 4.8 cm. The colon is nondilated. Electronically signed by: Konrad Mena MD 06/21/25 21:11 PM Chest X-Ray 06/22/25 09:51 XR chest 1V portable CLINICAL HISTORY: confirm port placement COMPARISON STUDY: 06/10/2025 FINDINGS: Right chest port tip is in the SVC. There is no pneumothorax. There is stable mild cardiomegaly without pulmonary vascular congestion. Stable diffuse interstitial and patchy pulmonary opacities. There is free air under the diaphragm. IMPRESSION: 1. No pneumothorax. 2. Stable diffuse pulmonary opacities. 3. Free air under the diaphragm. ACT 112: Negative or not required by law. Electronically signed by: Jarek Castrejon M.D. 06/22/2025 12:42 PM Medications Administered Current Inpatient Medications Acetaminophen (Acetaminophen 325 Mg Tab) 650 mg PO Q4H PRN PRN Reason: mild Pain 1-3 or Fever Stop: 07/03/25 17:21 Albuterol (Albut/Ipratrop 3mg/0.5mg Neb 3 Ml Vial) 3 ml NEB QIDR PRN; Protocol PRN Reason: cap Stop: 07/03/25 17:21 Last Admin: 06/11/25 07:45 Dose: 3 ml Albuterol (Albuterol 0.083% Nebu Soln 3 Ml Vial) 2.5 mg NEB Q6H PRN; Protocol PRN Reason: Shortness Of Breath Or Wheezing Stop: 07/10/25 14:09 Amlodipine Besylate (Amlodipine Besylate 5 Mg Tab) 10 mg PO DAILY EULALIA Stop: 07/04/25 08:59 Last Admin: 06/23/25 09:23 Dose: 10 mg Atorvastatin Calcium (Atorvastatin 40 Mg Tab) 80 mg PO DAILY EULALIA Stop: 07/04/25 08:59 Last Admin: 06/23/25 09:21 Dose: 80 mg Diltiazem HCl (Diltiazem Hcl 30 Mg Tab) 30 mg PO TID EULALIA Stop: 07/06/25 13:59 Last Admin: 06/23/25 09:24 Dose: 30 mg Docusate Sodium (Docusate Sodium Syrup 100 Mg/10 Ml Udc) 100 mg PEG BID EULALIA Stop: 07/13/25 12:14 Last Admin: 06/23/25 09:24 Dose: 100 mg Enteral Nutritional Formula (Fibersource Hn 1.2 Sourav 1000 Ml Bag) 0 ml JT .See Protocol EULALIA; Protocol Stop: 07/21/25 19:59 Last Admin: 06/22/25 09:21 Dose: 1,000 ml Guaifenesin (Guaifenesin 200 Mg Tab) 200 mg PO Q4H PRN PRN Reason: CONGESTION/COUGH Stop: 07/03/25 17:21 Last Admin: 06/22/25 19:42 Dose: 200 mg Heparin Sodium (Beef Lung) (Heparin 10 Unit/Ml 5 Ml Flush) 5 ml FLUSH PRN PRN PRN Reason: Flush Stop: 07/05/25 11:27 Last Admin: 06/15/25 08:26 Dose: 5 ml Hydroxyzine HCl (Hydroxyzine Hcl 25 Mg Tab) 100 mg PO HS EULALIA Stop: 07/03/25 20:59 Last Admin: 06/22/25 21:07 Dose: 100 mg Methylprednisolone 40 mg/ (Syringe) 0.64 mls @ 1.5 mls/min IV Q12H EULALIA Stop: 07/14/25 20:59 Last Admin: 06/23/25 09:25 Dose: 1.5 mls/min Cefazolin Sodium (Ancef 2000mg) 2,000 mg in 15 mls @ 3.75 mls/min IV Q8H EULALIA Stop: 06/27/25 11:29 Last Admin: 06/23/25 03:12 Dose: 3.75 mls/min Melatonin (Melatonin 3 Mg Tab) 3 mg PO HS PRN PRN Reason: Insomnia Stop: 07/03/25 21:10 Last Admin: 06/15/25 21:23 Dose: 3 mg Morphine Sulfate (Morphine Sulfate 2 Mg/Ml Carp) 1 mg IV Q1H PRN PRN Reason: Severe Pain 7-10 Stop: 07/04/25 11:09 Last Admin: 06/23/25 11:29 Dose: 1 mg Morphine Sulfate (Morphine Sulfate 10 Mg/0.5 Ml Udp) 10 mg GT BID EULALIA Stop: 06/25/25 10:59 Last Admin: 06/23/25 09:37 Dose: 10 mg Multivitamins/Minerals (Multi Vit W/Minerals Liquid 15 Ml Udc) 15 ml PEG QAM EULALIA Stop: 07/22/25 08:59 Last Admin: 06/23/25 09:24 Dose: 15 ml Nutritional Formula (Prosource No Carb 30 Ml/Pkt) 30 ml JT DAILY EULALIA Stop: 07/22/25 08:59 Last Admin: 06/23/25 09:26 Dose: 30 ml Olanzapine (Olanzapine 2.5 Mg Tab) 2.5 mg PO HS EULALIA Stop: 07/03/25 20:59 Last Admin: 06/22/25 21:08 Dose: 2.5 mg Ondansetron HCl (Ondansetron Inj 2 Mg/Ml 2 Ml Vial) 4 mg IV Q6H PRN PRN Reason: Nausea Stop: 07/03/25 17:21 Last Admin: 06/23/25 11:29 Dose: 4 mg Oxycodone HCl (Oxycodone Hcl 15 Mg Tabcr (Oxycontin)) 15 mg PO Q12 EULALIA Stop: 07/04/25 10:39 Last Admin: 06/21/25 22:44 Dose: Not Given Oxycodone HCl (Oxycodone Hcl Ir 5 Mg Tab (Immediate Release)) 5 mg PEG Q4H PRN PRN Reason: Pain Stop: 07/05/25 22:36 Polyethylene Glycol (Polyethylene (Miralax) 17 Gm Pack) 17 gm PO BID PRN PRN Reason: Constipation Stop: 07/03/25 20:59 Last Admin: 06/22/25 08:17 Dose: 17 gm Sodium Chloride (Sodium Chlor 7% 4 Ml Neb) 4 ml NEB BIDR EULALIA Stop: 07/23/25 09:59 Last Admin: 06/23/25 10:55 Dose: 4 ml Sterile Water (Tube Feeding Water Flush) 200 ml GT Q4H EULALIA Stop: 07/22/25 09:59 Last Admin: 06/23/25 09:27 Dose: 200 ml Vitamin B Complex (Vitamin B Complex Tab) 1 tab PO DAILY EULALIA Stop: 07/04/25 08:59 Last Admin: 06/23/25 09:21 Dose: 1 tab PG Care Time/CCT Total # of Minutes Spent Total Time Spent with Patient: Total time spent is greater than 50% in coordination of care (as documented) at patient's floor/unit and/or counseling patient: Coding Level of Care Code 54033 SUB INP/OBS CARE 2/35MIN Diagnoses Squamous cell carcinoma of head and neck C44.42 Bilateral pneumonia J18.9 Lung location: unspecified part of lung Pneumonia type: due to unspecified organism Dysphagia R13.10 Weakness generalized R53.1 Time Spent (min) 35 (2) Bilateral pneumonia Lung location: unspecified part of lung Pneumonia type: due to unspecified organism Qualified Code(s): J18.9 - Pneumonia, unspecified organism
--- NOTE | 2025-06-23 14:55 | Surgery Progress Note ---
Date of Service June 23, 2025 Assessment & Plan (1) H/O jejunostomy: Plan: doing well lizzette tube feeds f/u in 2 weeks or as needed. call if any questions/concerns Admission and Anticipated Discharge Date Admission Date: June 03, 2025 Subjective pt seen. doing well. lizzette tf's Physical Exam Physical Exam: alert. nad incision looks good. Results & Data Vital Signs (Past 12 Hours) Vital Signs Temp Pulse Pulse Resp BP Pulse Ox O2 Del Method 06/23/25 10:56 94 H 104 H 16 3 L Nasal Cannula 06/23/25 10:45 36.7 C 94 H 21 146/74 H 96 Nasal Cannula 06/23/25 07:20 36.7 C 96 H 20 154/71 H 90 Nasal Cannula 06/23/25 03:07 36.4 C L 96 H 20 155/64 H 92 Nasal Cannula O2 Flow Rate 06/23/25 10:56 06/23/25 10:45 2 06/23/25 07:20 2 06/23/25 03:07 3 PG Care Time/CCT Total # of Minutes Spent Total Time Spent with Patient: Total time spent is greater than 50% in coordination of care (as documented) at patient's floor/unit and/or counseling patient: Coding Level of Care Code 73776 Post Operative Follow-Up Diagnoses H/O jejunostomy Z98.890
[2025-06-23 16:45] LABS: Creatinine Clr Calc Pharmacy 106.4 ml/min
[2025-06-23] MEDS: APIXABAN 5 MG TABLET PO SCH (20:46)
[2025-06-24 06:40] LABS: Hematocrit (blood only) 25.3 % (42.0-52.0); Hemoglobin 8.3 g/dl (14.0-18.0); Mean Corpuscular Hemoglobin 27.3 pg (25.0-34.0); Mean Corpuscular Volume 83.2 fL (80.0-100.0); Platelet Count 145 K/uL (130-400); RDW Standard Deviation 52.9 fL (36.4-46.3); Red Blood Count 3.04 M/uL (4.70-6.10); White Blood Count 19.80 K/ul (4.8-10.8)
[2025-06-24 07:23] LABS: Anion Gap 4.0 (3-11); Calcium 7.3 mg/dl (8.6-10.3); Carbon Dioxide 28.0 mmol/L (21-32); Chloride 103.0 mmol/L (98-107); Potassium 3.9 mmol/L (3.5-5.1); Sodium 135.0 mmol/L (136-145)
[2025-06-24 07:28] LABS: Blood Urea Nitrogen 21.0 mg/dl (6-23); Creatinine Clr Calc Pharmacy 118.1 ml/min; Glucose 196.0 mg/dl (70-99(Fasting))
[2025-06-24] MEDS: MoRPHine SULFATE 4 MG/ML 1 ML CARP\\VIAL IV PRN (13:47)
--- NOTE | 2025-06-24 16:00 | Hospitalist Progress Note ---
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: (10) Severe protein-calorie malnutrition: (11) Moderate dehydration: (12) Electrolyte abnormality: (13) Bilateral pneumonia: (14 (15) Acute hypoxemic respiratory failure: (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: Plan he's on tube feed at 60cc/hours with free water flush monitor sodium level on tube feed fluconazole added for oral candice he's on 4 liter oxygen, if he has worsening shortness of breath, low threshold for repeat CXR hx of pleural effusion he's deconditoned and is now agreeable for placement to STR check phosphate, magnesium c/w cefazolin for facial cellulitis, f/u with oncology for metastatic head and neck cancer deconditioning was independent prior to admission family is now agreeable for eval for STR dysphagia, s/p joejunstomy tube on 06/21/2025, on 06/24, the tube feed at at 60cc/hours c/w tube feeding, free water flushing monitor for sodium while on tube feed and free water flush #Possible aspiration pneumonia, MSSA positive #Hypoxemic respiratory failure (was on 40 liter high flow) he's on 3 liter oxygen -Cough and fever on admission -sputum positive for MSSA -Chest x ray previously shows diffuse PNA, patchy pulmonary opacities -CT chest negative for PE, but shows diffuse and worsening metastatic disease as below -Completed 12 days of abx therapy for PNA 06/14, left facial cellulitis this is related to head and neck cancer he's currently on cefazolin and his discharge has since decreased #leukocytosis - CRP remains minimal. treated with cefazolin, interval procalcitonin level #hypocalcemia - add calcium gluconate, stable on labs this more #Atrial fibrillation with RVR he's on cardizem 30mg TID eliquis started on 06/23 evening -Initiate after Port placement and PEG tube placement #Severe protein calorie malnutrition- s/p open jejunstomy tube on 06/21/2025 on 06/24, tube feed at rate of 60cc/hours #Pleural effusion -He is now s/o Thoracentesis with removal of 850cc of fluid -Stable to improving pulmonary status, monitor for need for repeat thoracentesis. 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 Blanchard defer radiation therapy however, spoke with Dr. Briggs on 06/22/2025, she explained that if his cancer pain is still significant then he will benefit from radiation therapy he has chemo port placed in our hospital Hypokalemia/hypomagnesemia- resolved Hypertension- Will continue his antihypertensives he is within normal range now Hyperlipidemia - Continue statin, once dehydration has been resolved Sleep apnea - Home CPAP Prophylaxis -Subq heparin initially family updated daughter updated on 06/23/2025 in person updated on 06/22/2025 in person updated on 06/24 in person CODE STATUS -Full code per his wishes, discussed with the patient and family at the bedside. palliative on consult Admission and Anticipated Discharge Date Admission Date: June 03, 2025 Subjective patient being evaluate, monitor for sodium while on free water flush his tube feed is at 60cc/hours family is requesting placement to STR has fungal infection on fluconazole still has 7/10 pain on left facial metastasis updated at bedside Physical Exam Physical Exam: VITALS: Reviewed. WEIGHT/BMI reviewed. GEN: Healthy appearing, well-developed, NAD. PSYCH: Good Judgment. AOx3. Normal memory, mood, and affect. HEENT -Head: NC/AT; + for tumor on the left fa cial region -Mouth and throat: MMM. Normal gums, muc lamar, palate,. Good dentition. NECK: Supple, with no masses. CV: RRR, no m/r/g. + for port LUNGS: CTAB, no w/r/c. on oxygen 4 liter ABD: soft to touch; + for J-tube : N/A MSK: no edema Neuro: AAOx3 Results & Data Results & Data Vital Signs (Past 12 Hours) Vital Signs Temp Pulse Resp BP Pulse Ox O2 Del Method O2 Flow Rate 06/24/25 07:37 36.4 C L 85 17 114/62 98 Nasal Cannula 4 06/24/25 07:20 96 H 16 93 Nasal Cannula 4 Laboratory Results Laboratory Results - last 72 hr 06/22/25 06/23/25 06/23/25 06:26 06:11 07:08 WBC 23.06 H 24.76 H RBC 3.67 L 3.37 L Hgb 10.0 L 8.9 L Hct 30.2 L 28.0 L MCV 82.3 83.1 MCH 27.2 26.4 MCHC 33.1 31.8 L RDW Std Deviation 50.6 H 53.2 H RDW Coeff of You 17.7 H 18.3 H Plt Count 182 191 MPV 11.0 12.3 Sodium 138 136 Potassium 4.3 TNP 3.8 Chloride 105 104 Carbon Dioxide 26 28 Anion Gap 7 4 BUN 19 19 Creatinine 0.64 0.48 L Est Cr Clr Drug Dosing 103.5 135.2 eGFR 96.30 105.04 BUN/Creatinine Ratio 29.7 H 39.6 H Glucose 165 H 189 H Calcium 7.5 L 7.5 L Phosphorus 2.4 L Magnesium 2.1 Iron 24 L Transferrin 142 L Total Bilirubin 0.5 AST 17 ALT 18 Alkaline Phosphatase 204 H C-Reactive Protein 3.18 H Total Protein 5.2 L Albumin 3.3 L Globulin 1.9 L Albumin/Globulin Ratio 1.7 Prealbumin 25.4 Triglycerides 143 Cholesterol 149 LDL Cholesterol, Calc 67 VLDL Cholesterol, Calc 29 HDL Cholesterol 53 Cholesterol/HDL Ratio 2.8 06/23/25 06/24/25 16:05 06:19 WBC 19.80 H RBC 3.04 L Hgb 8.3 L Hct 25.3 L MCV 83.2 MCH 27.3 MCHC 32.8 RDW Std Deviation 52.9 H RDW Coeff of You 18.0 H Plt Count 145 MPV 11.5 Sodium 135 L Potassium 3.9 Chloride 103 Carbon Dioxide 28 Anion Gap 4 BUN 21 Creatinine 0.61 0.55 L Est Cr Clr Drug Dosing 106.4 118.1 eGFR 97.71 100.81 BUN/Creatinine Ratio 38.2 H Glucose 196 H Calcium 7.3 L Phosphorus Magnesium Iron Transferrin Total Bilirubin AST ALT Alkaline Phosphatase C-Reactive Protein Total Protein Albumin Globulin Albumin/Globulin Ratio Prealbumin Triglycerides Cholesterol LDL Cholesterol, Calc VLDL Cholesterol, Calc HDL Cholesterol Cholesterol/HDL Ratio Medications Administered Current Inpatient Medications Acetaminophen (Acetaminophen 325 Mg Tab) 650 mg PO Q4H PRN PRN Reason: mild Pain 1-3 or Fever Stop: 07/03/25 17:21 Albuterol (Albut/Ipratrop 3mg/0.5mg Neb 3 Ml Vial) 3 ml NEB QIDR PRN; Protocol PRN Reason: cap Stop: 07/03/25 17:21 Last Admin: 06/11/25 07:45 Dose: 3 ml Albuterol (Albuterol 0.083% Nebu Soln 3 Ml Vial) 2.5 mg NEB Q6H PRN; Protocol PRN Reason: Shortness Of Breath Or Wheezing Stop: 07/10/25 14:09 Amlodipine Besylate (Amlodipine Besylate 5 Mg Tab) 10 mg PO DAILY EULALIA Stop: 07/04/25 08:59 Last Admin: 06/24/25 09:49 Dose: 10 mg Apixaban (Apixaban 5 Mg Tablet) 5 mg PO BID EULALIA Stop: 07/23/25 20:59 Last Admin: 06/24/25 09:50 Dose: 5 mg Atorvastatin Calcium (Atorvastatin 40 Mg Tab) 80 mg PO DAILY EULALIA Stop: 07/04/25 08:59 Last Admin: 06/24/25 09:50 Dose: 80 mg Diltiazem HCl (Diltiazem Hcl 30 Mg Tab) 30 mg PO TID EULALIA Stop: 07/06/25 13:59 Last Admin: 06/24/25 14:46 Dose: 30 mg Docusate Sodium (Docusate Sodium Syrup 100 Mg/10 Ml Udc) 100 mg PEG BID EULALIA Stop: 07/13/25 12:14 Last Admin: 06/24/25 09:50 Dose: 100 mg Enteral Nutritional Formula (Fibersource Hn 1.2 Sourav 1000 Ml Bag) 0 ml JT .See Protocol EULALIA; Protocol Stop: 07/21/25 19:59 Last Admin: 06/23/25 17:40 Dose: 1,000 ml Guaifenesin (Guaifenesin 200 Mg Tab) 200 mg PO Q4H PRN PRN Reason: CONGESTION/COUGH Stop: 07/03/25 17:21 Last Admin: 06/22/25 19:42 Dose: 200 mg Heparin Sodium (Beef Lung) (Heparin 10 Unit/Ml 5 Ml Flush) 5 ml FLUSH PRN PRN PRN Reason: Flush Stop: 07/05/25 11:27 Last Admin: 06/15/25 08:26 Dose: 5 ml Hydroxyzine HCl (Hydroxyzine Hcl 25 Mg Tab) 100 mg PO HS EULALIA Stop: 07/03/25 20:59 Last Admin: 06/23/25 20:47 Dose: 100 mg Methylprednisolone 40 mg/ (Syringe) 0.64 mls @ 1.5 mls/min IV Q12H EULALIA Stop: 07/14/25 20:59 Last Admin: 06/24/25 09:50 Dose: 1.5 mls/min Cefazolin Sodium (Ancef 2000mg) 2,000 mg in 15 mls @ 3.75 mls/min IV Q8H EULALIA Stop: 06/27/25 11:29 Last Admin: 06/24/25 14:46 Dose: 3.75 mls/min Melatonin (Melatonin 3 Mg Tab) 3 mg PO HS PRN PRN Reason: Insomnia Stop: 07/03/25 21:10 Last Admin: 06/15/25 21:23 Dose: 3 mg Morphine Sulfate (Morphine Sulfate 10 Mg/0.5 Ml Udp) 10 mg GT BID EULALIA Stop: 06/25/25 10:59 Last Admin: 06/24/25 09:50 Dose: 10 mg Morphine Sulfate (Morphine Sulfate 4 Mg/Ml 1 Ml Carp\Vial) 1 mg IV Q1H PRN PRN Reason: Severe Pain 7-10 Stop: 07/08/25 08:59 Last Admin: 06/24/25 13:47 Dose: 1 mg Multivitamins/Minerals (Multi Vit W/Minerals Liquid 15 Ml Udc) 15 ml PEG QAM EULALIA Stop: 07/22/25 08:59 Last Admin: 06/24/25 09:51 Dose: 15 ml Nutritional Formula (Prosource No Carb 30 Ml/Pkt) 30 ml JT DAILY EULALIA Stop: 07/22/25 08:59 Last Admin: 06/24/25 09:51 Dose: 30 ml Olanzapine (Olanzapine 2.5 Mg Tab) 2.5 mg PO HS EULALIA Stop: 07/03/25 20:59 Last Admin: 06/23/25 20:46 Dose: 2.5 mg Ondansetron HCl (Ondansetron Inj 2 Mg/Ml 2 Ml Vial) 4 mg IV Q6H PRN PRN Reason: Nausea Stop: 07/03/25 17:21 Last Admin: 06/23/25 11:29 Dose: 4 mg Oxycodone HCl (Oxycodone Hcl 15 Mg Tabcr (Oxycontin)) 15 mg PO Q12 EULALIA Stop: 07/04/25 10:39 Last Admin: 06/21/25 22:44 Dose: Not Given Oxycodone HCl (Oxycodone Hcl Ir 5 Mg Tab (Immediate Release)) 5 mg PEG Q4H PRN PRN Reason: Pain Stop: 07/05/25 22:36 Polyethylene Glycol (Polyethylene (Miralax) 17 Gm Pack) 17 gm PO BID PRN PRN Reason: Constipation Stop: 07/03/25 20:59 Last Admin: 06/22/25 08:17 Dose: 17 gm Sodium Chloride (Sodium Chlor 7% 4 Ml Neb) 4 ml NEB BIDR EULALIA Stop: 07/23/25 09:59 Last Admin: 06/24/25 07:20 Dose: 4 ml Sterile Water (Tube Feeding Water Flush) 100 ml GT Q4H EULALIA Stop: 07/24/25 17:59 Vitamin B Complex (Vitamin B Complex Tab) 1 tab PO DAILY EULALIA Stop: 07/04/25 08:59 Last Admin: 06/24/25 09:51 Dose: 1 tab PG Care Time/CCT Total # of Minutes Spent Total Time Spent with Patient: Total time spent is greater than 50% in coordination of care (as documented) at patient's floor/unit and/or counseling patient: Coding Level of Care Code 35649 SUB INP/OBS CARE 10/09MIN Diagnoses Squamous cell carcinoma of head and neck C44.42 Bilateral pneumonia J18.9 Lung location: unspecified part of lung Pneumonia type: due to unspecified organism Dysphagia R13.10 Weakness generalized R53.1 Time Spent (min) 25 (2) Bilateral pneumonia Lung location: unspecified part of lung Pneumonia type: due to unspecified organism Qualified Code(s): J18.9 - Pneumonia, unspecified organism
[2025-06-24] MEDS: CALCIUM GLUCONATE 1,000 MG/60 ML BAG IV SCH (17:10)
[2025-06-24] MEDS: TUBE FEEDING WATER FLUSH GT SCH (18:05)
[2025-06-24] MEDS: MoRPHine SULFATE 2 MG/ML CARP ONE (18:05)
[2025-06-25 08:12] LABS: Hematocrit (blood only) 25.1 % (42.0-52.0); Hemoglobin 8.3 g/dl (14.0-18.0); Mean Corpuscular Hemoglobin 27.6 pg (25.0-34.0); Mean Corpuscular Volume 83.4 fL (80.0-100.0); Platelet Count 146 K/uL (130-400); RDW Standard Deviation 54.4 fL (36.4-46.3); Red Blood Count 3.01 M/uL (4.70-6.10); White Blood Count 23.47 K/ul (4.8-10.8)
[2025-06-25 08:32] LABS: Alanine Aminotransferase 4.0 U/L (7-52); Albumin Globulin Ratio 1.5 (0.9-2); Albumin Level 2.9 gm/dl (3.4-5.0); Alkaline Phosphatase 220.0 U/L (34-104); Anion Gap 5.0 (3-11); Bilirubin,Total 0.3 mg/dl (0.2-1.0); Blood Urea Nitrogen 20.0 mg/dl (6-23); Calcium 7.4 mg/dl (8.6-10.3); Carbon Dioxide 30.0 mmol/L (21-32); Chloride 104.0 mmol/L (98-107); Creatinine Clr Calc Pharmacy 132.6 ml/min; Globulin 1.9 gm/dl (2.5-4.0); Glucose 199.0 mg/dl (70-99(Fasting)); Potassium 3.8 mmol/L (3.5-5.1); Sodium 139.0 mmol/L (136-145); Total Protein 4.8 gm/dl (6.0-8.3)
[2025-06-25] MEDS: MoRPHine SULFATE 2 MG/ML CARP ONE (12:01)
[2025-06-25] MEDS: SIMETHICONE 80 MG CHEW PO SCH (15:08)
[2025-06-25] MEDS ORDERED: FLUCONAZOLE 100 MG TAB PO STA (17:40)
[2025-06-25] MEDS ORDERED: Nursing to Pharmacy Communication SCH (18:30)
[2025-06-25] MEDS ORDERED: METOPROLOL TARTRATE 1 MG/ML VIAL IV PRN (19:00)
--- NOTE | 2025-06-25 19:17 | Hospitalist Progress Note ---
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: (10) Severe protein-calorie malnutrition: (11) Moderate dehydration: (12) Electrolyte abnormality: (13) Bilateral pneumonia: (14 (15) Acute hypoxemic respiratory failure: (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: Plan he's on tube feed at 60cc/hours with free water flush monitor sodium level on tube feed he's on 4 liter oxygen, if he has worsening shortness of breath, low threshold for repeat CXR hx of pleural effusion he's deconditoned and is now agreeable for placement to STR check phosphate, magnesium c/w cefazolin for facial cellulitis, f/u with oncology for metastatic head and neck cancer deconditioning was independent prior to admission family is now agreeable for eval for STR dysphagia, s/p joejunstomy tube on 06/21/2025, on 06/24, the tube feed at at 60cc/hours c/w tube feeding, free water flushing monitor for sodium while on tube feed and free water flush #Possible aspiration pneumonia, MSSA positive #Hypoxemic respiratory failure (was on 40 liter high flow) he's on 3 liter oxygen -Cough and fever on admission -sputum positive for MSSA -Chest x ray previously shows diffuse PNA, patchy pulmonary opacities -CT chest negative for PE, but shows diffuse and worsening metastatic disease as below -Completed 12 days of abx therapy for PNA 06/14, left facial cellulitis this is related to head and neck cancer he's currently on cefazolin and his discharge has since decreased #leukocytosis - CRP remains minimal. treated with cefazolin, interval procalcitonin level Oral thrush - will start fluconazole as pt not able to tolerate nystatin swish and swallow - monitor QTc #hypocalcemia - add calcium gluconate, stable on labs this more #Atrial fibrillation with RVR eliquis started on 06/23 evening -Initiate after Port placement and PEG tube placement - cardizem changed to metoprolol BID with IV back up, uptitrate as BP tolerates #Severe protein calorie malnutrition- s/p open jejunstomy tube on 06/21/2025 on 06/24, tube feed at rate of 60cc/hours - simethicone Q6h #Pleural effusion -He is now s/o Thoracentesis with removal of 850cc of fluid -Stable to improving pulmonary status, monitor for need for repeat t horacentesis. 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 Blanchard defer radiation therapy however, spoke with Dr. Briggs on 06/22/2025, she explained that if his cancer pain is still significant then he will benefit from radiation therapy he has chemo port placed in our hospital Hypokalemia/hypomagnesemia- resolved Hypertension- Will continue his antihypertensives he is within normal range now Hyperlipidemia - Continue statin, once dehydration has been resolved Sleep apnea - Home CPAP Prophylaxis -Subq heparin initially family updated daughter updated on 06/23/2025 in person updated on 06/22/2025 in person updated on 06/24 in person CODE STATUS -Full code per his wishes, discussed with the patient and family at the bedside. palliative on consult 06/25: pt's at bedside Admission and Anticipated Discharge Date Admission Date: June 03, 2025 Subjective Still have intermittent pain at the left jaw Review of Systems Review of Systems: Comprehensive ROS completed and is otherwise negative. Physical Exam Physical Exam: Gen: no acute distress, lying in bed comfortable HEENT: NC/AT, MMM, thrush, left jaw mass Lungs: nonlabored breathing, CTAB CVS: s1s2nl, tachycardic, irregular Abd: nl bowel sounds, soft, NT / ND : no bardales Ext: no edema Neuro: AAOx3 Psych: calm, cooperative Results & Data Results & Data Vital Signs (Past 12 Hours) Vital Signs Temp Pulse Pulse Resp BP Pulse Ox O2 Del Method 06/25/25 18:00 146 H 06/25/25 17:39 127 H 06/25/25 17:03 169 H 06/25/25 16:30 173 H 06/25/25 16:24 136 H 06/25/25 15:46 36.3 C L 168 H 20 124/63 90 Nasal Cannula 06/25/25 15:42 150 H 06/25/25 15:03 106 H 06/25/25 14:33 112 H 06/25/25 14:03 116 H 06/25/25 14:00 110 H 06/25/25 13:36 103 H 06/25/25 13:03 101 H 06/25/25 12:30 115 H 06/25/25 12:00 102 H 06/25/25 11:33 113 H 06/25/25 11:11 135 H 06/25/25 11:00 36.3 C L 81 20 129/57 L 93 Nasal Cannula 06/25/25 10:33 110 H 06/25/25 10:00 137 H 06/25/25 09:42 112 H 06/25/25 09:12 96 H 06/25/25 08:51 104 H 06/25/25 08:03 114 H 06/25/25 08:00 Nasal Cannula 06/25/25 07:53 36.7 C 117 H 26 H 152/70 H 92 Nasal Cannula 06/25/25 07:39 115 H 06/25/25 07:32 93 H 06/25/25 07:25 116 H 20 99 Nasal Cannula 06/25/25 07:18 91 H O2 Flow Rate 06/25/25 18:00 06/25/25 17:39 06/25/25 17:03 06/25/25 16:30 06/25/25 16:24 06/25/25 15:46 06/25/25 15:42 06/25/25 15:03 06/25/25 14:33 06/25/25 14:03 06/25/25 14:00 06/25/25 13:36 06/25/25 13:03 06/25/25 12:30 06/25/25 12:00 06/25/25 11:33 06/25/25 11:11 06/25/25 11:00 1 06/25/25 10:33 06/25/25 10:00 06/25/25 09:42 06/25/25 09:12 06/25/25 08:51 06/25/25 08:03 06/25/25 08:00 2 06/25/25 07:53 1 06/25/25 07:39 06/25/25 07:32 06/25/25 07:25 3 06/25/25 07:18 PG Care Time/CCT Total # of Minutes Spent Total Time Spent with Patient: Total time spent is greater than 50% in coordination of care (as documented) at patient's floor/unit and/or counseling patient: Coding Level of Care Code 49503 SUB INP/OBS CARE 3/50MIN Diagnoses Squamous cell carcinoma of head and neck C44.42 Bilateral pneumonia J18.9 Lung location: unspecified part of lung Pneumonia type: due to unspecified organism Dysphagia R13.10 Weakness generalized R53.1 (2) Bilateral pneumonia Lung location: unspecified part of lung Pneumonia type: due to unspecified o rganism Qualified Code(s): J18.9 - Pneumonia, unspecified organism
[2025-06-25] MEDS ORDERED: MoRPHine SULFATE 10 MG/0.5 ML UDP GT PRN (19:39)
[2025-06-25] MEDS: FLUCONAZOLE SUSP 40 MG/ML 35 ML PO STA (19:48)
[2025-06-25] MEDS: METOPROLOL TARTRATE 25 MG TAB PO SCH (19:49)
[2025-06-25] MEDS: MoRPHine SULFATE 10 MG/0.5 ML UDP GT SCH (22:21)
--- NOTE | 2025-06-26 00:58 | XRay Report ---
Exam(s): XR CXR 1 VIEW EXAM: XR Chest, 1 View CLINICAL HISTORY: Reason for exam: hypoxia. TECHNIQUE: Frontal view of the chest. COMPARISON: Prior chest x-ray from June 22, 2025. FINDINGS: There is a right IJ approach Port-A-Cath in the right anterior chest wall. Lungs: Moderate to heavy peribronchial thickening of the central and peripheral bronchi with increased interstitial opacities at the lungs and patchy opacity at the left lung base. Pleural space: Unremarkable. No pneumothorax. There is a moderate amount of free air under the diaphragms. Heart: Unremarkable. No cardiomegaly. Mediastinum: Unremarkable. Normal mediastinal contour. Bones/joints: Unremarkable. No acute fracture. IMPRESSION: Bronchitis with left lower lobe infiltrate. Stable free air under the diaphragms. Chronic interstitial lung disease. Communications: Verify Receipt Electronically signed by: Perlita Morillo MD 06/26/25 00:56 AM
[2025-06-26] MEDS: PIPERACILLIN/TAZOBACTAM 4.5 GM/100 ML BAG IV ONE (01:35)
--- NOTE | 2025-06-26 06:57 | Electrocardiogram Report ---
Test Reason : Blood Pressure : */* mmHG Vent. Rate : 113 BPM Atrial Rate : * BPM P-R Int : * ms QRS Dur : 130 ms QT Int : 364 ms P-R-T Axes : * -27 28 degrees QTcB Int : 499 ms Possible Multifocal atrial tachycardia Right bundle branch block Abnormal ECG When compared with ECG of 10-Jun-2025 04:28, No significant change Confirmed by Scott Quiroga [id number] on 06/26/2025 6:57:48 AM Referred By: REFERRED SELF Confirmed By: Scott Quiroga
[2025-06-26 07:52] LABS: Hematocrit (blood only) 24.9 % (42.0-52.0); Hemoglobin 7.7 g/dl (14.0-18.0); Mean Corpuscular Hemoglobin 26.1 pg (25.0-34.0); Mean Corpuscular Volume 84.4 fL (80.0-100.0); Platelet Count 114 K/uL (130-400); RDW Standard Deviation 57.0 fL (36.4-46.3); Red Blood Count 2.95 M/uL (4.70-6.10); White Blood Count 20.24 K/ul (4.8-10.8)
[2025-06-26 07:55] LABS: Base Excess VBG 6.1 mEq/L; HCO3 VBG 31 mmol/L; Oxygen Saturation VBG 72.1 %; PCO2 VBG 46 mmHg (38-50); PO2 VBG 42 mmHg; pH VBG 7.44 (7.36-7.41)
[2025-06-26 08:18] LABS: Alanine Aminotransferase 5.0 U/L (7-52); Albumin Globulin Ratio 1.6 (0.9-2); Albumin Level 2.8 gm/dl (3.4-5.0); Alkaline Phosphatase 224.0 U/L (34-104); Anion Gap 7.0 (3-11); Bilirubin,Total 0.4 mg/dl (0.2-1.0); Blood Urea Nitrogen 21.0 mg/dl (6-23); Calcium 7.1 mg/dl (8.6-10.3); Carbon Dioxide 29.0 mmol/L (21-32); Chloride 104.0 mmol/L (98-107); Creatinine Clr Calc Pharmacy 124.2 ml/min; Globulin 1.8 gm/dl (2.5-4.0); Glucose 227.0 mg/dl (70-99(Fasting)); Potassium 3.5 mmol/L (3.5-5.1); Sodium 140.0 mmol/L (136-145); Total Protein 4.6 gm/dl (6.0-8.3)
[2025-06-26] MEDS ORDERED: FLUCONAZOLE 100 MG TAB PO SCH (09:00)
[2025-06-26] MEDS: FLUCONAZOLE SUSP 40 MG/ML 35 ML PO SCH (09:03)
--- NOTE | 2025-06-26 09:43 | Hospitalist Progress Note ---
Date of Service June 26, 2025 Assessment & Plan (1) Squamous cell carcinoma of head and neck: (2) Bilateral pneumonia: (3) Dysphagia: (4) Weakness generalized: Plan #Dysphagia #Protein calorie malnutrition - s/p joejunstomy tube on 06/21/2025 - on 06/25, the tube feed at at 70cc/hours - c/w tube feeding, free water flushing - monitor TFs - simethicone q6h #Oral thrush - fluconazole initiated on 06/25 as pt not able to tolerate nystatin swish and swallow - monitor QTc #Atrial fibrillation with RVR - eliquis started on 06/23 evening - cardizem changed to metoprolol BID with IV back up, uptitrate as BP tolerates #Possible aspiration pneumonia, MSSA positive #Hypoxemic respiratory failure (was on 40 liter high flow) - cough / fever on admission - currently maintaining on 2L - sputum positive for MSSA - Chest x ray previously shows diffuse PNA, patchy pulmonary opacities - CT chest negative for PE, but shows diffuse and worsening metastatic disease as below - Completed 12 days of abx therapy for PNA 06/14 - CXR 06/25: bronchitis with LLL infiltrate - schedule Guaifenesin ATC - ICS #left facial cellulitis - this is related to head and neck cancer - s/p 5 days of cefazolin on 06/25 - outpatient follow up with Onc #leukocytosis - CRP remains minimal. - pt is on steroids, will wean down #hypocalcemia - Ca 7.1, albumin 2.8, corrected calcium: 8.1 #Pleural effusion - He is now s/p Thoracentesis with removal of 850cc of fluid - Stable to improving pulmonary status, monitor for need for repeat thoracentesis. 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 Blanchard defer radiation therapy however, spoke with Dr. Briggs on 06/22/2025, she explained that if his cancer pain is still significant then he will benefit from radiation therapy he has chemo port placed in our hospital #Pneumoperitoneum - due to PEG placement on 06/21 - remains stable and pt's abdomen is non-acute Hypokalemia/hypomagnesemia - replete and monitor Hypertension- Will continue his antihypertensives he is within normal range now Hyperlipidemia - Continue statin, once dehydration has been resolved Sleep apnea - Home CPAP #Deconditioning - pt independent prior to admission - PT / OT on board - pt agreeable to STR Prophylaxis - now back on apixaban CODE STATUS -Full code per his wishes, discussed with the patient and family at the bedside. palliative on consult family updated daughter updated on 06/23/2025 in person updated on 06/22/2025 in person updated on 06/24 in person 06/25: pt's at bedside 06/26: pt's at bedside Admission and Anticipated Discharge Date Admission Date: June 03, 2025 Subjective Overnight- mild hypoxia requiring additional oxygen support This morning, he states he feels fine and not complaints Review of Systems Review of Systems: Comprehensive ROS completed and is otherwise negative. Physical Exam Physical Exam: Gen: no acute distress, lying in bed comfortable HEENT: NC/AT, MMM, thrush, left jaw mass Lungs: nonlabored breathing, CTAB CVS: s1s2nl, tachycardic, irregular Abd: nl bowel sounds, soft, NT / ND : no bardales Ext: no edema Neuro: AAOx3 Psych: calm, cooperative Results & Data Results & Data Vital Signs (Past 12 Hours) Vital Signs Temp Pulse Pulse Pulse Resp BP Pulse Ox 06/26/25 08:02 36.7 C 94 H 24 114/68 92 06/26/25 06:50 100 H 16 99 06/26/25 05:05 36.4 C L 127 H 17 118/67 91 06/26/25 04:45 105 H 18 92 06/25/25 23:51 06/25/25 23:45 36.6 C 70 17 126/69 91 06/25/25 21:54 81 O2 Del Method O2 Flow Rate 06/26/25 08:02 Nasal Cannula 2 06/26/25 06:50 Oxymask 4 06/26/25 05:05 Oxymask 5 06/26/25 04:45 Oxymask 6 06/25/25 23:51 Oxymask 5 06/25/25 23:45 Oxymask 5 06/25/25 21:54 PG Care Time/CCT Total # of Minutes Spent Total Time Spent with Patient: Total time spent is greater than 50% in coordination of care (as documented) at patient's floor/unit and/or counseling patient: Coding Level of Care Code 42084 SUB INP/OBS CARE 2/35MIN Diagnoses Squamous cell carcinoma of head and neck C44.42 Bilateral pneumonia J18.9 Lung location: unspecified part of lung Pneumonia type: due to unspecified organism Dysphagia R13.10 Weakness generalized R53.1 (2) Bilateral pneumonia Lung location: unspecified part of lung Pneumonia type: due to unspecified organism Qualified Code(s): J18.9 - Pneumonia, unspecified organism
[2025-06-26] MEDS ORDERED: POTASSIUM CHLORIDE 20 MEQ/15 ML UDC PEG STA (10:11)
[2025-06-26] MEDS: POTASSIUM CHLORIDE 20 MEQ/15 ML UDC PEG ONE (13:09)
[2025-06-27 06:43] LABS: Hematocrit (blood only) 24.1 % (42.0-52.0); Hemoglobin 7.7 g/dl (14.0-18.0); Mean Corpuscular Hemoglobin 27.2 pg (25.0-34.0); Mean Corpuscular Volume 85.2 fL (80.0-100.0); Platelet Count 98 K/uL (130-400); RDW Standard Deviation 58.8 fL (36.4-46.3); Red Blood Count 2.83 M/uL (4.70-6.10); White Blood Count 19.75 K/ul (4.8-10.8)
[2025-06-27 07:07] LABS: Anion Gap 8.0 (3-11); Blood Urea Nitrogen 24.0 mg/dl (6-23); Calcium 7.3 mg/dl (8.6-10.3); Carbon Dioxide 27.0 mmol/L (21-32); Chloride 108.0 mmol/L (98-107); Creatinine Clr Calc Pharmacy 135.2 ml/min; Glucose 192.0 mg/dl (70-99(Fasting)); Potassium 3.5 mmol/L (3.5-5.1); Sodium 143.0 mmol/L (136-145)
[2025-06-27 07:16] LABS: Alanine Aminotransferase 8.0 U/L (7-52); Albumin Globulin Ratio 1.6 (0.9-2); Albumin Level 2.8 gm/dl (3.4-5.0); Alkaline Phosphatase 229.0 U/L (34-104); Bilirubin,Total 0.4 mg/dl (0.2-1.0); Globulin 1.8 gm/dl (2.5-4.0); Magnesium 1.8 mg/dl (1.7-2.4); Total Protein 4.6 gm/dl (6.0-8.3)
[2025-06-27] MEDS ORDERED: POTASSIUM PHOS 3 MMOL/1 ML INFUSION IV STA (07:59)
[2025-06-27] MEDS: POTASSIUM PHOSPHATE 30 MMOL in SODIUM CHLORIDE 0.9% 500 ML IV ONE (09:03)
--- NOTE | 2025-06-27 09:08 | Hospitalist Progress Note ---
Date of Service June 27, 2025 Assessment & Plan (1) Squamous cell carcinoma of head and neck: (2) Bilateral pneumonia: (3) Dysphagia: (4) Weakness generalized: Plan #Dysphagia #Protein calorie malnutrition - s/p joejunstomy tube on 06/21/2025 - on 06/25, the tube feed at at 70cc/hours - c/w tube feeding, free water flushing - monitor TFs - simethicone q6h #Oral thrush - after extensive oral care, his tongue is much better, though, there were couple spots on his soft palate - fluconazole initiated on 06/25 as pt not able to tolerate nystatin swish and swallow - - monitor QTc #Atrial fibrillation with RVR - eliquis started on 06/23 evening - cardizem changed to metoprolol BID with IV back up, uptitrate as BP tolerates #Possible aspiration pneumonia, MSSA positive #Hypoxemic respiratory failure (was on 40 liter high flow) - cough / fever on admission - currently maintaining on 2L - sputum positive for MSSA - Chest x ray previously shows diffuse PNA, patchy pulmonary opacities - CT chest negative for PE, but shows diffuse and worsening metastatic disease as below - Completed 12 days of abx therapy for PNA 06/14 - CXR 06/25: bronchitis with LLL infiltrate - schedule Guaifenesin ATC - ICS #left facial cellulitis - this is related to head and neck cancer - s/p 5 days of cefazolin on 06/25 - outpatient follow up with Onc #leukocytosis - CRP remains minimal. - pt is on steroids, will wean down #hypocalcemia - Ca 7.1, albumin 2.8, corrected calcium: 8.1 #Pleural effusion - He is now s/p Thoracentesis with removal of 850cc of fluid - Stable to improving pulmonary status, monitor for need for repeat thoracentesis. 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 Blanchard defer radiation therapy however, spoke with Dr. Briggs on 06/22/2025, she explained that if his cancer pain is still significant then he will benefit from radiation therapy he has chemo port placed in our hospital #Pneumoperitoneum - due to PEG placement on 06/21 - remains stable and pt's abdomen is non-acute Hypokalemia/hypomagnesemia - replete and monitor Hypertension- Will continue his antihypertensives he is within normal range now Hyperlipidemia - Continue statin, once dehydration has been resolved Sleep apnea - Home CPAP #Deconditioning - pt independent prior to admission - PT / OT on board - pt agreeable to STR Prophylaxis - now back on apixaban CODE STATUS -Full code per his wishes, discussed with the patient and family at the bedside. palliative on consult family updated daughter updated on 06/23/2025 in person updated on 06/22/2025 in person updated on 06/24 in person 06/25: pt's at bedside 06/26: pt's at bedside Admission and Anticipated Discharge Date Admission Date: June 03, 2025 Review of Systems Review of Systems: Comprehensive ROS completed and is otherwise negative. Physical Exam Physical Exam: Gen: no acute distress, lying in bed comfortable HEENT: NC/AT, MMM, thrush, left jaw mass Lungs: nonlabored breathing, CTAB CVS: s1s2nl, tachycardic, irregular Abd: nl bowel sounds, soft, NT / ND : no bardales Ext: no edema Neuro: AAOx3 Psych: calm, cooperative Results & Data Results & Data Vital Signs (Past 12 Hours) Vital Signs Temp Pulse Pulse Pulse Resp BP Pulse Ox 06/27/25 07:18 36.4 C L 89 20 147/75 H 92 06/27/25 07:00 98 H 19 98 06/27/25 03:20 36.7 C 83 17 120/66 90 06/27/25 00:08 36.6 C 65 17 133/61 95 06/27/25 00:08 06/26/25 21:51 95 H O2 Del Method O2 Flow Rate 06/27/25 07:18 Nasal Cannula 2 06/27/25 07:00 Nasal Cannula 2 06/27/25 03:20 Nasal Cannula 2 06/27/25 00:08 Room Air 06/27/25 00:08 Nasal Cannula 2 06/26/25 21:51 PG Care Time/CCT Total # of Minutes Spent Total Time Spent with Patient: Total time spent is greater than 50% in coordination of care (as documented) at patient's floor/unit and/or counseling patient: Coding Diagnoses Squamous cell carcinoma of head and neck C44.42 Bilateral pneumonia J18.9 Lung location: unspecified part of lung Pneumonia type: due to unspecified organism Dysphagia R13.10 Weakness generalized R53.1 (2) Bilateral pneumonia Lung location: unspecified part of lung Pneumonia type: due to unspecified organism Qualified Code(s): J18.9 - Pneumonia, unspecified organism
[2025-06-27 13:01] VITALS: TEMP 97.7; O2SAT 91
[2025-06-27] MEDS ORDERED: BENZOCAINE 20% SPRY 85 APPLN/85 GM CAN EXT PRN (13:21)
[2025-06-27] MEDS: METOPROLOL TARTRATE 25 MG TAB PO ONE (13:58)
[2025-06-27 15:54] VITALS: BP 130/80; RESP 22
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
[2025-06-27 16:17] VITALS: PULSE 83
[2025-06-27] MEDS ORDERED: METOPROLOL TARTRATE 50 MG TAB PO SCH (21:00)
== END 2025-06-27 16:46 | DRG 871 ==
LOC: ED 13:01 → SUATTDRO 16:18 → EDINP 16:18 → 2S 17:23

== ENCOUNTER 2025-07-02 11:07 | Inpatient (IN) ==
[2025-07-02] MEDS: ALBUT/IPRATROP 3MG/0.5MG NEB 3 ML VIAL INH STA (11:20)
[2025-07-02 11:33] LABS: iSTAT Art Bld Gas Base Excess -4.0 mmol/L (-9-1.8); iSTAT Art Bld Gas pCO2 Correct 38 mmHg (35-46); iSTAT Art Bld Gas pH Corrected 7.352 (7.35-7.45); iSTAT Arterial Blood Gas pO2 C 54
[2025-07-02] MEDS: PIPERACILLIN/TAZOBACTAM 4.5 GM/100 ML BAG IV ONE (11:33)
[2025-07-02] MEDS: SODIUM CHLORIDE 0.9% 1,000 ML IV SCH (11:33)
--- NOTE | 2025-07-02 11:38 | Emergency Department Note ---
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 much of this likely represents tumor, airspace opacities have increased from 06/25/2025. This could represent pulmonary edema and/or a superimposed pneumonia. Clinical correlation will be required and radiographic follow-up to resolution is recommended. ACT 112: Negative or not required by law. Electronically signed by: Bonifacio Michael M.D. 07/02/2025 12:07 PM Discharge Plan Visit Data Chief Complaint: Respiratory Distress ED Provider: Mook Edwards Discharge Problem: Acute hypoxemic respiratory failure, Acute dehydration, Dyspnea, Pneumonia, Anemia, Elevated troponin, Electrolyte abnormality Patient Disposition: Admitted As Inpatient Condition: Serious Forms Stand Alone Forms: My [facility] Prescriptions Prescriptions: No Action amlodipine 10 mg tablet 10 mg PO DAILY Rx Instructions: PER PT'S "HAVING TROUBLE SWALLOWING PILLS" hydroxyzine HCl 50 mg tablet 100 mg PO HS atorvastatin 80 mg tablet 80 mg PO DAILY Rx Instructions: PER PT'S "HAVING TROUBLE SWALLOWING PILLS" ondansetron HCl 8 mg Tablet 8 mg PO Q8H PRN (Reason: NAUSEA/VOMITING) fluorouracil 5 % Cream 1 applic TOPICAL DAILY olanzapine 2.5 mg Tablet 2.5 mg PO HS hydrocodone-acetaminophen 7.5-325 mg Tablet 1 tab PO Q4H PRN (Reason: Pain) lidocaine 5 % Adhesive Patch,Medicated 1 patch TOPICAL DAILY MDD 3 PATCHES/24 HOURS PRN (Reason: Pain) Rx Instructions: leave on most painful area for up to 12 hrs vitamin B complex Tablet 1 tab PO DAILY Rx Instructions: PER PT'S "HAVING TROUBLE SWALLOWING PILLS" albuterol sulfate 90 mcg/actuation Hfa Aerosol Inhaler 2 puff INHALATION TID PRN (Reason: Shortness Of Breath) naloxone 4 mg/actuation Dema,Non-Aerosol 4 mg INTRANASAL DIRECTED PRN (Reason: Opioid Overdose) ipratropium-albuterol 0.5 mg-3 mg(2.5 mg base)/3 mL Solution For Nebulization 3 ml NEB QIDR PRN (Reason: shortness of breath or wheezing) 30 Days Qty: 90 0RF fluconazole 40 mg/mL Suspension For Reconstitution 100 mg PO QAM Qty: 7 0RF Eliquis 5 mg Tablet 5 mg PO BID Qty: 60 0RF acetaminophen 325 mg Tablet 650 mg PO Q4H PRN (Reason: fever or pain) 30 Days Qty: 30 0RF metoprolol tartrate 50 mg Tablet 50 mg PO BID 30 Days Qty: 60 0RF morphine concentrate 100 mg/5 mL (20 mg/mL) Solution 10 mg G-tube BID 30 Days Qty: 30 0RF Fibersource HN 0.05 gram- 1.2 kcal/mL Liquid See Rx Instructions .ROUTE .COMPLEX Qty: 6000 0RF Rx Instructions: as directed sodium chloride 7 % Solution For Nebulization 4 ml NEB BIDR Qty: 120 0RF docusate sodium 60 mg/15 mL Syrup 100 mg PEG BID 30 Days Qty: 1500 0RF simethicone [Gas Relief (simethicone)] 80 mg Tablet,Chewable 80 mg PO Q6H 30 Days Qty: 120 0RF ProSource No Carb 15-60 gram-kcal/30 mL Liquid In Packet See Rx Instructions .ROUTE .COMPLEX Qty: 3000 0RF Rx Instructions: daily as directed guaifenesin 200 mg Tablet 200 mg PO Q4H 30 Days Qty: 180 0RF [id number] gluconate [Liquid Multivitamin] 9 mg iron/ 15 mL (15 mL) Liquid 15 ml PEG QAM 30 Days Qty: 450 0RF Tube Feeding Water Flush 100 ml G-tube Q4H 30 Days 0RF polyethylene glycol 3350 [Miralax] 17 gram/dose Powder 17 g PO BID PRN (Reason: const) Qty: 0 0RF Rx Instructions: PER PT'S "HAVING TROUBLE SWALLOWING PILLS" morphine 20 mg/5 mL (4 mg/mL) solution 5 mg PO Q4H PRN (Reason: pain) Qty: 30 0RF prednisone 10 mg tablet See Rx Instructions .ROUTE .COMPLEX Qty: 50 0RF Rx Instructions: 40mg po daily x5 days, 30mg po daily x5 days, 20mg po daily x5 days, 10mg po daily x5 days then stop. Referrals Referrals: Levon Landis MD [Primary Care Provider] - Discharge Problem: Dyspnea Qualifiers: Dyspnea type: unspecified Qualified Code(s): R06.00 - Dyspnea, unspecified Pneumonia Qualifiers: Pneumonia type: due to unspecified organism Laterality: bilateral Lung location: unspecified part of lung Qualified Code(s): J18.9 - Pneumonia, unspecified organism Anemia Qualifiers: Anemia type: unspecified type Qualified Code(s): D64.9 - Anemia, unspecified
[2025-07-02 11:58] LABS: Alanine Aminotransferase 25.0 U/L (7-52); Albumin Globulin Ratio 1.0 (0.9-2); Albumin Level 2.6 gm/dl (3.4-5.0); Alkaline Phosphatase 257.0 U/L (34-104); Anion Gap 12.0 (3-11); Bilirubin,Total 0.5 mg/dl (0.2-1.0); Blood Urea Nitrogen 28.0 mg/dl (6-23); Calcium 7.8 mg/dl (8.6-10.3); Carbon Dioxide 26.0 mmol/L (21-32); Chloride 102.0 mmol/L (98-107); Creatinine Clr Calc Pharmacy 73.6 ml/min; Globulin 2.5 gm/dl (2.5-4.0); Glucose 185.0 mg/dl (70-99(Fasting)); Magnesium 1.6 mg/dl (1.7-2.4); Potassium 3.6 mmol/L (3.5-5.1); Sodium 140.0 mmol/L (136-145); Total Protein 5.1 gm/dl (6.0-8.3)
[2025-07-02 11:59] LABS: Hematocrit (blood only) 27.4 % (42.0-52.0); Hemoglobin 8.4 g/dl (14.0-18.0); Mean Corpuscular Hemoglobin 27.0 pg (25.0-34.0); Mean Corpuscular Volume 88.1 fL (80.0-100.0); Platelet Count 84 K/uL (130-400); RDW Standard Deviation 65.1 fL (36.4-46.3); Red Blood Count 3.11 M/uL (4.70-6.10)
--- NOTE | 2025-07-02 12:09 | XRay Report ---
SINGLE VIEW CHEST CLINICAL HISTORY: Dyspnea FINDINGS: An AP, portable, upright chest radiograph is compared to study dated 06/25/2025 and correla [place] with chest CT dated 06/10/2025. A right internal jugular central venous infusion port is in place. The heart is enlarged noting atherosclerotic calcification of the thoracic aorta. The pulmonary vasc ulature appears congested. Extensive multifocal pulmonary metastatic disease is again noted. There ar e left larger than right pleural effusions with airspace opacities again seen throughout both lungs. There is fluid tracking along the right major fissure. No pneumothorax is identified. The skeletal st ructures are osteopenic. The bony thorax is grossly intact. IMPRESSION: 1. Cardiomegaly with pulmonary vascular congestion. 2. Multifocal pulmonary metastatic disease is again noted. 3. Left larger than right pleural effusions with multifocal airspace opacities. Although much of this likely represents tumor, airspace opacities have increased from 06/25/2025. This could represent pul monary edema and/or a superimposed pneumonia. Clinical correlation will be required and radiographic follow-up to resolution is recommended. ACT 112: Negative or not required by law. Electronically signed by: Bonifacio Michael M.D. 07/02/2025 12:07 PM
[2025-07-02 12:11] LABS: Acanthocytes 3+; Anisocytosis Present; Immature Granulocytes # (auto) 1.27 K/uL (0.01-0.20); Immature Granulocytes % (auto) 5.0 %; Ovalocytes 1+; Polychromasia 1+; Tear Drop Cells 1+; White Blood Count 25.44 K/ul (4.8-10.8)
[2025-07-02 12:15] LABS: Appearance Urine Clear (Clear); Glucose Urine UA Negative (Negative)
[2025-07-02 12:42] LABS: Bacteria Urine Automated None Seen (None Seen); Epithelial Cell Urine Auto 0-2 /hpf (0-2); RBC Urine Automated 0-2 /hpf (0-2)
[2025-07-02 12:57] LABS: Chlamydia pneumoniae PCR Not Detected (NotDetected); Coronavirus 229E PCR Not Detected (NotDetected); Coronavirus CoV-2 (COVID19)PCR Not Detected (NotDetected); Coronavirus HKU1 PCR Not Detected (NotDetected); Coronavirus NL63 PCR Not Detected (NotDetected); Coronavirus OC43PCR Not Detected (NotDetected); Human Metapneumovirus PCR Not Detected (NotDetected); Parainfluenza Virus 1 PCR Not Detected (NotDetected); Parainfluenza Virus 2 PCR Not Detected (NotDetected); Parainfluenza Virus 3 PCR Not Detected (NotDetected); Parainfluenza Virus 4 PCR Not Detected (NotDetected); Respiratory Syncytial VirusPCR Not Detected (NotDetected); Rhinovirus/Enterovirus PCR Not Detected (NotDetected)
[2025-07-02] MEDS: SODIUM CHLORIDE 0.9% 500 ML IV ONE (13:54)
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
[2025-07-02] MEDS: MoRPHine SULFATE 2 MG/ML CARP IV STA (14:30)
[2025-07-02] MEDS: RAPID SEQUENCE INDUCTION BAG ONE (15:10)
[2025-07-02] MEDS ORDERED: ALBUT/IPRATROP 3MG/0.5MG NEB 3 ML VIAL NEB PRN (16:10)
[2025-07-02] MEDS: PIPERACILLIN/TAZOBACTAM 4.5 GM/100 ML BAG IV SCH (17:09)
[2025-07-02 17:33] VITALS: TEMP 100
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
[2025-07-02] MEDS: MAGNESIUM SULFATE / D5W 1 GM/100 ML BAG IV SCH (21:03)
[2025-07-02] MEDS: OLANZAPINE 2.5 MG TAB PO SCH (21:03)
[2025-07-02] MEDS: APIXABAN 5 MG TABLET PO SCH (21:03)
[2025-07-02] MEDS: AZITHROMYCIN 500 MG/255 ML BAG IV SCH (21:03)
[2025-07-02 21:54] LABS: Anion Gap 11.0 (3-11); Blood Urea Nitrogen 34.0 mg/dl (6-23); Calcium 7.1 mg/dl (8.6-10.3); Carbon Dioxide 25.0 mmol/L (21-32); Chloride 104.0 mmol/L (98-107); Creatinine Clr Calc Pharmacy 63.8 ml/min; Glucose 227.0 mg/dl (70-99(Fasting)); Potassium 4.2 mmol/L (3.5-5.1); Sodium 140.0 mmol/L (136-145)
[2025-07-02] MEDS: FAMOTIDINE 20MG IV PUSH 20 MG/5 ML SYR IV SCH (22:46)
[2025-07-03] MEDS ORDERED: GLUCOSE 10 TAB/TUBE PO PRN (00:16)
[2025-07-03] MEDS ORDERED: CARBOHYDRATES FOR HYPOGLYCEMIA PO PRN (00:16)
[2025-07-03] MEDS ORDERED: GLUCOSE 40% GEL 15 GM TUBE PO PRN (00:16)
[2025-07-03] MEDS ORDERED: GLUCAGON FOR INJ 1 MG VIAL SQ PRN (00:16)
[2025-07-03] MEDS ORDERED: DEXTROSE 50% 50 ML SYRINGE IV PRN (00:16)
[2025-07-03] MEDS: INSULIN ASPART PER UNIT CHARGE SC SCH (00:49)
[2025-07-03] MEDS ORDERED: HALOPERIDOL LACTATE 5 MG/ML 1 ML VIAL IV STA (01:28)
[2025-07-03] MEDS ORDERED: SODIUM CHLORIDE 0.65% NA SOLN 45 ML (OCEAN) PRN (02:19)
[2025-07-03] MEDS ORDERED: STAT IV Infusion **Titration per Protocol STA ×2 (02:23→04:02)
[2025-07-03] MEDS: dexMEDEtomidine 200 MCG/50 ML BAG IV SCH (02:32)
[2025-07-03] MEDS: PHENYLEPHRINE/NSS 25 MG/250 ML BAG IV SCH (04:09)
[2025-07-03 05:03] LABS: Hematocrit (blood only) 22.3 % (42.0-52.0); Hemoglobin 7.0 g/dl (14.0-18.0); Mean Corpuscular Hemoglobin 27.2 pg (25.0-34.0); Mean Corpuscular Volume 86.8 fL (80.0-100.0); Platelet Count 62 K/uL (130-400); RDW Standard Deviation 62.9 fL (36.4-46.3); Red Blood Count 2.57 M/uL (4.70-6.10); White Blood Count 30.47 K/ul (4.8-10.8)
[2025-07-03 05:09] LABS: Alanine Aminotransferase 21.0 U/L (7-52); Albumin Globulin Ratio 1.0 (0.9-2); Albumin Level 2.4 gm/dl (3.4-5.0); Alkaline Phosphatase 233.0 U/L (34-104); Anion Gap 10.0 (3-11); Bilirubin,Total 0.5 mg/dl (0.2-1.0); Blood Urea Nitrogen 34.0 mg/dl (6-23); Calcium 6.9 mg/dl (8.6-10.3); Carbon Dioxide 26.0 mmol/L (21-32); Chloride 104.0 mmol/L (98-107); Creatinine Clr Calc Pharmacy 65.8 ml/min; Globulin 2.4 gm/dl (2.5-4.0); Glucose 199.0 mg/dl (70-99(Fasting)); Magnesium 2.7 mg/dl (1.7-2.4); Potassium 3.6 mmol/L (3.5-5.1); Sodium 140.0 mmol/L (136-145); Total Protein 4.8 gm/dl (6.0-8.3)
[2025-07-03 05:26] LABS: Acanthocytes 2+; Anisocytosis Present; Basophilic Stippling 1+; Dohle Bodies 1+; Immature Granulocytes # (auto) 0.64 K/uL (0.01-0.20); Immature Granulocytes % (auto) 2.1 %; Ovalocytes 2+; Poikilocytosis Present; Polychromasia 2+; Tear Drop Cells 2+
--- NOTE | 2025-07-03 07:05 | Critical Care Progress Note ---
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 Patient is undergoing immunotherapy for this. He also has a history of atrial fibrillation on Eliquis, history of pneumonia, obstructive sleep apnea with home CPAP, malnutrition with poor p.o. intake status post J- tube recently. The patient was brought to the hospital from [facility] on 07/02/2025 due to acute onset respiratory distress. The patient was significantly hypoxic and in respiratory distress and was placed on BiPAP with improvement in his oxygenation. Was found to be hypotensive and received 1 L of crystalloid resuscitation. The patient was unable to tolerate CT however chest x-ray showed worsening bilateral infiltrates with pleural effusions and evidence of pulmonary vascular congestion. Significant leukocytosis, lactic acidosis and elevated procalcitonin were noted. Viral PCR was negative. Due to mild hypotension and respiratory distress the patient was transferred to the ICU. He remains a DNR/DNI. His family was at bedside overnight. Reason Critically Ill: Acute hypoxic respiratory failure Extensive widespread squamous cell carcinoma originating from the head and neck, extensive pulmonary disease burden Septic shock Pneumonia Pleural effusions Neuro: Awake, anxious. On Precedex. Cardiac: POCUS performed overnight showed a grossly normal LVEF. Normal RV size with no septal bowing. IVC was not well-visualized. Requiring low-dose Levophed. Did receive 2 L of crystalloids. No evidence of QTc prolongation on fluconazole. Respiratory: Severe respiratory distress, DNR/DNI. Imaging with x-ray was obtained, did not not tolerate CT. Bilateral infiltrates with pleural effusions. 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 Has pleural effusions which are moderate in size. Has remained on BiPAP on 100% FiO2. GI: Has J-tube in place. No diet at this time. Can continue medications through J- tube. Famotidine. Was having some diarrhea in the [facility]. Bowel regimen is on hold. RENAL/LYTES: Mild THIAGO, BUN is rising. Minimal urine output, family denied Tse catheter. Bladder scan not showing evidence of significant retention, only 75 cc at last check. : No Tse catheter, declined by family. Periodic bladder scanning. ENDO: Started on methylprednisolone, will consider transitioning to hydrocortisone given severe pneumonia and septic shock. HEME: Hemoglobin downtrending, will discuss transfusion with family today. This may worsen his respiratory status however. Hemoglobin was 7 today. BUN is rising however no physical evidence of GI bleeding on examination. ID: Procalcitonin is significantly elevated. Recent sputum from 06/08/2025 with Staph aureus which was pansensitive. Blood cultures are pending here. Urinalysis negative for nitrites and leukocyte esterase. Sputum culture not yet obtained. Viral PCR is negative. Needs MRSA nares. Empirically initiated on Zosyn and azithromycin. Plan: I had a long discussion with family today. RN was present. I discussed the patient's wishes and I also discussed his CODE STATUS. I discussed his prognosis and trajectory of his likely course. The family stated that they would not want him to suffer. They want to make him comfortable. I discussed comfort care, they want to proceed with this at this time. They are having additional family come in today. We will proceed with comfort care measures only. Orders have been placed. Patient may transfer out of ICU. I have personally spent 55 minutes of critical care time in the direct management of this patient. This is a life/limb threatening event. This includes time spent evaluating patient, direct bedside care, chart review, placing orders, interpretation of diagnostic studies, discussion with consultants, patient, and family members, as well as other required patient management activities. This time is exclusive of all separately billable procedures, and teaching time and separate from and in addition to any other critical care service time. Admission and Anticipated Discharge Date Admission Date: July 02, 2025 Subjective Past 24-hour events: Patient admitted to the ICU overnight. Patient was hypoxic, maxed out on BiPAP with 100% FiO2. Still in respiratory distress breathing 30 times a minute all night. Minimal urine output. Family did not want Tse. Multiple meetings were had between critical care PA-C and family overnight. Patient is DNR/DNI. On low-dose sidney-. Chest x-ray was reviewed and is stable. Rounding: Family ( and 1 daughter) are at bedside earlier this morning during rounding. Patient has BiPAP in place. He is endorsing that he is having a lot of pain in his neck. The BiPAP dorado is causing pressure on the large mass on the left side of his face. The patient is uncomfortable, tachypneic. Diminished breath sounds bilaterally. I had a discussion with the family in private, nurse was present. I explained the severity of his illness. They expressed that he would not want to suffer, he remained a DNR/DNI and did not want aggressive measures. I discussed the possibility of comfort care and focusing on pain and anxiety control and drawing back on other medical therapies. They agreed and would like to initiate this this morning. The second daughter is going to come into the hospital. Intake: 2502 mL Output: 375 mL Net: +2127 mL Mechanical ventilation: BiPAP 17/12 with 100% FiO2. Breathing 30 times a minute. Feeding: NPO IV infusions: Sidney, Precedex Indwelling catheters: Peripheral IV Laboratory: CBC: WBC 30, hemoglobin 7, platelets 62 Chemistry: Sodium 140, potassium 3.6, chloride 104, bicarb 26, BUN 34, creatinine 0.94, calcium 6.9, magnesium 2.7, AST 21, ALT 21, BNP 185 ABG: None this morning Review of Systems Review of Systems: Limited due to work of breathing and BiPAP mask. Endorses pain in his neck that radiates down his chest. Physical Exam Physical Exam: Physical examination: General: Elderly, chronically ill-appearing, in moderate respiratory distress. HEENT: BiPAP mask in place. Fungating mass on left neck. Skin: Warm and dry. Fungating mass on left neck. Cardiovascular: Sinus tachycardia, no murmurs appreciated on my exam. No significant lower extremity edema. Lungs: Tachypneic, diminished bilaterally, on BiPAP 100%. Abdomen: Nondistended, nontender to palpation. Musculoskeletal: Normal muscle mass and tone. Neurologic: Awake and alert. CN II through XII are grossly intact. Nonfocal exam. Psychiatric: Anxious. Results & Data Results & Data Vital Signs (Past 12 Hours) Vital Signs Pulse Resp BP Pulse Ox O2 Del Method FiO2 07/03/25 06:36 105 H 34 H 95 90 07/03/25 06:15 122/62 07/03/25 06:15 112 H 26 H 95 90 07/03/25 06:00 132/67 07/03/25 06:00 109 H 31 H 96 90 07/03/25 05:45 122 H 31 H 96 90 07/03/25 05:45 116/66 07/03/25 05:30 124 H 28 H 95 07/03/25 05:30 114/60 07/03/25 05:15 120/80 07/03/25 05:12 105 H 29 H 96 90 07/03/25 05:01 121/63 07/03/25 05:00 106 H 31 H 90 07/03/25 04:48 99 H 32 H 96 90 07/03/25 04:45 120/66 07/03/25 04:42 102 H 32 H 99 90 07/03/25 04:31 110/73 07/03/25 04:24 110 H 30 H 99 90 07/03/25 04:21 100 H 28 H 98 90 07/03/25 04:15 98/60 L 07/03/25 04:15 99 H 27 H 99 75 07/03/25 04:12 131 H 31 H 98 90 07/03/25 04:00 106 H 33 H 98 90 07/03/25 04:00 87/54 L 07/03/25 03:48 106 H 31 H 98 90 07/03/25 03:45 94/56 L 07/03/25 03:39 114 H 37 H 97 90 07/03/25 03:33 123 H 40 H 97 90 07/03/25 03:31 111/61 07/03/25 03:18 129 H 33 H 98 90 07/03/25 03:15 120 H 34 H 96 90 07/03/25 03:15 101/63 07/03/25 03:03 127 H 32 H 98 90 07/03/25 03:00 92/58 L 07/03/25 02:30 115 H 31 H 96 90 07/03/25 02:30 142/66 H 07/03/25 02:15 130 H 36 H 97 90 07/03/25 02:00 131/69 07/03/25 01:57 130 H 37 H 98 90 07/03/25 01:00 135/83 07/03/25 01:00 116 H 35 H 98 90 07/03/25 00:33 104 H 36 H 98 90 07/03/25 00:30 104/67 07/03/25 00:18 109 H 31 H 97 07/03/25 00:00 107 H 07/03/25 00:00 107/77 07/02/25 23:50 108 H 41 H 98 90 07/02/25 23:48 113 H 32 H 94 90 07/02/25 23:39 107 H 34 H 99 90 07/02/25 23:31 100/64 07/02/25 23:15 103 H 35 H 100 90 07/02/25 23:00 114/73 07/02/25 23:00 117 H 38 H 98 90 07/02/25 22:30 118/72 07/02/25 22:30 112 H 26 H 97 90 07/02/25 21:33 108 H 34 H 100 90 07/02/25 21:30 105/80 07/02/25 21:12 105 H 42 H 98 07/02/25 20:39 106 H 35 H 98 07/02/25 20:38 115 H 33 H 99 100 07/02/25 20:31 92/43 L 07/02/25 20:00 110 H 40 H 84 L 07/02/25 20:00 104/58 L 07/02/25 19:51 114 H 36 H 98 07/02/25 19:39 106 H 30 H 98 07/02/25 19:39 122/76 07/02/25 19:36 106 H 36 H 98 07/02/25 19:30 BiPAP 90 07/02/25 19:15 105 H 33 H 99 07/02/25 19:00 93/72 L 07/02/25 19:00 104 H 35 H 97 Coding Level of Care Code 60077 CRITICAL CARE 1ST 30-74M Diagnoses Acute hypoxemic respiratory failure J96.01 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
[2025-07-03] MEDS: HYDROmorphone INJ 0.5 MG/0.5 ML SYR IV PRN ×2 (07:09→07:51)
[2025-07-03] MEDS ORDERED: PROMETHAZINE 12.5 MG/50.5 ML BAG IV PRN (07:32)
[2025-07-03] MEDS ORDERED: GLYCOPYRROLATE 0.2 MG/ML VIAL IV PRN (07:32)
[2025-07-03] MEDS ORDERED: ATROPINE SULFATE 1% OP SOLN 5 ML BTL SL PRN (07:32)
[2025-07-03] MEDS ORDERED: ONDANSETRON INJ 2 MG/ML 2 ML VIAL IV PRN (07:32)
[2025-07-03] MEDS ORDERED: HALOPERIDOL ORAL SOLN 2 MG/ML PO PRN (07:32)
[2025-07-03] MEDS: LORazepam Inj 1 MG in SYRINGE 0.5 ML IV PRN (07:49)
[2025-07-03] MEDS: ACETAMINOPHEN 1,000 MG/100 ML VIAL IV PRN (07:51)
--- NOTE | 2025-07-03 08:20 | XRay Report ---
EXAM: XR chest 1V portable CLINICAL HISTORY: Follow-up respiratory failure. TECHNIQUE: An X-ray image of the chest was obtained in AP projection. COMPARISON: CR dated 06/25/2025. FINDINGS: A [id number] is seen in situ, with the tip at the cavoatrial junction. Pulmonary Parenchyma: Multifocal, ill-defined opacities are seen involving the right mid and lower zones and the left lower zone. There is a mild pleural reaction at the left costophrenic recess, causing blunting of the left costophrenic angle. The right costophrenic recess is spared of any effusion or pleural thickening. Heart and Mediastinum: Cardiomegaly with bilateral hilar congestion is present. There is no mediastinal widening or masses. There is no hilar or mediastinal lymphadenopathy. Bony Thorax: The bony thorax appears intact without fractures or deformities. Soft Tissues: The soft tissues overlying the chest wall are unremarkable. IMPRESSION: 1. Interval stable, multifocal, ill-defined opacities are seen involving the right mid and lower zones and the left lower zone. 2. Mild pleural reaction at the left costophrenic recess, causing blunting of the left costophrenic angle, suggestive of mild pleural effusion. 3. Port-A-Cath is seen in situ, with the tip at the cavoatrial junction. 4. Compared to the previous X-ray dated 06/25/2025, the findings remain stable. Electronically signed by Shawn Morton 07-03-2025 08:19 AM
[2025-07-03] MEDS ORDERED: methylPREDNISolone 10 mg/mL (For Ped Dose < 7mg) IV SCH (09:00)
[2025-07-03] MEDS ORDERED: FLUCONAZOLE SUSP 40 MG/ML 35 ML PO SCH (09:00)
[2025-07-03 09:31] VITALS: BP 103/54
--- NOTE | 2025-07-03 10:02 | Hospitalist Progress Note ---
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: (3) HTN, goal below 140/90: (4) Hypercholesterolemia: (5) Cancer, metastatic to lung: (6) Anemia: (7) Squamous cell carcinoma of neck: (8) Atrial fibrillation with rapid ventricular response: (9) Hypotension: Plan # acute, severe on chronic hypoxemic respiratory failure #pleural effusions #metastatic pulmonary disease with carcinomatosis #recent bilateral pneumonia - admit ICU, DNR/DNI, tolerating BiPAP well at this point - consult pulmonology/ critical care - ICU order set, nebs as needed - Multifactorial hypoxemic respiratory failure in the setting of progressive and overwhelming pulmonary carcinomatosis - appropriate transition to comfort cares this morning in the ICU, expect passing imminent. Family at the bedside. Supportive resources offered #leukocytosis #SIRS/sepsis #volume depletion #hypotension - fairly abrupt onset, uncertain role of underlying infection, Zosyn initiated will continue, lactic acid order with initial set - admit ICU, initially midodrine, family okay with Levophed although he maintains a DNR/DNI status otherwise - modest improvement with initial volume resuscitation, admit to ICU, [place] PLR versus fluid challenge assessment - overwhelming severe sepsis in the setting of immunocompromise state and respiratory failure as above, comfort cares The following problems were present and managed initially, see transition to comfort care as above #A-fib with RVR #anemia #cancer pain secondary to head and neck metastasis #oral thrush # elevated blood sugars #hypocalcemia #dysphagia #sleep apnea #pneumoperitoneum #hyperlipidemia #FEN #CODE STATUS Admission and Anticipated Discharge Date Admission Date: July 02, 2025 Subjective Increased respiratory distress overnight, refractory acidemia. Family at bedside, decision making for comfort cares made early this AM. Supportive resources offered. Symptoms controlled at this time. Physical Exam Physical Exam: General: Respiratory distress, BiPAP removed during visit, lethargic, aware of surroundings, family at bedside HEENT: mucous membranes Dry, sclera clear neck: squamous cell lesion on the left neck, overlying scale epithelium, no erythema, localized tenderness or drainage cardiac: tachycardic, regular, no appreciable murmurs rubs or gallops respirations: shallow throughout with mild expiratory phase wheezing, crackles throughout abdomen: normal bowel sounds, nondistended extremities: no edema neuro: no focal deficits skin: No rash or discoloration Results & Data Results & Data Vital Signs (Past 12 Hours) Vital Signs Pulse Pulse Resp BP Pulse Ox O2 Del Method O2 Flow Rate 07/03/25 09:30 90 23 98 07/03/25 09:27 83 23 98 07/03/25 08:48 86 23 96 07/03/25 08:30 93 H 26 H 97 07/03/25 08:22 89 24 95 High Flow Nasal Cannula 50 07/03/25 08:15 100 H 26 H 98 07/03/25 08:09 105 H 21 97 07/03/25 07:45 103/54 L 07/03/25 07:45 103/54 L 07/03/25 07:35 116 H 36 H 96 07/03/25 07:33 113 H 32 H 96 07/03/25 07:31 110/62 07/03/25 07:30 149 H 37 H 94 07/03/25 07:30 BiPAP 40 07/03/25 07:18 123 H 28 H 95 07/03/25 07:17 104/59 L 07/03/25 07:17 104/59 L 07/03/25 07:17 104/59 L 07/03/25 07:09 117 H 42 H 94 07/03/25 07:03 122 H 35 H 95 07/03/25 07:01 126/61 07/03/25 07:01 126/61 07/03/25 06:54 114 H 31 H 93 07/03/25 06:51 125 H 33 H 95 07/03/25 06:45 110/66 07/03/25 06:36 105 H 34 H 95 07/03/25 06:15 122/62 07/03/25 06:15 112 H 26 H 95 07/03/25 06:00 132/67 07/03/25 06:00 109 H 31 H 96 07/03/25 05:45 122 H 31 H 96 07/03/25 05:45 116/66 07/03/25 05:30 124 H 28 H 95 07/03/25 05:30 114/60 07/03/25 05:15 120/80 07/03/25 05:12 105 H 29 H 96 07/03/25 05:01 121/63 07/03/25 05:00 106 H 31 H 07/03/25 04:48 99 H 32 H 96 07/03/25 04:45 120/66 07/03/25 04:42 102 H 32 H 99 07/03/25 04:31 110/73 07/03/25 04:24 110 H 30 H 99 07/03/25 04:21 100 H 28 H 98 07/03/25 04:15 98/60 L 07/03/25 04:15 99 H 27 H 99 07/03/25 04:12 131 H 31 H 98 07/03/25 04:00 106 H 33 H 98 07/03/25 04:00 87/54 L 07/03/25 03:48 106 H 31 H 98 07/03/25 03:45 94/56 L 07/03/25 03:39 114 H 37 H 97 07/03/25 03:33 123 H 40 H 97 07/03/25 03:31 111/61 07/03/25 03:18 129 H 33 H 98 07/03/25 03:15 120 H 34 H 96 07/03/25 03:15 101/63 07/03/25 03:03 127 H 32 H 98 07/03/25 03:00 92/58 L 07/03/25 02:30 115 H 31 H 96 07/03/25 02:30 142/66 H 07/03/25 02:15 130 H 36 H 97 07/03/25 02:00 131/69 07/03/25 01:57 130 H 37 H 98 07/03/25 01:00 135/83 07/03/25 01:00 116 H 35 H 98 07/03/25 00:33 104 H 36 H 98 07/03/25 00:30 104/67 07/03/25 00:18 109 H 31 H 97 07/03/25 00:00 107 H 07/03/25 00:00 107/77 07/02/25 23:50 108 H 41 H 98 07/02/25 23:48 113 H 32 H 94 07/02/25 23:39 107 H 34 H 99 07/02/25 23:31 100/64 07/02/25 23:15 103 H 35 H 100 07/02/25 23:00 114/73 07/02/25 23:00 117 H 38 H 98 07/02/25 22:30 118/72 07/02/25 22:30 112 H 26 H 97 FiO2 07/03/25 09:30 07/03/25 09:27 07/03/25 08:48 07/03/25 08:30 07/03/25 08:22 100 07/03/25 08:15 07/03/25 08:09 07/03/25 07:45 07/03/25 07:45 07/03/25 07:35 75 07/03/25 07:33 07/03/25 07:31 07/03/25 07:30 07/03/25 07:30 100 07/03/25 07:18 07/03/25 07:17 07/03/25 07:17 07/03/25 07:17 07/03/25 07:09 07/03/25 07:03 07/03/25 07:01 07/03/25 07:01 07/03/25 06:54 07/03/25 06:51 07/03/25 06:45 07/03/25 06:36 90 07/03/25 06:15 07/03/25 06:15 90 07/03/25 06:00 07/03/25 06:00 90 07/03/25 05:45 90 07/03/25 05:45 07/03/25 05:30 07/03/25 05:30 07/03/25 05:15 07/03/25 05:12 90 07/03/25 05:01 07/03/25 05:00 90 07/03/25 04:48 90 07/03/25 04:45 07/03/25 04:42 90 07/03/25 04:31 07/03/25 04:24 90 07/03/25 04:21 90 07/03/25 04:15 07/03/25 04:15 75 07/03/25 04:12 90 07/03/25 04:00 90 07/03/25 04:00 07/03/25 03:48 90 07/03/25 03:45 07/03/25 03:39 90 07/03/25 03:33 90 07/03/25 03:31 07/03/25 03:18 90 07/03/25 03:15 90 07/03/25 03:15 07/03/25 03:03 90 07/03/25 03:00 07/03/25 02:30 90 07/03/25 02:30 07/03/25 02:15 90 07/03/25 02:00 07/03/25 01:57 90 07/03/25 01:00 07/03/25 01:00 90 07/03/25 00:33 90 07/03/25 00:30 07/03/25 00:18 07/03/25 00:00 07/03/25 00:00 07/02/25 23:50 90 07/02/25 23:48 90 07/02/25 23:39 90 07/02/25 23:31 07/02/25 23:15 90 07/02/25 23:00 07/02/25 23:00 90 07/02/25 22:30 07/02/25 22:30 90 Laboratory Results 07/02/25 22:42 Aerobic Blood Culture - Pending Blood Anaerobic Blood Culture - Pending 07/02/25 21:15 Aerobic Blood Culture - Pending Blood Anaerobic Blood Culture - Pending 07/03/25 07/03/25 07/02/25 04:21 00:07 23:01 WBC 30.47 H* RBC 2.57 L Hgb 7.0 L POC Hgb Hct 22.3 L POC Hct MCV 86.8 MCH 27.2 MCHC 31.4 L RDW Std Deviation 62.9 H RDW Coeff of You 20.9 H Plt Count 62 L Immature Gran % (Auto) 2.1 Neut % (Auto) 89.0 Lymph % (Auto) 2.8 Kle[place] % (Auto) 5.9 Eos % (Auto) 0.0 Baso % (Auto) 0.2 Neut # (Auto) 27.14 H Lymph # (Auto) 0.84 L [place] # (Auto) 1.80 H Eos # (Auto) 0.00 Baso # (Auto) 0.05 Immature Gran # (Auto) 0.64 H Absolute Nucleated RBC 0.08 Nucleated RBC % (auto) 0.3 Dohle Bodies 1+ Polychromasia 2+ Poikilocytosis Present Basophilic Stippling 1+ Anisocytosis Present Tear Drop Cells 2+ Ovalocytes 2+ Acanthocytes (Spur) 2+ Specimen Type Sample Site POC pH POC pCO2 POC pO2 POC HCO3 POC Total CO2 POC Base Excess O2 Sat Pulse Oximetry ABG pH (Temp Correct) ABG pCO2 (Temp Corrct POC ABG pO2 at Pt Temp POC ABG O2 Sat Julian Test O2 Delivery Device POC FiO2 EPAP IPAP POC Sodium Sodium 140 POC Potassium Potassium 3.6 POC Chloride Chloride 104 Carbon Dioxide 26 Anion Gap 10 POC Anion Gap POC BUN BUN 34 H Creatinine 0.94 POC Creatinine Est Cr Clr Drug Dosing 65.8 eGFR 82.46 BUN/Creatinine Ratio 36.2 H Glucose 199 H POC Glucose 297 H POC Glucose (other) Lactate 3.3 H* Calcium 6.9 L POC Ioniz Calcium John Phosphorus 3.4 D Magnesium 2.7 H Total Bilirubin 0.5 Direct Bilirubin 0.1 AST 21 ALT 21 Alkaline Phosphatase 233 H Troponin I High Sens C-Reactive Protein B-Natriuretic Peptide Total Protein 4.8 L Albumin 2.4 L Globulin 2.4 L Albumin/Globulin Ratio 1.0 Procalcitonin Urine Color Urine Appearance Urine pH Ur Specific [place] Urine Protein Urine Glucose (UA) Urine Ketones Urine Blood Urine Nitrite Urine Bilirubin Urine Urobilinogen Ur Leukocyte Esterase Urine WBC (Auto) Urine RBC (Auto) U Hyaline Cast (Auto) U Epithel Cells (Auto) Urine Bacteria (Auto) Uric Acid Crystals Urine Yeast Urine Comment Nasal Screen MRSA (PCR) Adenovirus (PCR) B. pertussis DNA (PCR) B.parapertussis DNA PCR C. pneumoniae DNA (PCR) Coronavirus OC43 (PCR) Coronavirus HKU1 (PCR) Coronavirus 229E (PCR) SARS-CoV-2 (PCR) Coronavirus NL63 (PCR) Human Metapneumovir PCR Influenza Type A (PCR) Influenza Type B (PCR) M. pneumoniae (PCR) Parainfluenza 1 (PCR) Parainfluenza 2 (PCR) Parainfluenza 3 (PCR) Parainfluenza 4 (PCR) RSV (PCR) Entero/Rhino (PCR) 07/02/25 07/02/25 07/02/25 22:42 21:15 17:19 WBC RBC Hgb POC Hgb Hct POC Hct MCV MCH MCHC RDW Std Deviation RDW Coeff of You Plt Count Immature Gran % (Auto) Neut % (Auto) Lymph % (Auto) [place] % (Auto) Eos % (Auto) Baso % (Auto) Neut # (Auto) Lymph # (Auto) [place] # (Auto) Eos # (Auto) Baso # (Auto) Immature Gran # (Auto) Absolute Nucleated RBC Nucleated RBC % (auto) Dohle Bodies Polychromasia Poikilocytosis Basophilic Stippling Anisocytosis Tear Drop Cells Ovalocytes Acanthocytes (Spur) Specimen Type Sample Site POC pH POC pCO2 POC pO2 POC HCO3 POC Total CO2 POC Base Excess O2 Sat Pulse Oximetry ABG pH (Temp Correct) ABG pCO2 (Temp Corrct POC ABG pO2 at Pt Temp POC ABG O2 Sat Julian Test O2 Delivery Device POC FiO2 EPAP IPAP POC Sodium Sodium 140 POC Potassium Potassium 4.2 POC Chloride Chloride 104 Carbon Dioxide 25 Anion Gap 11 POC Anion Gap POC BUN BUN 34 H Creatinine 0.97 POC Creatinine Est Cr Clr Drug Dosing 63.8 eGFR 79.41 BUN/Creatinine Ratio 35.1 H Glucose 227 H POC Glucose 181 H POC Glucose (other) Lactate 4.0 H* Calcium 7.1 L POC Ioniz Calcium John Phosphorus 5.0 H Magnesium Total Bilirubin Direct Bilirubin AST ALT Alkaline Phosphatase Troponin I High Sens C-Reactive Protein 21.43 H B-Natriuretic Peptide 185 H Total Protein Albumin Globulin Albumin/Globulin Ratio Procalcitonin 26.90 H Urine Color Urine Appearance Urine pH Ur Specific [place] Urine Protein Urine Glucose (UA) Urine Ketones Urine Blood Urine Nitrite Urine Bilirubin Urine Urobilinogen Ur Leukocyte Esterase Urine WBC (Auto) Urine RBC (Auto) U Hyaline Cast (Auto) U Epithel Cells (Auto) Urine Bacteria (Auto) Uric Acid Crystals Urine Yeast Urine Comment Nasal Screen MRSA (PCR) Adenovirus (PCR) B. pertussis DNA (PCR) B.parapertussis DNA PCR C. pneumoniae DNA (PCR) Coronavirus OC43 (PCR) Coronavirus HKU1 (PCR) Coronavirus 229E (PCR) SARS-CoV-2 (PCR) Coronavirus NL63 (PCR) Human Metapneumovir PCR Influenza Type A (PCR) Influenza Type B (PCR) M. pneumoniae (PCR) Parainfluenza 1 (PCR) Parainfluenza 2 (PCR) Parainfluenza 3 (PCR) Parainfluenza 4 (PCR) RSV (PCR) Entero/Rhino (PCR) 07/02/25 07/02/25 07/02/25 16:58 15:13 13:37 WBC RBC Hgb POC Hgb Hct POC Hct MCV MCH MCHC RDW Std Deviation RDW Coeff of You Plt Count Immature Gran % (Auto) Neut % (Auto) Lymph % (Auto) [place] % (Auto) Eos % (Auto) Baso % (Auto) Neut # (Auto) Lymph # (Auto) [place] # (Auto) Eos # (Auto) Baso # (Auto) Immature Gran # (Auto) Absolute Nucleated RBC Nucleated RBC % (auto) Dohle Bodies Polychromasia Poikilocytosis Basophilic Stippling Anisocytosis Tear Drop Cells Ovalocytes Acanthocytes (Spur) Specimen Type Sample Site POC pH POC pCO2 POC pO2 POC HCO3 POC Total CO2 POC Base Excess O2 Sat Pulse Oximetry ABG pH (Temp Correct) ABG pCO2 (Temp Corrct POC ABG pO2 at Pt Temp POC ABG O2 Sat Julian Test O2 Delivery Device POC FiO2 EPAP IPAP POC Sodium Sodium POC Potassium Potassium POC Chloride Chloride Carbon Dioxide Anion Gap POC Anion Gap POC BUN BUN Creatinine POC Creatinine Est Cr Clr Drug Dosing eGFR BUN/Creatinine Ratio Glucose POC Glucose POC Glucose (other) Lactate 5.6 H* 4.5 H* Calcium POC Ioniz Calcium John Phosphorus Magnesium Total Bilirubin Direct Bilirubin AST ALT Alkaline Phosphatase Troponin I High Sens 32.0 H C-Reactive Protein B-Natriuretic Peptide Total Protein Albumin Globulin Albumin/Globulin Ratio Procalcitonin Urine Color Urine Appearance Urine pH Ur Specific [place] Urine Protein Urine Glucose (UA) Urine Ketones Urine Blood Urine Nitrite Urine Bilirubin Urine Urobilinogen Ur Leukocyte Esterase Urine WBC (Auto) Urine RBC (Auto) U Hyaline Cast (Auto) U Epithel Cells (Auto) Urine Bacteria (Auto) Uric Acid Crystals Urine Yeast Urine Comment Nasal Screen MRSA (PCR) Adenovirus (PCR) B. pertussis DNA (PCR) B.parapertussis DNA PCR C. pneumoniae DNA (PCR) Coronavirus OC43 (PCR) Coronavirus HKU1 (PCR) Coronavirus 229E (PCR) SARS-CoV-2 (PCR) Coronavirus NL63 (PCR) Human Metapneumovir PCR Influenza Type A (PCR) Influenza Type B (PCR) M. pneumoniae (PCR) Parainfluenza 1 (PCR) Parainfluenza 2 (PCR) Parainfluenza 3 (PCR) Parainfluenza 4 (PCR) RSV (PCR) Entero/Rhino (PCR) 07/02/25 07/02/25 07/02/25 12:00 11:52 11:29 WBC RBC Hgb POC Hgb 8.8 L Hct POC Hct 26 L MCV MCH MCHC RDW Std Deviation RDW Coeff of You Plt Count Immature Gran % (Auto) Neut % (Auto) Lymph % (Auto) [place] % (Auto) Eos % (Auto) Baso % (Auto) Neut # (Auto) Lymph # (Auto) [place] # (Auto) Eos # (Auto) Baso # (Auto) Immature Gran # (Auto) Absolute Nucleated RBC Nucleated RBC % (auto) Dohle Bodies Polychromasia Poikilocytosis Basophilic Stippling Anisocytosis Tear Drop Cells Ovalocytes Acanthocytes (Spur) Specimen Type Sample Site POC pH POC pCO2 POC pO2 POC HCO3 POC Total CO2 23 L POC Base Excess O2 Sat Pulse Oximetry ABG pH (Temp Correct) ABG pCO2 (Temp Corrct POC ABG pO2 at Pt Temp POC ABG O2 Sat Julian Test O2 Delivery Device POC FiO2 EPAP IPAP POC Sodium 139 Sodium POC Potassium 3.5 Potassium POC Chloride 103 Chloride Carbon Dioxide Anion Gap POC Anion Gap 17.0 POC BUN 25 H BUN Creatinine POC Creatinine 0.8 Est Cr Clr Drug Dosing eGFR BUN/Creatinine Ratio Glucose POC Glucose POC Glucose (other) 177 H Lactate Calcium POC Ioniz Calcium John 1.03 L Phosphorus Magnesium Total Bilirubin Direct Bilirubin AST ALT Alkaline Phosphatase Troponin I High Sens C-Reactive Protein B-Natriuretic Peptide Total Protein Albumin Globulin Albumin/Globulin Ratio Procalcitonin Urine Color Yellow Urine Appearance Clear Urine pH 5.5 Ur Specific [place] 1.020 Urine Protein Trace H Urine Glucose (UA) Negative Urine Ketones Negative Urine Blood Negative Urine Nitrite Negative Urine Bilirubin Negative Urine Urobilinogen Negative Ur Leukocyte Esterase Negative Urine WBC (Auto) 6-10 H Urine RBC (Auto) 0-2 U Hyaline Cast (Auto) 3-5 H U Epithel Cells (Auto) 0-2 Urine Bacteria (Auto) None Seen Uric Acid Crystals Present A Urine Yeast Present A Urine Comment Nasal Screen MRSA (PCR) Negative Adenovirus (PCR) Not Detected B. pertussis DNA (PCR) Not Detected B.parapertussis DNA PCR Not Detected C. pneumoniae DNA (PCR) Not Detected Coronavirus OC43 (PCR) Not Detected Coronavirus HKU1 (PCR) Not Detected Coronavirus 229E (PCR) Not Detected SARS-CoV-2 (PCR) Not Detected Coronavirus NL63 (PCR) Not Detected Human Metapneumovir PCR Not Detected Influenza Type A (PCR) Not Detected Influenza Type B (PCR) Not Detected M. pneumoniae (PCR) Not Detected Parainfluenza 1 (PCR) Not Detected Parainfluenza 2 (PCR) Not Detected Parainfluenza 3 (PCR) Not Detected Parainfluenza 4 (PCR) Not Detected RSV (PCR) Not Detected Entero/Rhino (PCR) Not Detected 07/02/25 11:20 WBC 25.44 H RBC 3.11 L Hgb 8.4 L POC Hgb 8.8 L Hct 27.4 L POC Hct 26 L MCV 88.1 MCH 27.0 MCHC 30.7 L RDW Std Deviation 65.1 H RDW Coeff of You 21.1 H Plt Count 84 L Immature Gran % (Auto) 5.0 Neut % (Auto) 80.8 Lymph % (Auto) 4.5 [place] % (Auto) 9.6 Eos % (Auto) 0.0 Baso % (Auto) 0.1 Neut # (Auto) 20.54 H Lymph # (Auto) 1.15 L [place] # (Auto) 2.44 H Eos # (Auto) 0.01 Baso # (Auto) 0.03 Immature Gran # (Auto) 1.27 H Absolute Nucleated RBC 0.25 H Nucleated RBC % (auto) 1.0 Dohle Bodies Polychromasia 1+ Poikilocytosis Basophilic Stippling Anisocytosis Present Tear Drop Cells 1+ Ovalocytes 1+ Acanthocytes (Spur) 3+ Specimen Type Arterial Sample Site R Radial POC pH 7.35 POC pCO2 38 POC pO2 54 L POC HCO3 21 POC Total CO2 22 L POC Base Excess -4.0 O2 Sat Pulse Oximetry 86 ABG pH (Temp Correct) 7.352 ABG pCO2 (Temp Corrct 38 POC ABG pO2 at Pt Temp 54 POC ABG O2 Sat 86.0 L Julian Test Pass O2 Delivery Device BIPAP POC FiO2 100 EPAP 12 IPAP 17 POC Sodium 140 Sodium 140 POC Potassium 3.5 Potassium 3.6 POC Chloride Chloride 102 Carbon Dioxide 26 Anion Gap 12 H POC Anion Gap POC BUN BUN 28 H Creatinine 0.84 POC Creatinine Est Cr Clr Drug Dosing 73.6 eGFR 88.71 BUN/Creatinine Ratio 33.3 H Glucose 185 H POC Glucose POC Glucose (other) Lactate Calcium 7.8 L POC Ioniz Calcium John Phosphorus Magnesium 1.6 L Total Bilirubin 0.5 Direct Bilirubin AST 23 ALT 25 Alkaline Phosphatase 257 H Troponin I High Sens 35.7 H C-Reactive Protein B-Natriuretic Peptide Total Protein 5.1 L Albumin 2.6 L Globulin 2.5 Albumin/Globulin Ratio 1.0 Procalcitonin Urine Color Urine Appearance Urine pH Ur Specific [place] Urine Protein Urine Glucose (UA) Urine Ketones Urine Blood Urine Nitrite Urine Bilirubin Urine Urobilinogen Ur Leukocyte Esterase Urine WBC (Auto) Urine RBC (Auto) U Hyaline Cast (Auto) U Epithel Cells (Auto) Urine Bacteria (Auto) Uric Acid Crystals Urine Yeast Urine Comment Nasal Screen MRSA (PCR) Adenovirus (PCR) B. pertussis DNA (PCR) B.parapertussis DNA PCR C. pneumoniae DNA (PCR) Coronavirus OC43 (PCR) Coronavirus HKU1 (PCR) Coronavirus 229E (PCR) SARS-CoV-2 (PCR) Coronavirus NL63 (PCR) Human Metapneumovir PCR Influenza Type A (PCR) Influenza Type B (PCR) M. pneumoniae (PCR) Parainfluenza 1 (PCR) Parainfluenza 2 (PCR) Parainfluenza 3 (PCR) Parainfluenza 4 (PCR) RSV (PCR) Entero/Rhino (PCR) Diagnostic Findings Chest X-Ray 07/02/25 11:13 SINGLE VIEW CHEST CLINICAL HISTORY: Dyspnea FINDINGS: An AP, portable, upright chest radiograph is compared to study dated 06/25/2025 and correlated with chest CT dated 06/10/2025. A right internal jugular central venous infusion port is in place. The heart is enlarged noting atherosclerotic calcification of the thoracic aorta. The pulmonary vasculature appears congested. Extensive multifocal pulmonary metastatic disease is again noted. There are left larger than right pleural effusions with airspace opacities again seen throughout both lungs. There is fluid tracking along the right major fissure. No pneumothorax is identified. The skeletal structures are osteopenic. The bony thorax is grossly intact. IMPRESSION: 1. Cardiomegaly with pulmonary vascular congestion. 2. Multifocal pulmonary metastatic disease is again noted. 3. Left larger than right pleural effusions with multifocal airspace opacities. Although much of this likely represents tumor, airspace opacities have increased from 06/25/2025. This could represent pulmonary edema and/or a superimposed pneumonia. Clinical correlation will be required and radiographic follow-up to resolution is recommended. ACT 112: Negative or not required by law. Electronically signed by: Bonifacio Michael M.D. 07/02/2025 12:07 PM Chest X-Ray 07/03/25 05:12 EXAM: XR chest 1V portable CLINICAL HISTORY: Follow-up respiratory failure. TECHNIQUE: An X-ray image of the chest was obtained in AP projection. COMPARISON: CR dated 06/25/2025. FINDINGS: A [id number] is seen in situ, with the tip at the cavoatrial junction. Pulmonary Parenchyma: Multifocal, ill-defined opacities are seen involving the right mid and lower zones and the left lower zone. There is a mild pleural reaction at the left costophrenic recess, causing blunting of the left costophrenic angle. The right costophrenic recess is spared of any effusion or pleural thickening. Heart and Mediastinum: Cardiomegaly with bilateral hilar congestion is present. There is no mediastinal widening or masses. There is no hilar or mediastinal lymphadenopathy. Bony Thorax: The bony thorax appears intact without fractures or deformities. Soft Tissues: The soft tissues overlying the chest wall are unremarkable. IMPRESSION: 1. Interval stable, multifocal, ill-defined opacities are seen involving the right mid and lower zones and the left lower zone. 2. Mild pleural reaction at the left costophrenic recess, causing blunting of the left costophrenic angle, suggestive of mild pleural effusion. 3. Port-A-Cath is seen in situ, with the tip at the cavoatrial junction. 4. Compared to the previous X-ray dated 06/25/2025, the findings remain stable. Electronically signed by Shawn Morton 07-03-2025 08:19 AM PG Care Time/CCT Total # of Minutes Spent Total Time Spent with Patient: Total time spent is greater than 50% in coordination of care (as documented) at patient's floor/unit and/or counseling patient: Coding Level of Care Code 61931 SUB INP/OBS CARE 2/35MIN Diagnoses Acute hypoxemic respiratory failure J96.01 Secondary squamous cell carcinoma of lung, unspecified laterality C78.00 Laterality: unspecified laterality HTN, goal below 140/90 I10 Hypercholesterolemia E78.00 Cancer, metastatic to lung C78.00 Iron deficiency anemia, unspecified iron deficiency anemia type D50.9 Anemia type: iron deficiency Iron deficiency anemia type: unspecified iron deficiency Squamous cell carcinoma of neck C44.42 Atrial fibrillation with rapid ventricular response I48.91 Hypotension I95.9 (2) 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
[2025-07-03 17:01] VITALS: PULSE 78; O2SAT 94
[2025-07-03] MEDS: TUBE FEEDING WATER FLUSH GT SCH (17:07)
--- NOTE | 2025-07-03 22:31 | Electrocardiogram Report ---
Test Reason : Blood Pressure : */* mmHG Vent. Rate : 111 BPM Atrial Rate : 111 BPM P-R Int : 146 ms QRS Dur : 124 ms QT Int : 360 ms P-R-T Axes : 53 3 18 degrees QTcB Int : 489 ms Sinus tachycardia with Premature atrial complexes Right bundle branch block Abnormal ECG When compared with ECG of 24-Jun-2025 23:17, No significant change Confirmed by Reymundo Connell ([id number]) on 07/03/2025 10:31:12 PM Referred By: REFERRED SELF Confirmed By: Reymundo Connell
[2025-07-04 08:31] VITALS: RESP 16
[2025-07-04] MEDS: HYDROmorphone INJ 0.5 MG/0.5 ML SYR IV PRN (12:07)
[2025-07-04] MEDS ORDERED: TUBE FEEDING WATER FLUSH GT PRN (16:49)
--- NOTE | 2025-07-04 16:49 | Hospitalist Progress Note ---
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 Multifactorial hypoxemic respiratory failure in the setting of progressive and overwhelming pulmonary carcinomatosis. Transition to GIS INSTRUCTOR 07/03. Weaned of HFNC 07/04 Has prn dilaudid, haldol, lorazepam, robinol available consider drip if not able to provide comfort with current pain regimen #leukocytosis #SIRS/sepsis #volume depletion #hypotension - overwhelming severe sepsis in the setting of immunocompromise state and respiratory failure as above, comfort cares The following problems were present and managed initially, see transition to comfort care as above #A-fib with RVR #anemia #cancer pain secondary to head and neck metastasis #oral thrush # elevated blood sugars #hypocalcemia #dysphagia #sleep apnea #pneumoperitoneum #hyperlipidemia #FEN #CODE STATUS Admission and Anticipated Discharge Date Admission Date: July 02, 2025 Subjective resting, appears comfortable. does not respond to verbal or physical stimuli Review of Systems Review of Systems: Unobtainable due to reduced consciousness Physical Exam Physical Exam: General: NAD, lying in bed Pulm: breathing unlabored, HFNC in place CV: tachycardic and irregular Pulm: no gurgling or rales anteriorly Results & Data Results & Data Vital Signs (Past 12 Hours) Vital Signs Resp O2 Del Method O2 Flow Rate FiO2 07/04/25 13:19 Nasal Cannula 2 07/04/25 08:00 High Flow Nasal Cannula 30 07/04/25 07:40 16 High Flow Nasal Cannula 35 30 PG Care Time/CCT Total # of Minutes Spent Total Time Spent with Patient: Total time spent is greater than 50% in coordination of care (as documented) at patient's floor/unit and/or counseling patient: Coding Level of Care Code 15253 SUB INP/OBS CARE 2/35MIN Diagnoses Acute hypoxemic respiratory failure J96.01 Secondary squamous cell carcinoma of lung, unspecified laterality C78.00 Laterality: unspecified laterality HTN, goal below 140/90 I10 Hypercholesterolemia E78.00 Cancer, metastatic to lung C78.00 Iron deficiency anemia, unspecified iron deficiency anemia type D50.9 Anemia type: iron deficiency Iron deficiency anemia type: unspecified iron deficiency Squamous cell carcinoma of neck C44.42 Atrial fibrillation with rapid ventricular response I48.91 Hypotension I95.9 (2) 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
--- NOTE | 2025-07-05 00:13 | Death Pronouncement Note ---
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 They were unresponsive to, and did not withdrawal from, verbal or tactile stimuli. They were unresponsive to corneal, pupillary, and oculocephalic reflexes. On cardiopulmonary exam, they were found to be without detectable carotid pulses, and without spontaneous heart tones or respirations. Time of was pronounced by me on 07/05/2025 at 0001. Attending physician was notified. Next of kin were present at bedside. Signed: Leandro Valladares DO Additional Data Attending physician: Amaya Morgan MD Resident Activity Tracking Resident Involvement: Resident Care Provided Care Provided: Adult Hospital Medicine
--- NOTE | 2025-07-05 08:40 | Discharge Summary ---
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 Multifactorial hypoxemic respiratory failure in the setting of progressive and overwhelming pulmonary carcinomatosis. Transition to FRESCO ARTIST 07/03. Weaned of HFNC 07/04. 07/05 00:01 #leukocytosis #SIRS/sepsis #volume depletion #hypotension - overwhelming severe sepsis in the setting of immunocompromise state and respiratory failure as above, comfort cares The following problems were present and managed initially, see transition to comfort care as above #A-fib with RVR #anemia #cancer pain secondary to head and neck metastasis #oral thrush # elevated blood sugars #hypocalcemia #dysphagia #sleep apnea #pneumoperitoneum #hyperlipidemia Admission HPI Per Admitting Provider 80-year-old male recent history of squamous cell carcinoma of the head and neck, pulmonary metastasis with carcinomatosis, history of sleep apnea, recent bilateral pneumonia, ongoing immunotherapy status post first infusion 2 weeks ago just discharged from the hospital after prolonged hospitalization for deconditioning, malnutrition, initiation of chemotherapy. had been at [facility], doing fairly well yesterday was a fairly normal and unremarkable day in fact quite busy with visiting staff. This morning had fairly abrupt decompensation in his respiratory status. Family arrived to note that he was quite anxious and quite labored in breathing. Per staff this was fairly abrupt in onset. Secondary to this ambulance was contacted he was brought to the emergency department for evaluation. Initially noted to be hypoxemic into the 70s, hypertensive into the 200 range, no intervention for that. He was placed on BiPAP stabilization of his oxygen sats, VBG indicated compensated blood gas with low CO2. Noted to be tachycardic, modestly hypotensive after initial presentation was given a liter of normal saline. Only limited to response. He was referred for admission for acute hypoxemic respiratory failure in the setting of pulmonary carcinomatosis. Chest x-ray showed generally increase pulmonary markings with mild to moderate pleural effusions, early pulmonary edema versus volume overload. Bedside ultrasound indicated hyperdynamic left ventricle, relative right hypokinesis at the base, study limited based on habitus and acuity. Stable on BiPAP 08/19. Perisstent borderline hypotension, MAP in the lower 60s. Initial volume expansion. Sepsis bundle initiated, antibiotic loading dose provided. Plan to admit to ICU for further evaluation, stabilization and further diagnosis of abrupt onset respiratory failure uncertain etiology concern for right heart strain. Discharge Exam Discharge Plan Discharge Items Patient Disposition: Other Date/Time: 07/05/25 00:01 Hospital Stay Data Consultations 07/02/25 12:54 ED Decision to Admit Stat 07/02/25 16:10 Consult Frame Assembler Routine Total Time Total Time Spent Total Time Spent (In Minutes): Time spent day of discharge 10 minutes including direct patient care, medication reconciliation, documentation, review of labs and images, and coordination of care. Coding Level of Care Code None Diagnoses Acute hypoxemic respiratory failure J96.01 Secondary squamous cell carcinoma of lung, unspecified laterality C78.00 Laterality: unspecified laterality HTN, goal below 140/90 I10 Hypercholesterolemia E78.00 Cancer, metastatic to lung C78.00 Iron deficiency anemia, unspecified iron deficiency anemia type D50.9 Anemia type: iron deficiency Iron deficiency anemia type: unspecified iron deficiency Squamous cell carcinoma of neck C44.42 Atrial fibrillation with rapid ventricular response I48.91 Hypotension I95.9
== END 2025-07-05 01:18 | disposition expired | DRG 871 ==
LOC: ED 11:07 → SUATTDRO 14:14 → 1E 14:14 → 3E 07-03 17:07